=== PATIENT | male | born 1955 | race Caucasian/White ===

== ENCOUNTER → 2018-02-03 09:30 | Day surgery (SDC) | payer OTHER, SELFPAY ==
[2018-01-26 14:57] LABS: Hematocrit 37.4 % (40-54); Hemoglobin 12.2 g/dl (13.0-16.5); Mean Corp Hgb Conc 32.6 g/gl (32-36); Mean Corpuscular Volume 95.2 fL (80-94); Mean Platelet Vol. 10.6 fl (6.2-12.0); Platelet Count 234 K/mm3 (150-450); RBC Distribution Width CV 13.2 % (11.6-14.6); RBC Distribution Width SD 44.5 fl (35.1-43.9); Red Blood Count 3.93 M/mm3 (4.6-6.2); White Blood Count 7.6 K/mm3 (4.4-11.0)
[2018-01-26 14:58] LABS: Scan Indicated on CBC? Y/N NO
[2018-01-26 15:26] LABS: Anion Gap 10 (5-15); BUN 51 mg/dL (7-18); BUN/Creat Ratio 15.7 RATIO (10-20); Calcium,Total 8.7 mg/dL (8.5-10.1); Chloride 113 mmol/L (98-107); Creatinine, Serum 3.24 mg/dL (0.70-1.30); EST Glomerular Filtration Rate 21 mL/min (>60); Est Glom Filt Rate - Afr Amer 25 mL/min (>60); Glucose 88 mg/dL (74-106); Potassium 4.9 mmol/L (3.5-5.1); Sodium Level 143 mmol/L (136-145)
--- NOTE | 2018-02-03 12:04 | OP.PCM_ITS ---
Problem List (1) Problem with dialysis access Status: Acute Qualifiers: Encounter type: subsequent encounter Report of Operation Date of Procedure: 02/03/18 Pre-Operative Diagnosis: Failure to mature left forearm radiocephalic her to Post-Operative Diagnosis: Proximal venous fistula stenosis ?2 Surgery/Procedure Performed:: Carbon dioxide left upper extremity fistulogram with 6 x 80 mm ever cross angioplasty Description of Surgical Findings:: Timeout and informed consent was obtained. 62-year-old gent was taken to the specialist previous lab placed upon the table. 50 mcg of fentanyl 1 mg Versed is intravenous sedation. The left upper extremity was sterilely draped. Ultrasound was used to identify the cephalic vein in the proximal forearm close to the antecubital space. Guidance micropuncture needle was inserted retrograde with flow. Micropuncture wire was inserted. A 6 Canadian short sheath dilator was inserted. Using a 4 Canadian glide cath a 035 angled Glidewire was placed into the radial artery proximally anastomosis. I then advanced the glide cath. Using carbon dioxide 15 cc a fistulogram was obtained this demonstrated clinically significant stenosis within 2 cm of the anastomosis and then a secondary area approximately 6-8 cm from the anastomosis. A 6 x 80 mm ever cross balloon was placed so was just to be within the arterial anastomotic area and balloon angioplasty was performed up to 8 cecilia of pressure. The balloon was repositioned several times and eventually was taken up to 14 cecilia of pressure. In the more proximal forearm I also did some balloon maturation angioplasty there as well. Finally at the completion of several insufflations replaced the glide cath I did used 2 cc only of contrast to obtain the final fistulogram now demonstrating dramatic improvement. I finished off the upper arm fistulogram with carbon dioxide. Sheath was removed U suture of 4-0 nylon was placed blood loss was minimal there are no apparent complications he was taken back to his room in satisfactory condition. Impression left forearm radiocephalic arteriovenous fistula with 2 areas of venous stenosis successfully treated with balloon angioplasty. There is good forearm upper arm and central venous outflow of cephalic and basilic veins. Derrek Posadas M.D., F.A.C.S. Type of Anesthesia:: IV Sedation
== END ==
LOC: CLSP 03-07 12:01
PROVIDERS: Family Provider Preventive Medicine Occupational Medicine; PCP Preventive Medicine Occupational Medicine; Visit Provider Surgery
DX: T82.898D Other specified complication of vascular prosthetic devices, implants and grafts, subsequent encounter (principal); I87.1 Compression of vein; N25.81 Secondary hyperparathyroidism of renal origin; I12.0 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 kidney disease or end stage renal disease; E11.22 Type 2 diabetes mellitus with diabetic chronic kidney disease; N18.5 Chronic kidney disease, stage 5; Z87.891 Personal history of nicotine dependence; K21.9 Gastro-esophageal reflux disease without esophagitis; Z85.89 Personal history of malignant neoplasm of other organs and systems
CPT/HCPCS: 36415; 36902; 76937; 80048; 85027; 99152; 99153; Q9967; C1725; C1769

== ENCOUNTER 2019-02-04 12:34 | Outpatient (RCR) | payer OTHER, SELFPAY ==
[2019-02-04 14:16] LABS: Absolute Lymphocyte Count 1.06 X10^3/ul (0.83-4.51); Absolute Neutrophil Count 4.7 X10^3/uL (2.0-7.7); Basophil# 0.04 X10^3/uL; Basophil% 0.6 % (0-1); Eosinophil# 0.13 X10^3/uL; Hematocrit 38.4 % (40-54); Hemoglobin 12.5 g/dl (13.0-16.5); Lymphocyte # 1.06 X10^3/ul (4.0); Lymphocyte % 16.6 % (19-41); Mean Corp Hgb Conc 32.6 g/gl (32-36); Mean Corpuscular Hgb 30.9 pg (27.0-32.0); Mean Corpuscular Volume 94.8 fL (80-94); Mean Platelet Vol. 10.5 fl (6.2-12.0); Monocyte# 0.43 X10^3/uL; Monocyte% 6.7 % (0-10); Neutrophil # 4.71 X10^3/uL (2.7-7.7); Neutrophil % 73.9 % (47-70); Platelet Count 261 K/mm3 (150-450); RBC Distribution Width CV 13.2 % (11.6-14.6); RBC Distribution Width SD 45.8 fl (35.1-43.9); Red Blood Count 4.05 M/mm3 (4.6-6.2); White Blood Count 6.4 K/mm3 (4.4-11.0)
[2019-02-04 14:17] LABS: POSITIVE COUNT NO; POSITIVE DIFFERENTIAL NO; POSITIVE MORPHOLOGY NO
[2019-02-04 14:31] LABS: Hemoglobin A1c 5.5 % (4.2-6.3); Vitamin B12 845 pg/mL (211-911); Vitamin D,25 Hydroxy 26.3 ng/mL (29.95-100.01)
[2019-02-04 14:32] LABS: PTHIN 234.8 pg/mL (18.4-80.1)
[2019-02-04 14:41] LABS: AST(SGOT) 23 U/L (15-37); Alanine Aminotransfer ALT/SGPT 34 U/L (16-61); Alkaline Phosphatase 85 U/L (45-117); Anion Gap 7 (5-15); BUN 43 mg/dL (7-18); BUN/Creat Ratio 14.3 RATIO (10-20); Calcium,Total 8.7 mg/dL (8.5-10.1); Chloride 115 mmol/L (98-107); Creatinine, Serum 3.01 mg/dL (0.70-1.30); EST Glomerular Filtration Rate 22 mL/min (>60); Est Glom Filt Rate - Afr Amer 27 mL/min (>60); Globulin 4.1 g/dL (2.2-4.2); Glucose 74 mg/dL (74-106); PSA,Total - Annual Screen 1.65 ng/mL (0.00-4.00); Potassium 4.3 mmol/L (3.5-5.1); Protein, Total 8.1 g/dL (6.4-8.2); Sodium Level 142 mmol/L (136-145); Thyroid Stim Hormone (TSH) 0.41 uIU/mL (0.358-3.74)
[2019-02-04 15:29] LABS: Microalbumin:Creatinine Ratio 618.3 mg/g CRE (<30 mg/g CRE)
== END 2019-02-15 16:00 | disposition home or self-care (01) ==
LOC: MTLAB 12:34
PROVIDERS: Family Provider Family Medicine; PCP Family Medicine
DX: E55.9 Vitamin D deficiency, unspecified (principal); E78.1 Pure hyperglyceridemia; I12.9 Hypertensive chronic kidney disease with stage 1 through stage 4 chronic kidney disease, or unspecified chronic kidney disease; N18.4 Chronic kidney disease, stage 4 (severe); Z12.5 Encounter for screening for malignant neoplasm of prostate; G62.9 Polyneuropathy, unspecified; E11.9 Type 2 diabetes mellitus without complications
CPT/HCPCS: 80053; 82043; 82306; 82570; 82607; 83036; 83970; 84153; 84443; 85025; G0103

== ENCOUNTER → 2019-03-04 11:17 | Outpatient (CLI) | payer OTHER, SELFPAY | PROVIDERS: Family Provider Family Medicine; PCP Family Medicine | DX: Z01.818 Encounter for other preprocedural examination (principal) | CPT/HCPCS: 36415 ==

== ENCOUNTER → 2019-03-07 09:16 | Outpatient (CLI) | payer OTHER, SELFPAY ==
[2019-03-07 11:08] LABS: Cholesterol 151 mg/dL (200); Ferritin 74 ng/mL (26-388); High Density Lipoprotein 33 mg/dL; Iron 91 ug/dL (65-175); Iron Binding Capacity,Total 337 ug/dL (250-450); Triglycerides 162 mg/dL; Very Low Density Lipoprotein 32 mg/dL (5-40)
== END ==
LOC: MFPLAB 09:16
PROVIDERS: Family Provider Family Medicine; PCP Family Medicine; Visit Provider Family Medicine
DX: E78.1 Pure hyperglyceridemia (principal); D64.9 Anemia, unspecified
CPT/HCPCS: 36415; 80061; 82728; 82746; 83540; 83550

== ENCOUNTER → 2019-04-22 13:11 | Outpatient (CLI) | payer OTHER, SELFPAY | PROVIDERS: Family Provider Family Medicine; PCP Family Medicine | DX: Z76.82 Awaiting organ transplant status (principal) | CPT/HCPCS: 36415 ==

== ENCOUNTER → 2019-05-23 09:08 | Outpatient (CLI) | payer OTHER, SELFPAY ==
[2019-05-23 10:31] LABS: Hemoglobin 11.9 g/dL (13.0-16.5); Mean Corp Hgb Conc 31.3 g/dL (32-36); Mean Corpuscular Hgb 30.1 pg (27.0-32.0); Mean Corpuscular Volume 96.2 fL (80-94); Mean Platelet Vol. 10.9 fl (6.2-12.0); Platelet Count 205 K/mm3 (150-450); RBC Distribution Width CV 13.6 % (11.6-14.6); RBC Distribution Width SD 47.8 fl (35.1-43.9); Red Blood Count 3.95 M/mm3 (4.6-6.2); White Blood Count 7.6 K/mm3 (4.4-11.0)
[2019-05-23 11:08] LABS: PTHIN 164.8 pg/mL (18.4-80.1)
[2019-05-23 11:16] LABS: Albumin, Serum 3.9 g/dL (3.2-5.0); BUN 59 mg/dL (7-18); BUN/Creat Ratio 16.7 RATIO (10-20); Calcium,Total 9.1 mg/dL (8.5-10.1); Chloride 113 mmol/L (98-107); Creatinine, Serum 3.54 mg/dL (0.70-1.30); EST Glomerular Filtration Rate 19 mL/min (>60); Est Glom Filt Rate - Afr Amer 23 mL/min (>60); Glucose 146 mg/dL (74-106); Phosphorus 2.9 mg/dL (2.5-4.9); Potassium 4.6 mmol/L (3.5-5.1); Sodium Level 142 mmol/L (136-145)
== END ==
LOC: MFPLAB 09:08
PROVIDERS: Family Provider Family Medicine; PCP Family Medicine; Visit Provider Internal Medicine Nephrology
DX: N18.5 Chronic kidney disease, stage 5 (principal); N25.81 Secondary hyperparathyroidism of renal origin; D63.8 Anemia in other chronic diseases classified elsewhere
CPT/HCPCS: 36415; 80069; 83970; 85027

== ENCOUNTER → 2019-06-09 10:38 | Outpatient (CLI) | payer OTHER, SELFPAY ==
[2019-06-09 12:43] LABS: Cholesterol 92 mg/dL (200); High Density Lipoprotein 33 mg/dL; Triglycerides 111 mg/dL; Very Low Density Lipoprotein 22 mg/dL (5-40)
[2019-06-09 12:46] LABS: Hemoglobin A1c 5.8 % (4.2-6.3)
[2019-06-09 12:53] LABS: Vitamin D,25 Hydroxy 26.1 ng/mL (29.95-100.01)
== END ==
PROVIDERS: Family Provider Family Medicine; PCP Family Medicine; Referring Provider Family Medicine; Visit Provider Family Medicine
DX: E55.9 Vitamin D deficiency, unspecified (principal); E78.1 Pure hyperglyceridemia; E11.9 Type 2 diabetes mellitus without complications
CPT/HCPCS: 36415; 80061; 82306; 83036

== ENCOUNTER → 2019-07-06 13:49 | Outpatient (CLI) | payer OTHER, SELFPAY | PROVIDERS: Family Provider Family Medicine; PCP Family Medicine; Referring Provider Family Medicine | DX: Z52.9 Donor of unspecified organ or tissue (principal) | CPT/HCPCS: 36415 ==

== ENCOUNTER → 2019-08-08 11:43 | Outpatient (CLI) | payer OTHER, SELFPAY | PROVIDERS: Family Provider Family Medicine; PCP Family Medicine; Referring Provider Family Medicine | DX: Z52.9 Donor of unspecified organ or tissue (principal) | CPT/HCPCS: 36415 ==

== ENCOUNTER → 2019-08-22 12:14 | Outpatient (CLI) | payer OTHER, SELFPAY ==
[2019-08-22 14:11] LABS: Hematocrit 36.5 % (40-54); Hemoglobin 11.2 g/dL (13.0-16.5); Mean Corp Hgb Conc 30.7 g/dL (32-36); Mean Corpuscular Hgb 30.4 pg (27.0-32.0); Mean Corpuscular Volume 98.9 fL (80-94); Mean Platelet Vol. 10.6 fl (6.2-12.0); Platelet Count 197 K/mm3 (150-450); RBC Distribution Width CV 13.1 % (11.6-14.6); RBC Distribution Width SD 46.5 fl (35.1-43.9); Red Blood Count 3.69 M/mm3 (4.6-6.2); White Blood Count 6.4 K/mm3 (4.4-11.0)
[2019-08-22 14:38] LABS: Albumin, Serum 3.4 g/dL (3.2-5.0); BUN 40 mg/dL (7-18); Calcium,Total 8.3 mg/dL (8.5-10.1); Chloride 111 mmol/L (98-107); Creatinine, Serum 2.86 mg/dL (0.70-1.30); EST Glomerular Filtration Rate 24 mL/min (>60); Est Glom Filt Rate - Afr Amer 29 mL/min (>60); Glucose 120 mg/dL (74-106); Phosphorus 3.3 mg/dL (2.5-4.9); Potassium 5.1 mmol/L (3.5-5.1); Sodium Level 140 mmol/L (136-145)
== END ==
LOC: LAB.FUTURE 12:14
PROVIDERS: Family Provider Family Medicine; PCP Family Medicine; Visit Provider Internal Medicine Nephrology
DX: E78.1 Pure hyperglyceridemia (principal); E55.9 Vitamin D deficiency, unspecified; I10 Essential (primary) hypertension; G62.9 Polyneuropathy, unspecified; E11.9 Type 2 diabetes mellitus without complications
CPT/HCPCS: 36415; 80069; 83970; 85027

== ENCOUNTER → 2019-09-09 10:55 | Outpatient (CLI) | payer OTHER, SELFPAY ==
[2019-09-09 12:29] LABS: Cholesterol 129 mg/dL (200); High Density Lipoprotein 28 mg/dL; Triglycerides 128 mg/dL; Very Low Density Lipoprotein 26 mg/dL (5-40)
[2019-09-09 12:31] LABS: Hemoglobin A1c 5.5 % (4.2-6.3)
== END ==
PROVIDERS: Family Provider Family Medicine; PCP Family Medicine; Referring Provider Family Medicine; Visit Provider Family Medicine
DX: E55.9 Vitamin D deficiency, unspecified (principal); E11.9 Type 2 diabetes mellitus without complications; E78.1 Pure hyperglyceridemia
CPT/HCPCS: 36415; 80061; 82306; 83036

== ENCOUNTER → 2019-10-06 09:44 | Outpatient (CLI) | payer OTHER, SELFPAY | PROVIDERS: Family Provider Family Medicine; PCP Family Medicine; Referring Provider Family Medicine | DX: Z76.82 Awaiting organ transplant status (principal) | CPT/HCPCS: 36415 ==

== ENCOUNTER → 2019-11-01 14:38 | Outpatient (CLI) | payer OTHER, SELFPAY ==
[2019-11-01 18:06] LABS: Hematocrit 31.9 % (40-54); Mean Corp Hgb Conc 31.3 g/dL (32-36); Mean Corpuscular Hgb 30.2 pg (27.0-32.0); Mean Corpuscular Volume 96.4 fL (80-94); Mean Platelet Vol. 10.4 fl (6.2-12.0); Platelet Count 234 K/mm3 (150-450); RBC Distribution Width CV 13.2 % (11.6-14.6); RBC Distribution Width SD 47.2 fl (35.1-43.9); Red Blood Count 3.31 M/mm3 (4.6-6.2); White Blood Count 8.2 K/mm3 (4.4-11.0)
[2019-11-01 18:31] LABS: Albumin, Serum 3.2 g/dL (3.2-5.0); BUN 69 mg/dL (7-18); BUN/Creat Ratio 12.9 RATIO (10-20); Calcium,Total 8.3 mg/dL (8.5-10.1); Chloride 115 mmol/L (98-107); Creatinine, Serum 5.33 mg/dL (0.70-1.30); EST Glomerular Filtration Rate 12 mL/min (>60); Est Glom Filt Rate - Afr Amer 14 mL/min (>60); Glucose 111 mg/dL (74-106); Phosphorus 5.2 mg/dL (2.5-4.9); Sodium Level 138 mmol/L (136-145)
[2019-11-01 19:02] LABS: 24 Hour Urine Protein 1077.3 mg/24HR (<150 MG/24HR); 24HR. UA Prot. Total Volume 1900 mL; Creat.Clear Total Volume 1900 mL; Creatinine Clearance 17 ml/min (100-200); Creatinine Serum Creat 5.3 mg/dL (0.8-1.3); Creatinine Urine 67.4 mg/dL (NO RANGE EST.); EST Glomerular Filtration Rate 12 mL/min (>60); Est Glom Filt Rate - Afr Amer 14 mL/min (>60); Urine Protein (24 Hour) 56.7 mg/dL (<11.9)
== END ==
LOC: MFPLAB 14:39
PROVIDERS: Family Provider Family Medicine; PCP Family Medicine; Referring Provider Family Medicine; Visit Provider Internal Medicine Nephrology
DX: N18.5 Chronic kidney disease, stage 5 (principal); D63.8 Anemia in other chronic diseases classified elsewhere; N25.81 Secondary hyperparathyroidism of renal origin
CPT/HCPCS: 36415; 80069; 81050; 82575; 83970; 84156; 85027

== ENCOUNTER → 2019-11-07 14:17 | Outpatient (CLI) | payer OTHER, SELFPAY | PROVIDERS: PCP Family Medicine | DX: Z76.82 Awaiting organ transplant status (principal) | CPT/HCPCS: 36415 ==

== ENCOUNTER → 2019-11-08 10:08 | Outpatient (CLI) | payer OTHER, SELFPAY ==
[2019-11-08 12:57] LABS: Albumin, Serum 3.7 g/dL (3.2-5.0); BUN 87 mg/dL (7-18); BUN/Creat Ratio 15.4 RATIO (10-20); Calcium,Total 8.4 mg/dL (8.5-10.1); Chloride 113 mmol/L (98-107); Creatinine, Serum 5.65 mg/dL (0.70-1.30); EST Glomerular Filtration Rate 11 mL/min (>60); Est Glom Filt Rate - Afr Amer 13 mL/min (>60); Glucose 97 mg/dL (74-106); Phosphorus 6.4 mg/dL (2.5-4.9); Potassium 5.6 mmol/L (3.5-5.1); Sodium Level 138 mmol/L (136-145)
== END ==
PROVIDERS: PCP Family Medicine; Visit Provider Internal Medicine Nephrology
DX: N18.5 Chronic kidney disease, stage 5 (principal)
CPT/HCPCS: 36415; 80069

== ENCOUNTER → 2019-11-10 13:18 | Outpatient (CLI) | payer OTHER, SELFPAY ==
[2019-11-11 08:51] LABS: Hepatitis B Surface Antigen Non-Reactive (Nonreactive)
== END ==
PROVIDERS: PCP Family Medicine; Referring Provider Internal Medicine Nephrology; Visit Provider Internal Medicine Nephrology
DX: N18.6 End stage renal disease (principal)
CPT/HCPCS: 36415; 87340

== ENCOUNTER → 2019-11-26 10:44 | Outpatient (CLI) | payer OTHER, SELFPAY | PROVIDERS: PCP Family Medicine; Referring Provider Internal Medicine Nephrology; Visit Provider Internal Medicine Nephrology | DX: N18.6 End stage renal disease (principal) | CPT/HCPCS: 36415; 82374 ==

== ENCOUNTER → 2020-01-18 08:12 | Outpatient (CLI) | payer OTHER, SELFPAY ==
[2020-01-18 10:25] LABS: ALB/GLOB Ratio 0.7 RATIO (0.9-2.4); AST(SGOT) 27 U/L (15-37); Alanine Aminotransfer ALT/SGPT 49 U/L (16-61); Albumin, Serum 3.6 g/dL (3.2-5.0); Alkaline Phosphatase 112 U/L (45-117); Anion Gap 9 (5-15); BUN 41 mg/dL (7-18); BUN/Creat Ratio 6.9 RATIO (10-20); Calcium,Total 8.9 mg/dL (8.5-10.1); Chloride 92 mmol/L (98-107); Cholesterol 166 mg/dL (200); Creatinine, Serum 5.97 mg/dL (0.70-1.30); EST Glomerular Filtration Rate 10 mL/min (>60); Est Glom Filt Rate - Afr Amer 12 mL/min (>60); Glucose 104 mg/dL (74-106); High Density Lipoprotein 42 mg/dL; Potassium 4.3 mmol/L (3.5-5.1); Protein, Total 8.6 g/dL (6.4-8.2); Sodium Level 135 mmol/L (136-145); Triglycerides 123 mg/dL; Very Low Density Lipoprotein 25 mg/dL (5-40); Vitamin D,25 Hydroxy 42.9 ng/mL
[2020-01-18 11:40] LABS: Hemoglobin A1c 5.2 % (4.2-6.3)
== END ==
PROVIDERS: PCP Family Medicine; Referring Provider Family Medicine; Visit Provider Family Medicine
DX: E55.9 Vitamin D deficiency, unspecified (principal); E11.9 Type 2 diabetes mellitus without complications
CPT/HCPCS: 36415; 80053; 80061; 82306; 83036

== ENCOUNTER → 2020-06-27 11:39 | Outpatient (CLI) | payer MEDICARE, OTHER, SELFPAY ==
[2020-06-27 05:46] VITALS: BMI 31.3
[2020-06-27 15:40] LABS: Cholesterol 170 mg/dL (200); High Density Lipoprotein 38 mg/dL; Triglycerides 192 mg/dL; Very Low Density Lipoprotein 38 mg/dL (5-40)
[2020-06-27 15:44] LABS: Hemoglobin A1c 5.5 % (3.8-5.6)
== END ==
PROVIDERS: PCP Family Medicine; Referring Provider Family Medicine; Visit Provider Family Medicine
DX: E78.1 Pure hyperglyceridemia (principal); E11.9 Type 2 diabetes mellitus without complications
CPT/HCPCS: 36415; 80061; 83036

== ENCOUNTER → 2020-10-26 11:18 | Outpatient (CLI) | payer MEDICARE, OTHER, SELFPAY ==
[2020-10-17 13:35] VITALS: BMI 31.0
[2020-10-26 15:45] LABS: Absolute Lymphocyte Count 0.88 X10^3/uL (0.83-4.51); Absolute Neutrophil Count 4.5 X10^3/uL (2.0-7.7); Basophil# 0.04 X10^3/uL; Basophil% 0.6 % (0-1); Eosinophil# 0.28 X10^3/uL; Eosinophils% 4.5 % (0-5); Hematocrit 34.7 % (40-54); Lymphocyte # 0.88 X10^3/ul (4.0); Lymphocyte % 14.1 % (19-41); Mean Corp Hgb Conc 31.7 g/dL (32-36); Mean Corpuscular Hgb 31.8 pg (27.0-32.0); Mean Corpuscular Volume 100.3 fL (80-94); Mean Platelet Vol. 10.3 fl (6.2-12.0); Monocyte# 0.51 X10^3/uL; Monocyte% 8.2 % (0-10); NRBC Flagged by Analyzer 0 % (0-5); Platelet Count 201 K/mm3 (150-450); RBC Distribution Width CV 13.8 % (11.6-14.6); RBC Distribution Width SD 50.3 fl (35.1-43.9); Red Blood Count 3.46 M/mm3 (4.6-6.2); White Blood Count 6.3 K/mm3 (4.4-11.0)
[2020-10-26 15:46] LABS: Hemoglobin A1c 5.6 % (3.8-5.6)
[2020-10-26 15:47] LABS: Vitamin D,25 Hydroxy 46.6 ng/mL
[2020-10-26 15:59] LABS: ALB/GLOB Ratio 0.9 RATIO (0.9-2.4); AST(SGOT) 24 U/L (15-37); Alanine Aminotransfer ALT/SGPT 56 U/L (16-61); Albumin, Serum 3.6 g/dL (3.2-5.0); Alkaline Phosphatase 112 U/L (45-117); Anion Gap 6 (5-15); BUN 34 mg/dL (7-18); BUN/Creat Ratio 6.2 RATIO (10-20); Calcium,Total 8.6 mg/dL (8.5-10.1); Chloride 102 mmol/L (98-107); Cholesterol 150 mg/dL (200); Creatinine, Serum 5.49 mg/dL (0.70-1.30); EST Glomerular Filtration Rate 11 mL/min (>60); Est Glom Filt Rate - Afr Amer 14 mL/min (>60); Globulin 4.2 g/dL (2.2-4.2); Glucose 80 mg/dL (74-106); High Density Lipoprotein 49 mg/dL; Potassium 4.7 mmol/L (3.5-5.1); Protein, Total 7.8 g/dL (6.4-8.2); Sodium Level 137 mmol/L (136-145); Triglycerides 87 mg/dL; Very Low Density Lipoprotein 17 mg/dL (5-40)
[2020-10-27 12:36] LABS: PTHIN 450.5 pg/mL (18.4-80.1)
== END ==
PROVIDERS: PCP Family Medicine; Visit Provider Family Medicine
DX: E55.9 Vitamin D deficiency, unspecified (principal); E11.9 Type 2 diabetes mellitus without complications; N25.81 Secondary hyperparathyroidism of renal origin; N18.6 End stage renal disease
CPT/HCPCS: 36415; 80053; 80061; 82306; 83036; 83970; 85025

== ENCOUNTER 2020-12-17 15:36 | Outpatient (RCR) | payer MEDICARE, OTHER, SELFPAY ==
[2020-10-17 13:35] VITALS: BMI 31.0
== END 2020-12-17 23:59 ==
LOC: IMMUN 15:36
PROVIDERS: PCP Family Medicine; Referring Provider Family Medicine; Visit Provider Family Medicine
DX: Z23 Encounter for immunization (principal)
CPT/HCPCS: 0011A; 0012A

== ENCOUNTER → 2021-02-13 11:11 | Outpatient (CLI) | payer MEDICARE, OTHER, SELFPAY ==
[2020-10-17 13:35] VITALS: BMI 31.0
[2021-02-13 12:08] LABS: Absolute Lymphocyte Count 0.65 X10^3/uL (0.83-4.51); Absolute Neutrophil Count 4.1 X10^3/uL (2.0-7.7); Basophil# 0.04 X10^3/uL; Basophil% 0.8 % (0-1); Eosinophil# 0.12 X10^3/uL; Eosinophils% 2.3 % (0-5); Hematocrit 34.9 % (40-54); Hemoglobin 11.2 g/dL (13.0-16.5); Lymphocyte # 0.65 X10^3/ul (0.83-4.51); Lymphocyte % 12.2 % (19-41); Mean Corp Hgb Conc 32.1 g/dL (32-36); Mean Corpuscular Hgb 32.8 pg (27.0-32.0); Mean Corpuscular Volume 102.3 fL (80-94); Mean Platelet Vol. 10.3 fl (6.2-12.0); Monocyte# 0.41 X10^3/uL; Monocyte% 7.7 % (0-10); NRBC Flagged by Analyzer 0 % (0-5); Neutrophil # 4.09 X10^3/uL (2.7-7.7); Neutrophil % 76.6 % (47-70); Platelet Count 193 K/mm3 (150-450); RBC Distribution Width CV 13.6 % (11.6-14.6); RBC Distribution Width SD 51.4 fl (35.1-43.9); Red Blood Count 3.41 M/mm3 (4.6-6.2); White Blood Count 5.3 K/mm3 (4.4-11.0)
[2021-02-13 12:50] LABS: Vitamin D,25 Hydroxy 53.4 ng/mL
[2021-02-13 12:57] LABS: ALB/GLOB Ratio 0.8 RATIO (0.9-2.4); AST(SGOT) 29 U/L (15-37); Alanine Aminotransfer ALT/SGPT 52 U/L (16-61); Albumin, Serum 3.6 g/dL (3.2-5.0); Alkaline Phosphatase 92 U/L (45-117); Anion Gap 9 (5-15); BUN 42 mg/dL (7-18); BUN/Creat Ratio 6.6 RATIO (10-20); Chloride 97 mmol/L (98-107); Cholesterol 155 mg/dL (200); Creatinine, Serum 6.33 mg/dL (0.70-1.30); EST Glomerular Filtration Rate 10 mL/min (>60); Est Glom Filt Rate - Afr Amer 11 mL/min (>60); Globulin 4.3 g/dL (2.2-4.2); Glucose 137 mg/dL (74-106); High Density Lipoprotein 43 mg/dL; Potassium 4.1 mmol/L (3.5-5.1); Protein, Total 7.9 g/dL (6.4-8.2); Sodium Level 137 mmol/L (136-145); Thyroid Stim Hormone (TSH) 1.49 uIU/mL (0.358-3.74); Triglycerides 156 mg/dL; Very Low Density Lipoprotein 31 mg/dL (5-40)
== END ==
PROVIDERS: PCP Family Medicine; Referring Provider Family Medicine; Visit Provider Family Medicine
DX: E55.9 Vitamin D deficiency, unspecified (principal); E11.9 Type 2 diabetes mellitus without complications
CPT/HCPCS: 36415; 80053; 80061; 82306; 83036; 84443; 85025

== ENCOUNTER → 2021-05-09 16:10 | Outpatient (CLI) | payer MEDICARE, OTHER, SELFPAY ==
[2021-04-17 12:54] VITALS: BMI 31.3
[2021-05-09 18:06] LABS: PSA,Total - Annual Screen 2.46 ng/mL (0.00-4.00)
== END ==
PROVIDERS: PCP Family Medicine; Referring Provider Family Medicine; Visit Provider Urology
DX: R35.1 Nocturia (principal)
CPT/HCPCS: 36415; 84153; G0103

== ENCOUNTER → 2022-02-21 | Outpatient (CLI) | payer MEDICARE, OTHER, SELFPAY ==
[2022-02-21 14:54] LABS: Absolute Lymphocyte Count 0.55 X10^3/uL (0.83-4.51); Absolute Neutrophil Count 3.6 X10^3/uL (2.0-7.7); Basophil# 0.03 X10^3/uL; Basophil% 0.6 % (0-1); Eosinophil# 0.17 X10^3/uL; Eosinophils% 3.4 % (0-5); Hematocrit 30.3 % (40-54); Hemoglobin 10.2 g/dL (13.0-16.5); Lymphocyte # 0.55 X10^3/ul (0.83-4.51); Lymphocyte % 10.9 % (19-41); Mean Corp Hgb Conc 33.7 g/dL (32-36); Mean Platelet Vol. 9.8 fl (6.2-12.0); Monocyte# 0.64 X10^3/uL; Monocyte% 12.7 % (0-10); NRBC Flagged by Analyzer 0 % (0-5); Neutrophil # 3.61 X10^3/uL (2.7-7.7); Neutrophil % 71.8 % (47-70); POSITIVE DIFFERENTIAL YES; Platelet Count 208 K/mm3 (150-450); RBC Distribution Width CV 13.6 % (11.6-14.6); RBC Distribution Width SD 50.3 fl (35.1-43.9)
[2022-02-21 15:01] LABS: Differential Indicated SCAN CRITERIA MET
[2022-02-21 15:36] LABS: ALB/GLOB Ratio 0.8 RATIO (0.9-2.4); AST(SGOT) 32 U/L (15-37); Alanine Aminotransfer ALT/SGPT 60 U/L (16-61); Albumin, Serum 3.4 g/dL (3.2-5.0); Alkaline Phosphatase 55 U/L (45-117); Anion Gap 10 (5-15); BUN 65 mg/dL (7-18); Calcium,Total 8.8 mg/dL (8.5-10.1); Chloride 100 mmol/L (98-107); Cholesterol 147 mg/dL (200); Creatinine, Serum 7.24 mg/dL (0.70-1.30); EST Glomerular Filtration Rate 8 mL/min (>60); Est Glom Filt Rate - Afr Amer 10 mL/min (>60); Globulin 4.5 g/dL (2.2-4.2); Glucose 91 mg/dL (74-106); High Density Lipoprotein 41 mg/dL; Platelet Estimate ADEQUATE (ADEQ); Potassium 4.5 mmol/L (3.5-5.1); Protein, Total 7.9 g/dL (6.4-8.2); Sodium Level 139 mmol/L (136-145); Thyroid Stim Hormone (TSH) 1.13 uIU/mL (0.358-3.74); Triglycerides 164 mg/dL; Very Low Density Lipoprotein 33 mg/dL (5-40)
[2022-02-21 15:37] LABS: Red Cell Morphology NORM C+C NORMAL (NORM C&C)
[2022-02-24 07:52] LABS: PTHIN 168.4 pg/mL (18.4-80.1)
[2022-02-25 15:34] LABS: Vitamin D 1,25-Dihydroxy 24.7 pg/mL (19.9-79.3)
== END | disposition home or self-care (01) ==
LOC: MFPLAB 13:52
PROVIDERS: PCP Family Medicine; Referring Provider Family Medicine; Visit Provider Family Medicine
DX: N18.6 End stage renal disease (principal); N25.81 Secondary hyperparathyroidism of renal origin; E55.9 Vitamin D deficiency, unspecified; I10 Essential (primary) hypertension
CPT/HCPCS: 36415; 80053; 80061; 82306; 82652; 83970; 84443; 85025

== ENCOUNTER → 2022-02-28 | Outpatient (CLI) | payer MEDICARE, OTHER, SELFPAY ==
--- NOTE | 2022-02-28 13:57 | CT_ITS ---
STUDY: CT Chest W/O Contrast Injection 02/28/2022 5:13 PM REASON FOR EXAM: Male, 66 years old. PULM NODULE Individualized dose optimization techniques were used for this CT. TECHNIQUE: Transaxial imaging was performed withoutIV contrast material. COMPARISON: None. FINDINGS: There are degenerative changes of the shoulders. There is no pneumothorax. There is no demonstrated pleural abnormality. Series 4 image 35. 6 mm nodule in the right upper lobe. There are calcifications of the coronary arteries. Normal mediastinum. Normal hilar regions. Normal pulmonary arteries. There is atherosclerotic calcification of the aortic arch with tortuosity and elongation of the aortic arch and descending thoracic aorta. There are multi-level degenerative changes of the thoracic spine. There is a partially visualized calcification of the superior right kidney. CT/Chest without Contrast IMPRESSION: Solitary right upper lobe pulmonary nodule. ACR Lung CT Screening Reporting T Data System (Lung-RADS) score: 3 - Probably Benign. Recommend low-dose CT (LDCT) in 6 months. There is a partially visualized calcification of the superior right kidney. Electronically Signed: Howard Martin MD at 17:22 EDT Reading Location ID and State: [facility] / [place] , Service support ,
== END | disposition home or self-care (01) ==
LOC: CT 13:48
PROVIDERS: PCP Family Medicine; Visit Provider Family Medicine
DX: R91.1 Solitary pulmonary nodule (principal)
CPT/HCPCS: 71250

== ENCOUNTER → 2022-07-09 | Outpatient (CLI) | payer MEDICARE, OTHER, SELFPAY ==
--- NOTE | 2022-07-09 | ASPOS_PTH ---
PATIENT: JERILYN KERR LOC: [facility] U#:[id number] AGE/SX: 66/M ROOM: RE07/09/[address]: Dr. Oscar Chappell MD : 1955 BED: DIS: 07/09/2022 SPEC #: [id number] RECD: 07/09/22 10:00 STATUS: MALU HUFFMAN #: [id number] VINCENZO: 07/09/22 00:[address]: Oscar Chappell DEPT: CYTOLOGY RECD BY: Ricky Wilson ENTERED: 07/09/22 11:17 SP TYPE: ASP HERE OTHR DR: Dr. Ventura Nick MD Tissues: Neck, NOS Procedures: Surgery Specimen Level IV Cytology Other Fine Needle Asp on Site HEADER OPERATION: Fine needle aspiration, right neck mass PRE-OP DIAGNOSIS: Right neck mass TISSUE SUBMITTED: Right neck mass DIAGNOSIS CYTOLOGY Right neck mass, fine needle aspiration (smears and cell block): Negative for malignant cells. See comment. SJ:swathi 07/10/2022 COMMENT The specimen is evaluated at the time of FNA by Dr. Paula. Immediate Evaluation = Negative for malignant cells. The smears entirely consists of skeletal muscle tissue. Cell block is acellular. Correlation with clinical findings and appropriate follow up are necessary. This case has been reviewed in consultation with Dr. Paula who concurs with the above diagnosis. CYTOLOGY STUDY Slides are reviewed. CYTOLOGY GROSS Received is 0.2 ml of clear material labeled with the patient's name, and designated right neck mass. Two imprints are made from the submitted fluid and the rest is added to CytoLyt for cell block preparation. Submitted for cytology study. / AM:swathi 07/09/2022 TC: 5 CPT: 24292, 38073, 00269, 63687
== END | disposition home or self-care (01) ==
LOC: LAB 09:13
PROVIDERS: PCP Family Medicine; Visit Provider Otolaryngology Otolaryngology/Facial Plastic Surgery
DX: R22.0 Localized swelling, mass and lump, head (principal)
CPT/HCPCS: 10021; 88161; 88305

== ENCOUNTER 2022-08-19 06:15 | Emergency (ER) | payer MEDICARE, OTHER, SELFPAY ==
[2022-08-19 06:15] VITALS: BP 132/58; PULSE 80; RESP 16; TEMP 35.7; O2SAT 97
[2022-08-19 06:16] VITALS: BP 132/58; PULSE 80; RESP 16; TEMP 35.7; O2SAT 97; BMI 29.7
--- NOTE | 2022-08-19 06:32 | CT_ITS ---
EXAM: CT abdomen and pelvis without contrast HISTORY: flank pain TECHNIQUE: No intravenous contrast. A radiation dose optimization technique was used for this scan. COMPARISON: None. LIMITATIONS: None. LOWER CHEST: Normal. LIVER: Calcified granuloma. GALLBLADDER: Normal. BILE DUCTS: Normal. PANCREAS: Several punctate calcifications. No pseudocyst. SPLEEN: Normal. ADRENAL GLANDS: Normal. KIDNEYS/URETERS/BLADDER: Multiple large renal stones in the kidneys bilaterally, nearly staghorn in the right kidney. Larger stones measure 2.8 x 1.4 cm. The stones are predominantly within the calyces although stones in the renal pelves are present bilaterally. No hydronephrosis. A 3 mm stone is in the mid left ureter. No hydroureter proximal to the ureteral stone. The distal ureters are obscured by streak artifact from the bilateral hip prostheses. AORTA: Normal caliber. BOWEL/MESENTERY: Diverticula are without evidence of diverticulitis. No small bowel obstruction. APPENDIX: Normal. PERITONEUM: Normal. REPRODUCTIVE ORGANS: The prostate gland is likely mildly enlarged, but is obscured by streak artifact. BONES/SOFT TISSUES: Bilateral hip prostheses. Postsurgical changes in the lumbosacral spine. OTHER: None. CONCLUSION: Multiple large nonobstructing renal stones bilaterally. A 3 mm stone is in the mid left ureter. No hydronephrosis and no hydroureter bilaterally. Electronically Signed: Joaquin Mckeon MD at 7:39 EDT , CT/Abdomen/Pelvis without Cont IMPRESSION: undefined
--- NOTE | 2022-08-19 06:33 | EDS_ITS ---
HPI History of Present Illness Chief Complaint: Flank Pain Informant: patient Narrative Narrative: 67-year-old male on dialysis with a history of kidney stones presenting to the emergency room with left flank pain. Symptoms have been present intermittently for the past couple days. He thought he was passing a stone as he still makes some urine but it keeps returning. He denies any fever or bowel changes. He notes that he receives dialysis on Thursday. Pain is sharp and stabbing. It is not worse with movement but it is worse with touch. [facility] Medical History Benign prostatic hyperplasia Carpal tunnel syndrome of left wrist Chronic kidney disease Chronic renal failure, stage 4 (severe) Diabetic neuropathy GERD (gastroesophageal reflux disease) History of alcoholism history of calcus of kidney Hyperparathyroidism due to renal insufficiency Hypertensive disorder Insomnia Malignant tumor of parotid gland Presence of surgically created arteriovenous shunt for hemodialysis Problem with dialysis access Type 2 diabetes mellitus Home Medications lansoprazole 30 mg capsule,delayed release (Prevacid) 30 mg PO QDAY PRN Indigestion 10/09/17 [History Last Taken 11/05/17 07:00] losartan 25 mg tablet 25 mg PO DAILY 10/29/17 [History Last Taken Unknown] calcitriol 0.25 mcg capsule 0.75 mcg PO .LAKESHIA MATHEW,SAT 10/17/20 [History Last Taken Unknown] cholecalciferol (vitamin D3) 25 mcg (1,000 unit) capsule 25 mcg PO DAILY 10/17/20 [History Last Taken Unknown] cinacalcet 30 mg tablet (Sensipar) 30 mg PO .LAKESHIA LEBLANC,SAT 10/17/20 [History Last Taken Unknown] gabapentin 800 mg tablet 800 mg PO DAILY 10/17/20 [History Last Taken Unknown] calcium acetate 667 mg tablet 667 mg PO TID 04/17/21 [History Last Taken Unknown] vitamin B complex-vitamin C-folic acid 0.8 mg tablet (Nephro-Kojo) 1 tab PO DAILY 04/17/21 [History Last Taken Unknown] vitamin B complex-vitamin C-folic acid 0.8 mg tablet (Nephro-Kojo) 0.8 tab PO DAILY 08/19/22 [History Last Taken Unknown] Allergy/AdvReac Type Severity Reaction Status Date / Time bee venom protein (honey bee) Allergy Severe anaphlaxis Verified 04/17/21 12:52 liraglutide [From Victoza] AdvReac unknown Verified 04/17/21 12:52 Family History Father Arthritis Brother Arthritis Surgical History history fistulogram History of bilateral hip replacements History of parotidectomy History of spinal fusion Surgically constructed arteriovenous fistula Social History Smoking Status: Former smoker alcohol intake: former substance use type: does not use ROS ROS ED Constitutional Constitutional ED: Denies chills, fever(s) or weight loss Eyes Eyes: Denies change in vision or diplopia ENT ENT ED: Denies ear pain, rhinorrhea or sore throat Cardiovascular Cardiovascular: Denies chest pain, orthopnea, palpitations or racing heartbeat Respiratory/Chest Respiratory/Chest: Denies cough, dyspnea or orthopnea Gastrointestinal Gastrointestinal: Reports abdominal pain; Denies diarrhea, nausea or vomiting Genitourinary Genitourinary ED: Denies dysuria, hematuria or urinary frequency Musculoskeletal Musculoskeletal: Denies arthralgias or myalgias Integumentary Denies abscess or rash Neurologic Neurologic: Denies headache(s) or weakness Psychiatric Psychiatric: Denies anxiety, depression, suicidal ideation or suicidal thoughts Endocrine Endocrinology: Denies polydipsia, polyphagia or polyuria Allergic/Immunologic Allergic/Immunologic ED: Denies mouth swelling, tongue swelling or urticaria EXAM Physical Exam Const Vital Signs: 08/19/22 06:16 08/19/22 06:15 Temperature 96.3 F L 96.3 F L Temperature Source Temporal Temporal Pulse Rate 80 80 Respiratory Rate 16 16 Blood Pressure 132/58 H 132/58 H Blood Pressure Mean 82 82 Pulse Ox 97 97 Oxygen Delivery Method Room Air Room Air Positive well nourished and well developed General Appearance ED: well developed HEENT Reports normocephalic, head/scalp atraumatic and moist mucous membranes Eyes PERRL and EOMs intact bilaterally Neck no lymphadenopathy, supple and no JVD Resp normal respiratory effort and clear to auscultation bilaterally Cardio regular rate, regular rhythm and no murmurs GI non-distended; Negative for hepatosplenomegaly Palpation: soft and tender LUQ Back/Spine normal ROM General Back: CVA tenderness left Extremity normal to inspection General Extremety ED: Negative for edema General Extremity: Negative for edema Neuro oriented x3 and CN's II-XII intact bilaterally Sensorium / Orientation: alert Motor Exam: strength 5/5 throughout Psych mental status grossly normal Mood & Affect: Negative for depressed or tearful Skin no rashes or lesions noted and no wounds MDM MDM MDM Narrative Medical decision making narrative: Is 6. Creatinine 7.74 and is due for dialysis today his lipase is 1159 which is interesting but I cannot explain why that would be elevated at this time. He does not have epigastric pain he is not vomiting. His CT of his abdomen pelvis demonstrates a 3 mm mid ureteral stone on the left which is most likely the cause of his pain. Also noted some staghorn calculi. He sees urology with system. Patient received morphine which helped his pain. I Jeanine write him for some Percocet have him follow-up with his urologist soon as possible as far as the urine specimen he makes very little urine per day. He does not believe he can give us a specimen today Lab Data Attestation: I reviewed the patient's lab results. Labs: Laboratory Results - last 24 hr 08/19/22 08/19/22 06:50 06:50 WBC 6.0 RBC 3.31 L Hgb 11.5 L Hct 33.6 L MCV 101.5 H MCH 34.7 H MCHC 34.2 RDW Std Deviation 50.3 H RDW Coeff of Deshaun 13.3 Plt Count 203 MPV 9.5 Immature Gran % (Auto) 0.300 Neut % (Auto) 78.8 H Lymph % (Auto) 9.0 L [place] % (Auto) 8.9 Eos % (Auto) 2.2 Baso % (Auto) 0.8 Absolute Neuts (auto) 4.7 Absolute Lymphs (auto) 0.54 L Nucleated RBC % 0 Anisocytosis 1+ Sodium 137 Potassium 4.4 Chloride 101 Carbon Dioxide 28.0 Anion Gap 8 BUN 50 H Creatinine 7.74 H* Estim Creat Clear Calc 9.56 Est GFR (MDRD) Af Amer 9 L Est GFR (MDRD) Non-Af 8 L BUN/Creatinine Ratio 6.5 L Glucose 182 H Calcium 9.4 Total Bilirubin 0.40 AST 22 ALT 41 Alkaline Phosphatase 71 Total Protein 7.6 Albumin 3.4 Globulin 4.2 Albumin/Globulin Ratio 0.8 L Lipase 1159 H Radiography Diagnostic Testing: Clinical Impression(s) from Imaging Studies Abdomen/Pelvis CT 08/19/22 06:32 IMPRESSION: undefined Discharge Plan Triage Chief Complaint: Flank Pain ED Provider: Cyril Farley Dx/Rx/DC Orders Clinical Impression: Chronic renal failure, stage 4 (severe), Type 2 diabetes mellitus, Abdominal pain, Ureterolithiasis Prescriptions: No Action lansoprazole [Prevacid] 30 mg capsule,delayed release(DR/EC) 30 mg PO QDAY PRN (Reason: Indigestion) calcitriol 0.25 mcg capsule 0.75 mcg PO .LAKESHIA MATHEW,IVELISSE gabapentin 800 mg tablet 800 mg PO DAILY cinacalcet [Sensipar] 30 mg tablet 30 mg PO .LAKESHIA LEBLANC,SAT cholecalciferol (vitamin D3) 25 mcg (1,000 unit) capsule 25 mcg PO DAILY calcium acetate 667 mg tablet 667 mg PO TID Nephro-Kojo 0.8 mg tablet 1 tab PO DAILY losartan 25 MG tablet 25 mg PO DAILY Nephro-Kojo 0.8 mg tablet 0.8 tab PO DAILY Label Comments: TAKE 1 TABLET BY MOUTH EVERY DAY Primary Care Provider: Ventura Nick Referrals: Ventura Nick MD [Primary Care Provider] -
[2022-08-19 06:56] LABS: Absolute Lymphocyte Count 0.54 X10^3/uL (0.83-4.51); Absolute Neutrophil Count 4.7 X10^3/uL (2.0-7.7); Basophil# 0.05 X10^3/uL; Basophil% 0.8 % (0-1); Eosinophil# 0.13 X10^3/uL; Eosinophils% 2.2 % (0-5); Hematocrit 33.6 % (40-54); Hemoglobin 11.5 g/dL (13.0-16.5); Lymphocyte # 0.54 X10^3/ul (0.83-4.51); Mean Corp Hgb Conc 34.2 g/dL (32-36); Mean Corpuscular Hgb 34.7 pg (27.0-32.0); Mean Corpuscular Volume 101.5 fL (80-94); Mean Platelet Vol. 9.5 fl (6.2-12.0); Monocyte# 0.53 X10^3/uL; Monocyte% 8.9 % (0-10); NRBC Flagged by Analyzer 0 % (0-5); Neutrophil # 4.71 X10^3/uL (2.7-7.7); Neutrophil % 78.8 % (47-70); POSITIVE DIFFERENTIAL YES; Platelet Count 203 K/mm3 (150-450); RBC Distribution Width CV 13.3 % (11.6-14.6); RBC Distribution Width SD 50.3 fl (35.1-43.9); Red Blood Count 3.31 M/mm3 (4.6-6.2)
[2022-08-19 06:57] LABS: Differential Indicated SCAN CRITERIA MET
[2022-08-19] MEDS: Ondansetron 4 MG/2 ML Vial IV (07:15)
[2022-08-19 07:16] LABS: ALB/GLOB Ratio 0.8 RATIO (0.9-2.4); AST(SGOT) 22 U/L (15-37); Alanine Aminotransfer ALT/SGPT 41 U/L (16-61); Albumin, Serum 3.4 g/dL (3.2-5.0); Alkaline Phosphatase 71 U/L (45-117); Anion Gap 8 (5-15); BUN 50 mg/dL (7-18); BUN/Creat Ratio 6.5 RATIO (10-20); Calcium,Total 9.4 mg/dL (8.5-10.1); Chloride 101 mmol/L (98-107); Creatinine, Serum 7.74 mg/dL (0.70-1.30); EST Glomerular Filtration Rate 8 mL/min (>60); Est Glom Filt Rate - Afr Amer 9 mL/min (>60); Estimated Creatinine Clearance 9.56 ml/min; Globulin 4.2 g/dL (2.2-4.2); Glucose 182 mg/dL (74-106); Lipase 1159 U/L (73-393); Potassium 4.4 mmol/L (3.5-5.1); Protein, Total 7.6 g/dL (6.4-8.2); Sodium Level 137 mmol/L (136-145)
[2022-08-19] MEDS: Morphine 4 MG/ML Syringe IV ×2 (07:16→07:51)
[2022-08-19 07:20] LABS: Anisocytosis 1+
[2022-08-19 07:54] VITALS: BP 125/70; PULSE 75; RESP 18; O2SAT 98
[2022-08-19 08:14] VITALS: BP 135/78; PULSE 78; RESP 16; O2SAT 97
== END 2022-08-19 08:43 | disposition home or self-care (01) ==
PROVIDERS: Emergency Provider Emergency Medicine; PCP Family Medicine; Visit Provider Emergency Medicine
DX: R10.9 Unspecified abdominal pain (principal); E11.22 Type 2 diabetes mellitus with diabetic chronic kidney disease; E11.40 Type 2 diabetes mellitus with diabetic neuropathy, unspecified; N18.4 Chronic kidney disease, stage 4 (severe); I12.9 Hypertensive chronic kidney disease with stage 1 through stage 4 chronic kidney disease, or unspecified chronic kidney disease; N20.2 Calculus of kidney with calculus of ureter; Z87.891 Personal history of nicotine dependence; Z87.442 Personal history of urinary calculi
CPT/HCPCS: 74176; 80053; 83690; 85025; 99283; A4216; J2405

== ENCOUNTER → 2022-11-19 | Outpatient (CLI) | payer MEDICARE, OTHER, SELFPAY ==
[2022-11-19 14:55] LABS: Absolute Lymphocyte Count 1.27 X10^3/uL (0.83-4.51); Absolute Neutrophil Count 5.8 X10^3/uL (2.0-7.7); Basophil# 0.05 X10^3/uL; Basophil% 0.6 % (0-1); Eosinophil# 0.23 X10^3/uL; Eosinophils% 2.9 % (0-5); Hematocrit 32.3 % (40-54); Hemoglobin 10.6 g/dL (13.0-16.5); Lymphocyte # 1.27 X10^3/ul (0.83-4.51); Lymphocyte % 16.1 % (19-41); Mean Corp Hgb Conc 32.8 g/dL (32-36); Mean Corpuscular Hgb 32.5 pg (27.0-32.0); Mean Corpuscular Volume 99.1 fL (80-94); Mean Platelet Vol. 10.7 fl (6.2-12.0); Monocyte# 0.54 X10^3/uL; Monocyte% 6.8 % (0-10); NRBC Flagged by Analyzer 0 % (0-5); Neutrophil # 5.77 X10^3/uL (2.7-7.7); Platelet Count 222 K/mm3 (150-450); RBC Distribution Width CV 13.1 % (11.6-14.6); RBC Distribution Width SD 47.7 fl (35.1-43.9); Red Blood Count 3.26 M/mm3 (4.6-6.2); White Blood Count 7.9 K/mm3 (4.4-11.0)
[2022-11-19 15:40] LABS: Vitamin D,25 Hydroxy 46.6 ng/mL
[2022-11-19 15:52] LABS: PTHIN 558.1 pg/mL (18.4-80.1)
[2022-11-19 15:57] LABS: ALB/GLOB Ratio 0.8 RATIO (0.9-2.4); AST(SGOT) 35 U/L (15-37); Alanine Aminotransfer ALT/SGPT 42 U/L (16-61); Albumin, Serum 3.3 g/dL (3.2-5.0); Alkaline Phosphatase 79 U/L (45-117); Anion Gap 16 (5-15); BUN 92 mg/dL (7-18); BUN/Creat Ratio 8.6 RATIO (10-20); Calcium,Total 8.4 mg/dL (8.5-10.1); Chloride 99 mmol/L (98-107); EST Glomerular Filtration Rate 5 mL/min (>60); Est Glom Filt Rate - Afr Amer 6 mL/min (>60); Globulin 3.9 g/dL (2.2-4.2); Glucose 82 mg/dL (74-106); Protein, Total 7.2 g/dL (6.4-8.2); Sodium Level 138 mmol/L (136-145)
== END | disposition home or self-care (01) ==
LOC: MFPLAB 13:57
PROVIDERS: PCP Family Medicine; Referring Provider Family Medicine; Visit Provider Family Medicine
DX: N18.6 End stage renal disease (principal); N25.81 Secondary hyperparathyroidism of renal origin; E55.9 Vitamin D deficiency, unspecified
CPT/HCPCS: 36415; 80053; 82306; 83970; 85025

== ENCOUNTER → 2023-01-20 | Outpatient (CLI) | payer MEDICARE, OTHER, SELFPAY ==
--- NOTE | 2023-01-20 16:52 | RAD_ITS ---
STUDY: X-RAY - SACRUM/COCCYX REASON FOR EXAM: Male, 67 years old. Fall. Tailbone pain. TECHNIQUE: 3 view(s) of the sacrum and coccyx were obtained. COMPARISON: None. FINDINGS: Osteopenia. Posterior fusion from L4 to S2 with moderate to marked lumbosacral spondylosis. 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 Bilateral total hip arthroplasties. Normal visualized sacrum and coccyx. . Vascular calcification. RAD/Sacrum-Coccyx min 2 Views IMPRESSION: Osteopenia with postsurgical changes. No acute finding. Electronically Signed: Italo Yeh, at 10:49 EDT ,
--- NOTE | 2023-01-20 16:52 | RAD_ITS ---
STUDY: X-RAY - LUMBAR SPINE REASON FOR EXAM: Male, 67 years old. Fall. Pain. TECHNIQUE: 3 view(s) of the lumbar spine were obtained. COMPARISON: None FINDINGS: Osteopenia. Normal lumbar lordosis. Mild dextroscoliosis. 17 mm of anterolisthesis of L5 on S1. Diffuse lower thoracic and lumbosacral facet sclerosis. Posterior fusion from L4 to S2. Diffuse intervertebral disc space narrowing with osteophytes most marked in the lower thoracic region and L1-2, L2-3, L3-4 and L5-S1. Right total hip arthroplasty. Vascular calcifications. Calcifications projected over the right upper quadrant which may be in bowel. Gallstones cannot be excluded. RAD/Lumbar Spine 2 or 3 Views IMPRESSION: Osteopenia with dextroscoliosis and lower thoracic and lumbosacral spondylosis as described. Possible gallstones. No acute finding. Electronically Signed: Italo Yeh, at 10:48 EDT ,
== END | disposition home or self-care (01) ==
LOC: MTRAD 16:50
PROVIDERS: PCP Family Medicine; Referring Provider Family Medicine; Visit Provider Family Medicine
DX: M53.3 Sacrococcygeal disorders, not elsewhere classified (principal); W19.XXXA Unspecified fall, initial encounter
CPT/HCPCS: 72100; 72220

== ENCOUNTER → 2023-02-19 | Outpatient (CLI) | payer MEDICARE, OTHER, SELFPAY ==
--- NOTE | 2023-02-19 16:12 | RAD_ITS ---
INDICATION: Testicular pain, history of kidney stones EXAMINATION/TECHNIQUE: X-RAY - XR Abdomen 1 View COMPARISON: CT abdomen and pelvis 08/19/2022 FINDINGS: BOWEL GAS PATTERN: Non-obstructive. Significant colonic fecal retention. FREE AIR: Not assessed on a single supine view. ORGANOMEGALY: Not seen. CALCIFICATIONS: Known renal calcifications not well seen due to extensive overlying bowel gas and fecal material. Possible right-sided nephrolithiasis. LOWER CHEST: No acute pathology. BONES AND SOFT TISSUES: No acute pathology. Lumbar fusion hardware and bilateral hip prostheses. RAD/Abdomen Single View IMPRESSION: Probable right-sided nephrolithiasis. Left-sided known calculi not identifiable on present study due to overlying bowel gas. Electronically Signed: Noel Figueroa MD at 23:10 EDT ,
== END | disposition home or self-care (01) ==
PROVIDERS: PCP Family Medicine; Referring Provider Urology; Visit Provider Urology
DX: R35.1 Nocturia (principal); N20.0 Calculus of kidney; N50.811 Right testicular pain; N50.812 Left testicular pain; Z12.5 Encounter for screening for malignant neoplasm of prostate
CPT/HCPCS: 36415; 74018; 84153; G0103

== ENCOUNTER → 2023-06-17 | Outpatient (CLI) | payer MEDICARE, OTHER, SELFPAY ==
--- NOTE | 2023-06-17 14:31 | RAD_ITS ---
INDICATION: PAIN EXAMINATION/TECHNIQUE: X-RAY - XR Hips Bilateral with Pelvis when performed; 2 Views COMPARISON: None. FINDINGS: PELVIC BONES: Bilateral hip prosthesis in place. Status post posterior fusion throughout the distal lumbar spine and lumbosacral junction. Degenerative disease of bilateral SI joints. Otherwise no fracture, destructive or sclerotic lesions. Note that overlapping bowel shadows may however obscure fine detail. No widening of the pubic symphysis. HIPS: The articular structures are unremarkable. No displaced fracture seen in this frontal view. SOFT TISSUES: No soft tissue swelling or gas. RAD/HIP, UNI W/ Pelvis 2-3 Views IMPRESSION: Postoperative changes as described with no acute fracture or subluxation. Electronically Signed: Talya Frey MD at 17:01 EDT ,
[2023-06-17 17:46] LABS: Absolute Lymphocyte Count 0.81 X10^3/uL (0.83-4.51); Absolute Neutrophil Count 4.4 X10^3/uL (2.0-7.7); Basophil# 0.03 X10^3/uL; Basophil% 0.5 % (0-1); Eosinophil# 0.19 X10^3/uL; Eosinophils% 3.1 % (0-5); Hematocrit 34.4 % (40-54); Lymphocyte # 0.81 X10^3/ul (0.83-4.51); Lymphocyte % 13.4 % (19-41); Mean Corpuscular Hgb 32.1 pg (27.0-32.0); Mean Corpuscular Volume 100.3 fL (80-94); Mean Platelet Vol. 9.8 fl (6.2-12.0); Monocyte# 0.57 X10^3/uL; Monocyte% 9.4 % (0-10); NRBC Flagged by Analyzer 0 % (0-5); Neutrophil % 72.8 % (47-70); Platelet Count 248 K/mm3 (150-450); RBC Distribution Width CV 13.1 % (11.6-14.6); RBC Distribution Width SD 48.1 fl (35.1-43.9); Red Blood Count 3.43 M/mm3 (4.6-6.2); White Blood Count 6.1 K/mm3 (4.4-11.0)
[2023-06-17 18:08] LABS: Vitamin D,25 Hydroxy 56.1 ng/mL
[2023-06-17 18:37] LABS: ALB/GLOB Ratio 0.8 RATIO (0.9-2.4); AST(SGOT) 27 U/L (15-37); Alanine Aminotransfer ALT/SGPT 47 U/L (16-61); Albumin, Serum 3.4 g/dL (3.2-5.0); Alkaline Phosphatase 123 U/L (45-117); Anion Gap 9 (5-15); BUN 56 mg/dL (7-18); BUN/Creat Ratio 8.4 RATIO (10-20); Calcium,Total 8.4 mg/dL (8.5-10.1); Chloride 96 mmol/L (98-107); Cholesterol 145 mg/dL (200); Creatinine, Serum 6.63 mg/dL (0.70-1.30); EST Glomerular Filtration Rate 9 mL/min (>60); Est Glom Filt Rate - Afr Amer 11 mL/min (>60); Globulin 4.5 g/dL (2.2-4.2); Glucose 91 mg/dL (74-106); High Density Lipoprotein 43 mg/dL; Potassium 4.9 mmol/L (3.5-5.1); Protein, Total 7.9 g/dL (6.4-8.2); Sodium Level 134 mmol/L (136-145); Triglycerides 125 mg/dL; Very Low Density Lipoprotein 25 mg/dL (5-40)
== END | disposition home or self-care (01) ==
PROVIDERS: PCP Family Medicine; Referring Provider Family Medicine; Visit Provider Family Medicine
DX: M25.559 Pain in unspecified hip (principal); N18.6 End stage renal disease; F41.9 Anxiety disorder, unspecified; E55.9 Vitamin D deficiency, unspecified
CPT/HCPCS: 36415; 73502; 80053; 80061; 82306; 84443; 85025

== ENCOUNTER → 2023-07-13 | Outpatient (CLI) | payer MEDICARE, OTHER, SELFPAY ==
[2023-07-13 16:57] LABS: Amphetamine Urine VISTA NEGATIVE (<1000 ng/mL); Barbiturate Urine VISTA NEGATIVE (< 200 ng/mL); Benzodiazepine Urine VISTA NEGATIVE (< 200 ng/mL); Cocaine Urine VISTA NEGATIVE (< 300 ng/mL); Ecstacy Urine VISTA NEGATIVE (< 500 ng/mL); Methadone Urine VISTA NEGATIVE (< 300 ng/mL); PCP Urine VISTA NEGATIVE (< 25 ng/mL); THC Urine VISTA NEGATIVE (< 50 ng/mL); Vista UDS pH Range 7
== END | disposition home or self-care (01) ==
LOC: LAB 15:24
PROVIDERS: PCP Family Medicine; Referring Provider Anesthesiology Pain Medicine; Visit Provider Anesthesiology Pain Medicine
DX: F11.20 Opioid dependence, uncomplicated (principal)
CPT/HCPCS: 80307

== ENCOUNTER → 2023-08-10 | Outpatient (CLI) | payer MEDICARE, OTHER, SELFPAY ==
[2023-08-10 17:20] LABS: Amphetamine Urine VISTA NEGATIVE (<1000 ng/mL); Barbiturate Urine VISTA NEGATIVE (< 200 ng/mL); Benzodiazepine Urine VISTA NEGATIVE (< 200 ng/mL); Cocaine Urine VISTA NEGATIVE (< 300 ng/mL); Ecstacy Urine VISTA NEGATIVE (< 500 ng/mL); Methadone Urine VISTA NEGATIVE (< 300 ng/mL); PCP Urine VISTA NEGATIVE (< 25 ng/mL); THC Urine VISTA NEGATIVE (< 50 ng/mL); Vista UDS pH Range 6
== END | disposition home or self-care (01) ==
LOC: LAB 15:56
PROVIDERS: PCP Family Medicine; Referring Provider Anesthesiology Pain Medicine; Visit Provider Anesthesiology Pain Medicine
DX: F11.20 Opioid dependence, uncomplicated (principal)
CPT/HCPCS: 80307

== ENCOUNTER → 2023-11-06 | Outpatient (CLI) | payer MEDICARE, OTHER, SELFPAY ==
--- OUTSIDE RECORDS SUMMARY | 2023-11-06 16:30 | XMS RPT_ITS | CCD ---
Author Name Unknown Address [id number] [place] [address] Organization [facility] Care Team Providers Care Civil Engineering Professional Name Role Phone VERONIQUE RIOS Unavailable Unavailable SHEELA DAVEY Unavailable Unavailable VERONIQUE RIOS Unavailable Unavailable SHEELA DAVEY Unavailable Unavailable VERONIQUE RIOS Unavailable Unavailable SHEELA DAVEY Unavailable Unavailable VERONIQUE RIOS Unavailable Unavailable SHEELA DAVEY Unavailable Unavailable VERONIQUE RIOS Unavailable Unavailable SHEELA DAVEY Unavailable Unavailable ANITHA CLAROS Unavailable Unavailable ANITHA CLAROS Unavailable Unavailable SHEELA DAVEY Unavailable Unavailable Sheela Davey Unavailable Sheela Davey Primary Care Provider [phone] VERONIQUE RIOS I Attending Unavailable OMKAR HARRIS Attending Unavailable VERONIQUE RIOS I Attending Unavailable VERONIQUE RIOS I Attending Unavailable Anitha Johnson Unavailable Unavailable Unavailable Anitha Johnson MD Primary Care Provider Ortiz II, Dr. Anitha Chiang Attending Zara Ortiz II, Dr. Anitha Chiang Referring Zara Johnson, Dr. Anitha Myers Primary Care Zara Ortiz II, Dr. Anitha Chiang Admitting Anitha Morris MD Primary Care Provider Anitha Johnson MD Primary Care Provider CHRISTA PALMA Referring Unavailable ANITHA JOHNSON Primary Care UnavailANITHA [place] Primary [facility] UnavailJUAQUIN Chen Attending Unavailable ANITHA JOHNSON Primary Care UnavailSHA Anaya Attending Unavailable ANITHA JOHNSON Primary Care Unavailabl e SCHINNER, ANITHA BLUE EYE Primary Care Unavailabl e SCHINNER, ANITHA Primary Care Unavailable BETO SINGER Attending Unavailable TRITSA BOTELLO Referring Unavailable SCHINVALENCIA, ANITHA Primary Care Unavailable KENDLETON, Yosef COSTELLO Referring Unavailable BRITTA, Yosef COSTELLO Attending Unavailable ANITHA JOHNSON Primary Care Unavailable KENDLETON, Yosef COSTELLO Referring Unavailable SCHINNER, ANITHA Primary Care Unavailable BRITTA, Yosef COSTELLO Referring Unavailable SCHINNER, ANITHA Primary Care Unavailable KENDLETON, Yosef COSTELLO Referring Unavailable SCHINNER, ANITHA Primary Care Unavailable BRITTA, Yosef COSTELLO Referring Unavailable BRITTA, Yosef COSTELLO Referring Unavailable SCHINNER, ANITHA Primary Care Unavailable BRITTA, Yosef COSTELLO Referring Unavailable SCHINNER, ANITHA Primary Care Unavailable KENDLETON, Yosef COSTELLO Referring Unavailable SCHINVALENCIA, ANITHA Primary Care Unavailable KENDLETON, Yosef COSTELLO Attending Unavailable BRITTA, Yosef COSTELLO Referring Unavailable SCHINNER, ANITHA Primary Care Unavailable KENDLETON, Yosef COSTELLO Attending Unavailable SCHWEST, ANITHA Primary Care Unavailable KENDLETON, Yosef COSTELLO Attending Unavailable ANITHA JOHNSON Primary Care Unavailable KENDLETON, Yosef COSTELLO Referring Unavailable SCHINVALENCIA, ANITHA Primary Care Unavailable KENDLETON, Yosef COSTELLO Referring Unavailable KENDLETON, Yosef COSTELLO Attending Unavailable ELIZABETH, ANITHA Primary Care Unavailable TRISTA BOTELLO Attending Unavailable TRISTA BOTELLO Referring Unavailable ANITHA JOHNSON Primary Care Unavailable TRISTA BOTELLO Attending Unavailable TRISTA BOTELLO Referring Unavailable CHRISTA PALMA Referring Unavailable ANITHA JOHNSON Primary Care Unavailabl e ORTIZ, ANITHA Attending Unavailable ORTIZANITHA Referring Unavailable Elizabeth, Dr. Anitha Myers Primary Care Zara ORTIZ, ANITHA Attending Unavailable ANITHA ORTIZ Referring Unavailable Dr. Anitha Johnson Primary Care Zara ORTIZ, ANITHA Attending Unavailable ANITHA ORTIZ Referring Unavailable Elizabeth, Dr. Anitha Myers Primary Care KITTY Martinez Attending Unavailable Elizabeth, Dr. Anitha Myers Primary Care Zara ORTIZ, ANITHA Attending Unavailable ANITHA ORTIZ Referring Unavailable Elizabeth, Dr. Anitha Myers Primary Care UnaANITHA Dc Attending Unavailable ANITHA ORTIZ Referring Unavailable Dr. Anitha Johnson Primary Care Zara morales Allergies Allergy Classification Reported Allergen(s) Allergy Type Date of Onset Reaction(s) Facility liraglutide (4 sources) liraglutide; Translations: [Victoza SOPN] Drug Allergy [facility] Work Phone: (1 source) bee venom; Translations: [bee venom (honey bee)] Propensity to adverse reactions (disorder) [facility] (1 source) liraglutide Drug Allergy [facility] (13 sources) bee venom Propensity to adverse reactions to drug 8 Shortness of Breath, Swelling, Anaphylaxis, Unknown [facility] Work Phone: (10 sources) cucumber allergenic extract Drug Allergy 8 [facility] Work Phone: (20 sources) liraglutide; Translations: [LIRAGLUTIDE] Drug Allergy 8 Hypoglycemia, Unknown, Other, Swelling [facility] Work Phone: (14 sources) liraglutide; Translations: [Victoza SOPN] Drug Allergy [facility] Work Phone: (14 sources) liraglutide; Translations: [Victoza SOLN] Drug Allergy [facility] Work Phone: (3 sources) Omega extract Drug Allergy 8 [facility] (3 sources) Honey bee venom Propensity to adverse reactions to drug 8 Shortness of Breath, Swelling [facility] (3 sources) Omega extract Drug Allergy 8 Unknown [facility] Work Phone: Medications Current Medications Medication Drug Class(es) Dates Sig (Normalized) Sig (Original) acetaminophen 325 mg / HYDROcodone bitartrate 5 mg oral tablet (8 sources) Opioid Agonist Start: 08-10-2023 take 1 tablet by mouth twice daily HYDROcodone-aceta minophen (Ledbetter) 5-325 mg tablet Take 1 tablet by mouth 2 times a day. 0 08/10/2023 Active Completed/Discontinued Medications Medication Drug Class(es) Dates Sig (Normalized) Sig (Original) busPIRone hydrochloride 5 mg oral tablet (4 sources) Start: 12-17-2022 End: 11-03-2023 take 0.5 tablet by mouth twice daily busPIRone (Buspar) 5 mg tablet Take 0.5 tablets (2.5 mg) by mouth 2 times a day. 0 12/17/2022 11/03/2023 Discontinued (Med List Cleanup) calcium acetate 667 mg oral capsule (20 sources) Start: 09-07-2023 End: 11-04-2023 take 4 capsules by mouth three times daily at mealtime calcium acetate (Phoslo) 667 mg capsule TAKE 4 CAPSULES BY MOUTH THREE TIMES DAILY WITH MEALS 0 09/07/2023 11/04/2023 Discontinued (Med List Cleanup) Problems Active Problems Problem Classification Problem Date Documented Date Episodic/Chronic Alcohol-related disorders (3 sources) H/O: alcoholism; Translations: [Alcohol dependence, in remission] Onset: 4 11-03-2023 Chronic Calculus of urinary tract (20 sources) Kidney stone; Translations: [Calculus of kidney] Onset: 0 08-27-2023 Episodic Cancer of head and neck (3 sources) Malignant tumor of parotid gland; 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] Onset: 6 11-03-2023 Chronic Cancer; other and unspecified primary (20 sources) H/O: malignant neoplasm; Translations: [Personal history of unspecified malignant neoplasm] Onset: 3 03-19-2023 Episodic Cancer; other and unspecified primary (1 source) Personal history of malignant neoplasm of other organs and systems; Translations: [Personal history of malignant neoplasm of organs and systems] Onset: 3 Episodic Chronic kidney disease (20 sources) Chronic kidney disease, stage 5; Translations: [Kidney transplant status] Onset: 8 08-27-2018 Chronic Chronic kidney disease (2 sources) Chronic kidney disease Onset: 8 Coagulation and hemorrhagic disorders (3 sources) Blood coagulation disorder; Translations: [Coagulation defect, unspecified] Onset: 0 11-03-2023 Chronic Complication of device; implant or graft (3 sources) Disorder of cardiovascular prostheses and implants; Translations: [Other specified complication of vascular prosthetic devices, implants and grafts, initial encounter] Onset: 4 11-03-2023 Chronic Coronary atherosclerosis and other heart disease (4 sources) Calcification of coronary artery; Translations: [Atherosclerotic heart disease of mi'kmaq coronary artery without angina pectoris] Onset: 4 11-04-2023 Chronic Diabetes mellitus with complications (12 sources) Type 2 diabetes mellitus with diabetic chronic kidney disease; Translations: [Type 2 diabetes mellitus] Onset: 0 05-13-2023 Chronic Diabetes mellitus without complication (1 source) Type 2 diabetes mellitus without complications; Translations: [TYPE 2 DM WITHOUT COMPLICATIONS] Onset: 8 Chronic Diverticulosis and diverticulitis (4 sources) Diverticulosis of large intestine without perforation or abscess without bleeding; Translations: [Diverticulosis of large intestine] Onset: 8 11-03-2023 Chronic Esophageal disorders (6 sources) Gastro-esophageal reflux disease without esophagitis; Translations: [Gastroesophageal reflux disease without esophagitis] Onset: 8 03-19-2023 Chronic Essential hypertension (4 sources) Essential (primary) hypertension; Translations: [Hypertensive disorder] Onset: 8 11-03-2023 Chronic Hepatitis (16 sources) Chronic hepatitis C; Translations: [Chronic viral hepatitis C] Onset: 8 08-27-2018 Chronic Hyperplasia of prostate (6 sources) Benign prostatic hyperplasia without lower urinary tract symptoms; Translations: [Benign prostatic hypertrophy with outflow obstruction] Onset: 0 03-19-2023 Chronic Hypertension with complications and secondary hypertension (2 sources) 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 kidney disease or end stage renal disease; Translations: [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 kidney disease or end stage renal disease] Onset: 3 Chronic Nutritional deficiencies (3 sources) Vitamin D deficiency; Translations: [Vitamin D deficiency, unspecified] Onset: 0 11-03-2023 Chronic Osteoarthritis (6 sources) Unspecified osteoarthritis, unspecified site; Translations: [Osteoarthritis] Onset: 8 03-19-2023 Chronic Other acquired deformities (1 source) Scoliosis, unspecified; Translations: [Scoliosis, unspecified] Onset: 3 Chronic Other acquired deformities (4 sources) Scoliosis deformity of spine; Translations: [Scoliosis, unspecified] Onset: 3 03-19-2023 Chronic Other and unspecified benign neoplasm (1 source) Benign neoplasm of sigmoid colon; Translations: [BENIGN NEOPLASM OF SIGMOID COLON] Onset: 8 Episodic Other and unspecified benign neoplasm (1 source) Polyp of colon; Translations: [POLYP OF COLON] Onset: 8 Episodic Other and unspecified benign neoplasm (8 sources) Neuroma; Translations: [Other benign neoplasm of connective and other soft tissue of head, face, and neck] Episodic Other connective tissue disease (1 source) Presence of unspecified artificial hip joint; Translations: [Presence of unspecified artificial hip joint] Onset: 3 Chronic Other connective tissue disease (1 source) Hip joint prosthesis present; Translations: [Presence of unspecified artificial hip joint] 03-19-2023 Chronic Other connective tissue disease (2 sources) Arthrodesis status; Translations: [ARTHRODESIS STATUS] Onset: 8 Episodic Other connective tissue disease (16 sources) H/O: arthritis; Translations: [Personal history of arthritis] Episodic Other connective tissue disease (1 source) H/O: arthrodesis; Translations: [Arthrodesis status] 03-19-2023 Episodic Other connective tissue disease (3 sources) History of spinal fusion; Translations: [Arthrodesis status] Onset: 4 11-03-2023 Episodic Other diseases of kidney and ureters (3 sources) Hyperparathyroidism due to renal insufficiency; Translations: [Secondary hyperparathyroidism of renal origin] Onset: 4 11-03-2023 Chronic Other endocrine disorders (1 source) Hyperparathyroidism, unspecified; Translations: [HYPERPARATHYROIDISM UNSPECIFIED] Onset: 8 Chronic Other endocrine disorders (19 sources) Hyperparathyroidism; Translations: [Hyperparathyroidism, unspecified] Onset: 8 08-27-2018 Chronic Other endocrine disorders (3 sources) Hypoglycemia; Translations: [Hypoglycemia, unspecified] Onset: 0 11-03-2023 Chronic Other infections; including parasitic (1 source) Personal history of other infectious and parasitic diseases; Translations: [Personal history of other infectious and parasitic diseases] Onset: 3 Episodic Other lower respiratory disease (3 sources) Dyspnea; Translations: [Shortness of breath] Onset: 3 11-03-2023 Episodic Other male genital disorders (2 sources) Hydrocele, unspecified; Translations: [Hydrocele, unspecified] Onset: 3 Episodic Other nervous system disorders (3 sources) Carpal tunnel syndrome; Translations: [Carpal tunnel syndrome, unspecified upper limb] Onset: 4 11-03-2023 Chronic Other nutritional; endocrine; and metabolic disorders (7 sources) Obese class I; Translations: [Obesity, unspecified] Onset: 2 07-11-2022 Chronic Other nutritional; endocrine; and metabolic disorders (3 sources) Hypercalcemia; Translations: [Hypercalcemia] Onset: 2 11-03-2023 Chronic Other nutritional; endocrine; and metabolic disorders (19 sources) H/O: diabetes mellitus; Translations: [Personal history of other endocrine, metabolic, and immunity disorders] Onset: 4 11-03-2023 Episodic Peripheral and visceral atherosclerosis (7 sources) Peripheral vascular disease; Translations: [Peripheral vascular disease, unspecified] Onset: 4 10-23-2023 Chronic Residual codes; unclassified (1 source) Patient awaiting renal transplant; Translations: [Pre-transplant evaluation for kidney transplant] Chronic Residual codes; unclassified (1 source) On waiting list for organ transplant; Translations: [Awaiting organ transplant status] Chronic Residual codes; unclassified (5 sources) Awaiting organ transplant status; Translations: [Other specified conditions influencing health status] Onset: 3 05-13-2023 Chronic Residual codes; unclassified (3 sources) Surgically constructed arteriovenous fistula; Translations: [Other specified postprocedural states] Onset: 4 11-03-2023 Episodic Screening and history of mental health and substance abuse codes (2 sources) Personal history of nicotine dependence; Translations: [Personal history of tobacco use] Onset: 3 03-19-2023 Episodic Substance-related disorders (6 sources) Other psychoactive substance dependence, in remission; Translations: [Unspecified drug dependence, in remission] Onset: 11-03-2023 Chronic Past or Other Problems Problem Classification Problem Date Documented Date Episodic/Chronic Abdominal pain (9 sources) Disorder of male genital organ; Translations: [Unspecified disorder of male genital organs] Onset: 03-10-2023 Resolved: 06-10-2023 03-19-2023 Episodic Allergic reactions (7 sources) Allergy status to other drugs, medicaments and biological substances status; Translations: [Anaphylaxis] Onset: 08-09-2018 11-03-2023 Episodic Cancer; other and unspecified primary (3 sources) History of malignant neoplasm of endocrine gland; Translations: [Personal history of malignant neoplasm of other endocrine glands] Onset: 10-22-2022 11-03-2023 Episodic Deficiency and other anemia (3 sources) Iron deficiency anemia; Translations: [Iron deficiency anemia, unspecified] Onset: 12-01-2019 11-03-2023 Episodic Fluid and electrolyte disorders (3 sources) Hyperkalemia; Translations: [Hyperkalemia] Onset: 02-05-2021 11-03-2023 Episodic Genitourinary symptoms and ill-defined conditions (20 sources) Nocturia; Translations: [Nocturia] Onset: 02-07-2020 Resolved: 11-03-2023 08-27-2023 Episodic Headache; including migraine (3 sources) Headache; Translations: [Headache, unspecified] Onset: 11-22-2019 11-03-2023 Episodic Hepatitis (3 sources) Viral hepatitis C; Translations: [Unspecified viral hepatitis C without hepatic coma] Onset: 11-03-2022 11-03-2023 Episodic Inflammatory conditions of male genital organs (5 sources) Epididymitis; Translations: [Epididymitis] Onset: 03-10-2023 03-19-2023 Episodic Mood disorders (5 sources) Mood disorders Onset: 08-31-2023 08-31-2023 Nausea and vomiting (3 sources) Nausea and vomiting; Translations: [Nausea with vomiting, unspecified] Onset: 01-16-2023 11-03-2023 Episodic Other and unspecified benign neoplasm (7 sources) Neuroma of face; Translations: [Benign neoplasm of peripheral nerves and autonomic nervous system of face, head, and neck] Onset: 08-27-2023 Resolved: 11-03-2023 08-27-2023 Episodic Other and unspecified benign neoplasm (3 sources) Polyp of colon; Translations: [Polyp of colon] Onset: 08-09-2018 11-03-2023 Episodic Other and unspecified benign neoplasm (3 sources) Benign tumor of head and neck; Translations: [Benign neoplasm of peripheral nerves and autonomic nervous system of face, head, and neck] Onset: 11-03-2022 11-03-2023 Episodic Other and unspecified benign neoplasm (3 sources) Benign neoplasm of sigmoid colon; Translations: [Benign neoplasm of sigmoid colon] Onset: 08-09-2018 11-03-2023 Episodic Other circulatory disease (3 sources) Low blood pressure; Translations: [Other hypotension] Onset: 11-22-2019 11-03-2023 Episodic Other infections; including parasitic (4 sources) H/O: infectious disease; Translations: [Personal history of other infectious and parasitic diseases] Onset: 03-10-2023 03-19-2023 Episodic Other injuries and conditions due to external causes (1 source) Other injury of unspecified body region, initial encounter; Translations: [Other injury of unspecified body region, initial encounter] Onset: 11-17-2022 Episodic Other male genital disorders (2 sources) Persistent testicular pain; Translations: [Unspecified disorder of male genital organs] Resolved: 06-10-2023 Episodic Residual codes; unclassified (3 sources) History of repair of hip joint; Translations: [Other specified postprocedural states] Onset: 10-22-2022 11-03-2023 Episodic Residual codes; unclassified (3 sources) Insomnia; Translations: [Insomnia, unspecified] Onset: 11-14-2019 11-03-2023 Episodic Residual codes; unclassified (3 sources) Pain; Translations: [Pain, unspecified] Onset: 11-22-2019 11-03-2023 Episodic Spondylosis; intervertebral disc disorders; other back problems (3 sources) Disorder of vertebral column; Translations: [Sacrococcygeal disorders, not elsewhere classified] Onset: 01-29-2023 11-03-2023 Episodic Unclassified (2 sources) Patient encounter status Results Test Name Value Interpretation Reference Range Facil ity Vital Signs Date Time Vital Sign Value Performing Clinician Facility 11-04-2023 10:57-0500 Body height 170.2 cm Tree Schaeffer MD Work Phone: [facility] 11-04-2023 10:57-0500 Body mass index (BMI) [Ratio] 30.7 kg/m2 Tree Schaeffer MD Work Phone: [facility] 11-04-2023 10:57-0500 Body weight 88.91 kg Tree Schaeffer MD Work Phone: [facility] 11-04-2023 10:57-0500 Diastolic blood pressure 54 mm[Hg] Tree Schaeffer MD Work Phone: [facility] 11-04-2023 10:57-0500 Heart rate 91 /min Tree Schaeffer MD Work Phone: [facility] 11-04-2023 10:57-0500 SaO2% (BldA) [Mass fraction] 95 % Tree Schaeffer MD Work Phone: [facility] 11-04-2023 10:57-0500 Systolic blood pressure 83 mm[Hg] Tree Schaeffer MD Work Phone: [facility] 08-28-2023 12:47-0500 Body height 170.8 cm Sha Day MD Work Phone: [facility] 08-28-2023 12:47-0500 Body mass index (BMI) [Ratio] 30.82 kg/m2 Sha Day MD Work Phone: [facility] 08-28-2023 12:47-0500 Body temperature 97.5 [degF] Sha Day MD Work Phone: [facility] 08-28-2023 12:47-0500 Body weight 89.9 kg Sha Day MD Work Phone: [facility] 08-28-2023 12:47-0500 Diastolic blood pressure 57 mm[Hg] Sha Day MD Work Phone: [facility] 08-28-2023 12:47-0500 Heart rate 75 /min Sha Day MD Work Phone: [facility] 08-28-2023 12:47-0500 SaO2% (BldA) [Mass fraction] 97 % Sha Day MD Work Phone: [facility] 08-28-2023 12:47-0500 Systolic blood pressure 94 mm[Hg] Sha Day MD Work Phone: [facility] 06-10-2023 13:57-0400 Body height 170.18 cm Anitha Mejialettyvalencia Work Phone: [facility]en[facility] Work Phone: 06-10-2023 13:57-0400 Body mass index (BMI) [Ratio] 30.23 kg/m2 Anitha Mejiawest Work Phone: PQ-Pqpfwun-Sfixcwv Work Phone: 06-10-2023 13:57-0400 Body surface area Derived from formula 1.99 m2 Anitha Mejiawest Work Phone: AN-Zsmjhdp-Virbwqu Work Phone: 06-10-2023 13:57-0400 Body weight 87.54 kg Anitha Mejiawest Work Phone: WU-Fypdwqa-Ttggbbu Work Phone: 06-10-2023 13:57-0400 Respiratory rate 16 /min Anitha Mejiawest Work Phone: NG-Ajijjjn-Naelzxd Work Phone: 05-27-2023 10:58-0400 Body mass index (BMI) [Ratio] 29.35 kg/m2 Beto MCDONALD Work Phone: [facility] 05-27-2023 10:58-0400 Body temperature 97.7 [degF] Beto Singer APRN-BRUSH MAKER Work Phone: [facility] 05-27-2023 10:58-0400 Body weight 87.54 kg Betoyoan Singer ISO COORDINATOR-BRUSH MAKER Work Phone: [facility] 05-27-2023 10:58-0400 Diastolic blood pressure 70 mm[Hg] Betoyoan Singer ISO COORDINATOR-BRUSH MAKER Work Phone: [facility] 05-27-2023 10:58-0400 Heart rate 71 /min Betoyoan Singer ISO COORDINATOR-BRUSH MAKER Work Phone: [facility] 05-27-2023 10:58-0400 Systolic blood pressure 120 mm[Hg] Betoyoan Singer ISO COORDINATOR-BRUSH MAKER Work Phone: [facility] 05-13-2023 12:46-0400 Body height 172.7 cm Trista Botello ISO COORDINATOR-BRUSH MAKER Work Phone: [facility] 05-13-2023 12:46-0400 Body mass index (BMI) [Ratio] 32.99 kg/m2 Trista Botello ISO COORDINATOR-BRUSH MAKER Work Phone: [facility] 05-13-2023 12:46-0400 Body weight 98.43 kg rTista Botello ISO COORDINATOR-BRUSH MAKER Work Phone: [facility] 05-13-2023 12:46-0400 Diastolic blood pressure 70 mm[Hg] Tristasa Botello ISO COORDINATOR-BRUSH MAKER Work Phone: [facility] 05-13-2023 12:46-0400 Heart rate 62 /min Trista Botello ISO COORDINATOR-BRUSH MAKER Work Phone: [facility] 05-13-2023 12:46-0400 Systolic blood pressure 118 mm[Hg] Tristasa Botello ISO COORDINATOR-BRUSH MAKER Work Phone: [facility] 02-18-2023 14:48-0400 Body mass index (BMI) [Ratio] 30.11 kg/m2 Anitha Johnson Work Phone: BS[facility]Wzkjihs-Pbuakvc Work Phone: 02-18-2023 14:48-0400 Body surface area Derived from formula 1.99 m2 Anitha Johnson Work Phone: UJ-Zyqrbcd-Ixtatql Work Phone: 02-18-2023 14:48-0400 Body weight 87.2 kg Anitha Johnson Work Phone: RH-Rpgpddx-Acbefiq Work Phone: 02-18-2023 14:48-0400 Diastolic blood pressure 61 mm[Hg] Anitha Johnson Work Phone: CV-Wfovvlb-Famzpov Work Phone: 02-18-2023 14:48-0400 Heart rate 76 /min Anitha Johnson Work Phone: WO-Ruaidle-Psbtzgf Work Phone: 02-18-2023 14:48-0400 Systolic blood pressure 97 mm[Hg] Anitha Johnson Work Phone: SY-Kcxctxw-Dcistug Work Phone: 11-03-2022 07:18-0500 Body temperature 37.0 {degrees_C} Anitha Mejialettyvalencia Work Phone: ZM-Itorvwdcizllhq-I eiana Work Phone: Encounters Encounter Date Encounter Type Care Provider Facility Start: 11-04-2023 End: 11-04-2023 Office outpatient new 45 minutes Tree Schaeffer MD Work Phone: [facility] Story Procedures Date Procedure Procedure Detail Performing Clinician Start: 11-04-2023 Non-invas physiologic std extremity art 2 level Christa Dorado MD Work Phone: Start: 11-03-2023 H/O: surgery History of surgical procedure Tree Schaeffer MD Work Phone: Start: 10-23-2023 VASC US ANKLE BRACHIAL INDEX (KRIS) WITHOUT EXERCISE CHRISTA DORADO Start: 09-18-2023 CT CHEST ABDOMEN PELVIS WO CONTRAST CHRISTA COLE DORADO Start: 08-28-2023 ABORH ANITHA JOHNSON Start: 08-28-2023 AMYLASE ANITHA JOHNSON Start: 08-28-2023 C-PEPTIDE ANITHA JOHNSON Start: 08-28-2023 CBC panel - Blood by Automated count ANITHA JOHNSON Start: 08-28-2023 Creatinine [Mass/volume] in Serum or Plasma ANITHA JOHNSON Start: 08-28-2023 CYTOMEGALOVIRUS IGG ANITHA JOHNSON Start: 08-28-2023 DRUG PROFILE 9, BLOOD W/ REFLEX TO CONFIRMATION ANITHA JOHNSON Start: 08-28-2023 CONCHIS-CAO VIRUS ANTIBODY PANEL ANITHA JOHNSON Start: 08-28-2023 Hemoglobin A1c/Hemoglobin.total in Blood ANITHA JOHNSON Start: 08-28-2023 Hepatic function 2000 panel - Serum or Plasma ANITHA JOHNSON Start: 08-28-2023 HEPATITIS B CORE ANTIBODY, TOTAL ANITHA JOHNSON Start: 08-28-2023 HEPATITIS B SURFACE ANTIBODY ANITHA RODRIGUEZ Start: 08-28-2023 HEPATITIS B SURFACE ANTIGEN ANITHA Davis Start: 08-28-2023 HEPATITIS C ANTIBODY ANITHA JOHNSON Start: 08-28-2023 HEPATITIS C RNA, QUANTITATIVE, PCR ANITHA JOHNSON Start: 08-28-2023 HIV 1/2 ANTIGEN/ANTIBODY SCREEN WIH REFLEX TO CONFIRMATION ANITHA JOHNSON Start: 08-28-2023 HLA NEW KIDNEY,K/P EVALUATION PANEL ANITHA JOHNSON Start: 08-28-2023 MISCELLANEOUS LAB TEST ANITHA JOHNSON Start: 08-28-2023 NICOTINE AND METABOLITES,S ANITHA JOHNSON Start: 08-28-2023 Phosphate [Mass/volume] in Serum or Plasma ANITHA JOHNSON Start: 08-28-2023 PROTIME-INR ANITHA JOHNSON Start: 08-28-2023 PSA, TOTAL AND FREE ANITHA JOHNSON Start: 08-28-2023 SYPHILIS SCREENING WITH REFLEX ANITHA JOHNSON Start: 08-28-2023 T-SPOT TB ANITHA JOHNSON Start: 08-28-2023 Urea nitrogen [Mass/volume] in Serum or Plasma ANITHA JOHNSON Start: 08-28-2023 VARICELLA ZOSTER PCR QUANTITATIVE PLASMA ANITHA JOHNSON Start: 05-13-2023 Myocardial spect multiple studies Trista Botello [employer] Work Phone: Start: 05-13-2023 Echo tthrc r-t 2d w/wom-mode compl spec&colr d Tristasa Warren Boetllo [employer] Work Phone: Start: 03-10-2023 SURGICAL PATHOLOGY RESULTS Anitha Griffith Diana Munoz Work Phone: Start: 09-07-2018 End: 09-07-2018 Radionuclide imaging of perfusion of myocardium under stress and reinjection using Thallium 201 Yosef Magdaleno Work Phone: Start: 09-07-2018 End: 09-07-2018 Transthoracic echocardiography Yosef Magdaleno Work Phone: Parotidectomy Anitha davis Work Phone: Prosthetic arthropla sty of the hip Anitha Johnson Work Phone: Spinal arthrodesis Anitha sun Work Phone: Total replacement of hip Abraham yoan Johnson Work Phone: Plan of Treatment Date Care Activity Detail Author Start: 03-20-2027 Evaluation and management of inpatient 03/20/2027 6:00 AM EDT [place] [id number] [address] Department [place] [address] [facility] Work Phone: Start: 11-28-2023 Hemoglobin A1c measurement Diabetes: Hemoglobin A1C [facility] Start: 11-04-2023 End: 11-04-2024 Basic metabolic 2000 panel - Serum or Plasma Basic Metabolic Panel Lab Routine Encounter for pre-transplant evaluation for kidney transplant Coronary artery calcification of mi'kmaq artery Expected: 11/04/2023 (Approximate), Expires: 11/04/2024 [facility] Work Phone: Immunizations Immunization Date Immunization Notes Care Provider Fa cility 09-03-2023 Hepatitis B vaccine (recombinant), CpG adjuvanted Tree Schaeffer MD Work Phone: [facility] Work Phone: 07-28-2023 Seasonal, quadrivale nt, recombinant, injectable influenza vaccine, preservative free Tree Schaeffer MD Work Phone: [facility] Work Phone: 07-27-2023 Pfizer COVID-19 vacc ine, Fall 2022, 12 years and older, (30mcg/0.3mL) Sah Day MD Work Phone: [facility] Work Phone: 07-26-2022 influenza virus vacc ine, unspecified formulation Trista Botello [employer] CO[employer] Work Phone: [facility] 02-19-2022 Pfizer Geiger Cap SARS-CoV-2 Sha Day MD Work Phone: [facility] Work Phone: 07-16-2021 influenza virus vacc ine, unspecified formulation Trista Botello [employer] CO[employer] Work Phone: [facility] 06-19-2021 pneumococcal polysaccharide vaccine, 23 valent Sha Day MD Work Phone: [facility] Work Phone: 01-14-2021 COVID-19 vaccine, mR CHANDLER, [place], 100 mcg/0.5 mL Trista Botello [employer] COORD[employer]ATOR[employer] Work Phone: [facility] 12-17-2020 COVID-19 vaccine, Clinton Keller, 100 mcg/0.5 mL Trista Botello [employer] CO[employer]ER Work Phone: [facility] 05-31-2020 hepatitis B vaccine, adult dosage Tree Schaeffer MD Work Phone: [facility] Work Phone: 03-01-2020 pneumococcal polysaccharide vaccine, 23 valent Tree Schaeffer MD Work Phone: [facility] Work Phone: 01-31-2020 hepatitis B vaccine, adult dosage Tree Schaeffer MD Work Phone: [facility] Work Phone: 12-29-2019 pneumococcal conjuga te vaccine, 13 valent Tree Schaeffer MD Work Phone: [facility] Work Phone: 12-27-2019 hepatitis B vaccine, adult dosage Tree Schaeffer MD Work Phone: [facility] Work Phone: 12-01-2019 hepatitis B vaccine, adult dosage Tree Schaeffer MD Work Phone: [facility] Work Phone: 10-09-2009 novel influenza-H1N1 -09, preservative-free, injectable Sha Day MD Work Phone: [facility] Work Phone: Payers Date Payer Category Payer Unknown 2020 Unknown [id number] 2020 Medicare [id number] 2020 Medicare [id number] 2018 Unknown xxxxxxxxxxx [id number] 1959 Unknown [id number] 1955 Unknown [id number] 2.16.84 0.1.405393.3.579.2.598 1955 Unknown [id number] 2.16.8 40.1.818153.3.579.2.1069 1955 Unknown [id number] 2.16.84 0.1.040365.3.579.2.1242 1955 Unknown [id number] 2.16.8 40.1.945504.3.579.2.1245 1955 Unknown [id number] 2.16.8 40.1.757700.3.579.2.1245 1955 Unknown [id number] 2.16.8 40.1.852858.3.579.2.1245 1955 Unknown [id number] 2.16.8 40.1.906058.3.579.2.1245 1955 Unknown [id number] 2.16.8 40.1.156166.3.579.2.1245 1955 Unknown [id number] 2.16.8 40.1.595417.3.579.2.1245 1955 Unknown [id number] 2.16. 840.1.815867.3.579.2.594 1955 Unknown [id number] 2.16. 840.1.530041.3.579.2.594 1955 Unknown [id number] 2.16. 840.1.778526.3.579.2.594 1955 Unknown [id number] 2.16. 840.1.132866.3.579.2.594 1955 Unknown [id number] 2.16. 840.1.218284.3.579.2.594 1955 Unknown [id number] 2.16. 840.1.499371.3.579.2.594 1955 Unknown [id number] 2.16. 840.1.706845.3.579.2.594 1955 Unknown [id number] 2.16. 840.1.458354.3.579.2.594 1955 Unknown [id number] 2.16. 840.1.582010.3.579.2.594 1955 Unknown [id number] 2.16. 840.1.985606.3.579.2.594 1955 Unknown [id number] 2.16. 840.1.362043.3.579.2.594 1955 Unknown [id number] 2.16. 840.1.628830.3.579.2.594 1955 Unknown [id number] 2.16. 840.1.355968.3.579.2.594 1955 Unknown [id number] 2.16. 840.1.212072.3.579.2.594 1955 Unknown [id number] 2.16. 840.1.682936.3.579.2.594 1955 Unknown [id number] 2.16.84 0.1.391299.3.579.2.1243 1955 Unknown [id number] 2.16. 840.1.909402.3.579.2.356 1955 Unknown [id number] 2.16. 840.1.692136.3.579.2.356 1955 Unknown [id number] 2.16. 840.1.828785.3.579.2.356 1955 Unknown [id number] 2.16. 840.1.803120.3.579.2.356 1955 Unknown [id number] 2.16. 840.1.964790.3.579.2.356 1955 Unknown [id number] 2.16. 840.1.618670.3.579.2.356 Unknown [id number] 2.16.8 40.1.794648.3.579.2.283 Unknown [id number] 2.16.8 40.1.992016.3.579.2.283 Unknown [id number] 2.16.8 40.1.771613.3.579.2.283 Unknown [id number] 2.16.8 40.1.068825.3.579.2.283 Social History Date Type Detail Facility Start: 08-26-2018 End: 09-04-2018 Tobacco smoking status NYIS Former smoker [facility] End: 10-19-2013 History of tobacco use Current smoker [facility] Work Phone: End: 10-19-2013 History of tobacco use Cigarette Smoker [facility] Work Phone: Start: 09-04-2018 End: 08-31-2023 Cigarettes smoked current (pack per day) - Reported [facility] Start: 1955 Sex Assigned At Not on file O [facility] Work Phone: Start: 08-26-2018 End: 11-04-2023 Tobacco use and exposure Smokeless tobacco non-user [facility] Start: 09-21-2020 End: 05-13-2023 Alcohol intake Current non-drinker of alcohol (finding) [facility] Start: 05-13-2023 End: 08-31-2023 Tobacco use panel [facility] Start: 04-23-2018 Gender identity Identifies as male gender (finding) [facility] Tobacco smoking stat us [facility] Tobacco smoking consumption unknown [facility] Work Phone: Start: 08-18-2023 End: 11-04-2023 Exposure to SARS-CoV-2 (event) Not sure [facility] Start: 11-04-2023 Tobacco smoking stat us [facility] Never smoked tobacco [facility] Work Phone: Clinical Notes 11-18-2012 to 11-04-2023 Tree Schaeffer MD - 11/04/2023 11:00 AM ESTPatient Kar Day MD - 08/28/2023 1:30 PM Jomar Singer APRN-ELYSSA - 05/27/2023 11:00 AM LAURA Castillo - 05/27/2023 11:00 AM EDT Note Date & Type Note Facility 11-04-2023 History of Present illness Narrative Location of visit: [facility] Type of Visit: New Chief Complaint: Patient was referred to Cardiology by Dr. Cole Dorado for pretransplant evaluation. History Of Present Illness: Jerilyn Harris is a 68 y.o. male, with history significant for ESRD on HD, mild anemia, T2DM with normal HbA1c, HCV+, coronary and aorta atherosclerosis, RUL nodule, prior smoker, who visits Cardiology today as a new patient for pretransplant evaluation. ESRD: HD x3, still makes urine. No lipid panel on file. Patient denies chest pain, dyspnea on exertion, shortness of breath, orthopnea, PND, nocturia, edema, palpitations, syncope, or claudication. He reports some dizziness and lightheadedness the first day after dialysis. He recently had a chest CT on 09/18/2023 which showed severe coronary calcifications. Today's ECG shows sinus rhythm at 85 bpm, normal AV conduction, RBBB, and normal ventricular repolarization. Past Medical History: He has a past medical history of ESRD on HD, T2DM with normal HbA1c, HCV+, coronary and aorta atherosclerosis. Past Surgical History: Right hydrocele, bilateral hip replacement, left shoulder Social History: He reports that he has never smoked. He has never used smokeless tobacco. No history on file for alcohol use and drug use. Family History: No family history on file. Allergies: Bee venom protein (honey bee), Liraglutide, and Omega Outpatient Medications: Current Outpatient Medications Medication Instructions calcitriol (Rocaltrol) 0.5 mcg capsule oral calcium acetate (Phoslo) 667 mg tablet 4 tablets, oral, 3 times daily with meals cinacalcet (SENSIPAR) 30 mg, oral, 3 times weekly gabapentin (NEURONTIN) 800 mg, oral, Nightly HYDROcodone-acetaminophen (Ledbetter) 5-325 mg tablet 1 tablet, oral, 2 times daily ibuprofen 400 mg, oral, Every morning, 1 tabs once at night as needed lansoprazole (Prevacid) [address] capsule oral methoxy peg-epoetin beta (MIRCERA INJ) 75 mcg, Every 28 days Nephro-Kojo 0.8 mg tablet 1 tablet, oral, Daily Purelax 17 g, oral, Daily sodium polystyrene (SPS, with sorbitol,) 15 gram/60 mL suspension (Prior Auth#:[id number]) Oral for 1 Last Recorded Vitals: Vitals: 11/04/23 1057 BP: 83/54 BP Location: Right arm Patient Position: Sitting BP Cuff Size: Adult Pulse: 91 SpO2: 95% Weight: 88.9 kg (196 lb) Height: 1.702 m (5' 7 ) Physical Exam: 11/04/2023 10:57 AM 08/28/2023 12:47 PM 06/10/2023 1:57 PM 03/30/2023 10:57 AM 02/18/2023 2:48 PM 11/03/2022 7:00 AM Vitals Systolic 83 94 114 97 121 Diastolic 54 57 77 61 66 Heart Rate 91 75 74 76 85 Temp 36.4 C (97.5 F) 36 C (96.8 F) Resp 16 16 Height (in) 1.702 m (5' 7 ) 1.708 m (5' 7.24 ) 1.702 m (5' 7 ) Weight (lb) 196 198.2 193 192 192.25 BMI 30.7 kg/m2 30.82 kg/m2 30.23 kg/m2 37.4 kg/m2 37.45 kg/m2 BSA (m2) 2.05 m2 2.07 m2 2.03 m2 1.92 m2 1.92 m2 Visit Report Report Report Wt Readings from Last 5 Encounters: 11/04/23 88.9 kg (196 lb) 08/28/23 89.9 kg (198 lb 3.2 oz) 06/10/23 87.5 kg (193 lb) 03/30/23 87.1 kg (192 lb) 02/18/23 87.2 kg (192 lb 4 oz) General: Sitting up comfortably in chair; in no apparent distress. HEENT: Normocephalic; atraumatic. Well hydrated. Eyes: Anicteric sclera. Extraocular movement intact. Neck: Supple; no thyromegaly; normal jugular venous pressure, no bruits. Respiratory: Bilateral air entry equal. No wheezing. Cardiovascular: Normal S1, S2; no murmurs auscultated. Abdomen: Nondistended; nontender. (+) bowel sounds. Extremities: No peripheral edema present. Pulses 2+ diffusely. Left upper extremity fistula. Neurological: Oriented to time, place, and person; nonfocal. Psychiatric: Normal affect. Last Labs Reviewed: CBC - Recent Labs 08/28/23 1110 10/22/22 1333 WBC 7.3 7.3 HGB 11.5* 12.6* HCT 35.9* 37.8* PLT 248 236 MCV 104* 98 CMP - Recent Labs 08/28/23 1110 10/22/22 1333 NA -- 140 K -- 4.2 CL -- 96* CO2 -- 30 ANIONGAP -- 18 BUN 35* 38* CREATININE 6.79* 5.11* EGFR 8* -- Recent Labs 08/28/23 1110 ALBUMIN 4.2 ALKPHOS 74 ALT 40 AST 31 BILITOT 0.5 LIPID PANEL - No results. COAGULATION PANEL - Recent Labs 08/28/23 1110 INR 1.0 HEME/ENDO - Recent Labs 08/28/23 1110 HGBA1C 5.0 CARDIOVASCULAR No results Last Cardiology/Imaging Tests Personally Reviewed (if images available) and Interpreted: ECG: No results found. Echocardiogram: Echocardiogram 05/13/2023 OSH Narrative Left ventricle is normal in size and has preserved systolic function, EF 62%. Diastolic function is normal. Concentric remodeling. Right ventricle is normal in size and has preserved systolic function. Estimated RVSP 22 mmHg assuming RAP of 3 mmHg. No hemodynamically significant valvular disease. No pericardial effusion is present. Compared to prior study dated 12/25/2021, there is no significant change. Left Ventricle Chamber size is normal. Increased wall thickness. Concentric remodeling is present. Normal global systolic function. Regional wall motion is normal. The ejection fraction is 62%. Ejection fraction is normal. Diastolic function is normal. Right Ventricle Chamber size is normal. Systolic function is normal. Right ventricular S' is 10.30 cm/s. Left Atrium Chamber size is normal. Right Atrium Chamber size is mildly enlarged. IVC/SVC The inferior vena cava is normal in size. The inferior vena cava structure has a diameter <21 mm and decreases >50% during inspiration. Mitral Valve Normal appearing leaflets. Leaflet mobility is normal. No regurgitation. No valve stenosis. Tricuspid Valve Normal leaflets. Leaflet mobility is normal. Trace regurgitation. No stenosis. No echo/Doppler evidence for pulmonary hypertension. Estimated right ventricular systolic pressure is 22 mmHg. Aortic Valve Trileaflet valve. Leaflet mobility is normal. No regurgitation. No stenosis. Pulmonic Valve Normal structure. No regurgitation. No stenosis. Pericardium An echo density consistent with a fat pad is present. No pericardial effusion. Septum The atrial septum is normal. Pulmonary Artery Pulmonary artery not well visualized. Aorta No dilation to extent seen. SOV: 3.50 cm. STJ: 3.20 cm. Ascendin.70 cm. Study Details A complete echocardiography study was performed. Overall study quality was fair. Study limitations include technically difficult study. Imaging system used: [employer]. Indications Indications for study: hypertension and other - Pre-kidney transplant, listed. Wall Scoring Score Index: 1.00 The left ventricular wall motion is normal. No results found for this or any previous visit from the past 1095 days. Cath: No results found Stress Test: NM cardiac stress rest (myocardial perfusion MIBI) 05/13/2023 OSH Narrative Overall study is negative for infarction and ischemia. Myocardial Perfusion Imaging Stress myocardial perfusion scan within normal limits. No evidence of ischemia. No evidence of prior infarction. Normal LV systolic function, EF 63%. Normal TID 1.03. EKG Interpretation: Pharm Stress Test Exercised achieved with a seated - pharm protocol. Resting EKG shows NSR with PACs. With stress patient develops no chest pain or diagnostic EKG changes. Blood pressure response is appropriate. No sustained arrhythmias. Study Details Pharmacological nuclear stress test performed using 1-day rest/stress protocol. Regadenoson infusion given over 15 seconds. Resting Single-Photon Emission Computed Tomography (SPECT) three axis myocardial perfusion images of the heart were acquired with an acquisition time of 13:24 EDT. Post-stress Single-Photon Emission Computed Tomography (SPECT) three axis myocardial perfusion images of the heart were acquired with an acquisition time of 15:26 EDT. Gated SPECT images obtained. Frame rate: 16 frames/sec. Stress prone images were obtained. Imaging system used: 4DM. Stress Findings A pharmacological stress test was performed using regadenoson without low-level exercise. The patient reported no symptoms prior to the stress test. Symptoms during stress were SOB and lightheadedness. The patient reached the end of the protocol. ECG Baseline ECG is normal with normal sinus rhythm. QRS duration is normal (80-100ms). Stress ECG is unchanged from baseline. There was no ST segment deviation noted during stress. Arrhythmias during stress: rare premature atrial contractions.Stress QRS duration is normal (80-100ms). Recovery ECG returned to baseline. There were no arrhythmias during recovery. Recovery QRS duration is normal (80-100ms). Negative pharm stress test. Nuclear Study Quality Overall image quality is good. Subdiaphragmatic activity artifact was visualized. Nuclear Prior Study There is a prior study available for comparison that was performed on 09/21/2020. Isotope Admin The isotope used for nuclear imaging was technetium sestamibi.No radiopharmaceutical dose was extravasated. Nuclear Stress Gating Stress perfusion cavity size was 72 mL. Resting perfusion cavity size was 70 mL. The stress/rest perfusion ratio is 1.03. Ejection fraction is 63.00 %. End diastolic index is 63.00 mL/m2. End systolic index is 23.00 mL/m2. The lung to heart ratio is 0.24 (frame 20). Perfusion Scoring Stress Summed Score: 0 Percent Normal: 0.00% The left ventricular perfusion is normal. Perfusion Scoring Resting Summed Score: 0 Percent Normal: 0.00% The left ventricular perfusion is normal. Perfusion Scoring Prone Summed Score: 0 Percent Normal: 0.00% The left ventricular perfusion is normal. No results found for this or any previous visit from the past [address]/MRI: No results found. Other CT: CT CHEST ABDOMEN PELVIS WO CONTRAST; 09/18/2023 1. Right upper lobe nodule measuring up to 8 mm in average diameter, slightly increased in size when compared to prior examinations dating back to 09/18/2021. A slow growing neoplasm is suspected. Correlation with PET-CT versus tissue sampling can be considered. 2. Severe coronary artery calcifications. Study is not optimized for evaluation of coronary arteries. 3. No suspicious intrathoracic lymphadenopathy identified. 4. Atrophic kidneys with associated prominent staghorn calculi. No hydroureteronephrosis identified. 5. Moderate to severe atherosclerotic calcifications predominantly involving the infrarenal abdominal aorta and its branches. No evidence of aneurysm. CV RISK FACTORS: # Hypertension: Last BP: 83/54. # Hyperlipidemia: Last Tchol No results found for requested labs within last 365 days. / LDL No results found for requested labs within last 365 days. / HDL No results found for requested labs within last 365 days. / TRIG No results found for requested labs within last 365 days. (No results in last year.). # Type II Diabetes Mellitus: Last A1c 5.0 (08/28/2023: 11:10 AM). # Obesity: Last BMI: 30.69. # CKD: Last BUN/Cr (GFR): 35/6.79 (8), 08/28/2023: 11:10 AM. ASCV RISK: The ASCVD Risk score (Connor DK, et al., 2019) failed to calculate for the following reasons: The valid systolic blood pressure range is 90 to 200 mmHg Cannot find a previous HDL lab Cannot find a previous total cholesterol lab Assessment/Plan 68 y.o. male, with history significant for ESRD on HD, mild anemia, T2DM with normal HbA1c, HCV+, coronary and aorta atherosclerosis, RUL nodule, prior smoker, who visits Cardiology today as a new patient for pretransplant evaluation. He is asymptomatic from the cardiovascular standpoint but has severe coronary calcifications in his last chest CT. Also, there is no lipid panel on file and he is not on statin treatment. Recommendations: - Pretransplant CV assessment: diagnostic coronary angiogram - Severe coronary calcifications: lipid panel to define statin dose - Patient will contact us once the results are available to give my impressions - I spent 45 minutes with this case between pre-charting, [id number] personal interaction with patient, and documenting my assessment Tree Schaeffer MD documented in this encounter [facility] Work Phone: 11-04-2023 Instructions Tree Schaeffer MD - 11/04/2023 11:00 AM EST Dear Jerilyn Freed Steven, It was a pleasure meeting you today at the Cardiology office. As we dicussed, your clinical condition is coronary artery calcifications. I recommended a left heart catheterization with Dr. Hoffman. Also, I we need a lipid panel to know what is your bad cholesterol (LDL) to see what type of medication you need. I will contact you once your results are available to see if additional treatment is needed. Sincerely, Tree Schaeffer MD documented in this encounter [facility] Work Phone: 08-28-2023 History of Present illness Narrative Subjective Jerilyn Harris is a 68 y.o. male who presents for kidney transplant evaluation visit. He had a history of DM but current A1C normal. He is listed at [facility] since 2019 and is here to pursue multi-center listing. Recently, he received a phone call for organ offer, unfortunately, it happened just after he had hydrocele surgery so he did not end up getting transplanted. He has a history of HCV and opted to not pursue treatment until after kidney transplant so that he can receive a HCV+kidney. He has previously seen a hepatologiest at [facility] and underwent liver biopsy, reportedly to be without fibrosis. He denies any liver related issues. He denies CP, SOB, denies VA, CVA in the past PSHx: right hydrocele, bilateral hip replacement, left shoulder Review of Systems Constitutional: Negative for chills and fever. HENT: Negative. Negative for congestion. Eyes: Negative. Respiratory: Negative for cough and shortness of breath. Cardiovascular: Negative for chest pain. Gastrointestinal: Negative for abdominal distention, abdominal pain, constipation and diarrhea. Endocrine: Negative for cold intolerance and heat intolerance. Genitourinary: Negative for dysuria, frequency, hematuria and urgency. Musculoskeletal: Negative for arthralgias. Skin: Negative for color change. Allergic/Immunologic: Negative for environmental allergies. Neurological: Negative for dizziness, weakness and light-headedness. Hematological: Negative for adenopathy. Psychiatric/Behavioral: Negative for agitation, confusion and hallucinations. Objective Physical Exam Constitutional: Appearance: Normal appearance. HENT: Head: Normocephalic and atraumatic. Nose: Nose normal. Eyes: Pupils: Pupils are equal, round, and reactive to light. Cardiovascular: Rate and Rhythm: Normal rate. Comments: Good femoral pulses bilateral Pulmonary: Effort: Pulmonary effort is normal. No respiratory distress. Abdominal: General: There is no distension. Palpations: Abdomen is soft. There is no mass. Tenderness: There is no right CVA tenderness or left CVA tenderness. Hernia: No hernia is present. Musculoskeletal: General: No swelling. Normal range of motion. Cervical back: Normal range of motion. Skin: General: Skin is warm and dry. Neurological: General: No focal deficit present. Mental Status: He is alert and oriented to person, place, and time. Psychiatric: Mood and Affect: Mood normal. Behavior: Behavior normal. Lab Review Blood Type: No results found for: [facility] Lab Results Component Value Date CREATININE 5.11 (H) 10/22/2022 K 4.2 10/22/2022 GLUCOSE 92 10/22/2022 HCT 35.9 (L) 08/28/2023 WBC 7.3 08/28/2023 PLT 248 08/28/2023 CALCIUM 9.4 10/22/2022 Lab Results Component Value Date WBC 7.3 08/28/2023 HGB 11.5 (L) 08/28/2023 HCT 35.9 (L) 08/28/2023 MCV 104 (H) 08/28/2023 PLT 248 08/28/2023 Assessment/Plan Diagnoses: No diagnosis found. Jerilyn Harris is a good candidate for kidney transplantation. History of DM, A1C normal now. Kidney stones HCV+ He has had Echo, Stress done at [facility] and we will review the results and discuss at committee. Will also request his CT abdomen and review. He is blood type B with good amount of wait time and accepting all donor options Advantages and disadvantages of transplantation were reviewed. Discussed the operative procedure and potential complications, particularly in regard to the need for re-operation. I addressed issues of post-operative recovery and follow-up. Lastly, I discussed the need for immunosuppressive therapy and the risk associated with this treatment. He appears to have good understanding of his medical condition and the transplant process. documented in this encounter [facility] Work Phone: 05-27-2023 History of Present illness Narrative [facility] Wait list Evaluation Dialysis Center: [facility] Chief Complaint: Scheduled Kidney Transplant wait list evaluation. 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 Since Jerilyn was most recently evaluated in clinic on 06/2022: Epididymectomy surgery [place] kidney biopsy: no List Date: 12/31/18 Inactive Date(s): 03/11-04/01/23 related to epididymectomy Verified he is active in [facility]. Review of Symptoms: History obtained from the patient Energy level 0-10 (last month with 0 no energy and 10 most energy ever had): 5 Psychological ROS:anxiety, depression and difficulty sleeping Ophthalmic ROS: wears glasses Respiratory ROS: normal CPAP/bi-pap: not ordered Cardiovascular ROS: palpitations with activity Vascular access: LUE fisula Gastrointestinal ROS:constipation, occasionally Genito-Urinary ROS: urinates minimal amount but at least daily Musculoskeletal ROS: chronic hips/back pain; does not use controlled substances Neurological ROS:normal Dermatological ROS: intact Social History Living situation: spouse Working for income: Not working due to patient choice - retired Activity/nutrition: normal activities of daily living Primary Support person: spouse Physical Exam Blood pressure 120/70, pulse 71, temperature 97.7 F (36.5 C), temperature source Temporal, weight 87.5 kg (193 lb). Estimated body mass index is 29.35 kg/m as calculated from the following: Height as of 05/13/23: 1.727 m (5' 8 ). Weight as of this encounter: 87.5 kg (193 lb). General: well-appearing Cardio: S1S2 RRR Lungs: Clear to auscultation Skin: intact Liver Frailty Index 3-Component Liver Frailty Index: 3.92 Liver Frailty Score: Prefrail Walks with cane for long distance due to previous bilateral hip replacement Allergies: Allergies Allergen Reactions Bee Venom Shortness of Breath and Swelling Yellow jacket- Victoza [Liraglutide] Hypoglycemia Omega Extract Bloating Medications: Current Outpatient Medications Medication Sig B Kmbuehr-E-Byieo Acid (Nephro-Kojo) 0.8 MG tablet Take 1 tablet by mouth daily. calcitRIOL 0.25 MCG Cap capsule Take 0.5 mcg by mouth three times a week. calcium acetate - Phos Binder 667 MG capsule Take 2,001 mg by mouth With meals. cinacalcet 30 MG tablet Take 30 mg by mouth three times a week. Escitalopram (Lexapro) 10 MG tablet Take 1 tablet by mouth Daily (with dinner). gabapentin 800 MG Tab Take 800 mg by mouth daily. lansoprazole [address] capsule Take 30 mg by mouth as needed. Vitamin D3 1000 units Tab tablet Take 1,000 Units by mouth daily. Laboratory Data B NEGATIVE cPRA (%) Date Value 05/05/2023 0 Health Maintenance: Colonoscopy: 08/03/2018 Jerilyn reports that he quit smoking about 9 years ago. His smoking use included cigarettes. He has a 40.00 pack-year smoking history. He has never used smokeless tobacco. Cardiac Testin05/13/23-Echo Left ventricle is normal in size and has preserved systolic function, EF 62%. Diastolic function is normal. Concentric remodeling. Right ventricle is normal in size and has preserved systolic function. Estimated RVSP 22 mmHg assuming RAP of 3 mmHg. No hemodynamically significant valvular disease. No pericardial effusion is present. Compared to prior study dated 12/25/2021, there is no significant change. 05/13/23-Stress Overall study is negative for infarction and ischemia. Myocardial Perfusion Imaging Stress myocardial perfusion scan within normal limits. No evidence of ischemia. No evidence of prior infarction. Normal LV systolic function, EF 63%. Normal TID 1.03. Active living donors: 0 EPTS score: 93% Maximum KDPI acceptable: 100% Impression and Plan 1. Jerilyn Harris will remain active on the kidney transplant wait list with a qualifying date of 12/31/2018. 2. 09/18/2021 lobulated noncalcified, nonspecific 6 mm RUL nodule No repeat imaging since, should consider repeat imaging per PCP However appears to have been the same size from the various imaging he has had. 3. Bilateral staghorn calculus - Follows with Anitha Ortiz (local urologist) every 6 months. 4. Hepatitis C - genotype 1A 08/[address] Dorado and liver biopsy showed no evidence of advanced scarring of the liver and the pressure measurements showed no evidence of portal hypertension.Consented for hepatitis C donor offers previously 5. 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 6. Diabetes Mellitus type II - Currently diet controlled Comorbid conditions: no known 7. Hyperparathyroidism- PTH 561 pg/mL on 04/28/23. 8. Functional status: Pre-frail - advise to increase physical and cognitive activity 9. Mr. Harris was highly encouraged to find a living donor. Consider a transplant champion. 10. He was educated on high kidney donor profile index donors so if he received a kidney offer with this classification, he could make an informed decision. Consent previously signed. 11. Mr. Harris will be asked to return for a wait list appointment as well as repeat cardiac testing according to protocol. He was also asked to keep the transplant center updated with any change in condition or hospitalizations. Time Spent on Encounter: 30 minutes Beto Singer MS (Link), RN, ISO COORDINATOR-BRUSH MAKER Certified Nurse Practitioner [facility] [address] [place] [address] Transplant Psychosocial Social History: This SW met with patient one on one during clinic visit to complete patient's social history. Pt reports access to support through his and adult step-daughter Alberta. Pt does not live alone. Pt reports that he is retired. Pt denies financial concerns at this time or difficulty affording their medications. Pt reports access to Medicare and a supplement insurance. Pt does not want follow CTC financial counselors. Pt denies current use of alcohol. Pt denies current use of tobacco. Pt denies current use of illicit substances. Pt denies experiencing physical and/or mental abuse and does not want follow up with SW regarding same. Pt confirms feeling safe in their home and all their relationships. Pt reports current mental health symptoms of insomnia and occasional anxiety related to his health concerns. Pt denies current mental health treatment. Pt denies wanting additional follow-up by SW. Per review of pt's previous social histories and/or initial psychosocial evaluation, there does not appear to be a history of psychosocial concerns. Pt appears to be an adequate transplant candidate from a psychosocial standpoint at this time. documented in this encounter [facility] 05-27-2023 Instructions HARRY Perla - 05/27/2023 11:00 AM EDT Living Donor [place] Ask one or two family members or close friends to be your living donor champion. The roles of the champion are to: Find a living donor for you in a timely fashion Take the responsibility of identifying a donor away from the you, allowing you to focus on your health Connect and talk with as many people as possible so that an appropriate match can be found Offer support and inspiration through your difficult journey The champion should be knowledgeable with the kidney transplant process. Please call us with your champion's name and contact information so we can provide the education Benefits to the champion Provides the opportunity to save a life. Gives the opportunity to contribute to the recipient s life -- and the lives of the recipient s loved ones -- in a very meaningful and lifelong way Benefits to you A live donor reduces your wait time from years to a few months. You can receive your transplant while you are still an acceptable candidate. Many people become too ill for transplant while waiting on the list for a donor kidney. Current Status on the Kidney Transplant List active Your Blood Type B NEGATIVE Your To Do List Update our transplant center updated with any illnesses, open wounds or hospitalizations by calling your coordinator at [phone]. Continue your health maintenance while waiting for your transplant. You have the right to opt out of the transplant process at any time. If you would like to discuss alternative treatments or therapies to kidney transplantation, please discuss with your provider. October 2020-September 2021 [facility] 330 People Received Kidney Transplants 76 Living donor [address] [facility] [address] [facility] Requires dialysis in the first week after transplant 28.3% 1.3% Estimated probability of surviving with a functioning graft at 1 year (1) 95.66% 96.922% Estimated probability of surviving with a functioning graft at 3 years (2) 86.98% 90.61% Data from: [place] Scientific Registry of Transplant Recipients http://www.srtr.org (1) Single organ transplants performed between 10/19/2018 and 12/29/2019 (unadjusted for patient and donor characteristics) (2) Single organ transplants performed between 04/18/2016 and 10/18/2018 (unadjusted for patient and donor characteristics) All recipients will be tested for HIV, HBV and HCV after transplant. The types of kidney offer you may receive: Risk criteria for infection In the past month the donor: Had sex with known or suspected infected person with HIV, Hepatitis B or Hepatitis C Is a man who had sex with another man Unknown medical or social history Had sex with a person in exchange for money or drugs Used non medical injection of drugs Has been in lockup, senior living, penitentiary or juvenile correctional facility for > 72 hours Had sex with a person who injected drugs for a non medical reason Had sex with a person who had sex in exchange for money or drugs Child born to a mother with HIV, HBV or HCV infection Child breastfed by a mother with HIV infection Donor is Hepatitis C antibody (+)/FRANKLYN (nucleic acid test) (-) You may receive an offer in which the personnel coordinator asks you if you want to accept a kidney from a donor that is HCV +/FRANKLYN -. This means that either the kidney donor: Had hepatitis C in the past and his/her body cleared the virus (can occur 20-45% of the time) -OR- The test was a false positive. In either case, the absence of detectable HCV RNA (FRANKLYN) essentially confirms the absence of chronic HCV infection. Donor is Hepatitis C antibody (+)/FRANKLYN (nucleic acid test) (+) You may receive an offer in which the personnel coordinator asks you if you want to accept a kidney from a donor that is HCV +/FRANKLYN + . This means that the kidney donor has active circulating hepatitis C and with the acceptance of this organ, you will get hepatitis C. Once it is confirmed, and the genotype is confirmed, we will prescribe an antiviral as defined below. What is Hepatitis C? Hepatitis C is an infection of the liver that results from the Hepatitis C virus (HCV). HCV causes inflammation of the liver. The inflammation progresses slowly over years. The disease usually has mild or no symptoms. How is Hepatitis C Spread? Hepatitis C is usually spread when blood from a person infected with HCV enters the body of someone who is not infected. Today, most people become infected with HCV by sharing needles, syringes, or any other equipment to inject drugs. Treatment Process According to the Center for Disease Control (CDC), over 90% of HCV infected persons can be cured of HCV infection regardless of HCV genotype, with 8-12 weeks of oral therapy.1 Mavyret: has an overall cure rate 98% most common side effects are headache and tiredness.2, 3 If you are not cured with the first 8 week treatment, you will then complete a second round of treatment. Protect Your Family Against Hepatitis C while you are in the Treatment Process Since HCV is not passed casually, HCV transmission between household members is rare. HCV is contagious, but only through scgoe-js-lzssf contact. HCV is not transmitted by hugging, kissing, sneezing, coughing, sharing eating utensils or glasses, or by casual contact. Although the risk of acquiring HCV is low, we do recommend that you do not share razors, toothbrushes, glucose monitors and other tools that may be exposed to blood. Sexual Transmission While rare, sexual transmission of Hepatitis C is possible. It is recommended that you use a latex condom until you have been cleared of the hepatitis C infection. By consenting to receive a HCV positive kidney your wait time may be much shorter. 1 [place] Association for the Study of Liver Diseases (AASLD) and the Infectious Diseases Society of [place] (IDSA). Recommendations for testing, management, and treating hepatitis C. HCV testing and linkage to care. Available at: https://www.hcvguidelines.org 2 Epclusa full prescribing information [id number] revised 08/2019 3 Mavyret full prescribing information 03-C386 revised October 2019 Living donor is expected to function over 12 years High Kidney Donor Profile Index KDPI 0-20% is expected to function, on average, nearly 11 and a half years after transplant KDPI between 21 and 85% and are expected to function for about 9 years (majority of offers) KDPI exceeding 85% are expected to function for more than five and a half years. Actual graft survival for any given patient depends on patient-specific factors such as age, diagnosis, HLA mismatching, compliance with treatment protocols, and other factors. https://optn.transplant.[facility].gov/re sources/guidance/jfpbwx-jyzta-nqiwv wm-pezfn-fizz-jpuwh-pxt-mmolpzhfzc/ #:~:text=Figure%201%20shows%20that% 20a,function%20for%20about%209%20ye ars. Did not receive dialysis before kidney transplant Was on dialysis for 4 years before kidney transplant 5 years after transplant 86% chance patient survival 75% chance patient survival 8 years after transplant 78% chance patient survival 65% chance patient survival documented in this encounter [facility] 05-13-2023 History of Present illness Narrative Caffeine free for 24 hours. status NA status NA Pharmacologic nuclear stress procedure explained to patient. Risk/benefits of the procedure were reviewed and patient verbalized understanding. Medical phys ther offered to patient prior to sensitive procedure and patient declined. Patient was administered a Lexiscan injection during the procedure, per the Physician's order. Patient was instructed prior to the test of the possible side effects of the medication. After the injection was administered, the patient did experience SOB and lightheadedness. In recovery the patient's symptoms subsided and vital signs returned to baseline. Patient tolerated procedure well. Patient was instructed to call 911 if they experience any chest pain, shortness of breath or other anginal equivalent more intense and/or frequent than before today's testing. Patient was ambulatory upon discharge from the clinic. documented in this encounter [facility] 05-13-2023 Hospital Discharge instructions Jose Rojas RN - 05/13/2023 12:00 PM EDT After the completion of your nuclear test at the [facility] [place], you should be aware of the following information: Other than mild fatigue and muscle soreness, there are no residual symptoms or physiological effects associated with this nuclear study. If you should feel different than normal after the test, please contact the physician who scheduled the exam. If you think this is an emergency, either dial 911 or go to the nearest emergency room. Your testing was supervised by Dr. Cedillo today. A qualified and licensed [facility] legal contracts specialist will interpret your study and a final report of the results will be forwarded to your physician within 24 hours. You will get the results of your test directly from the ordering physician or a physician on your care team. The technologist performing your exam will not give you final results. You have been administered a low dose of radioactive material that will be in your system for about three days.? This amount is approximately 5% of the limit that would require modification to your daily activities.? Because of this minimal activity, there are no restrictions with regards to exposure to other individuals, traveling, personal hygiene, or any other routine activity. If you are or , however, there are restrictions.? Please notify the technologist if this is the case. (Reference: [id number], Volume 9, Revision 2, Appendix U). If you have any questions or concerns regarding your exam, please call the [place] office at [phone] Thursday through Thursday, between the hours of 8:00 AM and 5:00 PM. For medical emergencies, please call 911 or go to your nearest emergency room. ? To Whom It May Concern: Our patient, Jerilyn Harris, was seen at [facility] [place] on 05/13/23 for a nuclear test of the heart. During the course of this myocardial perfusion imaging study, our patient received a radioactive isotope, technetium (Tc-99m). Tc-99m emits gamma radiation with an energy of 140 Vilma and has a six hour half life. For this study, our patient received approximately 40 mCi of Tc-99m Cardiolite. The administered radioactivity will be below background levels within three days from the conclusion of the test. In the meantime, our patient may be detected as radioactive due to this study. If you have any further questions please contact our staff @ [phone] Thursday through Thursday, between the hours of 8:00 AM and 5:00 PM. Jennifer Cedillo MD-O [facility] [place] [address] [place] [address] documented in this encounter [facility] 03-10-2023 History of Present illness Narrative Patient is here for 3 month f/u. S/P Right Epididymectomy and right hydrocele repair on 03/10. Most recent PSA was 2.50 on 03/10. Prior PSA was 2.46 on 05/08. Hx of kidney stones, Staghorn stone in B/L kidneys and saw Dr Pierre. . . U/S 12/10 showed multiple bilateral renal stones with no hydro. Most recent CT was 07/[address] Busch every 6 months for the Kidney Stones.. Chronic BPH sx are mild and stable. Denies urgency and frequency. Denies dysuria. Denies hematuria. Nocturia x1. No medication for the prostate.. ED is chronic. No medication for this. Patient has been on HD for 3 years [id number] Work Phone: 03-10-2023 Note PROCEDURE DETAILS Preoperative Diagnosis: Testicular pain, unspecified, N50.819 Right Hydrocele Postoperative Diagnosis: Testicular pain, unspecified, N50.819 Right Hydrocele Surgeon: Anitha Ortiz Resident/Fellow/Other Castings Drafter: None of these were associated with this case Procedure: 1. R EPIDIDYMECTOMY and Right hydrocele repair Anesthesia: No anesthesiologist associated with this case Estimated Blood Loss: 0 Findings: see op note Specimens(s) Collected: yes, Operative Report: Code: [id number] Description: Cristina hydrocele Anesthetic: General. Pre-Op Diagnosis: Right hydrocele. Right Epididycctomy Post-Op Diagnosis: Right hydrocele. Right Epididycctomy Operation: Right hydrocelectomy and epididymectomy Estimated blood loss: Minimal. Complications: None. Indications and consent: The patient has a known hydrocele and now presents for surgical intervention. After the risks, benefits, alternatives and indications of procedure were explained, he consented. DESCRIPTION OF PROCEDURE: The patient was brought to the operating room and placed on the table in supine position. After adequate anesthesia was obtained, the patient was prepped and draped in the standard surgical fashion. An incision was made on the right hemiscrotum. This incision was carried down through the dartos muscular layer. The hydrocele sac was revealed. The hydrocele sac was dissected free of its attachments. The hydrocele sac was then delivered through the incision intact. We then opened the hydrocele sac and evacuated the fluid. The excess hydrocele sac was excised, using electrocautery. We then repaired the hydrocele in the standard bottleneck fashion, using chromic suture. Then spermatocele/epididymis was dissected and excised using electrocautery. The specimen was then passed off and sent to pathology. Care was taken so as not to twist the testicle upon its cord. Electrocautery was used to obtain hemostasis. The testicle was carefully placed back in the scrotum, again taking care so as not to twist it. We then irrigated the wound again. A Last drain was placed. The incision was then closed in three layers. The patient tolerated the procedure well. There were no complications. Attestation: Note Completion: Attending AttestationI performed the procedure without a resident Electronic Signatures: Anitha Ortiz) (Signed 10-Mar-2023 11:46) Authored: Post-Operative Note, Chart Review, Note Completion Last Updated: 10-Mar-2023 11:46 by Anitha Ortiz) [facility] 03-10-2023 Miscellaneous Notes PROCEDURE DETAILS Preoperative Diagnosis: Testicular pain, unspecified, N50.819 Right Hydrocele Postoperative Diagnosis: Testicular pain, unspecified, N50.819 Right Hydrocele Surgeon: Anitha Ortiz Resident/Fellow/Other Castings Drafter: None of these were associated with this case Procedure: 1. R EPIDIDYMECTOMY and Right hydrocele repair Anesthesia: No anesthesiologist associated with this case Estimated Blood Loss: 0 Findings: see op note Specimens(s) Collected: yes, Operative Report: Code: [id number] Description: Diana's hydrocele Anesthetic: General. Pre-Op Diagnosis: Right hydrocele. Right Epididycctomy Post-Op Diagnosis: Right hydrocele. Right Epididycctomy Operation: Right hydrocelectomy and epididymectomy Estimated blood loss: Minimal. Complications: None. Indications and consent: The patient has a known hydrocele and now presents for surgical intervention. After the risks, benefits, alternatives and indications of procedure were explained, he consented. DESCRIPTION OF PROCEDURE: The patient was brought to the operating room and placed on the table in supine position. After adequate anesthesia was obtained, the patient was prepped and draped in the standard surgical fashion. An incision was made on the right hemiscrotum. This incision was carried down through the dartos muscular layer. The hydrocele sac was revealed. The hydrocele sac was dissected free of its attachments. The hydrocele sac was then delivered through the incision intact. We then opened the hydrocele sac and evacuated the fluid. The excess hydrocele sac was excised, using electrocautery. We then repaired the hydrocele in the standard bottleneck fashion, using chromic suture. Then spermatocele/epididymis was dissected and excised using electrocautery. The specimen was then passed off and sent to pathology. Care was taken so as not to twist the testicle upon its cord. Electrocautery was used to obtain hemostasis. The testicle was carefully placed back in the scrotum, again taking care so as not to twist it. We then irrigated the wound again. A [place] drain was placed. The incision was then closed in three layers. The patient tolerated the procedure well. There were no complications. Attestation: Note Completion: Attending Attestation I performed the procedure without a resident Electronic Signatures: Anitha Ortiz) (Signed 10-Mar-2023 11:46) Authored: Post-Operative Note, Chart Review, Note Completion Last Updated: 10-Mar-2023 11:46 by Anitha Ortiz) documented in this encounter [facility] Work Phone: 03-10-2023 Note Formatting of this n ote is different from the original. PROCEDURE DETAILS Preoperative Diagnosis: Testicular pain, unspecified, N50.819 Right Hydrocele Postoperative Diagnosis: Testicular pain, unspecified, N50.819 Right Hydrocele Surgeon: Anitha Ortiz Resident/Fellow/Other Castings Drafter: None of these were associated with this case Procedure: 1. R EPIDIDYMECTOMY and Right hydrocele repair Anesthesia: No anesthesiologist associated with this case Estimated Blood Loss: 0 Findings: see op note Specimens(s) Collected: yes, Operative Report: Code: [id number] Description: Diana's hydrocele Anesthetic: General. Pre-Op Diagnosis: Right hydrocele. Right Epididycctomy Post-Op Diagnosis: Right hydrocele. Right Epididycctomy Operation: Right hydrocelectomy and epididymectomy Estimated blood loss: Minimal. Complications: None. Indications and consent: The patient has a known hydrocele and now presents for surgical intervention. After the risks, benefits, alternatives and indications of procedure were explained, he consented. DESCRIPTION OF PROCEDURE: The patient was brought to the operating room and placed on the table in supine position. After adequate anesthesia was obtained, the patient was prepped and draped in the standard surgical fashion. An incision was made on the right hemiscrotum. This incision was carried down through the dartos muscular layer. The hydrocele sac was revealed. The hydrocele sac was dissected free of its attachments. The hydrocele sac was then delivered through the incision intact. We then opened the hydrocele sac and evacuated the fluid. The excess hydrocele sac was excised, using electrocautery. We then repaired the hydrocele in the standard bottleneck fashion, using chromic suture. Then spermatocele/epididymis was dissected and excised using electrocautery. The specimen was then passed off and sent to pathology. Care was taken so as not to twist the testicle upon its cord. Electrocautery was used to obtain hemostasis. The testicle was carefully placed back in the scrotum, again taking care so as not to twist it. We then irrigated the wound again. A Last drain was placed. The incision was then closed in three layers. The patient tolerated the procedure well. There were no complications. Attestation: Note Completion: Attending Attestation I performed the procedure without a resident Electronic Signatures: Anitha Ortiz) (Signed 10-Mar-2023 11:46) Authored: Post-Operative Note, Chart Review, Note Completion Last Updated: 10-Mar-2023 11:46 by Anitha Ortiz) [facility] Work Phone: 03-10-2023 Note History & Physical R eviewed: I have reviewed the History and Physical dated: 23-Feb-2023 History and Physical reviewed and relevant findings noted. Patient examined to review pertinent physical findings.: No significant changes Home Medications Reviewed: no changes noted Allergies Reviewed: no changes noted ERAS (Enhanced Recovery After Surgery): ERAS Patient: no Consent: COVID-19 Consent: COVID-19 Risk ConsentSurgeon has reviewed manzano risks related to the risk of roxy COVID-19 and if they contract COVID-19 what the risks are. Electronic Signatures: Anitha Ortiz) (Signed 10-Mar-2023 07:56) Authored: History & Physical Reviewed, ERAS, Consent, Note Completion Last Updated: 10-Mar-2023 07:56 by Anitha Ortiz) [facility] 03-10-2023 History and physical note History & Physical Reviewed: I have reviewed the History and Physical dated: 23-Feb-2023 History and Physical reviewed and relevant findings noted. Patient examined to review pertinent physical findings.: No significant changes Home Medications Reviewed: no changes noted Allergies Reviewed: no changes noted ERAS (Enhanced Recovery After Surgery): ERAS Patient: no Consent: COVID-19 Consent: COVID-19 Risk Consent Surgeon has reviewed manzano risks related to the risk of roxy COVID-19 and if they contract COVID-19 what the risks are. Electronic Signatures: Anitha Ortiz) (Signed 10-Mar-2023 07:56) Authored: History & Physical Reviewed, ERAS, Consent, Note Completion Last Updated: 10-Mar-2023 07:56 by Anitha Ortiz) [facility] Work Phone: 03-10-2023 History and physical note History & Physical Reviewed: I have reviewed the History and Physical dated: 23-Feb-2023 History and Physical reviewed and relevant findings noted. Patient examined to review pertinent physical findings.: No significant changes Home Medications Reviewed: no changes noted Allergies Reviewed: no changes noted ERAS (Enhanced Recovery After Surgery): ERAS Patient: no Consent: COVID-19 Consent: COVID-19 Risk Consent Surgeon has reviewed manzano risks related to the risk of roxy COVID-19 and if they contract COVID-19 what the risks are. Electronic Signatures: Anitha Ortiz) (Signed 10-Mar-2023 07:56) Authored: History & Physical Reviewed, ERAS, Consent, Note Completion Last Updated: 10-Mar-2023 07:56 by Anitha Ortiz) documented in this encounter [facility] Work Phone: 02-23-2023 Chief complaint Narrative - Reported An interactive audio and video telecommunication system which permits real time communications between the patient (at the originating site) and provider (at the distant site) was utilized to provide this telehealth service.Verbal consent was requested and obtained from JERILYN HARRIS on this date, 02/23/2023 10:45 AM , for a telehealth visit.1 week w/ KUB AND PSA QY-Mtkmzna-Pbwxrxlt HC 232 DO Work Phone: 12-10-2022 History of Present illness Narrative Patient is here for testicular pain. He states he has been having the pain for years but it has worsened...he states he has been tx in the past for epididymitis.... Hx of kidney stones, Staghorn stone in B/L kidneys and saw Dr Pierre. . . U/S 12/10 showed multiple bilateral renal stones with no hydro. Most recent CT was 07/[address] Busch every 6 months for the Kidney Stones.. Chronic BPH sx are mild and stable. Denies urgency and frequency. Denies dysuria. Denies hematuria. Nocturia x1. No medication for the prostate. Most recent PSA was 2.46 on 05/08. ED is chronic. No medication for this. Patient has been on HD for 3 years CM-Nnxwwgi-Qkflxsx Work Phone: 12-10-2022 History of Present illness Narrative Patient is here for 1 week f/u w/ kub and PSA. Most recent PSA was 2.50 on 03/10. Prior PSA was 2.46 on 05/08. Hx of kidney stones, Staghorn stone in B/L kidneys and saw Dr Pierre. . . U/S 12/10 showed multiple bilateral renal stones with no hydro. Most recent CT was 07/[address] Busch every 6 months for the Kidney Stones.. Chronic BPH sx are mild and stable. Denies urgency and frequency. Denies dysuria. Denies hematuria. Nocturia x1. No medication for the prostate. He is scheduled for Right epididymectomy. . ED is chronic. No medication for this. Patient has been on HD for 3 years AY-Wdiphzk-Pxgdlmem HC 232 DO Work Phone: 07-11-2022 History of Present illness Narrative Images from the original note were not included. [facility] Wait list Evaluation Dialysis Center: [facility] Chief Complaint: Scheduled Kidney Transplant wait list evaluation. History of Present Illness: Jerilyn Harris was initiated on dialysis 11/22/2019 due to Diabetes Mellitus - Type II and is currently on hemodialysis. 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 Anitha Ortiz Biopsy on lump right side of neck questionable neuroma. Has pain there.[facility] [place] kidney biopsy: no 12/31/2018 Listed [facility] Verified he is active in [facility]. 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 Estimated body mass index is 32.13 kg/m as calculated from the following: Height as of this encounter: 1.753 m (5' 9 ). Weight as of this encounter: 98.7 kg (217 lb 9.6 oz). General: well-appearing Cardio: S1S2 RRR Lungs: Clear to auscultation Femoral Pulse:right femoral present Skin: intact Allergies: Allergies Allergen Reactions Bee Venom Shortness of Breath and Swelling Yellow jacket- Victoza [Liraglutide] Hypoglycemia Omega Extract Bloating Medications: Current Outpatient Medications Medication Sig B Itrxpmv-Z-Kunsa Acid (Nephro-Kojo) 0.8 MG tablet Take 1 tablet by mouth daily. calcitRIOL 0.25 MCG Cap capsule Take 0.5 mcg by mouth three times a week. calcium acetate - Phos Binder 667 MG capsule Take 2,001 mg by mouth With meals. cinacalcet 30 MG tablet Take 30 mg by mouth three times a week. gabapentin 800 MG Tab Take 800 mg by mouth daily. iron sucrose (VENOFER) in sodium chloride 0.9%, with overfill IVPB 50 mg by Intravenous route once a week. lansoprazole [address] capsule Take 30 mg by mouth as needed. trazodone 150 MG tablet Take 150 mg by mouth at bedtime. Vitamin D3 1000 units Tab tablet Take 1,000 Units by mouth daily. Laboratory Data B NEGATIVE cPRA (%) Date Value 06/10/2022 0 Screening: Hepatitis B sAB status negative; vaccines received COVID-19 vaccine received two doses and two boosters Colonoscopy: 08/03/2018 Cardiac Testin12/25/2021 Overall: This pharmacologic stress nuclear perfusion scan is NORMAL and negative for ischemia. Nuclear portion of the exam: No definite evidence of ischemia. No definitive evidence of infarction. There is an apparent moderate sized, moderate severity, fixed defect in the apical to mid inferior and septal chacko which resolves with attenuation correction and likely represents diaphragmatic artifact. Normal left ventricular systolic function (LVEF 58%). ECG portion of the exam: Baseline ECG: normal sinus rhythm. He was given 0.4mg regadenason, max HR 75. With Lexiscan, he had no significant ST segment changes. Stress ECG is negative for ischemia at achieved heart rate. CT portion of the scan: CT images were obtained for attenuation correction purposes only. Diagnostic quality of the images is limited. At least mild coronary calcification (CAC) is seen, although the study is not optimized for CAC detection or quantification. 12/25/2021 Left Ventricle: Chamber size is normal. Normal wall thickness. Regional wall motion is normal. Ejection fraction is normal (65 - 70%). Diastolic function is normal. Right Ventricle: Chamber size is normal. Systolic function is normal. No significant valvular abnormality seen No pericardial effusion. Active living donors: 0 EPTS score: 89% Maximum KDPI acceptable: 100% Impression and Plan 1. Jerilyn Harris will remain active on the kidney transplant wait list with a qualifying date of 12/31/2018. 2. He does not need any additional cardiac testing at this time. 3. 02/28/2022 Solitary right upper lobe pulmonary nodule. Recommend low-dose CT in 6 months. 09/18/2021 lobulated noncalcified, nonspecific 6 mm RUL nodule Appears to have been the same size from the various imaging he has had. 4. Bilateral staghorn calculus - Follows with Anitha Ortiz (local urologist) every [address] Lorenz to see if he will need to have them removed prior to kidney transplant. 5. Hepatitis C - genotype 1A, evaluated by Dr. Dorado and liver biopsy showed no evidence of advanced scarring of the liver and the pressure measurements showed no evidence of portal hypertension. He thought he had previously consented for hepatitis C donor offers however I was unable to locate it in his chart. Consent signed today. 6. 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 7. Hyperparathyroidism- PTH 175 pg/mL on 07/01/2022. 8. Mr. Harris was highly encouraged to find a living donor. Consider a transplant champion. 9. He was educated on high kidney donor profile index donors so if he received a kidney offer with this classification, he could make an informed decision. Consent previously signed. 10. Mr. Harris will be asked to return for a wait list appointment as well as repeat cardiac testing according to protocol. He was also asked to keep the transplant center updated with any change in condition or hospitalizations. Time Spent on Encounter: 30 minutes Trista Botello MSN, RN, ISO COORDINATOR-BC, CCTN Certified Nurse Practitioner [facility] [address] [facility] [address] Transplant Psychosocial Social History: This SW met with patient one on one during clinic visit to complete patient's social history. Pt reports access to support through his (who was present for this appointment) and his step-daughter Alberta. Pt does not live alone. Pt reports that he is retired. Pt denies financial concerns at this time. Pt reports access to Medicare and supplement insurance. Pt does not want follow [facility] financial counselors. Pt denies current use of alcohol. Pt denies current use of tobacco. Pt denies current use of illicit substances. Pt denies experiencing physical and/or mental abuse and does not want follow up with SW regarding same. Pt denies current mental health symptoms. Pt denies current mental health treatment. Pt denies wanting additional follow-up by SW. Per review of pt's previous social histories and/or initial psychosocial evaluation, there does not appear to be a history of psychosocial concerns. Pt appears to be an adequate transplant candidate from a psychosocial standpoint at this time. This social services specialist discussed living donation including strategies for finding a living donor at length with patient and spouse answering all questions and resources for same were provided. documented in this encounter [facility] 07-11-2022 Instructions HARRY Lau - 07/11/2022 1:30 PM EDT Living Donor [place] Ask one or two family members or close friends to be your living donor champion. The roles of the champion are to: Find a living donor for you in a timely fashion Take the responsibility of identifying a donor away from the you, allowing you to focus on your health Connect and talk with as many people as possible so that an appropriate match can be found Offer support and inspiration through your difficult journey The champion should be knowledgeable with the kidney transplant process. Please call us with your champion's name and contact information so we can provide the education Benefits to the champion Provides the opportunity to save a life. Gives the opportunity to contribute to the recipient s life -- and the lives of the recipient s loved ones -- in a very meaningful and lifelong way Benefits to you A live donor reduces your wait time from years to a few months. You can receive your transplant while you are still an acceptable candidate. Many people become too ill for transplant while waiting on the list for a donor kidney. Current Status on the Kidney Transplant List active Your Blood Type B NEGATIVE Your Hepatitis B sAB status at the time of your transplant evaluation. negative; vaccines received Your To Do List Update our transplant center updated with any illnesses, open wounds or hospitalizations by calling your coordinator at [phone]. Continue your health maintenance while waiting for your transplant. You have the right to opt out of the transplant process at any time. If you would like to discuss alternative treatments or therapies to kidney transplantation, please discuss with your provider. April 2019- March 2020 [facility] 331 People Received Kidney Transplants 85 Living donor [address] [facility] [address] [facility] Requires dialysis in the first week after transplant 19.1% 2.4% Estimated probability of surviving with a functioning graft at 1 month (1) 99.54% 99.51% Estimated probability of surviving with a functioning graft at 1 year (1) 96.74% 99.02% Estimated probability of surviving with a functioning graft at 3 years (2) 84.93% 93.31% Data from: [place] Scientific Registry of Transplant Recipients http://www.srtr.org (1) Single organ transplants performed between 04/18/2017 and 10/18/2019 (unadjusted for patient and donor characteristics) (2) Single organ transplants performed between 10/19/2014 and 04/17/2017 (unadjusted for patient and donor characteristics) All recipients will be tested for HIV, HBV and HCV after transplant. The types of kidney offer you may receive: Risk criteria for infection In the past month the donor: Had sex with known or suspected infected person with HIV, Hepatitis B or Hepatitis C Is a man who had sex with another man Unknown medical or social history Had sex with a person in exchange for money or drugs Used non medical injection of drugs Has been in lockup, senior living, penitentiary or juvenile correctional facility for > 72 hours Had sex with a person who injected drugs for a non medical reason Had sex with a person who had sex in exchange for money or drugs Child born to a mother with HIV, HBV or HCV infection Child breastfed by a mother with HIV infection Donor is Hepatitis C antibody (+)/FRANKLYN (nucleic acid test) (-) You may receive an offer in which the personnel coordinator asks you if you want to accept a kidney from a donor that is HCV +/FRANKLYN -. This means that either the kidney donor: Had hepatitis C in the past and his/her body cleared the virus (can occur 20-45% of the time) -OR- The test was a false positive. In either case, the absence of detectable HCV RNA (FRANKLYN) essentially confirms the absence of chronic HCV infection. Donor is Hepatitis C antibody (+)/FRANKLYN (nucleic acid test) (+) You may receive an offer in which the personnel coordinator asks you if you want to accept a kidney from a donor that is HCV +/FRANKLYN + . This means that the kidney donor has active circulating hepatitis C and with the acceptance of this organ, you will get hepatitis C. Once it is confirmed, and the genotype is confirmed, we will prescribe an antiviral as defined below. What is Hepatitis C? Hepatitis C is an infection of the liver that results from the Hepatitis C virus (HCV). HCV causes inflammation of the liver. The inflammation progresses slowly over years. The disease usually has mild or no symptoms. How is Hepatitis C Spread? Hepatitis C is usually spread when blood from a person infected with HCV enters the body of someone who is not infected. Today, most people become infected with HCV by sharing needles, syringes, or any other equipment to inject drugs. Treatment Process According to the Center for Disease Control (CDC), over 90% of HCV infected persons can be cured of HCV infection regardless of HCV genotype, with 8-12 weeks of oral therapy.1 Mavyret: has an overall cure rate 98% most common side effects are headache and tiredness.2, 3 If you are not cured with the first 8 week treatment, you will then complete a second round of treatment. Protect Your Family Against Hepatitis C while you are in the Treatment Process Since HCV is not passed casually, HCV transmission between household members is rare. HCV is contagious, but only through tsdzz-uc-yzgbc contact. HCV is not transmitted by hugging, kissing, sneezing, coughing, sharing eating utensils or glasses, or by casual contact. Although the risk of acquiring HCV is low, we do recommend that you do not share razors, toothbrushes, glucose monitors and other tools that may be exposed to blood. Sexual Transmission While rare, sexual transmission of Hepatitis C is possible. It is recommended that you use a latex condom until you have been cleared of the hepatitis C infection. By consenting to receive a HCV positive kidney your wait time may be much shorter. 1 [place] Association for the Study of Liver Diseases (AASLD) and the Infectious Diseases Society of [place] (IDSA). Recommendations for testing, management, and treating hepatitis C. HCV testing and linkage to care. Available at: https://www.hcvguidelines.org 2 Epclusa full prescribing information 119229-NI-211 revised 08/2019 3 Mavyret full prescribing information 03-C386 revised October 2019 Living donor is expected to function over 12 years High Kidney Donor Profile Index KDPI 0-20% is expected to function, on average, nearly 11 and a half years after transplant KDPI between 21 and 85% and are expected to function for about 9 years (majority of offers) KDPI exceeding 85% are expected to function for more than five and a half years. Actual graft survival for any given patient depends on patient-specific factors such as age, diagnosis, HLA mismatching, compliance with treatment protocols, and other factors. https://optn.transplant.hrsa.gov/re sources/guidance/lplqij-nhizo-ynmzi lt-lhumf-ebkg-nxtgw-lcy-ckocnepnik/ #:~:text=Figure%201%20shows%20that% 20a,function%20for%20about%209%20ye ars. Did not receive dialysis before kidney transplant Was on dialysis for 4 years before kidney transplant 5 years after transplant 86% chance patient survival 75% chance patient survival 8 years after transplant 78% chance patient survival 65% chance patient survival documented in this encounter [facility] 07-19-2021 History of Present illness Narrative Patient here for right flank pain..pt is on dialysis for about a yr 1/2 now..Pt states the pain has been going on for about a yr now.. It is intermittent. it is dull and more of an ache. .Hx of kidney stones..Last stone was in July..Pt states he feels like he isn't passing the stones anymore and they are just building up..CT on 08/07 showed multiple LARGE (3cm) renal calculi within the bilateral kidneys measuring up to 3.4x 2.9cm involving the calices as well as the renal pelvic and proximal ureters and there is no hydro..He has seen Dr Busch to discuss simple nephrectomy for this.. No fhx of prostate ca..No recent PSA...LUTs are chronic and mild..Denies frequency and urgency..Denies dysuria..Some hematuria..Nocturia x1..ED is chronic. No medications for this. [facility]Fyfpydl[facility]Xdystrc Work Phone: 07-09-2021 History of Present illness Narrative Patient presents to the office today for a 6 MO Check. .Patient has been on dialysis for about 2 years now..Patient has a Hx of Kidney Stones..Staghorn Stones in B/L kidneys. Patient states he is having Right Flank Pain Intermittently..Most recent CT was 07/09.Patient sees Dr Busch every 6 MO for the Kidney Stones. . No fhx of prostate ca..Most recent PSA was 05/08 and was 2.46...LUTs are chronic and mild..Denies frequency and urgency..Denies dysuria..Some hematuria..Nocturia x1..CYSTO 06/08...ED is chronic. No medications for this. ZJ-Uwxwuna-Voixjqs Work Phone: 07-09-2021 History of Present illness Narrative Patient presents to the office today for a 6 MO Check. .Patient has been on dialysis for about 2 years now..Patient has a Hx of Kidney Stones..Staghorn Stones in B/L kidneys. Patient states he is having Right Flank Pain Intermittently..Most recent CT was 07/09.Patient sees Dr Busch every 6 MO for the Kidney Stones. . No fhx of prostate ca..Most recent PSA was 05/08 and was 2.46...LUTs are chronic and mild..Denies frequency and urgency..Denies dysuria..Some hematuria..Nocturia x1..CYSTO 06/08...ED is chronic. No medications for this. ZO[facility] Work Phone: 11-18-2012 History of Present illness Narrative Mr. 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 The patient tolerated this procedure well and was discharged from the hospital on the day of surgery. He states that he has recovered nearly completely from the surgical procedure although he does have some occasional tenderness at the surgical site. He denies any erythema swelling or other evidence of infection at the surgical site. I informed him that the final pathology was indeed consistent with a traumatic neuroma and there was no neoplasm noted. The patient was relieved and is very pleased with his progress to date. He will return to see me on an as necessary basis. 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 documented in this encounter [facility]* Diagnosis Patient on waiting list for kidney transplant- Primary documented in this encounter [facility]* Diagnosis Pre-transplant evaluation for kidney transplant- Primary documented in this encounter [facility] Work Phone: Evaluation note* Diagnosis Hydrocele, unspecified Epididymitis Unspecified orchitis and epididymitis Type 2 diabetes mellitus with diabetic chronic kidney disease ([facility]/HCC) End stage renal disease ([facility]) End stage renal disease Dependence on renal dialysis ([facility]) Renal dialysis status Benign prostatic hyperplasia without lower urinary tract symptoms Personal history of other infectious and parasitic diseases Gastro-esophageal reflux disease without esophagitis Unspecified osteoarthritis, unspecified site Scoliosis, unspecified Personal history of malignant neoplasm of other organs and systems Presence of unspecified artificial hip joint Arthrodesis status Personal history of nicotine dependence documented in this encounter [facility] Work Phone: Evaluation note* Diagnosis Peripheral vascular disease (CMS/HCC) Unspecified peripheral vascular disease documented in this encounter [facility] Work Phone: Evaluation note* Diagnosis Pre-operative cardiovascular examination- Primary Encounter for pre-transplant evaluation for kidney transplant Coronary artery calcification of mi'kmaq artery documented in this encounter [facility] Work Phone: History of Present illness NarrativePatient here for right flank pain..pt is on dialysis for about a yr 1/2 now..Pt states the pain hasbeen going on for about a yr now.. It is intermittent. it is dull and more of an ache. .Hx of kidney stones..Last stone was in July..Pt states he feels like he isn't passing the stones anymore andthey are just building up..CT on 08/07 showed multiple LARGE (3cm) renal calculi within the bilateral kidneys measuring up to 3.4x 2.9cm involving the calices as well as the renal pelvic and proximalureters and there is no hydro..He has seen Dr Busch to discuss simple nephrectomy for this.. No fhx of prostate ca..No recent PSA...LUTs are chronic and mild..Denies frequency and urgency..Denies dysuria..Some hematuria..Nocturia x1..ED is chronic. No medications for this. [facility] Work Phone: History of Present illness NarrativeMr. 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 This procedure was performed nearly a decade ago and he has remained free of any recurrent disease. Most recently however Mr. Harris noted a mass as well as discomfort overlying his sternocleidomastoid muscle on the right. 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 Mr. Harris requested that this be removed however the grinder set up operator centerless felt he did not have enough experience to perform this procedure. He is here today for consideration of surgical excision of this well documented neuroma.BU-Nqhfejwhdhzetg-Wdggbkb Work Phone: Summary Purpose Family History No Family History Records FoundUnknown Family Member Name Dates Details Family history of lung cance r: Father(V16.1, Z80.1) Status:Active Family history of malignant neoplasm of stomach: Brother(V16.0, Z80.0) Status:Active Family history of cardiac di sorder: Father(V17.49, Z82.49) Status:Active Stroke of unusual etiology: Mother Status:Active Unknown Family Member Name Dates Details Family history of lung cance r: Father(V16.1, Z80.1) Status:Active Family history of malignant neoplasm of stomach: Brother(V16.0, Z80.0) Status:Active Family history of cardiac di sorder: Father(V17.49, Z82.49) Status:Active Stroke of unusual etiology: Mother Status:Active Unknown Family Member Name Dates Details Family history of lung cance r: Father(V16.1, Z80.1) Status:Active Family history of malignant neoplasm of stomach: Brother(V16.0, Z80.0) Status:Active Family history of cardiac di sorder: Father(V17.49, Z82.49) Status:Active Stroke of unusual etiology: Mother Status:Active Unknown Family Member Name Dates Details Stroke of unusual etiology: Mother Status:Active Family history of cardiac di sorder: Father(V17.49, Z82.49) Status:Active Family history of malignant neoplasm of stomach: Brother(V16.0, Z80.0) Status:Active Family history of lung cance r: Father(V16.1, Z80.1) Status:Active Unknown Family Member Name Dates Details Family history of lung cance r: Father(V16.1, Z80.1) Status:Active Family history of malignant neoplasm of stomach: Brother(V16.0, Z80.0) Status:Active Family history of cardiac di sorder: Father(V17.49, Z82.49) Status:Active Stroke of unusual etiology: Mother Status:Active Unknown Family Member Name Dates Details Family history of lung cance r: Father(V16.1, Z80.1) Status:Active Family history of malignant neoplasm of stomach: Brother(V16.0, Z80.0) Status:Active Family history of cardiac di sorder: Father(V17.49, Z82.49) Status:Active Stroke of unusual etiology: Mother Status:Active Unknown Family Member Name Dates Details Family history of lung cance r: Father(V16.1, Z80.1) Status:Active Family history of malignant neoplasm of stomach: Brother(V16.0, Z80.0) Status:Active Family history of cardiac di sorder: Father(V17.49, Z82.49) Status:Active Stroke of unusual etiology: Mother Status:Active Unknown Family Member Name Dates Details Stroke of unusual etiology: Mother Status:Active Family history of cardiac di sorder: Father(V17.49, Z82.49) Status:Active Family history of malignant neoplasm of stomach: Brother(V16.0, Z80.0) Status:Active Family history of lung cance r: Father(V16.1, Z80.1) Status:Active Unknown Family Member Name Dates Details Family history of lung cance r: Father(V16.1, Z80.1) Status:Active Family history of malignant neoplasm of stomach: Brother(V16.0, Z80.0) Status:Active Family history of cardiac di sorder: Father(V17.49, Z82.49) Status:Active Stroke of unusual etiology: Mother Status:Active Unknown Family Member Name Dates Details Family history of lung cance r: Father(V16.1, Z80.1) Status:Active Family history of malignant neoplasm of stomach: Brother(V16.0, Z80.0) Status:Active Family history of cardiac di sorder: Father(V17.49, Z82.49) Status:Active Stroke of unusual etiology: Mother Status:Active Unknown Family Member Name Dates Details Family history of lung cance r: Father(V16.1, Z80.1) Status:Active Family history of malignant neoplasm of stomach: Brother(V16.0, Z80.0) Status:Active Family history of cardiac di sorder: Father(V17.49, Z82.49) Status:Active Stroke of unusual etiology: Mother Status:Active Unknown Family Member Name Dates Details Family history of lung cance r: Father(V16.1, Z80.1) Status:Active Family history of malignant neoplasm of stomach: Brother(V16.0, Z80.0) Status:Active Family history of cardiac di sorder: Father(V17.49, Z82.49) Status:Active Stroke of unusual etiology: Mother Status:Active Unknown Family Member Name Dates Details Family history of lung cance r: Father(V16.1, Z80.1) Status:Active Family history of malignant neoplasm of stomach: Brother(V16.0, Z80.0) Status:Active Family history of cardiac di sorder: Father(V17.49, Z82.49) Status:Active Stroke of unusual etiology: Mother Status:Active Unknown Family Member Name Dates Details Family history of lung cance r: Father(V16.1, Z80.1) Status:Active Family history of malignant neoplasm of stomach: Brother(V16.0, Z80.0) Status:Active Family history of cardiac di sorder: Father(V17.49, Z82.49) Status:Active Stroke of unusual etiology: Mother Status:Active Unknown Family Member Name Dates Details Family history of lung cance r: Father(V16.1, Z80.1) Status:Active Family history of malignant neoplasm of stomach: Brother(V16.0, Z80.0) Status:Active Family history of cardiac di sorder: Father(V17.49, Z82.49) Status:Active Stroke of unusual etiology: Mother Status:Active Unknown Family Member Name Dates Details Family history of lung cance r: Father(V16.1, Z80.1) Status:Active Family history of malignant neoplasm of stomach: Brother(V16.0, Z80.0) Status:Active Family history of cardiac di sorder: Father(V17.49, Z82.49) Status:Active Stroke of unusual etiology: Mother Status:Active Advance Directives No Advanced Directives Records FoundNo Advanced Directives Records FoundNo Advanced Directives Records FoundNo Advanced Directives Records FoundNo Advanced Directives Records FoundNo Advanced Directives Records FoundNo Advanced Directives Records FoundNo Advanced Directives Records FoundNo Advanced Directives Records FoundNo Advanced Directives Records FoundNo Advanced Directives Records Found Discharge Instructions * Patient Instructions - Stephanie Dickens RN - 09/07/2018 8:54 AM EST Post exercise patient instructions: 1) It is normal to feel fatigue the afternoon and evening after an exercise test. 2) You are free to resume normal activities other than exercising today but if fatigued take it easy. If you get a good nights rest most people are be back to their normal the next day. A small percentage of people need an additional day to get back to normal. 3) Resume taking your normal medications. 4) Your test results will be sent to the doctor who ordered the test. Their office will let you know the test results in the manner that they normally contact you. 5) Do not resume exercising until your doctor had discussed the test results with you. After the completion of your nuclear test at the [facility] [place], you should be awareof the following information: ? There are no residual symptoms or physiological effects associated with this nuclear study. If you should feel different than normal after the test, please contact the physician who scheduled the exam. If you think this is an emergency, either dial 911 or go to the nearest emergency room. ? A qualified and licensed [facility] legal [facility] specialist will interpret your study and a final report of the results will be forwarded to your physician within 24 hours. You will get the results of your test directly from the ordering physician or a physician on your care team. The technologist performing your exam will not give you final results. ? You have been administered a small amount of radioactive material that will be in your system forabout three days. This amount is approximately 5% of the limit that would require modification to your daily activities. Because of this minimal activity, there are no restrictions with regards to exposure to other individuals, traveling, personal hygiene, or any other routine activity. If you are or , however, there are restrictions. Please notify the technologist if this is the case. (Reference: [id number], Volume 9, Revision 2, Appendix U). If you have any questions or concerns regarding your exam, please call the [place] office at [phone] Thursday through Thursday, between the hours of 8:00 AM and 4:00 PM. To Whom It May Concern: Our patient, Jerilyn Harris, was seen at The [facility] [place] on 09/07/2018 for a nuclear test of the heart. During the course of this procedure, our patient received a radioactive isotope, technetium (Tc-99m). Tc-99m emits gamma radiation with an energy of 140 Vilma and has a six hour half life. Specifically, our patient received: A stress myocardial perfusion imaging scan (MPI) and received approximately 40 mCi of Tc-99m Cardiolite. The administered radioactivity will be below background levels within three days from the conclusion of the test. In the meantime, our patient may be detected as radioactive due to this study. If you have any further questions please contact our nuclear personnel at [phone], Thursday through Thursday, between the hours of 8:00 AM and 4:00 PM. Thank you, Chente Juarez MD Label Folder and RSO [facility] [address] [place] [address] [place] [address] in this encounter Assessments Diagnosis Pre-transplant evaluation fo r chronic kidney disease Other specified pre-operative examination Diagnosis Pre-transplant evaluation for kidney transplant- Primary History of Present Illness * Stephanie Dickens, ROGELIO - 09/07/2018 9:52 AM EST Definity Risk Screening: Explained Definity use to patient including potential side effects. Emphasis on letting the staff know if feeling different during or after Definity administered. The patient does not have an allergy to Definity or its components. Patient tolerate Definity infusion without incident. in this encounter* Mary Menon RPH - 09/15/2018 8:23 AM EST Formatting of this note may be different from the original. Department of Pharmacy Transplant Note Patient: Jerilyn Harris Pre-Transplant Selection Note Allergies Allergen Reactions Bee Venom Shortness of Breath and Swelling Yellow jacket- Victoza [Liraglutide] Hypoglycemia Omega Extract Bloating Mr. Jerilyn Harris was discussed on 09/15/2018 at the kidney/pancreas transplant selection meeting for listing. I have reviewed his current medications and was present for his presentation/discussion. No pharmacy related issues or contraindications were identified. Current Outpatient Prescriptions Medication Sig calcitRIOL 0.25 MCG Cap capsule Take 0.5 mcg by mouth daily. gabapentin 800 MG Tab Take 800 mg by mouth 2 times daily. gliMEPIride 2 MG Tab Take 2 mg by mouth every evening at 6 PM. 2-4 mg daily lansoprazole (PREVACID) [address] capsule Take 30 mg by mouth as needed. losartan 25 MG Tab tablet Take 25 mg by mouth daily. Vitamin D3 1000 units Tab tablet Take 1,000 Units by mouth daily. Name: Mary Menon [facility] Phone #: [phone] Date/Time: 09/15/2018 8:23 AM in this encounter* Ranjan Willis - 12/31/2018 2:22 PM EDT Verified the presence of listing lab work. Verified 2nd ABO in [facility]. Faxed completed Transplant Visit Activation request form to Registration ([phone]). Added checklist item for waitlist visit for one year from last clinic evaluation appointment. Activation and Path Tory letters created and will bemailed to patient with one month tissue typing supplies and standing HLA order once order is signed, copies sent to dialysis unit/referring physician. Not on Dialysis PRA KIT SENT OUT documented in this encounter Reason for Referral Status Reason Specialty Diagnoses / Procedures Referred By Contact Referred To Contact New Request Diagnoses Pre-transplant evaluation for chronic kidney disease Procedures NUC MYOCARD PERF STRESS MIBI PHARM NUC MYOCARD PERF STRESS MIBI EXERCISE IA CHG MYOCARDIAL SPECT MULTIPLE STUDIES IA CARDIAC STRESS TST,TRACING ONLY IA CHG MYOCARDIAL SPECT MULTIPLE STUDIES CHG MYOCARDIAL SPECT MULTIPLE STUDIES-T IA CARDIAC STRESS TST,INTERP/REPT ONLY IA CV STRS TST XERS&/OR RX CONT ECG W/O I&R Yosef Magdaleno MD [address] [place] [address] Specialty Diagnoses / Procedures Referred By Contac t Referred To Contact Diagnoses Pre-kidney transplant, listed Preprocedural cardiovascular examination 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 Procedures ECHOCARDIOGRAM IA ECHO HEART XTHORACIC,COMPLETE W DOPPLER Trista Botello, ISO COORDINATOR-BRUSH MAKER [address] [place] [address] Referral ID Status Reason Start Date Expiration Date V isits Requested Visits Authorized [id number] New Request 04/01/2023 04/25/2024 1 1 Specialty Diagnoses / Procedures Referred By Contac t Referred To Contact Cardiology Diagnoses Peripheral vascular disease (CMS/HCC) Procedures Vascular US ankle brachial index (KRIS) [place] [id number] Department of Surgery-Transplant [place] [phone] Referral ID Status Reason Start Date Expiration Date Visits Requested Visits Authorized [id number] Authorized Perform Procedure 10/23/2023 10/22/2024 1 1 Specialty Diagnoses / Procedures Referred By Contac t Referred To Contact Diagnoses Pre-operative cardiovascular examination Procedures ECG 12 lead (Clinic Performed) [place] [id number] [place] [phone] Referral ID Status Reason Start Date Expiration Date V isits Requested Visits Authorized [id number] Authorized 11/04/2023 11/03/2024 1 1 Chief Complaint Right flank painHEMATURIARight flank pain6 MO F/U6 MO F/URight neck mass/pain* A telephone visit (audio only) between the patient (at the originating site) and the provider (at the distant site) was utilized to provide this telehealth service. * Post op virtual visit Testicular pain3 month f/u Additional Source Comments (unrecognized sect ion and content) No Status Records FoundNo Status Records FoundNo Status Records FoundNo Status Records FoundNo Status Records FoundNo Status Records FoundNo Status Records FoundNo Status Records FoundNo Status Records FoundNo Status Records FoundNo Status Records Found INFORMATION SOURCE (unrecogn ized section and content) DATE CREATED AUTHOR AUTHOR'S ORGANIZ ATION 09/05/2018 [facility] DATE CREATED AUTHOR AUTHOR'S ORGANIZ ATION 01/03/2019 [facility] DATE CREATED AUTHOR AUTHOR'S ORGANIZ ATION 05/14/2020 [facility] [place] DATE CREATED AUTHOR AUTHOR'S ORGANIZ ATION 03/27/2023 [facility] DATE CREATED AUTHOR AUTHOR'S ORGANIZ ATION 06/12/2023 [facility] DATE CREATED AUTHOR AUTHOR'S ORGANIZ ATION 09/21/2023 [facility] DATE CREATED AUTHOR AUTHOR'S ORGANIZ ATION 10/03/2023 [facility] DATE CREATED AUTHOR AUTHOR'S ORGANIZ ATION 10/18/2023 [facility] DATE CREATED AUTHOR AUTHOR'S ORGANIZ ATION 10/27/2023 [facility] DATE CREATED AUTHOR AUTHOR'S ORGANIZ ATION 11/06/2023 [facility] Reason for Visit (unrecogniz ed section and content) Status Reason Specialty Diagnoses / Procedures Referre d By Contact Referred To Contact Closed Diagnoses Pre-transplant evaluation for chronic kidney disease Procedures ECHOCARDIOGRAM Yosef Magdaleno MD [address] [place] [address] Reason Comments Results Reason Comments Kidney Recipient Evaluation Reason Comments Other [facility] listing Reason Comments Kidney Recipient Referral Reason Comments Waitlist Maintenance Specialty Diagnoses / Procedures Referred By Uli yanez Referred To Contact Certified Nurse Practitioner / Transplant Surgery Procedures PRE WAITLIST PATIENT Self, Self Trista Botello, ISO COORDINATOR-BRUSH MAKER [address] [place] [address] Referral ID Status Reason Start Date Expiration Date V isits Requested Visits Authorized [id number] New Request 07/11/2022 08/05/2023 2 2 Specialty Diagnoses / Procedures Referred By Uli yanez Referred To Contact Diagnoses Pre-kidney transplant, listed Preprocedural cardiovascular examination 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 Procedures ECHOCARDIOGRAM IA ECHO HEART XTHORACIC,COMPLETE W DOPPLER Trista Botello, ISO COORDINATOR-BRUSH MAKER [address] [place] [address] Referral ID Status Reason Start Date Expiration Date V isits Requested Visits Authorized [id number] New Request 04/01/2023 04/25/2024 1 1 Specialty Diagnoses / Procedures Referred By Uli t Referred To Contact Diagnoses Pre-kidney transplant, listed Preprocedural cardiovascular examination 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 Procedures NUC MYOCARD PERF STRESS MIBI PHARM NUC MYOCARD PERF STRESS MIBI EXERCISE IA CHG MYOCARDIAL SPECT MULTIPLE STUDIES IA CARDIAC STRESS TST,TRACING ONLY CHG MYOCARDIAL SPECT MULTIPLE STUDIES-T IA CARDIAC STRESS TST,INTERP/REPT ONLY IA CV STRS TST XERS&/OR RX CONT ECG W/O I&R Trista Botello, ISO COORDINATOR-BRUSH MAKER [address] [address] Referral ID Status Reason Start Date Expiration Date V isits Requested Visits Authorized [id number] New Request 04/01/2023 04/25/2024 1 1 Specialty Diagnoses / Procedures Referred By Contac t Referred To Contact Certified Nurse Practitioner / Transplant Surgery Procedures PRE WAITLIST PATIENT Trista Botello, ISO COORDINATOR-BRUSH MAKER [address] [address] Beto Singer, ISO COORDINATOR-BRUSH MAKER [address] [place] [address] Referral ID Status Reason Start Date Expiration Date V isits Requested Visits Authorized [id number] New Request 05/27/2023 06/20/2024 1 1 Reason Comments Other Right Epididymectomy [id number] Specialty Diagnoses / Procedures Referred By Contac t Referred To Contact Cardiology Diagnoses Peripheral vascular disease (CMS/HCC) Procedures Vascular US ankle brachial index (KRIS) [place] [id number] [facility] Department of Surgery-Transplant [place] [phone] Referral ID Status Reason Start Date Expiration Date Visits Requested Visits Authorized [id number] Authorized Perform Procedure 10/23/2023 10/22/2024 1 1 Specialty Diagnoses / Procedures Referred By Contac t Referred To Contact Diagnoses Pre-operative cardiovascular examination Procedures ECG 12 lead (Clinic Performed) [place] [address] [address] [place] [phone] Referral ID Status Reason Start Date Expiration Date V isits Requested Visits Authorized [id number] Authorized 11/04/2023 11/03/2024 1 1 Care Teams (unrecognized sec tion and content) Civil Engineering Professional Relationship Specialty Start Date End Date Anitha Johnson MD [address] [facility] [address] [place] [address] PCP - General Family Medicine 07/11/22 Civil Engineering Professional Relationship Specialty Start Date End Date Anitha Johnson MD [address] [facility] [address] [place] [address] PCP - General Family Medicine 07/11/22 Civil Engineering Professional Relationship Specialty Start Date End Date Anitha Johnson MD [address] [facility] [address] [place] [address] PCP - General Family Medicine 07/11/22 Civil Engineering Professional Relationship Specialty Start Date End Date Anitha Johnson MD [address] [facility] [place] [address] PCP - General 07/19/20 Civil Engineering Professional Relationship Specialty Start Date End Date Anitha Johnson MD [address] [facility] [place] [address] PCP - General 07/19/20 Civil Engineering Professional Relationship Specialty Start Date End Date Anitha Johnson MD [address] [facility] [place] [address] PCP - General 07/19/20 Civil Engineering Professional Relationship Specialty Start Date End Date Anitha Johnson MD [address] [facility] [place] [address] PCP - General 07/19/20 Civil Engineering Professional Relationship Specialty Start Date End Date Anitha Johnson MD [address] [facility] [place] [address] PCP - General 07/19/20 Civil Engineering Professional Relationship Specialty Start Date End Date Anitha Johnson MD [address] [place] [facility] [address] PCP - General 07/19/20 FOR RECORDS PERTAINING TO PATIENTS WHO ARE OR HAVE BEEN ENROLLED IN A CHEMICAL DEPENDENCY/SUBSTANCEABUSE PROGRAM, SOME INFORMATION MAY BE OMITTED. This clinical summary was aggregated from multiple sources. Caution should be exercised in using it in the provision of clinical care. This summary normalizes information from multiple sources, and as a consequence, information in this document may materially change the coding, format and clinical context of patient data. In addition, data may be omitted in some cases. CLINICAL DECISIONS SHOULD BE BASED ON THE PRIMARY CLINICAL RECORDS. [facility] [employer] provides no warranty or guarantee of the accuracy or completeness of information in this document.
== END | disposition home or self-care (01) ==
LOC: MFPLAB 16:20
PROVIDERS: PCP Family Medicine; Visit Provider Family Medicine
DX: Z00.00 Encounter for general adult medical examination without abnormal findings (principal)

== ENCOUNTER → 2023-11-16 | Outpatient (CLI) | payer MEDICARE, OTHER, SELFPAY ==
--- NOTE | 2023-11-16 11:20 | US_ITS ---
STUDY: SUPERFICIAL ULTRASOUND - PALPABLE LUMP IN THE MEDIAL ASPECT OF THE RIGHT UPPER EXTREMITY ADJACENT TO THE ELBOW JOINT. REASON FOR EXAM: Male, 68 years old. Right arm, medial above elbow for subcutaneous mass TECHNIQUE: A superficial ultrasound was performed with real-time and static buckner-scale imaging. COMPARISON: None. FINDINGS: The palpable lump corresponds to a 1.6 cm x 1.7 cm x 0.6 cm isoechoic nodule suggestive of a lipoma. US/Ext Non Vasc Limited/Soft Tiss IMPRESSION: The palpable lump corresponds to 1.6 cm x 1.7 cm x 0.6 cm well-defined hypoechoic nodule suggestive of a lipoma. Electronically Signed: Wyatt Soriano MD at 14:49 EST ,
--- OUTSIDE RECORDS SUMMARY | 2023-11-16 11:59 | XMS RPT_ITS | CCD ---
Author Name Unknown Address [address] [place] [address] [facility] Care Team Providers Care [place] Machine Operator Name Role Phone VERONIQUE RIOS Unavailable Unavailable SHEELA DAVEY Unavailable Unavailable VERONIQUE RIOS Unavailable Unavailable SHEELA DAVEY Unavailable Unavailable VERONIQUE RIOS Unavailable Unavailable SHEELA DAVEY Unavailable Unavailable MOOKIE RIOSINE Unavailable Unavailable SHEELA DAVEY Unavailable Unavailable VERONIQUE RIOS Unavailable Unavailable SHEELA DAVEY Unavailable Unavailable ANITHA CLAROS S Unavailable Unavailable ANITHA CLAROS S Unavailable Unavailable SHEELA DAVEY Unavailable Unavailable Sheela Davey Unavailable Sheela Davey Primary Care Provider [phone] VERONIQUE RIOS I Attending Unavailable OMKAR HARRIS Attending Unavailable VERONIQUE RIOS I Attending Unavailable VERONIQUE RIOS I Attending Unavailable Anitha Johnson Unavailable Unavailable Unavailable Anitha Johnson MD Primary Care Provider Diana CARRERA, Dr. Anitha Chiang Attending Zara Ortiz II, Dr. Anitha Chiang Referring Dr. Anitha Morris Primary Care Zara Ortiz II, Dr. Anitha Chiang Admitting Anitha Morris MD Primary Care Provider Anitha Johnson MD Primary Care Provider ANITHA JOHNSON Primary Care Unavailable BETO SINGER Attending Unavailable TRISTA BOTELLO Referring Unavailable ANITHA JOHNSON Primary Care Unavailable Yosef CALLEJAS Referring Unavailable Yosef CALLEJAS Attending Unavailable ANITHA JOHNSON Primary Care Unavailable Yosef CALLEJAS Referring Unavailable ANITHA JOHNSON Primary Care Unavailable Yosef CALLEJAS PRAVIN Referring Unavailable SCHINANITHA CHAVARRIA Primary Care Unavailable CLEMONS, Yosef COSTELLO Referring Unavailable SCHINNER, ANITHA Primary Care Unavailable CLEMONS, Yosef COSTELLO Referring Unavailable CLEMONS, Yosef COSTELLO Referring Unavailable SCHINNER, ANITHA Primary Care Unavailable CLEMONS, Yosef COSTELLO Referring Unavailable SCHINNER, ANITHA Primary Care Unavailable CLEMONS, Yosef COSTELLO Referring Unavailable SCHINNER, ANITHA Primary Care Unavailable CLEMONS, Yosef COSTELLO Attending Unavailable CLEMONS, Yosef COSTELLO Referring Unavailable SCHINNER, ANITHA Primary Care Unavailable CLEMONS, Yosef COSTELLO Attending Unavailable SCHINEDON, ANITHA Primary Care Unavailable CLEMONS, Yosef COSTELLO Attending Unavailable [facility] Primary Care Unavailable CLEMONS, Yosef COSTELLO Referring Unavailable SCHINDEON, ANITHA Primary Care Unavailable CLEMONS, Yosef COSTELLO Referring Unavailable CLEMONS, Yosef COSTELLO Attending Unavailable ANITHA JOHNSON Primary Care Unavailable TRISTA BOTELLO Attending Unavailable TRISTA BOTELLO Referring Unavailable ANITHA JOHNSON Primary Care Unavailable TRISTA BOTELLO Attending Unavailable TRISTA BOTELLO Referring Unavailable ANITHA ORTIZ Attending Unavailable ANITHA ORTIZ Referring Unavailable Elizabeth, Dr. Anitha Myers Primary Care Zara ORTIZ, ANITHA Attending Unavailable ANITHA ORTIZ Referring Unavailable Schwest, Dr. Anitha Myers Primary Care ANITHA Gilman Attending Unavailable ANITHA ORTIZ Referring Unavailable Schwest, Dr. Anitha Myers [facility] KITTY Martinez Attending Unavailable Elizabeth, Dr. Anitha Myers Primary Care ANITHA Gilman Attending Unavailable ANITHA ORTIZ Referring Unavailable Schwest, Dr. Anitha Myers Primary Care ANITHA Gilman Attending Unavailable ANITHA ORTIZ Referring Unavailable Elizabeth, Dr. Anitha Cuelloodessa Primary Care CHRISTA Kelly Referring Unavailable ANITHA JOHNSON EDLA WARD Primary Care UnavailCHRISTA Aguirre Referring Unavailable ANITHA JOHNSON MITCHELL Primary Care UnavailROSINA Piper Admitting Unavailable ROSINA HOFFMAN Attending Unavailable ANITHA JOHNSON MITCHELL Primary Care UnavailNIYAH Wilson Attending Unavailable ANITHA JOHNSON MITCHELL Primary Care UnavailNIYAH Wilson Referring Unavailable CHRISTA PALMA Referring Unavailable ELIZABETH [facility] Primary [facility] Unavailabl e ELIZABETH, [facility] Primary [facility] Unavailabl e ELIZABETH, [facility] Primary [facility] Unavailabl e JUAQUIN ADRIAN Attending Unavailable [facility] Primary [facility] Unavailabl e SHA COPELAND Attending Unavailable [facility], [facility] Unavailabl e ELIZABETH, [facility] Primary [facility] Unavailabl e Allergies Allergy Classification Reported Allergen(s) Allergy Type Date of Onset Reaction(s) Facility liraglutide (4 sources) liraglutide; Translations: [Victoza SOPN] Drug Allergy [facility] Work Phone: (1 source) bee venom; Translations: [bee venom (honey bee)] Propensity to adverse reactions (disorder) [facility] Repository (1 source) liraglutide Drug Allergy [facility] Repository (13 sources) bee venom Propensity to adverse reactions to drug 8 Shortness of Breath, Swelling, Anaphylaxis, Unknown [facility] Work Phone: (10 sources) cucumber allergenic extract Drug Allergy 8 [facility] Work Phone: (20 sources) liraglutide; Translations: [LIRAGLUTIDE] Drug Allergy 8 Hypoglycemia, Unknown, Other, Swelling [facility] Work Phone: (14 sources) liraglutide; Translations: [Victoza SOPN] Drug Allergy [facility] Work Phone: (14 sources) liraglutide; Translations: [Victoza SOLN] Drug Allergy [facility] Work Phone: (3 sources) [place] extract Drug Allergy 8 [facility] (3 sources) Honey bee venom Propensity to adverse reactions to drug 8 Shortness of Breath, Swelling [facility] (6 sources) [place] extract; Translations: [CUCUMBER] Drug Allergy 8 Unknown [facility] Work Phone: (3 sources) BEE VENOM PROTEIN (HONEY BEE); Translations: [BEE VENOM PROTEIN (HONEY BEE)] Propensity to adverse reactions to drug (disorder) 8 [facility] 2 Repository Medications Current Medications Medication Drug Class(es) Dates Sig (Normalized) Sig (Original) acetaminophen 325 mg / HYDROcodone bitartrate 5 mg oral tablet (8 sources) Opioid Agonist Start: 08-10-2023 take 1 tablet by mouth twice daily HYDROcodone-aceta minophen ([place]) 5-325 mg tablet Take 1 tablet by [...] Chronic Coronary atherosclerosis and other heart disease (12 sources) Calcification of coronary artery; Translations: [Atherosclerotic heart disease of [place] coronary artery without angina pectoris] Onset: 4 [...] Translations: [Unspecified drug dependence, in remission] Onset: 3 11-03-2023 Chronic Past or Other Problems Problem [...] Facility 11-04-2023 10:57-0500 Body height 170.2 cm Niyah Schaeffer MD Work Phone: [facility] 11-04-2023 10:57-0500 Body mass index (BMI) [Ratio] 30.7 kg/m2 Niyah Schaeffer MD Work Phone: [facility] 11-04-2023 10:57-0500 Body weight 88.91 kg Niyah Schaeffer MD Work Phone: [facility] 11-04-2023 10:57-0500 Diastolic blood pressure 54 mm[Hg] Niyah Schaeffer MD Work Phone: [facility] 11-04-2023 10:57-0500 Heart rate 91 /min Niyah Schaeffer MD Work Phone: [facility] 11-04-2023 10:57-0500 SaO2% (BldA) [Mass fraction] 95 % Niyah Schaeffer MD Work Phone: [facility] 11-04-2023 10:57-0500 Systolic blood pressure 83 mm[Hg] Niyah Schaeffer MD Work Phone: [facility] 08-28-2023 12:47-0500 Body height 170.8 cm Sha Copeland MD Work Phone: [facility] 08-28-2023 12:47-0500 Body mass index (BMI) [Ratio] 30.82 kg/m2 Sha Copeland MD Work Phone: [facility] 08-28-2023 12:47-0500 Body temperature 97.5 [degF] Sha Copeland MD Work Phone: [facility] 08-28-2023 12:47-0500 Body weight 89.9 kg Sha Copeland MD Work Phone: [facility] 08-28-2023 12:47-0500 Diastolic blood pressure 57 mm[Hg] Sha Copeland MD Work Phone: [facility] 08-28-2023 12:47-0500 Heart rate 75 /min Sha Copeland MD Work Phone: [facility] 08-28-2023 12:47-0500 SaO2% (BldA) [Mass fraction] 97 % Sha Copeland MD Work Phone: [facility] 08-28-2023 12:47-0500 Systolic blood pressure 94 mm[Hg] Sha Copeland MD Work Phone: [facility] 06-10-2023 13:57-0400 Body height 170.18 cm Anitha Johnson Work Phone: [facility]Xbfr[facility]Tll[facility]pl Work Phone: 06-10-2023 13:57-0400 Body mass index (BMI) [Ratio] 30.23 kg/m2 Anitha Johnson Work Phone: KM[facility]Wtttsjc[facility]Tjpwst[facility] Work Phone: 06-10-2023 13:57-0400 Body surface area Derived from formula 1.99 m2 Anitha Johnson Work Phone: [facility]Uijnlhx[facility]Oah[facility] Work Phone: 06-10-2023 13:57-0400 Body weight 87.54 kg Anitha Johnson Work Phone: IQ-Govzrai-Lcbqpte Work Phone: 06-10-2023 13:57-0400 Respiratory rate 16 /min Anitha Johnson Work Phone: MS[facility]Ifhaipi[facility]Tilvccn Work Phone: 05-27-2023 10:58-0400 Body mass index (BMI) [Ratio] 29.35 kg/m2 Beto Singer COMMISSARY STEWARD-SCARFING MACHINE OPERATOR Work Phone: [facility] 05-27-2023 10:58-0400 Body temperature 97.7 [degF] Beto Singer COMMISSARY STEWARD-SCARFING MACHINE OPERATOR Work Phone: [facility] 05-27-2023 10:58-0400 Body weight 87.54 kg Beto Singer COMMISSARY STEWARD-SCARFING MACHINE OPERATOR Work Phone: [facility] 05-27-2023 10:58-0400 Diastolic blood pressure 70 mm[Hg] Beto Singer COMMISSARY STEWARD-SCARFING MACHINE OPERATOR Work Phone: [facility] 05-27-2023 10:58-0400 Heart rate 71 /min Beto Singer APRN-SCARFING MACHINE OPERATOR Work Phone: [facility] 05-27-2023 10:58-0400 Systolic blood pressure 120 mm[Hg] Beto Singer COMMISSARY STEWARD-SCARFING MACHINE OPERATOR Work Phone: [facility] 05-13-2023 12:46-0400 Body height 172.7 cm Trista Botello COMMISSARY STEWARD-SCARFING MACHINE OPERATOR Work Phone: [facility] 05-13-2023 12:46-0400 Body mass index (BMI) [Ratio] 32.99 kg/m2 Trista Botello COMMISSARY STEWARD-SCARFING MACHINE OPERATOR Work Phone: [facility] 05-13-2023 12:46-0400 Body weight 98.43 kg Trista Botello COMMISSARY STEWARD-SCARFING MACHINE OPERATOR Work Phone: [facility] 05-13-2023 12:46-0400 Diastolic blood pressure 70 mm[Hg] Trista Botello COMMISSARY STEWARD-SCARFING MACHINE OPERATOR Work Phone: [facility] 05-13-2023 12:46-0400 Heart rate 62 /min Trista Botello COMMISSARY STEWARD-SCARFING MACHINE OPERATOR Work Phone: [facility] 05-13-2023 12:46-0400 Systolic blood pressure 118 mm[Hg] Trista Botello COMMISSARY STEWARD-SCARFING MACHINE OPERATOR Work Phone: [facility] 02-18-2023 14:48-0400 Body mass index (BMI) [Ratio] 30.11 kg/m2 Anitha Johnson Work Phone: [facility]mp[facility] Work Phone: 02-18-2023 14:48-0400 Body surface area Derived from formula 1.99 m2 Anitha Johnson Work Phone: HD-Kcdwbhc-Ztmdcty Work Phone: 02-18-2023 14:48-0400 Body weight 87.2 kg Anitha Johnson Work Phone: NZ-Dpitaen-Zzcxgjq Work Phone: 02-18-2023 14:48-0400 Diastolic blood pressure 61 mm[Hg] Anitha Johnson Work Phone: TQ-Dczkpzy-Gljvzvs Work Phone: 02-18-2023 14:48-0400 Heart rate 76 /min Anitha Johnson Work Phone: CP-Pwqrcwz-Htxafwy Work Phone: 02-18-2023 14:48-0400 Systolic blood pressure 97 mm[Hg] Anitha Johnson Work Phone: BZ-Fleeoqj-Wkwsmoe Work Phone: 11-03-2022 07:18-0500 Body temperature 37.0 {degrees_C} Anitha Johnson Work Phone: RZ-Dzkeoziqnvhcix-R brenna Work Phone: Encounters Encounter Date Encounter Type Care Provider Facility Start: 11-14-2023 ambulatory [facility] Start: 11-14-2023 Encounter for other preprocedural examination [facility] Start: 11-14-2023 Encounter for preprocedural cardiovascular examination [facility] Start: 11-13-2023 ambulatory ANITHA JOHNSON [facility] Start: 11-13-2023 [facility] Start: 11-12-2023 Encounter for other preprocedural [facility] Start: 11-12-2023 Encounter for preprocedural cardiovascular examination [facility] Start: 11-04-2023 End: 11-05-2023 ambulatory CHRISTA DORADO [facility] Start: 11-04-2023 End: 11-05-2023 ambulatory NIYAH SCHAEFFER [facility] Start: 11-04-2023 End: 11-05-2023 Encounter for preprocedural cardiovascular examination NIYAH SCHAEFFER [facility] Start: 11-04-2023 End: 11-04-2023 Office outpatient new 45 minutes Niyah Schaeffer MD Work Phone: [facility] Procedures Date Procedure Procedure Detail Performing Clinician Start: 11-13-2023 Basic metabolic 2000 panel - Serum or Plasma NIYAH SCHAEFFER Start: 11-13-2023 CBC panel - Blood by Automated count NIYAH SCHAEFFER Start: 11-13-2023 Lipid panel NIYAH SCHAEFFER Start: 11-13-2023 PROTIME-INR NIYAH SCHAEFFER Start: 11-12-2023 CARDIAC CATHETERIZATION - CORONARY CHRISTA DORADO Start: 11-04-2023 VASC US ANKLE BRACHIAL INDEX (KRIS) WITHOUT EXERCISE CHRISTA DORADO Start: 11-04-2023 CASE REQUEST OFFICE CORRESPONDENT NIYAH SCHAEFFER Start: 11-04-2023 ECG 12-LEAD NIYAH SCHAEFFER Start: 11-04-2023 Non-invas physiologic std extremity art 2 level Christa Dorado MD Work Phone: Start: 11-03-2023 H/O: surgery History of surgical procedure Niyah Schaeffer MD Work Phone: Start: 09-18-2023 CT CHEST ABDOMEN PELVIS WO CONTRAST CHRISTA DORADO Start: 08-28-2023 ABORH NIYAH SCHAEFFER Start: 08-28-2023 AMYLASE NIYAH SCHAEFFER Start: 08-28-2023 C-PEPTIDE NIYAH SCHAEFFER Start: 08-28-2023 CBC panel - Blood by Automated count NIYAH SCHAEFFER Start: 08-28-2023 Creatinine [Mass/volume] in Serum or Plasma NIYAH SCHAEFFER Start: 08-28-2023 CYTOMEGALOVIRUS IGG NIYAH SCHAEFFER Start: 08-28-2023 DRUG PROFILE 9, BLOOD W/ REFLEX TO CONFIRMATION NIYAH SCHAEFFER Start: 08-28-2023 CONCHIS-CAO VIRUS ANTIBODY PANEL NIYAH SCHAEFFER Start: 08-28-2023 Hemoglobin A1c/Hemoglobin.total in Blood NIYAH SCHAEFFER Start: 08-28-2023 Hepatic function 2000 panel - Serum or Plasma NIYAH SCHAEFFER Start: 08-28-2023 HEPATITIS B CORE ANTIBODY, TOTAL NIYAH SCHAEFFER Start: 08-28-2023 HEPATITIS B SURFACE ANTIBODY NIYAH DIAZ Start: 08-28-2023 HEPATITIS B SURFACE ANTIGEN NIYAH RAMÍREZ Start: 08-28-2023 HEPATITIS C ANTIBODY NIYAH SCHAEFFER Start: 08-28-2023 HEPATITIS C RNA, QUANTITATIVE, PCR NIYAH SCHAEFFER Start: 08-28-2023 HIV 1/2 ANTIGEN/ANTIBODY SCREEN WIH REFLEX TO CONFIRMATION NIYAH SCHAEFFER Start: 08-28-2023 HLA NEW KIDNEY,K/P EVALUATION PANEL NIYAH SCHAEFFER Start: 08-28-2023 MISCELLANEOUS LAB TEST NIYAH SCHAEFFER Start: 08-28-2023 NICOTINE AND METABOLITES,S NIYAH GALEANO ER Start: 08-28-2023 Phosphate [Mass/volume] in Serum or Plasma NIYAH SCHAEFFER Start: 08-28-2023 PROTIME-INR NIYAH SCHAEFFER Start: 08-28-2023 PSA, TOTAL AND FREE NIYAH SCHAEFFER Start: 08-28-2023 SYPHILIS SCREENING WITH REFLEX NIYAH SCHAEFFER Start: 08-28-2023 T-SPOT TB NIYAH SCHAEFFER Start: 08-28-2023 Urea nitrogen [Mass/volume] in Serum or Plasma NIYAH SCHAEFFER Start: 08-28-2023 VARICELLA ZOSTER PCR QUANTITATIVE PLASMA NIYAH SCHAEFFER Start: 05-13-2023 Myocardial spect multiple studies Trista Botello COMMISSARY STEWARD-SCARFING MACHINE OPERATOR Work Phone: Start: 05-13-2023 Echo tthrc r-t 2d w/wom-mode compl spec&colr d Trista Botello COMMISSARY STEWARD-SCARFING MACHINE OPERATOR Work Phone: Start: 03-10-2023 SURGICAL PATHOLOGY RESULTS Anitha Griffith Ortiz M Tammy Work Phone: Start: 09-07-2018 End: 09-07-2018 Radionuclide imaging of perfusion of myocardium under stress and reinjection using Thallium 201 Yosef Callejas Work Phone: Start: 09-07-2018 End: 09-07-2018 Transthoracic echocardiography Yosef Callejas Work Phone: Parotidectomy Anitha sandhu Work Phone: Prosthetic arthropla sty of the hip Anitha Johnson Work Phone: Spinal arthrodesis Anitha sun Work Phone: Total replacement of hip Abraham yoan Johnson Work Phone: Plan of Treatment Date Care Activity Detail Author Start: 03-20-2027 Evaluation and management of inpatient 03/20/2027 6:00 AM EDT [place] [id number] [address] Department of Surgery-Transplant [place] [id number] [facility] Work Phone: Start: 11-28-2023 Hemoglobin A1c measurement Diabetes: Hemoglobin A1C [facility] Start: 11-04-2023 End: 11-04-2024 Basic metabolic 2000 panel - Serum or Plasma Basic Metabolic Panel Lab Routine Encounter for pre-transplant evaluation for kidney transplant Coronary artery calcification of [place] artery Expected: 11/04/2023 (Approximate), Expires: 11/04/2024 [facility] Work Phone: Immunizations Immunization Date Immunization Notes Care Provider Fa cility 09-03-2023 Hepatitis B vaccine (recombinant), CpG adjuvanted Niyah Schaeffer MD Work Phone: [facility] Work Phone: 07-28-2023 Seasonal, quadrivale nt, recombinant, injectable influenza vaccine, preservative free Niyah Schaeffer MD Work Phone: [facility] Work Phone: 07-27-2023 Pfizer COVID-19 vacc ine, Fall 2022, 12 years and older, (30mcg/0.3mL) Sha Copeland MD Work Phone: [facility] Work Phone: 07-26-2022 influenza virus vacc ine, unspecified formulation Trista Botello COMMISSARY STEWARD-SCARFING MACHINE OPERATOR Work Phone: [facility] 02-19-2022 Pfizer Geiger Cap SARS-CoV-2 Sha Copeland MD Work Phone: [facility] Work Phone: 07-16-2021 influenza virus vacc ine, unspecified formulation Trista Botello COMMISSARY STEWARD-SCARFING MACHINE OPERATOR Work Phone: [facility] 06-19-2021 pneumococcal polysaccharide vaccine, 23 valent Sha Copeland MD Work Phone: [facility] Work Phone: 01-14-2021 COVID-19 vaccine, Clinton Keller, 100 mcg/0.5 mL Trista Botello COMMISSARY STEWARD-SCARFING MACHINE OPERATOR Work Phone: [facility] 12-17-2020 COVID-19 vaccine, Clinton Keller, 100 mcg/0.5 mL Trista Botello COMMISSARY STEWARD-SCARFING MACHINE OPERATOR Work Phone: [facility] 05-31-2020 hepatitis B vaccine, adult dosage Niyah Schaeffer MD Work Phone: [facility] Work Phone: 03-01-2020 pneumococcal polysaccharide vaccine, 23 valent Niyah Schaeffer MD Work Phone: [facility] Work Phone: 01-31-2020 hepatitis B vaccine, adult dosage Niyah Schaeffer MD Work Phone: [facility] Work Phone: 12-29-2019 pneumococcal conjuga te vaccine, 13 valent Niyah Schaeffer MD Work Phone: [facility] Work Phone: 12-27-2019 hepatitis B vaccine, adult dosage Niyah Schaeffer MD Work Phone: [facility] Work Phone: 12-01-2019 hepatitis B vaccine, adult dosage Niyah Schaeffer MD Work Phone: [facility] Work Phone: 10-09-2009 novel influenza-H1N1 -09, preservative-free, injectable Sha Copeland MD Work Phone: [facility] Work Phone: Payers Date Payer Category Payer Unknown 2020 Unknown [id number] 2020 Medicare [id number] 2020 Medicare [id number] 2018 Unknown xxxxxxxxxxx [id number] 1959 Unknown [id number] 1955 Unknown [id number] 2.16.84 0.1.326017.3.579.2.598 1955 Unknown [id number] 2.16.8 40.1.216388.3.579.2.1069 1955 Unknown [id number] 2.16. 840.1.919562.3.579.2.594 1955 Unknown [id number] 2.16. 840.1.879352.3.579.2.594 1955 Unknown [id number] 2.16. 840.1.430852.3.579.2.594 1955 Unknown [id number] 2.16. 840.1.389444.3.579.2.594 1955 Unknown [id number] 2.16. 840.1.022037.3.579.2.594 1955 Unknown [id number] 2.16. 840.1.814215.3.579.2.594 1955 Unknown [id number] 2.16. 840.1.435802.3.579.2.594 1955 Unknown [id number] 2.16. 840.1.198097.3.579.2.594 1955 Unknown [id number] 2.16. 840.1.002309.3.579.2.594 1955 Unknown [id number] 2.16. 840.1.385899.3.579.2.594 1955 Unknown [id number] 2.16. 840.1.007454.3.579.2.594 1955 Unknown [id number] 2.16. 840.1.433023.3.579.2.594 1955 Unknown [id number] 2.16. 840.1.374910.3.579.2.594 1955 Unknown [id number] 2.16. 840.1.394308.3.579.2.594 1955 Unknown [id number] 2.16. 840.1.885093.3.579.2.594 1955 Unknown [id number] 2.16. 840.1.303699.3.579.2.356 1955 Unknown [id number] 2.16. 840.1.238334.3.579.2.356 1955 Unknown [id number] 2.16. 840.1.848834.3.579.2.356 1955 Unknown [id number] 2.16. 840.1.536353.3.579.2.356 1955 Unknown [id number] 2.16. 840.1.359768.3.579.2.356 1955 Unknown [id number] 2.16. 840.1.497971.3.579.2.356 1955 Unknown [id number] 2.16.84 0.1.689334.3.579.2.124 1955 Unknown [id number] 2.16.8 40.1.779740.3.579.2.1241 1955 Unknown [id number] 2.16.84 0.1.978094.3.579.2.1241 1955 Unknown [id number] 2.16.8 40.1.202211.3.579.2.1244 1955 Unknown [id number] 2.16.8 40.1.270674.3.579.2.1244 1955 Unknown [id number] 2.16.8 40.1.693099.3.579.2.1244 1955 Unknown [id number] 2.16.8 40.1.728543.3.579.2.5 1955 Unknown [id number] 2.16.8 40.1.459676.3.579.2.1244 1955 Unknown [id number] 2.16.8 40.1.702457.3.579.2.1244 1955 Unknown [id number] 2.16.8 40.1.215103.3.579.2.1244 1955 Unknown [id number] 2.16.8 40.1.000262.3.579.2.1244 1955 Unknown [id number] 2.16.8 40.1.572167.3.579.2.124 Unknown [id number] 2.16.8 40.1.778084.3.579.2.283 Unknown [id number] 2.16.8 40.1.009738.3.579.2.283 Unknown [id number] 2.16.8 40.1.909655.3.579.2.283 Unknown [id number] 2.16.8 40.1.283701.3.579.2.283 Social History Date Type Detail Facility Start: 08-26-2018 End: 09-04-2018 Tobacco smoking status NHIS Former smoker [facility] End: 10-19-2013 History of tobacco use Current smoker [facility] Work Phone: End: 10-19-2013 History of tobacco use Cigarette Smoker [facility] Work Phone: Start: 09-04-2018 End: 08-31-2023 Cigarettes smoked current (pack per day) - Reported [facility] Start: 1955 Sex Assigned At Not on file [facility] Work Phone: Start: 08-26-2018 End: 11-04-2023 Tobacco use and exposure Smokeless tobacco non-user [facility] Start: 09-21-2020 End: 05-13-2023 Alcohol intake Current non-drinker of alcohol (finding) [facility] Start: 05-13-2023 End: 08-31-2023 Tobacco use panel [facility] Start: 04-23-2018 Gender identity Identifies as male gender (finding) [facility] Tobacco smoking stat us NHIS Tobacco smoking consumption unknown [facility] Work Phone: Start: 08-18-2023 End: 11-04-2023 Exposure to SARS-CoV-2 (event) Not sure [facility] Start: 11-04-2023 Tobacco smoking stat us NHIS Never smoked tobacco [facility] Work Phone: Clinical Notes 11-18-2012 to 11-04-2023 Niyah Schaeffer MD - 11/04/2023 11:00 AM ESTPatient Kar Copeland MD - 08/28/2023 1:30 PM Jomar Singer APRN-ELYSSA - 05/27/2023 11:00 AM LAURA Castillo - 05/27/2023 11:00 AM EDT Note Date & Type Note Facility 11-04-2023 History of Present illness Narrative Location of visit: [facility] Type of Visit: New Chief Complaint: [...] Bee venom protein (honey bee), Liraglutide, and [place] Outpatient Medications: Current Outpatient Medications Medication Instructions calcitriol (Rocaltrol) 0.5 mcg capsule oral calcium acetate (Phoslo) 667 mg tablet 4 tablets, oral, 3 times daily with meals cinacalcet (SENSIPAR) 30 mg, oral, 3 times weekly gabapentin (NEURONTIN) 800 mg, oral, Nightly HYDROcodone-acetaminophen ([place]) 5-325 mg tablet 1 tablet, oral, 2 times daily ibuprofen 400 mg, oral, Every morning, 1 tabs once at night as needed lansoprazole (Prevacid) [address] capsule oral methoxy peg-epoetin beta (MIRCERA INJ) 75 mcg, Every 28 days Nephro-Kojo 0.8 mg tablet 1 tablet, oral, Daily Purelax 17 g, oral, Daily sodium polystyrene (SPS, with sorbitol,) 15 gram/60 mL suspension (Prior Auth#:[id number]) Oral for 1 Last Recorded Vitals: Vitals: [...] include technically difficult study. Imaging system used: [employer]. Indications Indications for study: hypertension and other - Pre-kidney transplant, listed. Wall Scoring Score Index: 1.00 The left ventricular wall motion is normal. No results found for this or any previous visit from the past 1095 days. Cath: No results found Stress Test: AR cardiac stress rest (myocardial perfusion MIBI) 05/13/2023 [...] ASCV RISK: The ASCVD Risk score (Connor PLEITEZ, et al., 2019) failed to calculate for [...] 45 minutes with this case between pre-charting, mcno-bh-dixs personal interaction with patient, and documenting my assessment Niyah Schaeffer MD documented in this encounter [facility] Work Phone: 11-04-2023 Instructions Niyah Schaeffer MD - 11/04/2023 11:00 AM EST Dear Jerilyn Harris, It was a pleasure meeting you today [...] see if additional treatment is needed. Sincerely, Niyah Schaeffre MD documented in this encounter [facility] Work Phone: 08-28-2023 History of Present [...] related issues. He denies CP, SOB, denies LA, CVA in the past PSHx: right hydrocele, [...] Review Blood Type: No results found for: ABORH Lab Results Component Value Date CREATININE 5.11 [...] the transplant process. documented in this encounter [facility] Work Phone: 05-27-2023 History of Present illness Narrative Comprehensive Transplant Center Wait list Evaluation Dialysis Center: [facility] Chief Complaint: Scheduled Kidney Transplant wait list evaluation. 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 Since Jerilyn was most recently evaluated in clinic on 06/2022: Epididymectomy surgery [facility] kidney biopsy: no List Date: 12/31/18 Inactive Date(s): 03/11-04/01/23 related to epididymectomy Verified he is active in [facility]. Review of Symptoms: History obtained from the [...] and Swelling Yellow jacket- Victoza [Liraglutide] Hypoglycemia [place] Extract Bloating Medications: Current Outpatient Medications Medication Sig B Axkubnu-W-Asrka Acid (Nephro-Kojo) 0.8 MG tablet Take 1 [...] 30 minutes Beto Singer MS (Link), RN, PRETTY-ELYSSA Certified Nurse Practitioner Comprehensive Transplant [facility] [address] [facility] [address] Transplant Psychosocial Social History: This SW met [...] at this time. documented in this encounter [facility] 05-27-2023 Instructions HARRY Perla - 05/27/2023 11:00 AM EDT Living Donor [place] Ask one or two family members or [...] or hospitalizations by calling your coordinator at [phone]. Continue your health maintenance while waiting for your transplant. You have the right to opt out of the transplant process at any time. If you would like to discuss alternative treatments or therapies to kidney transplantation, please discuss with your provider. October 2020-September 2021 [facility] 330 People Received Kidney Transplants 76 Living donor 254 donor donor [facility] Living donor [facility] Requires dialysis in the first week [...] injection of drugs Has been in lockup, nursing home, group home or juvenile correctional facility for > 72 [...] may receive an offer in which the plan coordinator asks you if you want to [...] may receive an offer in which the plan coordinator asks you if you want to [...] rare. HCV is contagious, but only through fcvbe-jq-gfunk contact. HCV is not transmitted by hugging, [...] wait time may be much shorter. 1 [place] Association for the Study of Liver Diseases (AASLD) and the Infectious Diseases Society of [place] (IDSA). Recommendations for testing, management, and treating hepatitis C. HCV testing and linkage to care. Available at: https://www.hcvguidelines.org 2 Epclusa full prescribing information [id number] revised 08/2019 3 Mavyret full prescribing information [...] with treatment protocols, and other factors. https://optn.transplant.hrsa.gov/re sources/guidance/kbugtm-wrqep-qtpiw gy-ijbpc-dout-xqgzo-oih-zrzjiwuusk/ #:~:text=Figure%201%20shows%20that% 20a,function%20for%20about%209%20ye ars. Did not receive dialysis before kidney transplant Was on dialysis for 4 years before kidney transplant 5 years after transplant 86% chance patient survival 75% chance patient survival 8 years after transplant 78% chance patient survival 65% chance patient survival documented in this encounter [facility] 05-13-2023 History of Present illness Narrative Caffeine free for 24 hours. status NA status NA Pharmacologic nuclear stress procedure explained to patient. Risk/benefits of the procedure were reviewed and patient verbalized understanding. Medical erp business analyst offered to patient prior to sensitive procedure [...] from the clinic. documented in this encounter [facility] 05-13-2023 Hospital Discharge instructions Jose Rojas RN - 05/13/2023 12:00 PM EDT After the completion of your nuclear test at the [facility] [place], you should be aware of the following [...] Dr. Cedillo today. A qualified and licensed [facility] pneumatic tool repairer will interpret your study and a final [...] technologist if this is the case. (Reference: [id number], Volume 9, Revision 2, Appendix U). If you have any questions or concerns regarding your exam, please call the [place] office at [phone] Thursday through Thursday, between the hours of 8:00 AM and 5:00 PM. For medical emergencies, please call 911 or go to your nearest emergency room. ? To Whom It May Concern: Our patient, Jerilyn Harris, was seen at The [facility] [place] on 05/13/23 for a nuclear test of [...] further questions please contact our staff @ [phone] Thursday through Thursday, between the hours of 8:00 AM and 5:00 PM. Jennifer Cedillo MD-O [facility] [place] [address] [place] [address] documented in this encounter [facility] 03-10-2023 History of Present illness Narrative Patient [...] has been on HD for 3 years [facility] Work Phone: 03-10-2023 Note PROCEDURE DETAILS Preoperative Diagnosis: Testicular pain, unspecified, N50.819 Right Hydrocele Postoperative Diagnosis: Testicular pain, unspecified, N50.819 Right Hydrocele Surgeon: Anitha Ortiz Resident/Fellow/Other Internet Sales Manager: None of these were associated with this case Procedure: 1. R EPIDIDYMECTOMY and Right hydrocele repair Anesthesia: No anesthesiologist associated with this case Estimated Blood Loss: 0 Findings: see op note Specimens(s) Collected: yes, Operative Report: Code: [id number] Description: Cristina hydrocele Anesthetic: General. Pre-Op Diagnosis: [...] Last Updated: 10-Mar-2023 11:46 by Anitha Ortiz) [facility] 03-10-2023 Miscellaneous Notes PROCEDURE DETAILS Preoperative Diagnosis: Testicular pain, unspecified, N50.819 Right Hydrocele Postoperative Diagnosis: Testicular pain, unspecified, N50.819 Right Hydrocele Surgeon: Anitha Ortiz Resident/Fellow/Other Internet Sales Manager: None of these were associated with this [...] We then irrigated the wound again. A [place] drain was placed. The incision was then closed in three layers. The patient tolerated the procedure well. There were no complications. Attestation: Note Completion: Attending Attestation I performed the procedure without a resident Electronic Signatures: Anitha Ortiz) (Signed 10-Mar-2023 11:46) Authored: Post-Operative Note, Chart Review, Note Completion Last Updated: 10-Mar-2023 11:46 by Anitha Ortiz) documented in this encounter [facility] Work Phone: 03-10-2023 Note Formatting of this n ote is different from the original. PROCEDURE DETAILS Preoperative Diagnosis: Testicular pain, unspecified, N50.819 Right Hydrocele Postoperative Diagnosis: Testicular pain, unspecified, N50.819 Right Hydrocele Surgeon: Anitha Ortiz Resident/Fellow/Other Internet Sales Manager: None of these were associated with this [...] We then irrigated the wound again. A [place] drain was placed. The incision was then closed in three layers. The patient tolerated the procedure well. There were no complications. Attestation: Note Completion: Attending Attestation I performed the procedure without a resident Electronic Signatures: Anitha Ortiz) (Signed 10-Mar-2023 11:46) Authored: Post-Operative Note, Chart Review, Note Completion Last Updated: 10-Mar-2023 11:46 by Anitha Ortiz) [facility] Work Phone: 03-10-2023 Note History & Physical [...] Last Updated: 10-Mar-2023 07:56 by Anitha Ortiz) [facility] 03-10-2023 History and physical note History & [...] Last Updated: 10-Mar-2023 07:56 by Anitha Ortiz) [facility] Work Phone: 03-10-2023 History and physical [...] by Anitha Ortiz) documented in this encounter [facility] Work Phone: 02-23-2023 Chief complaint Narrative [...] telehealth visit.1 week w/ KUB AND PSA [facility] 232 DO Work Phone: 12-10-2022 History of [...] has been on HD for 3 years [facility] Work Phone: 12-10-2022 History of Present illness [...] has been on HD for 3 years [facility] 232 DO Work Phone: 07-11-2022 History of Present illness Narrative Images from the original note were not included. Comprehensive Transplant Center Wait list Evaluation Dialysis Center: [facility] Chief Complaint: Scheduled Kidney Transplant wait list evaluation. History of Present Illness: Jerilyn Harris was initiated on dialysis 11/22/2019 due to Diabetes Mellitus - Type II and is currently on hemodialysis. 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 Anitha Ortiz Biopsy on lump right side of neck questionable neuroma. Has pain there.[facility] [facility] kidney biopsy: no 12/31/2018 [facility] Verified [...] and Swelling Yellow jacket- Victoza [Liraglutide] Hypoglycemia [place] Extract Bloating Medications: Current Outpatient Medications Medication Sig B Rhmamlm-M-Ueewn Acid (Nephro-Kojo) 0.8 MG tablet Take 1 [...] C - genotype 1A, evaluated by Dr. Hanje and liver biopsy showed no evidence of [...] Encounter: 30 minutes Trista Botello MSN, RN, COMMISSARY STEWARD-BC, CCTN Certified Nurse Practitioner [facility] [address] [facility] [address] Transplant Psychosocial Social History: This SW met [...] psychosocial standpoint at this time. This social media marketing specialist discussed living donation including strategies for finding a living donor at length with patient and spouse answering all questions and resources for same were provided. documented in this encounter [facility] 07-11-2022 Instructions Trista Botello APRN-SCARFING MACHINE OPERATOR - 07/11/2022 1:30 PM EDT Living Donor [place] Ask one or two family members or [...] or hospitalizations by calling your coordinator at [phone]. Continue your health maintenance while waiting for your transplant. You have the right to opt out of the transplant process at any time. If you would like to discuss alternative treatments or therapies to kidney transplantation, please discuss with your provider. April 2019- March 2020 [facility] 331 People Received Kidney Transplants 85 Living donor 246 donor donor [facility] Living donor [facility] Requires dialysis in the first week [...] injection of drugs Has been in lockup, nursing home, group home or juvenile correctional facility for > 72 [...] may receive an offer in which the plan coordinator asks you if you want to [...] may receive an offer in which the plan coordinator asks you if you want to [...] rare. HCV is contagious, but only through jtomw-xk-jzreg contact. HCV is not transmitted by hugging, [...] wait time may be much shorter. 1 [place] Association for the Study of Liver Diseases (AASLD) and the Infectious Diseases Society of [place] (IDSA). Recommendations for testing, management, and treating hepatitis C. HCV testing and linkage to care. Available at: https://www.hcvguidelines.org 2 Epclusa full prescribing information [id number] revised 08/2019 3 Mavyret full prescribing information [...] with treatment protocols, and other factors. https://optn.transplant.hrsa.gov/re sources/guidance/rzmrrl-acmrd-pnpev jx-xsbcc-zfoj-vsjzw-hmx-szankjgbfp/ #:~:text=Figure%201%20shows%20that% 20a,function%20for%20about%209%20ye ars. Did not receive dialysis before kidney transplant Was on dialysis for 4 years before kidney transplant 5 years after transplant 86% chance patient survival 75% chance patient survival 8 years after transplant 78% chance patient survival 65% chance patient survival documented in this encounter [facility] 07-19-2021 History of Present illness Narrative Patient [...] x1..ED is chronic. No medications for this. [facility] Work Phone: 07-09-2021 History of Present illness [...] 06/08...ED is chronic. No medications for this. HY-Bvmlchj-Pwhngwm Work Phone: 07-09-2021 History of Present illness [...] 06/08...ED is chronic. No medications for this. AA[facility] Work Phone: 11-18-2012 History of Present illness [...] see me on an as necessary basis. 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) End stage renal disease ([facility]) End stage renal disease Dependence on renal dialysis ([facility]) Renal dialysis status Benign prostatic hyperplasia without lower urinary tract symptoms Personal history of other infectious and parasitic diseases Gastro-esophageal reflux disease without esophagitis Unspecified osteoarthritis, unspecified site Scoliosis, unspecified Personal history of malignant neoplasm of other organs and systems Presence of unspecified artificial hip joint Arthrodesis status Personal history of nicotine dependence documented in this encounter [facility] Work Phone: Evaluation note* Diagnosis Peripheral vascular disease ([facility]) Unspecified peripheral vascular disease documented in this encounter [facility] Work Phone: Evaluation note* Diagnosis Pre-operative cardiovascular examination- Primary Encounter for pre-transplant evaluation for kidney transplant 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 No medications for this. EI-Yzsbuui-Xviajlc Work Phone: History of Present illness NarrativeMr. [...] the right. 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 Mr. Harris requested that this be removed however the emt/paramedic felt he did not have enough experience to perform this procedure. He is here today for consideration of surgical excision of this well documented neuroma.AC-Tcizqmnvnjrspg-Iylrcdg Work Phone: Summary Purpose Family History No [...] completion of your nuclear test at the [facility], you should be awareof the following information: ? There are no residual symptoms or physiological effects associated with this nuclear study. If you should feel different than normal after the test, please contact the physician who scheduled the exam. If you think this is an emergency, either dial 911 or go to the nearest emergency room. ? A qualified and licensed [facility] pneumatic tool repairer will interpret your study and a final [...] technologist if this is the case. (Reference: [id number], Volume 9, Revision 2, Appendix U). If you have any questions or concerns regarding your exam, please call the [place] office at [phone] Thursday through Thursday, between the hours of 8:00 AM and 4:00 PM. To Whom It May Concern: Our patient, Jerilyn Harris, was seen at The [facility] [place] [facility] [place] on 09/07/2018 for a nuclear test of [...] questions please contact our nuclear personnel at [phone], Thursday through Thursday, between the hours of 8:00 AM and 4:00 PM. Thank you, Chente Juarez MD Manager Custom and RSO [facility] [place] [facility] [address] [place] [place] [address] [place] [address] in this encounter Assessments Diagnosis Pre-transplant evaluation [...] without incident. in this encounter* Mary Menon RP - 09/15/2018 8:23 AM EST Formatting of this note may be different from the original. Department of Pharmacy Transplant Note Patient: Jerilyn Harris Pre-Transplant Selection Note Allergies Allergen Reactions Bee Venom Shortness of Breath and Swelling Yellow jacket- Victoza [Liraglutide] Hypoglycemia [place] Extract Bloating Mr. Jerilyn Harris was discussed [...] Units by mouth daily. Name: Mary Menon [facility] Phone #: [phone] Date/Time: 09/15/2018 8:23 AM in this encounter* Ranjan Willis - 12/31/2018 2:22 PM EDT Verified the presence of listing lab work. Verified 2nd ABO in [facility]. Faxed completed Transplant Visit Activation request form to Registration ([phone]). 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 Procedures ECHOCARDIOGRAM NE ECHO HEART XTHORACIC,COMPLETE W DOPPLER Trista Botello, COMMISSARY STEWARD-SCARFING MACHINE OPERATOR [address] [place] [address] Referral ID Status Reason Start Date Expiration Date V isits Requested Visits Authorized [id number] New Request 04/01/2023 04/25/2024 1 1 Specialty Diagnoses / Procedures Referred By Contac t Referred To Contact Cardiology Diagnoses Peripheral vascular disease (CMS/HCC) Procedures Vascular US ankle brachial index (KRIS) [place] [address] [facility] Department [place] [address] Referral ID Status Reason Start Date Expiration Date Visits Requested Visits Authorized [id number] Authorized Perform Procedure 10/23/2023 10/22/2024 1 1 Specialty Diagnoses / Procedures Referred By Contac t Referred To Contact Diagnoses Pre-operative cardiovascular examination Procedures ECG 12 lead (Clinic Performed) [place] [address] [place] [address] Referral ID Status Reason Start Date Expiration Date V isits Requested Visits Authorized [id number] Authorized 11/04/2023 11/03/2024 1 1 Chief Complaint [...] DATE CREATED AUTHOR AUTHOR'S ORGANIZ ATION 09/05/2018 [facility] DATE CREATED AUTHOR AUTHOR'S ORGANIZ ATION 01/03/2019 [facility] DATE CREATED AUTHOR AUTHOR'S ORGANIZ ATION 05/14/2020 [facility] randy Diaz DATE CREATED AUTHOR AUTHOR'S ORGANIZ ATION 03/27/2023 [facility] DATE CREATED AUTHOR AUTHOR'S ORGANIZ ATION 06/12/2023 [facility] DATE CREATED AUTHOR AUTHOR'S ORGANIZ ATION 10/18/2023 [facility] DATE CREATED AUTHOR AUTHOR'S ORGANIZ ATION 11/06/2023 [facility] DATE CREATED AUTHOR AUTHOR'S ORGANIZ ATION 11/15/2023 [facility] DATE CREATED AUTHOR AUTHOR'S ORGANIZ ATION 11/15/2023 [facility] DATE CREATED AUTHOR AUTHOR'S ORGANIZ ATION 11/15/2023 [facility] Reason for Visit (unrecogniz ed section and content) Status Reason Specialty Diagnoses / Procedures Referre d By Contact Referred To Contact Closed Diagnoses Pre-transplant evaluation for chronic kidney disease Procedures ECHOCARDIOGRAM Yosef Callejas MD [address] [place] [address] Reason Comments Results Reason Comments Kidney Recipient Evaluation Reason Comments Other [facility] listing Reason Comments Kidney Recipient Referral Reason Comments Waitlist Maintenance Specialty Diagnoses / Procedures Referred By Uli yanez Referred To Contact Certified Nurse Practitioner / Transplant Surgery Procedures PRE WAITLIST PATIENT Self, Self Trista Botello, COMMISSARY STEWARD-ELYSSA [address] [place] [address] Referral ID Status Reason Start Date Expiration Date V isits Requested Visits Authorized [id number] New Request 07/11/2022 08/05/2023 2 2 Specialty Diagnoses / Procedures Referred By Uli yanez Referred To Contact Diagnoses Pre-kidney transplant, listed Preprocedural cardiovascular examination 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 Procedures ECHOCARDIOGRAM NE ECHO HEART XTHORACIC,COMPLETE W DOPPLER Trista Botello, COMMISSARY STEWARD-SCARFING MACHINE OPERATOR [address] [place] [address] Referral ID Status Reason Start Date Expiration Date V isits Requested Visits Authorized [id number] New Request 04/01/2023 04/25/2024 1 1 Specialty Diagnoses / Procedures Referred By Uli yanez Referred To Contact Diagnoses Pre-kidney transplant, listed Preprocedural cardiovascular examination 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 Procedures NUC MYOCARD PERF STRESS MIBI PHARM NUC MYOCARD PERF STRESS MIBI EXERCISE NE CHG MYOCARDIAL SPECT MULTIPLE STUDIES NE CARDIAC STRESS TST,TRACING ONLY CHG MYOCARDIAL SPECT MULTIPLE STUDIES-T NE CARDIAC STRESS TST,INTERP/REPT ONLY NE CV STRS TST XERS&/OR RX CONT ECG W/O I&R Trista Botello, COMMISSARY STEWARD-SCARFING MACHINE OPERATOR [address] [address] Referral ID Status Reason Start Date Expiration Date V isits Requested Visits Authorized [id number] New Request 04/01/2023 04/25/2024 1 1 Specialty Diagnoses / Procedures Referred By Uli yanez Referred To Contact Certified Nurse Practitioner / Transplant Surgery Procedures PRE WAITLIST PATIENT Trista Botello, COMMISSARY STEWARD-SCARFING MACHINE OPERATOR [address] [place] [phone] Beto Singer, COMMISSARY STEWARD-SCARFING MACHINE OPERATOR [address] [place] [address] Referral ID Status Reason Start Date Expiration Date V isits Requested Visits Authorized [id number] New Request 05/27/2023 06/20/2024 1 1 Reason Comments Other Right Epididymectomy [id number] Specialty Diagnoses / Procedures Referred By Uli yanez Referred To Contact Cardiology Diagnoses Peripheral vascular disease (CMS/HCC) Procedures Vascular US ankle brachial index (KRIS) [place] [id number] [address] [facility] Department [place] [address] Referral ID Status Reason Start Date Expiration Date Visits Requested Visits Authorized [id number] Authorized Perform Procedure 10/23/2023 10/22/2024 1 1 Specialty Diagnoses / Procedures Referred By Contac t Referred To Contact Diagnoses Pre-operative cardiovascular examination Procedures ECG 12 lead (Clinic Performed) [place] [address] [place] [address] Referral ID Status Reason Start Date Expiration Date V isits Requested Visits Authorized [id number] Authorized 11/04/2023 11/03/2024 1 1 Care Teams (unrecognized sec tion and content) [employer] Machine Operator Relationship Specialty Start Date End Date Anitha Johnson MD [address] [place] [address] PCP - General Family Medicine 07/11/22 Ludlow Machine Operator Relationship Specialty Start Date End Date Anitha Johnson MD [address] [place] [address] PCP - General Family Medicine 07/11/22 [employer]low Machine Operator Relationship Specialty Start Date End Date Anitha Johnson MD [address] [place] [address] PCP - General Family Medicine 07/11/22 Ludlow Machine Operator Relationship Specialty Start Date End Date Anitha Johnson MD [address] [facility] [place] [address] PCP - General 07/19/20 [employer] Machine Operator Relationship Specialty Start Date End Date Anitha Johnson MD [address] [facility] [address] PCP - General 07/19/20 [employer] Machine Operator Relationship Specialty Start Date End Date Anitha Johnson MD [address] [facility] [address] PCP - General 07/19/20 Ludlow Machine Operator Relationship Specialty Start Date End Date Anitha Johnson MD [address] [facility] [address] PCP - General 07/19/20 Ludlow Machine Operator Relationship Specialty Start Date End Date Anitha Johnson MD [address] [place] [address] PCP - General 07/19/20 Ludlow Machine Operator Relationship Specialty Start Date End Date Anitha Johnson MD [address] [facility] [address] PCP - General 07/19/20 FOR RECORDS PERTAINING [...] BE BASED ON THE PRIMARY CLINICAL RECORDS. [facility] [employer] [facility]. provides no warranty or guarantee of the accuracy or completeness of information in this document.
== END | disposition home or self-care (01) ==
LOC: US 11:18
PROVIDERS: PCP Family Medicine; Referring Provider Family Medicine; Visit Provider Family Medicine
DX: R22.31 Localized swelling, mass and lump, right upper limb (principal)
CPT/HCPCS: 76882

== ENCOUNTER 2023-12-17 07:02 | Outpatient (RCR) | payer MEDICARE, OTHER, SELFPAY ==
[2023-12-07 07:24] LABS: Hematocrit 29.6 % (40-54); Hemoglobin 9.4 g/dL (13.0-16.5); Mean Corp Hgb Conc 31.8 g/dL (32-36); Mean Corpuscular Volume 100.7 fL (80-94); Mean Platelet Vol. 8.8 fl (6.2-12.0); POSITIVE COUNT YES; POSITIVE DIFFERENTIAL YES; POSITIVE MORPHOLOGY YES; Platelet Count 277 K/mm3 (150-450); RBC Distribution Width CV 16.9 % (11.6-14.6); RBC Distribution Width SD 60.4 fl (35.1-43.9); Red Blood Count 2.94 M/mm3 (4.6-6.2); White Blood Count 6.3 K/mm3 (4.4-11.0)
[2023-12-07 07:40] LABS: Protein:Creat Ratio 352 mg/g CRE (0-200)
[2023-12-07 07:51] LABS: Bite Cell RARE
[2023-12-07 07:52] LABS: Hypochromasia 1+; Polychromasia 2+
[2023-12-07 07:53] LABS: Hemoglobin A1c 5.8 % (3.8-5.6)
[2023-12-07 07:58] LABS: Eosinophil 6 % (0-5); Metamyelocyte 1 % (0-1); Monocyte 3 % (0-10); Myelocyte 4 % (0-0); Neutrophil-Segmented 83 % (47-70); Other WBC Type 3 %
[2023-12-07 08:01] LABS: Neutrophil-Band 0 % (0-5)
[2023-12-07 08:03] LABS: ALB/GLOB Ratio 0.9 RATIO (0.9-2.4); AST(SGOT) 47 U/L (15-37); Alanine Aminotransfer ALT/SGPT 68 U/L (16-61); Albumin, Serum 3.1 g/dL (3.2-5.0); Alkaline Phosphatase 69 U/L (45-117); Anion Gap 4 (5-15); BUN 21 mg/dL (7-18); BUN/Creat Ratio 15.3 RATIO (10-20); Calcium,Total 9.8 mg/dL (8.5-10.1); Chloride 111 mmol/L (98-107); Cholesterol 130 mg/dL (200); Creatinine, Serum 1.37 mg/dL (0.70-1.30); EST Glomerular Filtration Rate 55 mL/min (>60); Est Glom Filt Rate - Afr Amer 66 mL/min (>60); Ferritin 1273 ng/mL (26-388); Globulin 3.3 g/dL (2.2-4.2); Glucose 154 mg/dL (74-106); High Density Lipoprotein 37 mg/dL; Iron 94 ug/dL (65-175); Iron Binding Capacity,Total 301 ug/dL (250-450); PERCENT IRON SATURATION 31.2 % (15.0-55.0); Potassium 5.5 mmol/L (3.5-5.1); Protein, Total 6.4 g/dL (6.4-8.2); Sodium Level 138 mmol/L (136-145); Triglycerides 139 mg/dL; Uric Acid 6.2 mg/dL (3.5-7.2); Very Low Density Lipoprotein 28 mg/dL (5-40)
[2023-12-07 08:22] LABS: Differential Indicated MANUAL DIFF
[2023-12-07 08:23] LABS: Absolute Lymphocyte Count 0.06 X10^3/uL (0.83-4.51); Absolute Neutrophil Count 0.9 X10^3/uL (2.0-7.7)
[2023-12-09 12:10] LABS: Pathologist Review Reviewed
[2023-12-10 07:24] LABS: Absolute Lymphocyte Count 0.21 X10^3/uL (0.83-4.51); Basophil# 0.03 X10^3/uL; Basophil% 0.4 % (0-1); Eosinophil# 0.11 X10^3/uL; Eosinophils% 1.4 % (0-5); Hematocrit 30.9 % (40-54); Hemoglobin 9.9 g/dL (13.0-16.5); Lymphocyte # 0.21 X10^3/ul (0.83-4.51); Lymphocyte % 2.6 % (19-41); Mean Corpuscular Hgb 32.2 pg (27.0-32.0); Mean Corpuscular Volume 100.7 fL (80-94); Mean Platelet Vol. 8.8 fl (6.2-12.0); Monocyte# 0.51 X10^3/uL; Monocyte% 6.4 % (0-10); NRBC Flagged by Analyzer 0 % (0-5); Neutrophil # 6.98 X10^3/uL (2.7-7.7); Neutrophil % 87.1 % (47-70); POSITIVE DIFFERENTIAL YES; Platelet Count 326 K/mm3 (150-450); RBC Distribution Width CV 17.2 % (11.6-14.6); RBC Distribution Width SD 62.7 fl (35.1-43.9); Red Blood Count 3.07 M/mm3 (4.6-6.2)
[2023-12-10 07:55] LABS: Anion Gap 3 (5-15); BUN 24 mg/dL (7-18); BUN/Creat Ratio 16.8 RATIO (10-20); Calcium,Total 9.7 mg/dL (8.5-10.1); Chloride 111 mmol/L (98-107); Creatinine, Serum 1.43 mg/dL (0.70-1.30); EST Glomerular Filtration Rate 52 mL/min (>60); Est Glom Filt Rate - Afr Amer 63 mL/min (>60); Glucose 146 mg/dL (74-106); Potassium 5.6 mmol/L (3.5-5.1); Sodium Level 136 mmol/L (136-145)
[2023-12-10 11:09] LABS: BK Virus Quant, PCR Negative (Negative); Tacrolimus (FK506) 8.5 ng/mL (2.0-20.0); Transferrin 259 mg/dL (177-329)
[2023-12-14 07:14] LABS: Absolute Lymphocyte Count 0.24 X10^3/uL (0.83-4.51); Absolute Neutrophil Count 5.4 X10^3/uL (2.0-7.7); Basophil# 0.05 X10^3/uL; Basophil% 0.8 % (0-1); Eosinophil# 0.07 X10^3/uL; Eosinophils% 1.1 % (0-5); Hematocrit 33.5 % (40-54); Hemoglobin 10.8 g/dL (13.0-16.5); Lymphocyte # 0.24 X10^3/ul (0.83-4.51); Lymphocyte % 3.9 % (19-41); Mean Corp Hgb Conc 32.2 g/dL (32-36); Mean Corpuscular Hgb 32.4 pg (27.0-32.0); Mean Corpuscular Volume 100.6 fL (80-94); Mean Platelet Vol. 8.8 fl (6.2-12.0); Monocyte# 0.29 X10^3/uL; Monocyte% 4.7 % (0-10); NRBC Flagged by Analyzer 0 % (0-5); Neutrophil # 5.41 X10^3/uL (2.7-7.7); Neutrophil % 88.5 % (47-70); POSITIVE DIFFERENTIAL YES; Platelet Count 351 K/mm3 (150-450); RBC Distribution Width CV 16.7 % (11.6-14.6); RBC Distribution Width SD 61.5 fl (35.1-43.9); Red Blood Count 3.33 M/mm3 (4.6-6.2); White Blood Count 6.1 K/mm3 (4.4-11.0)
[2023-12-14 08:02] LABS: Anion Gap 4 (5-15); BUN 34 mg/dL (7-18); BUN/Creat Ratio 21.9 RATIO (10-20); Calcium,Total 10.7 mg/dL (8.5-10.1); Chloride 111 mmol/L (98-107); Creatinine, Serum 1.55 mg/dL (0.70-1.30); EST Glomerular Filtration Rate 48 mL/min (>60); Est Glom Filt Rate - Afr Amer 58 mL/min (>60); Glucose 160 mg/dL (74-106); Magnesium 1.9 mg/dL (1.6-2.6); Phosphorus 2.6 mg/dL (2.5-4.9); Sodium Level 134 mmol/L (136-145)
[2023-12-15 20:08] LABS: Tacrolimus (FK506) 8.5 ng/mL (2.0-20.0)
[2023-12-17 05:52] LABS: Tacrolimus (FK506) 13.5 ng/mL (2.0-20.0)
[2023-12-17 07:26] LABS: Absolute Neutrophil Count 4.1 X10^3/uL (2.0-7.7); Basophil# 0.07 X10^3/uL; Basophil% 1.4 % (0-1); Eosinophil# 0.12 X10^3/uL; Eosinophils% 2.5 % (0-5); Hemoglobin 11.2 g/dL (13.0-16.5); Lymphocyte % 6.2 % (19-41); Mean Corpuscular Hgb 32.3 pg (27.0-32.0); Mean Corpuscular Volume 100.9 fL (80-94); Mean Platelet Vol. 8.9 fl (6.2-12.0); Monocyte# 0.24 X10^3/uL; NRBC Flagged by Analyzer 0 % (0-5); Neutrophil # 4.05 X10^3/uL (2.7-7.7); Neutrophil % 83.7 % (47-70); POSITIVE DIFFERENTIAL YES; Platelet Count 345 K/mm3 (150-450); RBC Distribution Width CV 16.5 % (11.6-14.6); RBC Distribution Width SD 61.1 fl (35.1-43.9); Red Blood Count 3.47 M/mm3 (4.6-6.2); White Blood Count 4.8 K/mm3 (4.4-11.0)
[2023-12-17 08:02] LABS: Anion Gap 4 (5-15); BUN 41 mg/dL (7-18); BUN/Creat Ratio 19.2 RATIO (10-20); Chloride 110 mmol/L (98-107); Creatinine, Serum 2.13 mg/dL (0.70-1.30); EST Glomerular Filtration Rate 33 mL/min (>60); Est Glom Filt Rate - Afr Amer 40 mL/min (>60); Glucose 159 mg/dL (74-106); Potassium 5.5 mmol/L (3.5-5.1); Sodium Level 133 mmol/L (136-145)
[2023-12-21 15:08] LABS: Tacrolimus (FK506) 13.1 ng/mL (2.0-20.0)
== END 2023-12-17 18:00 | disposition home or self-care (01) ==
LOC: LAB 07:02
PROVIDERS: PCP Family Medicine
DX: Z94.0 Kidney transplant status (principal); R79.9 Abnormal finding of blood chemistry, unspecified; D84.9 Immunodeficiency, unspecified; Z48.298 Encounter for aftercare following other organ transplant; Z79.899 Other long term (current) drug therapy; Z11.59 Encounter for screening for other viral diseases
CPT/HCPCS: 36415; 80048; 80053; 80061; 80197; 82570; 82728; 83036; 83540; 83550; 83735; 84100; 84156; 84466; 84550; 85025; 87799

== ENCOUNTER 2023-12-18 15:50 | Emergency (ER) | payer MEDICARE, OTHER, SELFPAY ==
[2023-12-18 15:52] VITALS: BP 144/70; PULSE 91; RESP 18; TEMP 36.2; O2SAT 98; BMI 28.3
[2023-12-18 16:11] LABS: Absolute Lymphocyte Count 0.21 X10^3/uL (0.83-4.51); Absolute Neutrophil Count 3.2 X10^3/uL (2.0-7.7); Basophil# 0.06 X10^3/uL; Basophil% 1.6 % (0-1); Eosinophil# 0.05 X10^3/uL; Eosinophils% 1.3 % (0-5); Hematocrit 34.6 % (40-54); Hemoglobin 11.1 g/dL (13.0-16.5); Lymphocyte # 0.21 X10^3/ul (0.83-4.51); Lymphocyte % 5.5 % (19-41); Mean Corp Hgb Conc 32.1 g/dL (32-36); Mean Corpuscular Hgb 32.3 pg (27.0-32.0); Mean Corpuscular Volume 100.6 fL (80-94); Mean Platelet Vol. 8.9 fl (6.2-12.0); Monocyte# 0.24 X10^3/uL; Monocyte% 6.3 % (0-10); NRBC Flagged by Analyzer 0 % (0-5); Neutrophil # 3.21 X10^3/uL (2.7-7.7); Neutrophil % 84.3 % (47-70); POSITIVE DIFFERENTIAL YES; Platelet Count 306 K/mm3 (150-450); RBC Distribution Width CV 16.4 % (11.6-14.6); RBC Distribution Width SD 61.1 fl (35.1-43.9); Red Blood Count 3.44 M/mm3 (4.6-6.2); White Blood Count 3.8 K/mm3 (4.4-11.0)
[2023-12-18 16:17] LABS: Differential Indicated SCAN CRITERIA MET
--- NOTE | 2023-12-18 16:33 | EX.ED.DYSGE1 ---
HPI History of Present Illness Chief Complaint: Abn Labs Narrative Narrative: 68-year-old male with history of chronic kidney disease presenting with apparently elevated potassium. 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 Patient states has been doing well. He is eating and drinking normally. Making normal urine and stool. He is not having fevers. He does complain of a little bit of back pain from driving to [place] today but he states that something chronic and not new. Patient states that when he arrived back home he received a phone call saying his potassium was high and to go to the emergency room. [facility] Medical History Benign prostatic hyperplasia Carpal tunnel syndrome of left wrist Chronic kidney disease Chronic renal failure, stage 4 (severe) Diabetic neuropathy GERD (gastroesophageal reflux disease) History of alcoholism history of calcus of kidney Hyperparathyroidism due to renal insufficiency Hypertensive disorder Insomnia Malignant tumor of parotid gland Presence of surgically created arteriovenous shunt for hemodialysis Problem with dialysis access Type 2 diabetes mellitus Home Medications lansoprazole 30 mg capsule,delayed release (Prevacid) 30 mg PO QDAY PRN Indigestion 10/09/17 [History Last Taken 11/05/17 07:00] losartan 25 mg tablet 25 mg PO DAILY 10/29/17 [History Last Taken Unknown] calcitriol 0.25 mcg capsule 0.75 mcg PO .THULAKESHIA,SAT 10/17/20 [History Last Taken Unknown] cholecalciferol (vitamin D3) 25 mcg (1,000 unit) capsule 25 mcg PO DAILY 10/17/20 [History Last Taken Unknown] cinacalcet 30 mg tablet (Sensipar) 30 mg PO .LAKESHIA,SAT 10/17/20 [History Last Taken Unknown] gabapentin 800 mg tablet 800 mg PO DAILY 10/17/20 [History Last Taken Unknown] calcium acetate 667 mg tablet 667 mg PO TID 04/17/21 [History Last Taken Unknown] vitamin B complex-vitamin C-folic acid 0.8 mg tablet (Nephro-Kojo) 1 tab PO DAILY 04/17/21 [History Last Taken Unknown] oxycodone-acetaminophen 5 mg-325 mg tablet 1 tab PO Q6H PRN PRN pain 5 days #20 TABLETS 08/19/22 [Rx Last Taken Unknown] vitamin B complex-vitamin C-folic acid 0.8 mg tablet (Nephro-Kojo) 0.8 tab PO DAILY 08/19/22 [History Last Taken Unknown] Allergy/AdvReac Type Severity Reaction Status Date / Time bee venom protein (honey bee) Allergy Severe anaphlaxis Verified 12/18/23 15:52 liraglutide [From Victoza] AdvReac unknown Verified 12/18/23 15:52 Family History Father Arthritis Brother Arthritis Surgical History history fistulogram History of bilateral hip replacements History of parotidectomy History of spinal fusion Surgically constructed arteriovenous fistula Social History Smoking Status: Former smoker alcohol intake: former substance use type: does not use ROS ROS ED Constitutional Constitutional ED: Denies chills, fever(s) or sweats Eyes Eyes: Denies blurry vision or change in vision ENT ENT ED: Denies ear pain or sore throat Cardiovascular Cardiovascular: Denies chest pain, palpitations or racing heartbeat Respiratory/Chest Respiratory/Chest: Denies cough, dyspnea or sputum Gastrointestinal Gastrointestinal: Denies abdominal pain, constipation, diarrhea, nausea or vomiting Genitourinary Genitourinary ED: Denies dysuria, hematuria or urinary frequency Musculoskeletal Musculoskeletal: Denies arthralgias, myalgias or neck pain Integumentary Denies abscess, Abrasions or rash Neurologic Neurologic: Denies headache(s), paresthesias or weakness Psychiatric Psychiatric: Denies anxiety, depression, suicidal ideation or suicidal thoughts Endocrine Endocrinology: Denies polydipsia or polyuria EXAM Physical Exam Const Vital Signs: 12/18/23 15:52 12/18/23 16:46 12/18/23 16:48 Temperature 97.2 F L Temperature Source Temporal Pulse Rate 91 88 Respiratory Rate 18 22 H Respiratory Effort Normal Non-Labored Respiratory Pattern Normal Blood Pressure 144/70 H 143/70 H Blood Pressure Mean 94 94 Pulse Ox 98 100 Oxygen Delivery Method Room Air Room Air 12/18/23 18:50 12/18/23 20:26 12/18/23 22:00 Temperature Temperature Source Pulse Rate 77 77 84 Respiratory Rate 18 16 16 Respiratory Effort Respiratory Pattern Blood Pressure 124/65 H 137/76 H 136/72 H Blood Pressure Mean 84 96 93 Pulse Ox 98 98 98 Oxygen Delivery Method Room Air Room Air Room Air Positive well nourished General Appearance ED: NAD HEENT Reports moist mucous membranes Eyes PERRL and EOMs intact bilaterally Chest Wall inspection of chest normal Resp normal respiratory effort Cardio regular rate and regular rhythm GI normal to inspection, nondistended, normoactive bowel sounds GI Narrative: Surgical sites clean, dry, intact. Davis in place. Neuro oriented x3 and CN's II-XII intact bilaterally Sensorium / Orientation: alert Motor Exam: strength 5/5 throughout Psych mental status grossly normal Skin Skin Narrative: As described above MDM MDM MDM Narrative Medical decision making narrative: 68-year-old male presenting with potassium which is elevated as an outpatient. Looks like his potassium has been high since August 2023. I was able to find this on I was able to log into [employer], and I was able to find pertinent medical records available for review to compare to the patient's current lab/imaging/workup.Apparently he had a potassium that was elevated at about 6.4. I cannot see if there is any hemolysis. Sodium 133, chloride 105, glucose 172. Anion gap normal at 15. Creatinine 1.78 today's lab work shows a white blood cell count 3.8, hemoglobin 1.1, platelets 306 creatinine is up to 2.03. He was given a liter normal saline. Potassium repeated and is 6.0. Again he has been in the 5.5-6 range since August. I discussed the case with the transfer line as I did not speak to any physicians at [facility] and they had an accepting physician () from [facility]. They stated there will be a long delay. They requested that I give Lokelma however I counseled the transfer line and I do not have this. I called back to tell the again after speaking to pharmacy that we do not have this and they stated that they spoke with nephrology and they did not want anything given. Patient was given his nighttime doses of gabapentin, mycophenolate Moffetil, tacrolimus. Patient states that he wanted to go home because it was or what the plan was. I made another call out to [facility] because they thought he would be here till least tomorrow morning the patient does not want to stay. At this point [facility] had an accepting bed and the patient will be transferred. They did request an EKG which on my interpretation showed a sinus rhythm with a ventricular rate of 79 bpm with right bundle branch block. No evidence of ischemia or dysrhythmia. Impression: 1. Hyperkalemia 2. Acute on chronic kidney disease Lab Data Attestation: I reviewed the patient's lab results. Labs: Laboratory Results - last 24 hr 12/18/23 12/18/23 16:05 16:40 WBC 3.8 L RBC 3.44 L Hgb 11.1 L Hct 34.6 L MCV 100.6 H MCH 32.3 H MCHC 32.1 RDW Std Deviation 61.1 H RDW Coeff of Deshaun 16.4 H Plt Count 306 MPV 8.9 Immature Gran % (Auto) 1.000 H Neut % (Auto) 84.3 H Lymph % (Auto) 5.5 L [place] % (Auto) 6.3 Eos % (Auto) 1.3 Baso % (Auto) 1.6 H Absolute Neuts (auto) 3.2 Absolute Lymphs (auto) 0.21 L Nucleated RBC % 0 Differential Comment SCANNED Sodium 134 L Potassium 6.0 H* Chloride 109 H Carbon Dioxide 20.0 L Anion Gap 5 BUN 41 H Creatinine 2.03 H Estim Creat Clear Calc 35.71 Est GFR (MDRD) Af Amer 42 L Est GFR (MDRD) Non-Af 35 L BUN/Creatinine Ratio 20.2 H Glucose 156 H Calcium 11.3 H Total Bilirubin 0.50 AST 27 ALT 42 Alkaline Phosphatase 105 Total Protein 7.5 Albumin 3.8 Globulin 3.7 Albumin/Globulin Ratio 1.0 Urine Color Yellow Urine Clarity Sl. Cloudy Urine pH 5.0 Ur Specific Carmen 1.020 Urine Protein 30 H Urine Glucose (UA) Normal Urine Ketones Negative Urine Occult Blood 250 H Urine Nitrite Negative Urine Bilirubin Negative Urine Urobilinogen Normal Ur Leukocyte Esterase 500 H Urine RBC 10-25 SEEN Urine WBC 10-25 SEEN Ur Squamous Epith Cells 0 SEEN Ur Transition Epith Cell 0-5 SEEN Urine Bacteria 2+ Urine Mucus 0 SEEN Discharge Plan Triage Chief Complaint: Abn Labs ED Provider: Kiet Villareal Dx/Rx/DC Orders Prescriptions: No Action lansoprazole [Prevacid] 30 mg capsule,delayed release(DR/EC) 30 mg PO QDAY PRN (Reason: Indigestion) calcitriol 0.25 mcg capsule 0.75 mcg PO .THU,,SAT gabapentin 800 mg tablet 800 mg PO DAILY cinacalcet [Sensipar] 30 mg tablet 30 mg PO .,,SAT cholecalciferol (vitamin D3) 25 mcg (1,000 unit) capsule 25 mcg PO DAILY calcium acetate 667 mg tablet 667 mg PO TID Nephro-Kojo 0.8 mg tablet 1 tab PO DAILY losartan 25 MG tablet 25 mg PO DAILY Nephro-Kojo 0.8 mg tablet 0.8 tab PO DAILY Patient Comments: TAKE 1 TABLET BY MOUTH EVERY DAY oxycodone-acetaminophen [oxycodone-acetaminophen] 5-325 mg tablet 1 tab PO Q6H PRN PRN (Reason: pain) 5 Days Qty: 20 0RF Primary Care Provider: Ventura Nick Referrals: Ventura Nick MD [Primary Care Provider] -
[2023-12-18 16:43] LABS: Differential Comment SCANNED
[2023-12-18 16:46] VITALS: BP 143/70; PULSE 88; RESP 22; O2SAT 100
[2023-12-18] MEDS: 0.9% Normal Saline (1000mL) 1,000 ML 999 ML IV (16:50)
[2023-12-18 16:52] LABS: AST(SGOT) 27 U/L (15-37); Alanine Aminotransfer ALT/SGPT 42 U/L (16-61); Albumin, Serum 3.8 g/dL (3.2-5.0); Alkaline Phosphatase 105 U/L (45-117); Anion Gap 5 (5-15); BUN 41 mg/dL (7-18); BUN/Creat Ratio 20.2 RATIO (10-20); Calcium,Total 11.3 mg/dL (8.5-10.1); Chloride 109 mmol/L (98-107); Creatinine, Serum 2.03 mg/dL (0.70-1.30); EST Glomerular Filtration Rate 35 mL/min (>60); Est Glom Filt Rate - Afr Amer 42 mL/min (>60); Estimated Creatinine Clearance 35.71 ml/min; Globulin 3.7 g/dL (2.2-4.2); Glucose 156 mg/dL (74-106); Protein, Total 7.5 g/dL (6.4-8.2); Sodium Level 134 mmol/L (136-145)
--- NOTE | 2023-12-18 17:53 | EKG12_ITS ---
Test Reason : TRANSFER Blood Pressure : / mmHG Vent. Rate : 079 BPM Atrial Rate : 079 BPM P-R Int : 158 ms QRS Dur : 130 ms QT Int : 360 ms P-R-T Axes : 027 046 026 degrees QTc Int : 412 ms Normal sinus rhythm Right bundle branch block Abnormal ECG Confirmed by CESAR OLMEDO, NELLA ([id number]), primer expeditor and drier PEDRITO STOKES ([id number]) on 12/21/2023 9:37:19 AM Referred By: Confirmed By:MAMTA GUERRERO MD
[2023-12-18 18:50] VITALS: BP 124/65; PULSE 77; RESP 18; O2SAT 98
[2023-12-18 19:02] LABS: Mucous, Urine 0 SEEN /hpf (<or=2+); Squamous Epithelial Cells - UA 0 SEEN /hpf (0-5)
[2023-12-18 19:13] LABS: Color, Urine Yellow (Yellow); Glucose, Dipstick Normal (Normal); Ketone-Dipstick Negative (Negative); Leukocyte Esterase-Dipstick 500 /ul (Negative); Nitrite-Dipstick Negative (Negative); Occult Blood-Urine 250 /ul (Negative); Protein-Dipstick 30 mg/dl (Negative); Urine Bilirubin Dipstick Negative (Negative); Urine Clarity Sl. Cloudy (Clear); Urine Urobilinogen Normal (Normal)
[2023-12-18 19:19] LABS: Red Blood Cells-Urine 10-25 SEEN /hpf (0-5); White Blood Cells 10-25 SEEN /hpf (0-5)
[2023-12-18 19:20] LABS: Bacteria 2+ /hpf (None Seen); Transitional Epithelial - Ur 0-5 SEEN /hpf (0-5)
[2023-12-18 20:26] VITALS: BP 137/76; PULSE 77; RESP 16; O2SAT 98
[2023-12-18] MEDS: Tacrolimus Anhydrous 1 MG Capsule 6 MG PO (21:20)
[2023-12-18] MEDS: Mycophenolate Mofetil 250 MG Capsule 1000 MG PO (21:20)
[2023-12-18] MEDS: Gabapentin 800 MG Tablet PO (21:24)
[2023-12-18 22:00] VITALS: BP 136/72; PULSE 84; RESP 16; O2SAT 98
--- NOTE | 2023-12-18 23:16 | ED.RN ---
Multiple EMS services called by this nurse to try to outsource, unable to find transport.
[2023-12-19 01:37] VITALS: BP 134/79; PULSE 79; RESP 16; O2SAT 96
[2023-12-19 03:53] VITALS: BP 134/87; PULSE 81; RESP 16; O2SAT 96
[2023-12-19 06:28] VITALS: BP 134/77; PULSE 81; RESP 16; O2SAT 97
[2023-12-19 07:56] VITALS: BP 132/78; PULSE 64; RESP 16; TEMP 36.4; O2SAT 99
== END 2023-12-19 07:57 | disposition short-term general hospital (02) ==
LOC: ED 16:35
PROVIDERS: Emergency Provider Student in an Organized Health Care Education/Training Program; PCP Family Medicine; Visit Provider Student in an Organized Health Care Education/Training Program
DX: E87.5 Hyperkalemia (principal); N17.9 Acute kidney failure, unspecified; Z99.2 Dependence on renal dialysis; E11.22 Type 2 diabetes mellitus with diabetic chronic kidney disease; Z87.891 Personal history of nicotine dependence; I12.9 Hypertensive chronic kidney disease with stage 1 through stage 4 chronic kidney disease, or unspecified chronic kidney disease; I45.10 Unspecified right bundle-branch block; Z87.442 Personal history of urinary calculi; Z94.0 Kidney transplant status
CPT/HCPCS: 80053; 81001; 85025; 93005; 96360; 99284; J7030

== ENCOUNTER 2024-01-14 06:58 | Outpatient (RCR) | payer MEDICARE, OTHER, SELFPAY ==
[2023-12-21 08:12] LABS: Absolute Lymphocyte Count 0.21 X10^3/uL (0.83-4.51); Absolute Neutrophil Count 2.8 X10^3/uL (2.0-7.7); Basophil# 0.04 X10^3/uL; Basophil% 1.2 % (0-1); Eosinophil# 0.07 X10^3/uL; Eosinophils% 2.1 % (0-5); Hematocrit 32.8 % (40-54); Hemoglobin 10.6 g/dL (13.0-16.5); Lymphocyte # 0.21 X10^3/ul (0.83-4.51); Lymphocyte % 6.4 % (19-41); Mean Corp Hgb Conc 32.3 g/dL (32-36); Mean Corpuscular Hgb 32.6 pg (27.0-32.0); Mean Corpuscular Volume 100.9 fL (80-94); Mean Platelet Vol. 9.2 fl (6.2-12.0); Monocyte# 0.19 X10^3/uL; Monocyte% 5.8 % (0-10); NRBC Flagged by Analyzer 0 % (0-5); Neutrophil # 2.76 X10^3/uL (2.7-7.7); Neutrophil % 83.9 % (47-70); POSITIVE DIFFERENTIAL YES; Platelet Count 259 K/mm3 (150-450); RBC Distribution Width CV 16.2 % (11.6-14.6); RBC Distribution Width SD 60.8 fl (35.1-43.9); Red Blood Count 3.25 M/mm3 (4.6-6.2); White Blood Count 3.3 K/mm3 (4.4-11.0)
[2023-12-21 08:40] LABS: AST(SGOT) 31 U/L (15-37); Alanine Aminotransfer ALT/SGPT 42 U/L (16-61); Albumin, Serum 3.5 g/dL (3.2-5.0); Anion Gap 4 (5-15); BUN 19 mg/dL (7-18); Calcium,Total 10.6 mg/dL (8.5-10.1); Chloride 110 mmol/L (98-107); Creatinine, Serum 1.36 mg/dL (0.70-1.30); EST Glomerular Filtration Rate 55 mL/min (>60); Est Glom Filt Rate - Afr Amer 67 mL/min (>60); Glucose 150 mg/dL (74-106); Magnesium 1.7 mg/dL (1.6-2.6); Phosphorus 1.7 mg/dL (2.5-4.9); Potassium 4.5 mmol/L (3.5-5.1); Sodium Level 135 mmol/L (136-145)
[2023-12-23 18:07] LABS: Tacrolimus (FK506) 6.9 ng/mL (2.0-20.0)
[2023-12-24 07:29] LABS: Absolute Lymphocyte Count 0.25 X10^3/uL (0.83-4.51); Absolute Neutrophil Count 3.3 X10^3/uL (2.0-7.7); Basophil# 0.05 X10^3/uL; Basophil% 1.3 % (0-1); Eosinophil# 0.14 X10^3/uL; Eosinophils% 3.5 % (0-5); Hematocrit 34.5 % (40-54); Hemoglobin 11.5 g/dL (13.0-16.5); Lymphocyte # 0.25 X10^3/ul (0.83-4.51); Lymphocyte % 6.3 % (19-41); Mean Corp Hgb Conc 33.3 g/dL (32-36); Mean Corpuscular Hgb 33.8 pg (27.0-32.0); Mean Corpuscular Volume 101.5 fL (80-94); Mean Platelet Vol. 9.1 fl (6.2-12.0); Monocyte# 0.15 X10^3/uL; Monocyte% 3.8 % (0-10); NRBC Flagged by Analyzer 0 % (0-5); Neutrophil # 3.34 X10^3/uL (2.7-7.7); Neutrophil % 83.6 % (47-70); POSITIVE DIFFERENTIAL YES; Platelet Count 241 K/mm3 (150-450); RBC Distribution Width CV 16.2 % (11.6-14.6); RBC Distribution Width SD 61.1 fl (35.1-43.9)
[2023-12-24 08:05] LABS: Anion Gap 12 (5-15); BUN 27 mg/dL (7-18); BUN/Creat Ratio 19.6 RATIO (10-20); Calcium,Total 10.2 mg/dL (8.5-10.1); Chloride 111 mmol/L (98-107); Creatinine, Serum 1.38 mg/dL (0.70-1.30); EST Glomerular Filtration Rate 54 mL/min (>60); Est Glom Filt Rate - Afr Amer 66 mL/min (>60); Glucose 138 mg/dL (74-106); Sodium Level 141 mmol/L (136-145)
[2023-12-27 20:07] LABS: Tacrolimus (FK506) 7.6 ng/mL (2.0-20.0)
[2023-12-28 07:04] LABS: Absolute Lymphocyte Count 0.29 X10^3/uL (0.83-4.51); Absolute Neutrophil Count 3.2 X10^3/uL (2.0-7.7); Basophil# 0.05 X10^3/uL; Basophil% 1.3 % (0-1); Eosinophil# 0.07 X10^3/uL; Eosinophils% 1.8 % (0-5); Hematocrit 36.6 % (40-54); Hemoglobin 11.8 g/dL (13.0-16.5); Lymphocyte # 0.29 X10^3/ul (0.83-4.51); Lymphocyte % 7.5 % (19-41); Mean Corp Hgb Conc 32.2 g/dL (32-36); Mean Corpuscular Hgb 32.6 pg (27.0-32.0); Mean Corpuscular Volume 101.1 fL (80-94); Mean Platelet Vol. 8.9 fl (6.2-12.0); Monocyte# 0.21 X10^3/uL; Monocyte% 5.4 % (0-10); NRBC Flagged by Analyzer 0 % (0-5); Neutrophil # 3.21 X10^3/uL (2.7-7.7); Neutrophil % 82.5 % (47-70); POSITIVE DIFFERENTIAL YES; Platelet Count 235 K/mm3 (150-450); RBC Distribution Width SD 60.4 fl (35.1-43.9); Red Blood Count 3.62 M/mm3 (4.6-6.2); White Blood Count 3.9 K/mm3 (4.4-11.0)
[2023-12-28 07:32] LABS: Anion Gap 10 (5-15); BUN 31 mg/dL (7-18); BUN/Creat Ratio 21.1 RATIO (10-20); Calcium,Total 10.9 mg/dL (8.5-10.1); Chloride 112 mmol/L (98-107); Creatinine, Serum 1.47 mg/dL (0.70-1.30); EST Glomerular Filtration Rate 51 mL/min (>60); Est Glom Filt Rate - Afr Amer 61 mL/min (>60); Glucose 152 mg/dL (74-106); Magnesium 1.7 mg/dL (1.6-2.6); Phosphorus 2.1 mg/dL (2.5-4.9); Potassium 4.8 mmol/L (3.5-5.1); Sodium Level 139 mmol/L (136-145)
[2023-12-30 19:08] LABS: Tacrolimus (FK506) 12.1 ng/mL (2.0-20.0)
[2023-12-31 07:26] LABS: Absolute Lymphocyte Count 0.19 X10^3/uL (0.83-4.51); Absolute Neutrophil Count 3.1 X10^3/uL (2.0-7.7); Basophil# 0.07 X10^3/uL; Basophil% 1.8 % (0-1); Eosinophil# 0.08 X10^3/uL; Eosinophils% 2.1 % (0-5); Hemoglobin 11.5 g/dL (13.0-16.5); Lymphocyte # 0.19 X10^3/ul (0.83-4.51); Mean Corp Hgb Conc 31.9 g/dL (32-36); Mean Corpuscular Hgb 32.1 pg (27.0-32.0); Mean Corpuscular Volume 100.6 fL (80-94); Mean Platelet Vol. 9.3 fl (6.2-12.0); Monocyte# 0.32 X10^3/uL; Monocyte% 8.4 % (0-10); NRBC Flagged by Analyzer 0 % (0-5); Neutrophil # 3.09 X10^3/uL (2.7-7.7); Neutrophil % 81.4 % (47-70); POSITIVE DIFFERENTIAL YES; Platelet Count 215 K/mm3 (150-450); RBC Distribution Width CV 15.9 % (11.6-14.6); RBC Distribution Width SD 59.7 fl (35.1-43.9); Red Blood Count 3.58 M/mm3 (4.6-6.2); White Blood Count 3.8 K/mm3 (4.4-11.0)
[2023-12-31 07:55] LABS: AST(SGOT) 43 U/L (15-37); Alanine Aminotransfer ALT/SGPT 53 U/L (16-61); Albumin, Serum 3.6 g/dL (3.2-5.0); Alkaline Phosphatase 108 U/L (45-117); Anion Gap 8 (5-15); BUN 29 mg/dL (7-18); BUN/Creat Ratio 17.7 RATIO (10-20); Calcium,Total 10.5 mg/dL (8.5-10.1); Chloride 109 mmol/L (98-107); Cholesterol 123 mg/dL (200); Creatinine, Serum 1.64 mg/dL (0.70-1.30); EST Glomerular Filtration Rate 45 mL/min (>60); Est Glom Filt Rate - Afr Amer 54 mL/min (>60); Glucose 130 mg/dL (74-106); High Density Lipoprotein 54 mg/dL; Sodium Level 136 mmol/L (136-145); Triglycerides 102 mg/dL; Uric Acid 9.1 mg/dL (3.5-7.2); Very Low Density Lipoprotein 20 mg/dL (5-40)
[2023-12-31 11:03] LABS: Protein, Urine (Random) 48.6 mg/dL (<11.9); Protein:Creat Ratio 304 mg/g CRE (0-200)
[2024-01-03 09:07] LABS: BK Virus Quant, PCR Negative (Negative); Tacrolimus (FK506) 11.8 ng/mL (2.0-20.0)
[2024-01-04 07:03] LABS: Absolute Lymphocyte Count 0.27 X10^3/uL (0.83-4.51); Absolute Neutrophil Count 3.5 X10^3/uL (2.0-7.7); Basophil# 0.07 X10^3/uL; Basophil% 1.7 % (0-1); Eosinophil# 0.08 X10^3/uL; Eosinophils% 1.9 % (0-5); Hematocrit 36.3 % (40-54); Hemoglobin 11.7 g/dL (13.0-16.5); Lymphocyte # 0.27 X10^3/ul (0.83-4.51); Lymphocyte % 6.4 % (19-41); Mean Corp Hgb Conc 32.2 g/dL (32-36); Mean Corpuscular Hgb 32.3 pg (27.0-32.0); Mean Corpuscular Volume 100.3 fL (80-94); Mean Platelet Vol. 9.2 fl (6.2-12.0); Monocyte# 0.24 X10^3/uL; Monocyte% 5.7 % (0-10); NRBC Flagged by Analyzer 0 % (0-5); Neutrophil # 3.54 X10^3/uL (2.7-7.7); Neutrophil % 83.4 % (47-70); POSITIVE DIFFERENTIAL YES; Platelet Count 227 K/mm3 (150-450); RBC Distribution Width CV 15.6 % (11.6-14.6); RBC Distribution Width SD 57.9 fl (35.1-43.9); Red Blood Count 3.62 M/mm3 (4.6-6.2); White Blood Count 4.2 K/mm3 (4.4-11.0)
[2024-01-04 08:01] LABS: Anion Gap 7 (5-15); BUN 19 mg/dL (7-18); BUN/Creat Ratio 15.3 RATIO (10-20); Calcium,Total 10.5 mg/dL (8.5-10.1); Chloride 110 mmol/L (98-107); Creatinine, Serum 1.24 mg/dL (0.70-1.30); EST Glomerular Filtration Rate 62 mL/min (>60); Est Glom Filt Rate - Afr Amer 75 mL/min (>60); Glucose 136 mg/dL (74-106); Magnesium 1.5 mg/dL (1.6-2.6); Phosphorus 1.6 mg/dL (2.5-4.9); Potassium 4.4 mmol/L (3.5-5.1); Sodium Level 138 mmol/L (136-145)
[2024-01-06 12:09] LABS: Tacrolimus (FK506) 10.9 ng/mL (2.0-20.0)
[2024-01-07 07:43] LABS: Absolute Lymphocyte Count 0.21 X10^3/uL (0.83-4.51); Absolute Neutrophil Count 3.3 X10^3/uL (2.0-7.7); Basophil# 0.04 X10^3/uL; Eosinophil# 0.05 X10^3/uL; Eosinophils% 1.3 % (0-5); Hematocrit 35.5 % (40-54); Hemoglobin 11.7 g/dL (13.0-16.5); Lymphocyte # 0.21 X10^3/ul (0.83-4.51); Lymphocyte % 5.4 % (19-41); Mean Corpuscular Hgb 32.7 pg (27.0-32.0); Mean Corpuscular Volume 99.2 fL (80-94); Mean Platelet Vol. 9.4 fl (6.2-12.0); Monocyte# 0.23 X10^3/uL; Monocyte% 5.9 % (0-10); NRBC Flagged by Analyzer 0 % (0-5); Neutrophil # 3.33 X10^3/uL (2.7-7.7); Neutrophil % 85.6 % (47-70); POSITIVE DIFFERENTIAL YES; Platelet Count 250 K/mm3 (150-450); RBC Distribution Width CV 15.7 % (11.6-14.6); RBC Distribution Width SD 58.4 fl (35.1-43.9); Red Blood Count 3.58 M/mm3 (4.6-6.2); White Blood Count 3.9 K/mm3 (4.4-11.0)
[2024-01-07 08:36] LABS: Anion Gap 7 (5-15); BUN 21 mg/dL (7-18); BUN/Creat Ratio 12.3 RATIO (10-20); Calcium,Total 10.1 mg/dL (8.5-10.1); Chloride 109 mmol/L (98-107); Creatinine, Serum 1.71 mg/dL (0.70-1.30); EST Glomerular Filtration Rate 43 mL/min (>60); Est Glom Filt Rate - Afr Amer 51 mL/min (>60); Glucose 145 mg/dL (74-106); Potassium 4.3 mmol/L (3.5-5.1); Sodium Level 138 mmol/L (136-145)
[2024-01-10 08:08] LABS: Tacrolimus (FK506) 13.1 ng/mL (2.0-20.0)
[2024-01-11 07:02] LABS: Absolute Lymphocyte Count 0.23 X10^3/uL (0.83-4.51); Absolute Neutrophil Count 3.3 X10^3/uL (2.0-7.7); Basophil# 0.06 X10^3/uL; Basophil% 1.5 % (0-1); Eosinophil# 0.09 X10^3/uL; Eosinophils% 2.3 % (0-5); Hematocrit 36.6 % (40-54); Lymphocyte # 0.23 X10^3/ul (0.83-4.51); Lymphocyte % 5.8 % (19-41); Mean Corp Hgb Conc 32.8 g/dL (32-36); Mean Corpuscular Hgb 32.8 pg (27.0-32.0); Mean Platelet Vol. 8.9 fl (6.2-12.0); Monocyte# 0.29 X10^3/uL; Monocyte% 7.3 % (0-10); NRBC Flagged by Analyzer 0 % (0-5); Neutrophil # 3.26 X10^3/uL (2.7-7.7); Neutrophil % 81.8 % (47-70); POSITIVE DIFFERENTIAL YES; Platelet Count 228 K/mm3 (150-450); RBC Distribution Width CV 15.1 % (11.6-14.6); RBC Distribution Width SD 56.6 fl (35.1-43.9); Red Blood Count 3.66 M/mm3 (4.6-6.2)
[2024-01-11 07:51] LABS: Anion Gap 5 (5-15); BUN 15 mg/dL (7-18); BUN/Creat Ratio 10.9 RATIO (10-20); Calcium,Total 9.9 mg/dL (8.5-10.1); Chloride 109 mmol/L (98-107); Creatinine, Serum 1.37 mg/dL (0.70-1.30); EST Glomerular Filtration Rate 55 mL/min (>60); Est Glom Filt Rate - Afr Amer 66 mL/min (>60); Glucose 164 mg/dL (74-106); Magnesium 1.5 mg/dL (1.6-2.6); Phosphorus 1.4 mg/dL (2.5-4.9); Potassium 4.6 mmol/L (3.5-5.1); Sodium Level 139 mmol/L (136-145)
[2024-01-13 18:08] LABS: Tacrolimus (FK506) 11.2 ng/mL (2.0-20.0)
[2024-01-14 07:33] LABS: Absolute Lymphocyte Count 0.21 X10^3/uL (0.83-4.51); Absolute Neutrophil Count 3.5 X10^3/uL (2.0-7.7); Basophil# 0.07 X10^3/uL; Basophil% 1.7 % (0-1); Eosinophils% 2.5 % (0-5); Hematocrit 39.3 % (40-54); Hemoglobin 12.5 g/dL (13.0-16.5); Lymphocyte # 0.21 X10^3/ul (0.83-4.51); Lymphocyte % 5.2 % (19-41); Mean Corp Hgb Conc 31.8 g/dL (32-36); Mean Corpuscular Hgb 31.5 pg (27.0-32.0); Mean Platelet Vol. 9.1 fl (6.2-12.0); Monocyte# 0.15 X10^3/uL; Monocyte% 3.7 % (0-10); NRBC Flagged by Analyzer 0 % (0-5); Neutrophil # 3.49 X10^3/uL (2.7-7.7); Neutrophil % 86.2 % (47-70); POSITIVE DIFFERENTIAL YES; Platelet Count 223 K/mm3 (150-450); RBC Distribution Width CV 14.8 % (11.6-14.6); RBC Distribution Width SD 53.9 fl (35.1-43.9); Red Blood Count 3.97 M/mm3 (4.6-6.2); White Blood Count 4.1 K/mm3 (4.4-11.0)
[2024-01-14 07:58] LABS: Anion Gap 6 (5-15); BUN 13 mg/dL (7-18); BUN/Creat Ratio 9.8 RATIO (10-20); Calcium,Total 10.3 mg/dL (8.5-10.1); Chloride 108 mmol/L (98-107); Creatinine, Serum 1.33 mg/dL (0.70-1.30); EST Glomerular Filtration Rate 57 mL/min (>60); Est Glom Filt Rate - Afr Amer 69 mL/min (>60); Glucose 174 mg/dL (74-106); Potassium 5.1 mmol/L (3.5-5.1); Sodium Level 136 mmol/L (136-145)
[2024-01-16 20:08] LABS: Tacrolimus (FK506) 13.1 ng/mL (2.0-20.0)
== END 2024-01-16 18:00 | disposition home or self-care (01) ==
LOC: LAB 06:58
PROVIDERS: PCP Family Medicine
DX: Z94.0 Kidney transplant status (principal); R79.9 Abnormal finding of blood chemistry, unspecified; D84.9 Immunodeficiency, unspecified; Z48.298 Encounter for aftercare following other organ transplant; Z79.899 Other long term (current) drug therapy; Z11.59 Encounter for screening for other viral diseases
CPT/HCPCS: 36415; 80048; 80061; 80197; 82040; 82247; 82570; 83735; 84075; 84100; 84156; 84450; 84460; 84550; 85025; 87799

== ENCOUNTER → 2024-02-09 | Outpatient (CLI) | payer MEDICARE, OTHER, SELFPAY ==
[2024-02-09 17:31] LABS: Amphetamine Urine VISTA NEGATIVE (<1000 ng/mL); Barbiturate Urine VISTA NEGATIVE (< 200 ng/mL); Benzodiazepine Urine VISTA NEGATIVE (< 200 ng/mL); Cocaine Urine VISTA NEGATIVE (< 300 ng/mL); Ecstacy Urine VISTA NEGATIVE (< 500 ng/mL); Methadone Urine VISTA NEGATIVE (< 300 ng/mL); PCP Urine VISTA NEGATIVE (< 25 ng/mL); THC Urine VISTA NEGATIVE (< 50 ng/mL); Vista UDS pH Range 5
== END | disposition home or self-care (01) ==
LOC: LAB 16:41
PROVIDERS: PCP Family Medicine; Referring Provider Anesthesiology Pain Medicine; Visit Provider Anesthesiology Pain Medicine
DX: F11.20 Opioid dependence, uncomplicated (principal)
CPT/HCPCS: 80307

== ENCOUNTER → 2024-02-11 | Outpatient (CLI) | payer MEDICARE, OTHER, SELFPAY ==
--- NOTE | 2024-02-11 11:46 | NM_ITS ---
CLINICAL: 68-year-old male with history of early satiety. SEMI-SOLID PHASE 99m Tc SULFUR COLLOID GASTRIC EMPTYING STUDY COMPARISON: None available FINDINGS: The patient was administered 1.1 mCi of 99m Tc sulfur colloid mixed with oatmeal and consumed per os. Image acquisitions in the anterior-posterior projections were obtained for 60 minutes. There is prompt visualization of the stomach. There is no gastroesophageal reflux identified. There is minimal emptying of the semisolid meal during 60 minute acquisition diaphragm. The T ? linear fit was not calculated, secondary to no definitive emptying, (Normal: 12-56 minutes). NM/Gastric Emptying Study IMPRESSION: 1. ABNORMAL 99m Tc sulfur colloid semi-solid phase (oatmeal) gastric emptying imaging examination. A. There is severe delayed semi-solid phase gastric emptying compared to normal controls. (Thomas et al, J Nucl Med Tech 38: 186, 2010). Electronically Signed: Rick Snow DO at 9:57 EDT ,
== END | disposition home or self-care (01) ==
LOC: NM 11:45
PROVIDERS: PCP Family Medicine; Referring Provider Family Medicine; Visit Provider Family Medicine
DX: R68.81 Early satiety (principal); E11.8 Type 2 diabetes mellitus with unspecified complications
CPT/HCPCS: 78264; A9541

== ENCOUNTER 2024-02-15 06:52 | Outpatient (RCR) | payer MEDICARE, OTHER, SELFPAY ==
[2024-01-18 07:31] LABS: Absolute Lymphocyte Count 0.33 X10^3/uL (0.83-4.51); Absolute Neutrophil Count 4.3 X10^3/uL (2.0-7.7); Basophil# 0.08 X10^3/uL; Basophil% 1.5 % (0-1); Eosinophil# 0.16 X10^3/uL; Eosinophils% 3.1 % (0-5); Hematocrit 37.5 % (40-54); Lymphocyte # 0.33 X10^3/ul (0.83-4.51); Lymphocyte % 6.3 % (19-41); Mean Corpuscular Hgb 31.5 pg (27.0-32.0); Mean Corpuscular Volume 98.4 fL (80-94); Mean Platelet Vol. 9.6 fl (6.2-12.0); Monocyte# 0.36 X10^3/uL; Monocyte% 6.9 % (0-10); NRBC Flagged by Analyzer 0 % (0-5); Neutrophil # 4.25 X10^3/uL (2.7-7.7); Neutrophil % 81.2 % (47-70); POSITIVE DIFFERENTIAL YES; Platelet Count 234 K/mm3 (150-450); RBC Distribution Width CV 14.5 % (11.6-14.6); RBC Distribution Width SD 52.9 fl (35.1-43.9); Red Blood Count 3.81 M/mm3 (4.6-6.2); White Blood Count 5.2 K/mm3 (4.4-11.0)
[2024-01-18 08:31] LABS: AST(SGOT) 29 U/L (15-37); Alanine Aminotransfer ALT/SGPT 37 U/L (16-61); Albumin, Serum 3.6 g/dL (3.2-5.0); Alkaline Phosphatase 104 U/L (45-117); Anion Gap 6 (5-15); BUN 22 mg/dL (7-18); BUN/Creat Ratio 12.5 RATIO (10-20); Calcium,Total 9.8 mg/dL (8.5-10.1); Chloride 108 mmol/L (98-107); Creatinine, Serum 1.76 mg/dL (0.70-1.30); EST Glomerular Filtration Rate 41 mL/min (>60); Est Glom Filt Rate - Afr Amer 50 mL/min (>60); Globulin 3.5 g/dL (2.2-4.2); Glucose 172 mg/dL (74-106); Magnesium 1.5 mg/dL (1.6-2.6); Phosphorus 1.9 mg/dL (2.5-4.9); Potassium 4.6 mmol/L (3.5-5.1); Protein, Total 7.1 g/dL (6.4-8.2); Sodium Level 137 mmol/L (136-145)
[2024-01-21 07:17] LABS: Absolute Lymphocyte Count 0.18 X10^3/uL (0.83-4.51); Absolute Neutrophil Count 3.5 X10^3/uL (2.0-7.7); Basophil# 0.07 X10^3/uL; Basophil% 1.7 % (0-1); Eosinophil# 0.13 X10^3/uL; Eosinophils% 3.1 % (0-5); Hematocrit 36.3 % (40-54); Hemoglobin 11.7 g/dL (13.0-16.5); Lymphocyte # 0.18 X10^3/ul (0.83-4.51); Lymphocyte % 4.3 % (19-41); Mean Corp Hgb Conc 32.2 g/dL (32-36); Mean Corpuscular Hgb 31.5 pg (27.0-32.0); Mean Corpuscular Volume 97.8 fL (80-94); Mean Platelet Vol. 9.1 fl (6.2-12.0); Monocyte# 0.28 X10^3/uL; Monocyte% 6.7 % (0-10); NRBC Flagged by Analyzer 0 % (0-5); Neutrophil # 3.46 X10^3/uL (2.7-7.7); POSITIVE DIFFERENTIAL YES; Platelet Count 208 K/mm3 (150-450); RBC Distribution Width CV 14.3 % (11.6-14.6); RBC Distribution Width SD 51.3 fl (35.1-43.9); Red Blood Count 3.71 M/mm3 (4.6-6.2); White Blood Count 4.2 K/mm3 (4.4-11.0)
[2024-01-21 08:12] LABS: Anion Gap 5 (5-15); BUN 23 mg/dL (7-18); BUN/Creat Ratio 17.8 RATIO (10-20); Calcium,Total 10.1 mg/dL (8.5-10.1); Chloride 108 mmol/L (98-107); Creatinine, Serum 1.29 mg/dL (0.70-1.30); EST Glomerular Filtration Rate 59 mL/min (>60); Est Glom Filt Rate - Afr Amer 71 mL/min (>60); Glucose 156 mg/dL (74-106); Potassium 4.8 mmol/L (3.5-5.1); Sodium Level 136 mmol/L (136-145)
[2024-01-25 07:09] LABS: Absolute Lymphocyte Count 0.25 X10^3/uL (0.83-4.51); Absolute Neutrophil Count 4.8 X10^3/uL (2.0-7.7); Basophil# 0.09 X10^3/uL; Basophil% 1.6 % (0-1); Eosinophil# 0.09 X10^3/uL; Eosinophils% 1.6 % (0-5); Hematocrit 38.5 % (40-54); Hemoglobin 12.4 g/dL (13.0-16.5); Lymphocyte # 0.25 X10^3/ul (0.83-4.51); Lymphocyte % 4.4 % (19-41); Mean Corp Hgb Conc 32.2 g/dL (32-36); Mean Corpuscular Hgb 31.7 pg (27.0-32.0); Mean Corpuscular Volume 98.5 fL (80-94); Mean Platelet Vol. 8.9 fl (6.2-12.0); Monocyte# 0.36 X10^3/uL; Monocyte% 6.4 % (0-10); NRBC Flagged by Analyzer 0 % (0-5); Neutrophil # 4.78 X10^3/uL (2.7-7.7); Neutrophil % 84.6 % (47-70); POSITIVE DIFFERENTIAL YES; Platelet Count 239 K/mm3 (150-450); RBC Distribution Width CV 14.1 % (11.6-14.6); RBC Distribution Width SD 51.1 fl (35.1-43.9); Red Blood Count 3.91 M/mm3 (4.6-6.2); White Blood Count 5.7 K/mm3 (4.4-11.0)
[2024-01-25 07:33] LABS: Anion Gap 9 (5-15); BUN 23 mg/dL (7-18); BUN/Creat Ratio 17.2 RATIO (10-20); Calcium,Total 10.1 mg/dL (8.5-10.1); Chloride 106 mmol/L (98-107); Creatinine, Serum 1.34 mg/dL (0.70-1.30); EST Glomerular Filtration Rate 56 mL/min (>60); Est Glom Filt Rate - Afr Amer 68 mL/min (>60); Glucose 177 mg/dL (74-106); Magnesium 1.5 mg/dL (1.6-2.6); Phosphorus 1.8 mg/dL (2.5-4.9); Potassium 4.8 mmol/L (3.5-5.1); Sodium Level 136 mmol/L (136-145)
[2024-01-25 07:34] LABS: Hemoglobin A1c 5.3 % (3.8-5.6)
[2024-01-26 13:08] LABS: Tacrolimus (FK506) 9.1 ng/mL (2.0-20.0)
[2024-01-27 13:08] LABS: Tacrolimus (FK506) 20.4 ng/mL (2.0-20.0)
[2024-01-28 08:12] LABS: Absolute Lymphocyte Count 0.29 X10^3/uL (0.83-4.51); Absolute Neutrophil Count 4.6 X10^3/uL (2.0-7.7); Basophil# 0.11 X10^3/uL; Eosinophils% 1.8 % (0-5); Hematocrit 38.6 % (40-54); Hemoglobin 12.4 g/dL (13.0-16.5); Lymphocyte # 0.29 X10^3/ul (0.83-4.51); Lymphocyte % 5.2 % (19-41); Mean Corp Hgb Conc 32.1 g/dL (32-36); Mean Corpuscular Hgb 31.1 pg (27.0-32.0); Mean Corpuscular Volume 96.7 fL (80-94); Mean Platelet Vol. 9.4 fl (6.2-12.0); Monocyte# 0.35 X10^3/uL; Monocyte% 6.3 % (0-10); NRBC Flagged by Analyzer 0 % (0-5); Neutrophil # 4.61 X10^3/uL (2.7-7.7); Neutrophil % 83.3 % (47-70); POSITIVE DIFFERENTIAL YES; Platelet Count 300 K/mm3 (150-450); RBC Distribution Width CV 13.7 % (11.6-14.6); RBC Distribution Width SD 48.6 fl (35.1-43.9); Red Blood Count 3.99 M/mm3 (4.6-6.2); White Blood Count 5.5 K/mm3 (4.4-11.0)
[2024-01-28 08:45] LABS: Anion Gap 6 (5-15); BUN 21 mg/dL (7-18); BUN/Creat Ratio 16.5 RATIO (10-20); Calcium,Total 10.5 mg/dL (8.5-10.1); Chloride 109 mmol/L (98-107); Creatinine, Serum 1.27 mg/dL (0.70-1.30); EST Glomerular Filtration Rate 60 mL/min (>60); Est Glom Filt Rate - Afr Amer 72 mL/min (>60); Glucose 173 mg/dL (74-106); Potassium 4.1 mmol/L (3.5-5.1); Sodium Level 136 mmol/L (136-145)
[2024-02-01 07:30] LABS: Absolute Lymphocyte Count 0.32 X10^3/uL (0.83-4.51); Absolute Neutrophil Count 5.4 X10^3/uL (2.0-7.7); Basophil# 0.09 X10^3/uL; Basophil% 1.4 % (0-1); Eosinophil# 0.07 X10^3/uL; Eosinophils% 1.1 % (0-5); Hematocrit 40.2 % (40-54); Hemoglobin 12.7 g/dL (13.0-16.5); Lymphocyte # 0.32 X10^3/ul (0.83-4.51); Lymphocyte % 4.9 % (19-41); Mean Corp Hgb Conc 31.6 g/dL (32-36); Mean Corpuscular Hgb 31.2 pg (27.0-32.0); Mean Corpuscular Volume 98.8 fL (80-94); Mean Platelet Vol. 9.7 fl (6.2-12.0); Monocyte# 0.43 X10^3/uL; Monocyte% 6.6 % (0-10); NRBC Flagged by Analyzer 0 % (0-5); Neutrophil # 5.42 X10^3/uL (2.7-7.7); Neutrophil % 83.8 % (47-70); POSITIVE DIFFERENTIAL YES; Platelet Count 293 K/mm3 (150-450); RBC Distribution Width CV 13.7 % (11.6-14.6); RBC Distribution Width SD 50.3 fl (35.1-43.9); Red Blood Count 4.07 M/mm3 (4.6-6.2); White Blood Count 6.5 K/mm3 (4.4-11.0)
[2024-02-01 07:40] LABS: Protein, Urine (Random) 25.9 mg/dL (<11.9); Protein:Creat Ratio 238 mg/g CRE (0-200)
[2024-02-01 08:09] LABS: AST(SGOT) 19 U/L (15-37); Alanine Aminotransfer ALT/SGPT 25 U/L (16-61); Albumin, Serum 3.7 g/dL (3.2-5.0); Alkaline Phosphatase 101 U/L (45-117); Anion Gap 6 (5-15); BUN 25 mg/dL (7-18); BUN/Creat Ratio 23.8 RATIO (10-20); Calcium,Total 10.7 mg/dL (8.5-10.1); Chloride 107 mmol/L (98-107); Cholesterol 120 mg/dL (200); Creatinine, Serum 1.05 mg/dL (0.70-1.30); EST Glomerular Filtration Rate 75 mL/min (>60); Est Glom Filt Rate - Afr Amer 90 mL/min (>60); Ferritin 951 ng/mL (26-388); Globulin 3.6 g/dL (2.2-4.2); Glucose 171 mg/dL (74-106); High Density Lipoprotein 51 mg/dL; Iron 82 ug/dL (65-175); Iron Binding Capacity,Total 314 ug/dL (250-450); Magnesium 1.6 mg/dL (1.6-2.6); PERCENT IRON SATURATION 26.1 % (15.0-55.0); Potassium 4.6 mmol/L (3.5-5.1); Protein, Total 7.3 g/dL (6.4-8.2); Sodium Level 135 mmol/L (136-145); Triglycerides 106 mg/dL; Very Low Density Lipoprotein 21 mg/dL (5-40)
[2024-02-03 14:09] LABS: BK Virus Quant, PCR Negative (Negative); Tacrolimus (FK506) 4.6 ng/mL (2.0-20.0)
[2024-02-04 07:07] LABS: Absolute Neutrophil Count 4.9 X10^3/uL (2.0-7.7); Basophil# 0.11 X10^3/uL; Basophil% 1.8 % (0-1); Eosinophil# 0.08 X10^3/uL; Eosinophils% 1.3 % (0-5); Hematocrit 39.5 % (40-54); Hemoglobin 12.7 g/dL (13.0-16.5); Mean Corp Hgb Conc 32.2 g/dL (32-36); Mean Corpuscular Hgb 31.7 pg (27.0-32.0); Mean Corpuscular Volume 98.5 fL (80-94); Mean Platelet Vol. 9.5 fl (6.2-12.0); Monocyte# 0.43 X10^3/uL; Monocyte% 7.1 % (0-10); NRBC Flagged by Analyzer 0 % (0-5); Neutrophil # 4.86 X10^3/uL (2.7-7.7); Neutrophil % 80.2 % (47-70); POSITIVE DIFFERENTIAL YES; Platelet Count 272 K/mm3 (150-450); RBC Distribution Width CV 13.7 % (11.6-14.6); RBC Distribution Width SD 50.1 fl (35.1-43.9); Red Blood Count 4.01 M/mm3 (4.6-6.2); White Blood Count 6.1 K/mm3 (4.4-11.0)
[2024-02-04 07:46] LABS: Anion Gap 5 (5-15); BUN 19 mg/dL (7-18); BUN/Creat Ratio 18.1 RATIO (10-20); Calcium,Total 9.8 mg/dL (8.5-10.1); Chloride 110 mmol/L (98-107); Creatinine, Serum 1.05 mg/dL (0.70-1.30); EST Glomerular Filtration Rate 75 mL/min (>60); Est Glom Filt Rate - Afr Amer 90 mL/min (>60); Glucose 148 mg/dL (74-106); Potassium 4.4 mmol/L (3.5-5.1); Sodium Level 135 mmol/L (136-145)
[2024-02-07 16:07] LABS: Tacrolimus (FK506) 4.4 ng/mL (2.0-20.0)
[2024-02-08 07:16] LABS: Hematocrit 41.2 % (40-54); Hemoglobin 13.4 g/dL (13.0-16.5); Mean Corp Hgb Conc 32.5 g/dL (32-36); Mean Corpuscular Volume 98.3 fL (80-94); Mean Platelet Vol. 9.7 fl (6.2-12.0); POSITIVE COUNT YES; POSITIVE DIFFERENTIAL YES; POSITIVE MORPHOLOGY YES; Platelet Count 277 K/mm3 (150-450); RBC Distribution Width CV 13.6 % (11.6-14.6); RBC Distribution Width SD 49.6 fl (35.1-43.9); Red Blood Count 4.19 M/mm3 (4.6-6.2); White Blood Count 5.2 K/mm3 (4.4-11.0)
[2024-02-08 07:20] LABS: Differential Indicated MANUAL DIFF
[2024-02-08 07:46] LABS: Anion Gap 8 (5-15); BUN 15 mg/dL (7-18); BUN/Creat Ratio 13.3 RATIO (10-20); Calcium,Total 10.3 mg/dL (8.5-10.1); Chloride 109 mmol/L (98-107); Creatinine, Serum 1.13 mg/dL (0.70-1.30); EST Glomerular Filtration Rate 69 mL/min (>60); Est Glom Filt Rate - Afr Amer 83 mL/min (>60); Glucose 173 mg/dL (74-106); Magnesium 1.7 mg/dL (1.6-2.6); Phosphorus 2.3 mg/dL (2.5-4.9); Sodium Level 137 mmol/L (136-145)
[2024-02-08 07:58] LABS: Lymphocyte 11 % (19-41); Metamyelocyte 3 % (0-1); Monocyte 2 % (0-10); Neutrophil-Segmented 84 % (47-70); Total Cells Counted 100 (MANUAL DIFF)
[2024-02-08 07:59] LABS: Platelet Estimate ADEQUATE (ADEQ); Red Cell Morphology NORM C+C NORMAL (NORM C&C)
[2024-02-08 08:00] LABS: Absolute Lymphocyte Count 0.56 X10^3/uL (0.83-4.51); Absolute Neutrophil Count 4.3 X10^3/uL (2.0-7.7)
[2024-02-08 16:16] LABS: Pathologist Review Reviewed
[2024-02-10 13:07] LABS: Tacrolimus (FK506) 3.2 ng/mL (2.0-20.0)
[2024-02-11 07:27] LABS: Hematocrit 42.3 % (40-54); Hemoglobin 13.3 g/dL (13.0-16.5); Mean Corp Hgb Conc 31.4 g/dL (32-36); Mean Corpuscular Volume 98.6 fL (80-94); Mean Platelet Vol. 9.6 fl (6.2-12.0); POSITIVE COUNT YES; POSITIVE DIFFERENTIAL YES; POSITIVE MORPHOLOGY YES; Platelet Count 247 K/mm3 (150-450); RBC Distribution Width CV 13.8 % (11.6-14.6); RBC Distribution Width SD 49.9 fl (35.1-43.9); Red Blood Count 4.29 M/mm3 (4.6-6.2)
[2024-02-11 07:38] LABS: Differential Indicated MANUAL DIFF
[2024-02-11 07:47] LABS: Anion Gap 6 (5-15); BUN 17 mg/dL (7-18); BUN/Creat Ratio 15.2 RATIO (10-20); Calcium,Total 10.3 mg/dL (8.5-10.1); Chloride 108 mmol/L (98-107); Creatinine, Serum 1.12 mg/dL (0.70-1.30); EST Glomerular Filtration Rate 69 mL/min (>60); Est Glom Filt Rate - Afr Amer 84 mL/min (>60); Glucose 156 mg/dL (74-106); Potassium 4.6 mmol/L (3.5-5.1); Sodium Level 137 mmol/L (136-145)
[2024-02-11 10:45] LABS: Absolute Neutrophil Count 3.7 X10^3/uL (2.0-7.7); Eosinophil 3 % (0-5); Lymphocyte 5 % (19-41); Monocyte 3 % (0-10); Neutrophil-Band 4 % (0-5); Neutrophil-Segmented 85 % (47-70); Platelet Estimate ADEQUATE (ADEQ); Red Cell Morphology NORM C+C NORMAL (NORM C&C); Total Cells Counted 100 (MANUAL DIFF)
[2024-02-11 10:46] LABS: Absolute Lymphocyte Count 0.21 X10^3/uL (0.83-4.51)
[2024-02-12 13:40] LABS: Pathologist Review Reviewed
[2024-02-12 15:53] LABS: White Blood Count 4.2 K/mm3 (4.4-11.0)
[2024-02-13 20:08] LABS: Tacrolimus (FK506) 5.9 ng/mL (2.0-20.0)
[2024-02-15 07:38] LABS: Hematocrit 37.9 % (40-54); Hemoglobin 11.9 g/dL (13.0-16.5); Mean Corp Hgb Conc 31.4 g/dL (32-36); Mean Corpuscular Hgb 31.1 pg (27.0-32.0); Mean Platelet Vol. 9.9 fl (6.2-12.0); POSITIVE COUNT YES; POSITIVE DIFFERENTIAL YES; POSITIVE MORPHOLOGY YES; Platelet Count 211 K/mm3 (150-450); RBC Distribution Width CV 13.6 % (11.6-14.6); RBC Distribution Width SD 49.4 fl (35.1-43.9); Red Blood Count 3.83 M/mm3 (4.6-6.2); White Blood Count 4.2 K/mm3 (4.4-11.0)
[2024-02-15 07:40] LABS: Differential Indicated MANUAL DIFF
[2024-02-15 08:09] LABS: Lymphocyte 14 % (19-41); Metamyelocyte 2 % (0-1); Monocyte 2 % (0-10); Myelocyte 1 % (0-0); Neutrophil-Band 2 % (0-5); Neutrophil-Segmented 79 % (47-70); Platelet Estimate ADEQUATE (ADEQ); Total Cells Counted 100 (MANUAL DIFF)
[2024-02-15 08:10] LABS: Absolute Lymphocyte Count 0.58 X10^3/uL (0.83-4.51); Absolute Neutrophil Count 3.4 X10^3/uL (2.0-7.7); Red Cell Morphology NORM C+C NORMAL (NORM C&C)
[2024-02-15 08:18] LABS: AST(SGOT) 26 U/L (15-37); Alanine Aminotransfer ALT/SGPT 34 U/L (16-61); Albumin, Serum 3.4 g/dL (3.2-5.0); Alkaline Phosphatase 102 U/L (45-117); Anion Gap 4 (5-15); BUN 32 mg/dL (7-18); BUN/Creat Ratio 24.1 RATIO (10-20); Calcium,Total 9.5 mg/dL (8.5-10.1); Chloride 112 mmol/L (98-107); Creatinine, Serum 1.33 mg/dL (0.70-1.30); EST Glomerular Filtration Rate 57 mL/min (>60); Est Glom Filt Rate - Afr Amer 69 mL/min (>60); Globulin 3.4 g/dL (2.2-4.2); Glucose 151 mg/dL (74-106); Magnesium 1.6 mg/dL (1.6-2.6); Potassium 4.9 mmol/L (3.5-5.1); Protein, Total 6.8 g/dL (6.4-8.2); Sodium Level 137 mmol/L (136-145)
[2024-02-16 15:19] LABS: Pathologist Review Reviewed
[2024-02-17 13:08] LABS: Tacrolimus (FK506) 4.7 ng/mL (2.0-20.0)
== END 2024-02-16 22:31 | disposition home or self-care (01) ==
LOC: LAB 06:52
PROVIDERS: PCP Family Medicine
DX: Z94.0 Kidney transplant status (principal); R79.9 Abnormal finding of blood chemistry, unspecified; D84.9 Immunodeficiency, unspecified; Z48.298 Encounter for aftercare following other organ transplant; Z79.899 Other long term (current) drug therapy; Z11.59 Encounter for screening for other viral diseases; Z79.60 Long term (current) use of unspecified immunomodulators and immunosuppressants; B34.9 Viral infection, unspecified
CPT/HCPCS: 36415; 80048; 80053; 80061; 80197; 82570; 82728; 83036; 83540; 83550; 83735; 84100; 84156; 84550; 85025; 87799

== ENCOUNTER 2024-03-15 06:11 | Outpatient (RCR) | payer MEDICARE, OTHER, SELFPAY ==
[2024-02-18 07:26] LABS: Hematocrit 40.9 % (40-54); Hemoglobin 12.9 g/dL (13.0-16.5); Mean Corp Hgb Conc 31.5 g/dL (32-36); Mean Corpuscular Hgb 31.3 pg (27.0-32.0); Mean Corpuscular Volume 99.3 fL (80-94); Mean Platelet Vol. 9.6 fl (6.2-12.0); POSITIVE COUNT YES; POSITIVE DIFFERENTIAL YES; POSITIVE MORPHOLOGY YES; Platelet Count 222 K/mm3 (150-450); RBC Distribution Width CV 13.5 % (11.6-14.6); RBC Distribution Width SD 49.3 fl (35.1-43.9); Red Blood Count 4.12 M/mm3 (4.6-6.2)
[2024-02-18 07:33] LABS: Differential Indicated MANUAL DIFF
[2024-02-18 07:48] LABS: Anion Gap 9 (5-15); BUN 18 mg/dL (7-18); BUN/Creat Ratio 15.1 RATIO (10-20); Calcium,Total 9.8 mg/dL (8.5-10.1); Chloride 110 mmol/L (98-107); Creatinine, Serum 1.19 mg/dL (0.70-1.30); EST Glomerular Filtration Rate 65 mL/min (>60); Est Glom Filt Rate - Afr Amer 78 mL/min (>60); Glucose 151 mg/dL (74-106); Potassium 4.3 mmol/L (3.5-5.1); Sodium Level 139 mmol/L (136-145)
[2024-02-18 08:23] LABS: Eosinophil 3 % (0-5); Lymphocyte 10 % (19-41); Monocyte 4 % (0-10); Neutrophil-Band 1 % (0-5); Neutrophil-Segmented 82 % (47-70); Total Cells Counted 100 (MANUAL DIFF)
[2024-02-18 08:24] LABS: Platelet Estimate ADEQUATE (ADEQ); Red Cell Morphology NORM C+C NORMAL (NORM C&C)
[2024-02-18 08:25] LABS: Absolute Neutrophil Count 3.3 X10^3/uL (2.0-7.7)
[2024-02-21 12:07] LABS: Tacrolimus (FK506) 10.6 ng/mL (2.0-20.0)
[2024-02-22 08:20] LABS: Hematocrit 43.7 % (40-54); Hemoglobin 13.9 g/dL (13.0-16.5); Mean Corp Hgb Conc 31.8 g/dL (32-36); Mean Corpuscular Hgb 31.1 pg (27.0-32.0); Mean Corpuscular Volume 97.8 fL (80-94); Mean Platelet Vol. 9.9 fl (6.2-12.0); POSITIVE COUNT YES; POSITIVE DIFFERENTIAL YES; POSITIVE MORPHOLOGY YES; Platelet Count 209 K/mm3 (150-450); RBC Distribution Width CV 13.4 % (11.6-14.6); RBC Distribution Width SD 48.7 fl (35.1-43.9); Red Blood Count 4.47 M/mm3 (4.6-6.2); White Blood Count 2.9 K/mm3 (4.4-11.0)
[2024-02-22 08:25] LABS: Differential Indicated MANUAL DIFF
[2024-02-22 08:35] LABS: Anion Gap 4 (5-15); BUN 22 mg/dL (7-18); BUN/Creat Ratio 18.2 RATIO (10-20); Calcium,Total 10.1 mg/dL (8.5-10.1); Chloride 110 mmol/L (98-107); Creatinine, Serum 1.21 mg/dL (0.70-1.30); EST Glomerular Filtration Rate 63 mL/min (>60); Est Glom Filt Rate - Afr Amer 77 mL/min (>60); Glucose 143 mg/dL (74-106); Magnesium 1.7 mg/dL (1.6-2.6); Phosphorus 1.7 mg/dL (2.5-4.9); Potassium 4.1 mmol/L (3.5-5.1); Sodium Level 136 mmol/L (136-145)
[2024-02-22 11:14] LABS: Basophil 1 % (0-1); Eosinophil 1 % (0-5); Lymphocyte 9 % (19-41); Metamyelocyte 2 % (0-1); Monocyte 6 % (0-10); Myelocyte 3 % (0-0); Neutrophil-Band 8 % (0-5); Neutrophil-Segmented 70 % (47-70); Total Cells Counted 100 (MANUAL DIFF)
[2024-02-22 11:16] LABS: Platelet Estimate ADEQUATE (ADEQ); Red Cell Morphology NORM C+C NORMAL (NORM C&C)
[2024-02-22 11:18] LABS: Absolute Neutrophil Count 2.3 X10^3/uL (2.0-7.7); Neutrophil # 2.27 X10^3/uL (2.7-7.7)
[2024-02-22 11:19] LABS: Absolute Lymphocyte Count 0.26 X10^3/uL (0.83-4.51); Lymphocyte # 0.26 X10^3/ul (0.83-4.51)
[2024-02-23 08:36] LABS: Pathologist Review Reviewed
[2024-02-24 20:08] LABS: Tacrolimus (FK506) 8.3 ng/mL (2.0-20.0)
[2024-02-29 07:56] LABS: Hematocrit 41.8 % (40-54); Hemoglobin 13.4 g/dL (13.0-16.5); Mean Corp Hgb Conc 32.1 g/dL (32-36); Mean Corpuscular Hgb 31.7 pg (27.0-32.0); Mean Corpuscular Volume 98.8 fL (80-94); Mean Platelet Vol. 9.9 fl (6.2-12.0); POSITIVE COUNT YES; POSITIVE DIFFERENTIAL YES; POSITIVE MORPHOLOGY YES; Platelet Count 193 K/mm3 (150-450); RBC Distribution Width CV 13.6 % (11.6-14.6); RBC Distribution Width SD 49.1 fl (35.1-43.9); Red Blood Count 4.23 M/mm3 (4.6-6.2); White Blood Count 3.1 K/mm3 (4.4-11.0)
[2024-02-29 08:00] LABS: Differential Indicated MANUAL DIFF
[2024-02-29 08:35] LABS: Protein, Urine (Random) 53.8 mg/dL (<11.9); Protein:Creat Ratio 460 mg/g CRE (0-200)
[2024-02-29 08:43] LABS: AST(SGOT) 34 U/L (15-37); Alanine Aminotransfer ALT/SGPT 42 U/L (16-61); Albumin, Serum 3.5 g/dL (3.2-5.0); Alkaline Phosphatase 124 U/L (45-117); Anion Gap 5 (5-15); BUN 30 mg/dL (7-18); BUN/Creat Ratio 23.1 RATIO (10-20); Calcium,Total 9.9 mg/dL (8.5-10.1); Chloride 112 mmol/L (98-107); Cholesterol 125 mg/dL (200); EST Glomerular Filtration Rate 58 mL/min (>60); Est Glom Filt Rate - Afr Amer 71 mL/min (>60); Glucose 142 mg/dL (74-106); High Density Lipoprotein 49 mg/dL; Magnesium 1.6 mg/dL (1.6-2.6); Phosphorus 2.1 mg/dL (2.5-4.9); Potassium 4.9 mmol/L (3.5-5.1); Sodium Level 137 mmol/L (136-145); Triglycerides 127 mg/dL; Uric Acid 6.6 mg/dL (3.5-7.2); Very Low Density Lipoprotein 25 mg/dL (5-40)
[2024-02-29 11:52] LABS: Eosinophil 1 % (0-5); Lymphocyte 3 % (19-41); Monocyte 7 % (0-10); Myelocyte 1 % (0-0); Neutrophil-Band 2 % (0-5); Neutrophil-Segmented 86 % (47-70); Total Cells Counted 100 (MANUAL DIFF)
[2024-02-29 12:02] LABS: Anisocytosis 1+; Platelet Estimate ADEQUATE (ADEQ); Red Cell Morphology N CHROM NORMAL (NORM C&C)
[2024-02-29 12:04] LABS: Absolute Neutrophil Count 2.7 X10^3/uL (2.0-7.7); Neutrophil # 2.73 X10^3/uL (2.7-7.7)
[2024-02-29 12:05] LABS: Absolute Lymphocyte Count 0.09 X10^3/uL (0.83-4.51); Lymphocyte # 0.09 X10^3/ul (0.83-4.51)
[2024-02-29 14:56] LABS: Hemoglobin A1c 5.9 % (3.8-5.6)
[2024-03-01 13:12] LABS: Pathologist Review Reviewed
[2024-03-02 18:08] LABS: BK Virus Quant, PCR Negative (Negative); Tacrolimus (FK506) 7.8 ng/mL (2.0-20.0)
[2024-03-07 07:47] LABS: Hematocrit 41.3 % (40-54); Hemoglobin 13.6 g/dL (13.0-16.5); Mean Corp Hgb Conc 32.9 g/dL (32-36); Mean Corpuscular Hgb 31.9 pg (27.0-32.0); Mean Corpuscular Volume 96.9 fL (80-94); Mean Platelet Vol. 9.9 fl (6.2-12.0); Platelet Count 214 K/mm3 (150-450); RBC Distribution Width CV 13.2 % (11.6-14.6); RBC Distribution Width SD 47.1 fl (35.1-43.9); Red Blood Count 4.26 M/mm3 (4.6-6.2); White Blood Count 2.4 K/mm3 (4.4-11.0)
[2024-03-07 08:20] LABS: Anion Gap 5 (5-15); BUN 24 mg/dL (7-18); Calcium,Total 10.2 mg/dL (8.5-10.1); Chloride 112 mmol/L (98-107); Creatinine, Serum 1.09 mg/dL (0.70-1.30); EST Glomerular Filtration Rate 71 mL/min (>60); Est Glom Filt Rate - Afr Amer 86 mL/min (>60); Glucose 177 mg/dL (74-106); Potassium 4.4 mmol/L (3.5-5.1); Sodium Level 138 mmol/L (136-145)
[2024-03-11 14:09] LABS: Tacrolimus (FK506) 9.2 ng/mL (2.0-20.0)
[2024-03-15 08:30] LABS: Hematocrit 41.2 % (40-54); Hemoglobin 13.3 g/dL (13.0-16.5); Mean Corp Hgb Conc 32.3 g/dL (32-36); Mean Corpuscular Hgb 31.4 pg (27.0-32.0); Mean Corpuscular Volume 97.2 fL (80-94); Mean Platelet Vol. 9.8 fl (6.2-12.0); Platelet Count 209 K/mm3 (150-450); RBC Distribution Width CV 12.9 % (11.6-14.6); RBC Distribution Width SD 45.7 fl (35.1-43.9); Red Blood Count 4.24 M/mm3 (4.6-6.2); White Blood Count 2.3 K/mm3 (4.4-11.0)
[2024-03-15 08:42] LABS: Anion Gap 10 (5-15); BUN 20 mg/dL (7-18); BUN/Creat Ratio 15.6 RATIO (10-20); Calcium,Total 10.4 mg/dL (8.5-10.1); Chloride 110 mmol/L (98-107); Creatinine, Serum 1.28 mg/dL (0.70-1.30); EST Glomerular Filtration Rate 59 mL/min (>60); Est Glom Filt Rate - Afr Amer 72 mL/min (>60); Glucose 148 mg/dL (74-106); Potassium 4.3 mmol/L (3.5-5.1); Sodium Level 136 mmol/L (136-145)
== END 2024-03-15 18:00 | disposition home or self-care (01) ==
LOC: LAB 06:11
PROVIDERS: PCP Family Medicine
DX: Z94.0 Kidney transplant status (principal); R79.9 Abnormal finding of blood chemistry, unspecified; Z79.899 Other long term (current) drug therapy; Z11.59 Encounter for screening for other viral diseases; D64.9 Anemia, unspecified; I12.0 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 kidney disease or end stage renal disease; N18.5 Chronic kidney disease, stage 5
CPT/HCPCS: 36415; 80048; 80061; 80197; 82040; 82247; 82570; 83036; 83735; 83970; 84075; 84100; 84156; 84450; 84460; 84550; 85025; 85027; 87799

== ENCOUNTER 2024-04-11 06:55 | Outpatient (RCR) | payer MEDICARE, OTHER, SELFPAY ==
[2024-03-21 08:49] LABS: Hematocrit 42.2 % (40-54); Hemoglobin 13.2 g/dL (13.0-16.5); Mean Corp Hgb Conc 31.3 g/dL (32-36); Mean Corpuscular Hgb 30.4 pg (27.0-32.0); Mean Corpuscular Volume 97.2 fL (80-94); Mean Platelet Vol. 10.1 fl (6.2-12.0); POSITIVE COUNT YES; POSITIVE DIFFERENTIAL YES; POSITIVE MORPHOLOGY YES; Platelet Count 250 K/mm3 (150-450); RBC Distribution Width SD 46.5 fl (35.1-43.9); Red Blood Count 4.34 M/mm3 (4.6-6.2); White Blood Count 2.3 K/mm3 (4.4-11.0)
[2024-03-21 08:50] LABS: Differential Indicated MANUAL DIFF
[2024-03-21 09:19] LABS: Eosinophil 1 % (0-5); Lymphocyte 10 % (19-41); Metamyelocyte 1 % (0-1); Monocyte 6 % (0-10); Myelocyte 1 % (0-0); Neutrophil-Band 3 % (0-5); Neutrophil-Segmented 78 % (47-70); Total Cells Counted 100 (MANUAL DIFF)
[2024-03-21 09:20] LABS: Absolute Neutrophil Count 1.9 X10^3/uL (2.0-7.7); Platelet Estimate ADEQUATE (ADEQ); Red Cell Morphology NORM C+C NORMAL (NORM C&C)
[2024-03-21 09:25] LABS: Anion Gap 6 (5-15); BUN 25 mg/dL (7-18); BUN/Creat Ratio 21.6 RATIO (10-20); Calcium,Total 10.2 mg/dL (8.5-10.1); Chloride 111 mmol/L (98-107); Creatinine, Serum 1.16 mg/dL (0.70-1.30); EST Glomerular Filtration Rate 66 mL/min (>60); Est Glom Filt Rate - Afr Amer 80 mL/min (>60); Glucose 147 mg/dL (74-106); Potassium 4.8 mmol/L (3.5-5.1); Sodium Level 135 mmol/L (136-145)
[2024-03-22 13:23] LABS: Pathologist Review Reviewed
[2024-03-23 20:12] LABS: Tacrolimus (FK506) 6.7 ng/mL (2.0-20.0)
[2024-03-28 07:52] LABS: Hematocrit 41.2 % (40-54); Hemoglobin 12.9 g/dL (13.0-16.5); Mean Corp Hgb Conc 31.3 g/dL (32-36); Mean Corpuscular Hgb 30.4 pg (27.0-32.0); Mean Corpuscular Volume 96.9 fL (80-94); Mean Platelet Vol. 9.5 fl (6.2-12.0); POSITIVE COUNT YES; POSITIVE DIFFERENTIAL YES; POSITIVE MORPHOLOGY YES; Platelet Count 223 K/mm3 (150-450); RBC Distribution Width CV 12.9 % (11.6-14.6); RBC Distribution Width SD 45.6 fl (35.1-43.9); Red Blood Count 4.25 M/mm3 (4.6-6.2); White Blood Count 1.9 K/mm3 (4.4-11.0)
[2024-03-28 07:55] LABS: Differential Indicated MANUAL DIFF
[2024-03-28 08:15] LABS: Protein, Urine (Random) 38.8 mg/dL (<11.9); Protein:Creat Ratio 370 mg/g CRE (0-200)
[2024-03-28 08:30] LABS: Basophil 2 % (0-1); Lymphocyte 12 % (19-41); Metamyelocyte 2 % (0-1); Monocyte 10 % (0-10); Neutrophil-Segmented 74 % (47-70); Platelet Estimate ADEQUATE (ADEQ); Red Cell Morphology NORM C+C NORMAL (NORM C&C); Total Cells Counted 100 (MANUAL DIFF)
[2024-03-28 08:31] LABS: Absolute Lymphocyte Count 0.23 X10^3/uL (0.83-4.51); Absolute Neutrophil Count 1.4 X10^3/uL (2.0-7.7); Lymphocyte # 0.23 X10^3/ul (0.83-4.51)
[2024-03-28 09:06] LABS: AST(SGOT) 18 U/L (15-37); Alanine Aminotransfer ALT/SGPT 15 U/L (16-61); Albumin, Serum 3.6 g/dL (3.2-5.0); Alkaline Phosphatase 128 U/L (45-117); Anion Gap 3 (5-15); BUN 31 mg/dL (7-18); BUN/Creat Ratio 26.5 RATIO (10-20); Chloride 110 mmol/L (98-107); Creatinine, Serum 1.17 mg/dL (0.70-1.30); EST Glomerular Filtration Rate 66 mL/min (>60); Est Glom Filt Rate - Afr Amer 80 mL/min (>60); Glucose 128 mg/dL (74-106); Magnesium 1.7 mg/dL (1.6-2.6); Phosphorus 2.9 mg/dL (2.5-4.9); Potassium 5.1 mmol/L (3.5-5.1); Sodium Level 134 mmol/L (136-145)
[2024-03-29 12:03] LABS: Pathologist Review Reviewed
[2024-03-30 17:07] LABS: BK Virus Quant, PCR Negative (Negative); Tacrolimus (FK506) 5.5 ng/mL (2.0-20.0)
[2024-04-04 08:26] LABS: Hemoglobin 12.4 g/dL (13.0-16.5); Mean Corp Hgb Conc 31.8 g/dL (32-36); Mean Corpuscular Hgb 30.8 pg (27.0-32.0); Mean Platelet Vol. 10.4 fl (6.2-12.0); POSITIVE COUNT YES; POSITIVE DIFFERENTIAL YES; POSITIVE MORPHOLOGY YES; Platelet Count 210 K/mm3 (150-450); RBC Distribution Width CV 12.8 % (11.6-14.6); RBC Distribution Width SD 45.4 fl (35.1-43.9); Red Blood Count 4.02 M/mm3 (4.6-6.2); White Blood Count 1.8 K/mm3 (4.4-11.0)
[2024-04-04 08:34] LABS: Protein, Urine (Random) 27.2 mg/dL (<11.9); Protein:Creat Ratio 372 mg/g CRE (0-200)
[2024-04-04 08:52] LABS: Differential Indicated MANUAL DIFF
[2024-04-04 09:34] LABS: AST(SGOT) 22 U/L (15-37); Alanine Aminotransfer ALT/SGPT 16 U/L (16-61); Albumin, Serum 3.6 g/dL (3.2-5.0); Anion Gap 7 (5-15); BUN 28 mg/dL (7-18); BUN/Creat Ratio 27.2 RATIO (10-20); Chloride 110 mmol/L (98-107); Cholesterol 116 mg/dL (200); Creatinine, Serum 1.03 mg/dL (0.70-1.30); EST Glomerular Filtration Rate 76 mL/min (>60); Est Glom Filt Rate - Afr Amer 92 mL/min (>60); Glucose 136 mg/dL (74-106); High Density Lipoprotein 46 mg/dL; Iron 130 ug/dL (65-175); Iron Binding Capacity,Total 296 ug/dL (250-450); Magnesium 1.9 mg/dL (1.6-2.6); PERCENT IRON SATURATION 43.9 % (15.0-55.0); Phosphorus 2.4 mg/dL (2.5-4.9); Potassium 4.6 mmol/L (3.5-5.1); Sodium Level 136 mmol/L (136-145); Triglycerides 62 mg/dL; Uric Acid 6.1 mg/dL (3.5-7.2); Very Low Density Lipoprotein 12 mg/dL (5-40)
[2024-04-04 11:36] LABS: Basophil 4 % (0-1); Eosinophil 4 % (0-5); Lymphocyte 12 % (19-41); Monocyte 4 % (0-10); Neutrophil-Band 12 % (0-5); Neutrophil-Segmented 64 % (47-70); Total Cells Counted 25 (MANUAL DIFF)
[2024-04-04 11:41] LABS: Platelet Estimate ADEQUATE (ADEQ); Red Cell Morphology NORM C+C NORMAL (NORM C&C)
[2024-04-04 11:44] LABS: Absolute Neutrophil Count 1.4 X10^3/uL (2.0-7.7)
[2024-04-05 14:49] LABS: Pathologist Review Reviewed
[2024-04-06 07:06] LABS: Alkaline Phosphatase 108 U/L (45-117); Ferritin 575 ng/mL (26-388)
[2024-04-06 12:10] LABS: BK Virus Quant, PCR Negative (Negative); Tacrolimus (FK506) 5.2 ng/mL (2.0-20.0); Transferrin 251 mg/dL (177-329)
[2024-04-11 08:39] LABS: Hematocrit 35.9 % (40-54); Hemoglobin 11.2 g/dL (13.0-16.5); Mean Corp Hgb Conc 31.2 g/dL (32-36); Mean Corpuscular Hgb 30.6 pg (27.0-32.0); Mean Corpuscular Volume 98.1 fL (80-94); POSITIVE COUNT YES; POSITIVE DIFFERENTIAL YES; POSITIVE MORPHOLOGY YES; Platelet Count 199 K/mm3 (150-450); RBC Distribution Width CV 12.9 % (11.6-14.6); RBC Distribution Width SD 46.1 fl (35.1-43.9); Red Blood Count 3.66 M/mm3 (4.6-6.2); White Blood Count 2.4 K/mm3 (4.4-11.0)
[2024-04-11 08:54] LABS: Differential Indicated MANUAL DIFF
[2024-04-11 09:28] LABS: Anion Gap 5 (5-15); BUN 33 mg/dL (7-18); BUN/Creat Ratio 28.4 RATIO (10-20); Chloride 110 mmol/L (98-107); Creatinine, Serum 1.16 mg/dL (0.70-1.30); EST Glomerular Filtration Rate 66 mL/min (>60); Est Glom Filt Rate - Afr Amer 80 mL/min (>60); Glucose 156 mg/dL (74-106); Potassium 5.2 mmol/L (3.5-5.1); Sodium Level 136 mmol/L (136-145)
[2024-04-11 09:34] LABS: Neutrophil-Band 1 % (0-5)
[2024-04-11 09:35] LABS: Basophil 4 % (0-1); Eosinophil 2 % (0-5); Lymphocyte 6 % (19-41); Metamyelocyte 2 % (0-1); Monocyte 3 % (0-10); Myelocyte 1 % (0-0); Neutrophil-Segmented 81 % (47-70); Total Cells Counted 100 (MANUAL DIFF)
[2024-04-11 09:37] LABS: Anisocytosis 1+; Hypersegmented Neutrophils 2+; Red Cell Morphology NORM C+C NORMAL (NORM C&C)
[2024-04-11 09:38] LABS: Platelet Estimate ADEQUATE (ADEQ); Platelet Morphology LARGE
[2024-04-11 09:40] LABS: Absolute Lymphocyte Count 0.14 X10^3/uL (0.83-4.51); Absolute Neutrophil Count 1.9 X10^3/uL (2.0-7.7); Lymphocyte # 0.14 X10^3/ul (0.83-4.51); Neutrophil # 1.93 X10^3/uL (2.7-7.7)
[2024-04-12 13:36] LABS: Pathologist Review Reviewed
== END 2024-04-11 18:00 | disposition home or self-care (01) ==
LOC: LAB 06:55
PROVIDERS: PCP Family Medicine
DX: Z94.0 Kidney transplant status (principal); R79.9 Abnormal finding of blood chemistry, unspecified; Z79.899 Other long term (current) drug therapy; D64.9 Anemia, unspecified; E11.22 Type 2 diabetes mellitus with diabetic chronic kidney disease; I12.0 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 kidney disease or end stage renal disease
CPT/HCPCS: 36415; 80048; 80061; 80197; 82040; 82247; 82570; 82728; 83540; 83550; 83735; 84075; 84100; 84156; 84450; 84460; 84466; 84550; 85025; 87799

== ENCOUNTER 2024-05-16 07:02 | Outpatient (RCR) | payer MEDICARE, OTHER, SELFPAY ==
[2024-04-18 07:39] LABS: Differential Indicated MANUAL DIFF; Hematocrit 38.6 % (40-54); Hemoglobin 12.2 g/dL (13.0-16.5); Mean Corp Hgb Conc 31.6 g/dL (32-36); Mean Corpuscular Hgb 30.5 pg (27.0-32.0); Mean Corpuscular Volume 96.5 fL (80-94); Mean Platelet Vol. 9.9 fl (6.2-12.0); POSITIVE COUNT YES; POSITIVE DIFFERENTIAL YES; POSITIVE MORPHOLOGY YES; Platelet Count 216 K/mm3 (150-450); RBC Distribution Width CV 13.2 % (11.6-14.6); White Blood Count 2.4 K/mm3 (4.4-11.0)
[2024-04-18 07:58] LABS: Anion Gap 6 (5-15); BUN 25 mg/dL (7-18); BUN/Creat Ratio 21.4 RATIO (10-20); Calcium,Total 10.1 mg/dL (8.5-10.1); Chloride 107 mmol/L (98-107); Creatinine, Serum 1.17 mg/dL (0.70-1.30); EST Glomerular Filtration Rate 66 mL/min (>60); Est Glom Filt Rate - Afr Amer 80 mL/min (>60); Glucose 158 mg/dL (74-106); Magnesium 1.8 mg/dL (1.6-2.6); Phosphorus 2.7 mg/dL (2.5-4.9); Potassium 4.3 mmol/L (3.5-5.1); Sodium Level 135 mmol/L (136-145)
[2024-04-18 08:05] LABS: Basophil 1 % (0-1); Eosinophil 2 % (0-5); Lymphocyte 12 % (19-41); Metamyelocyte 1 % (0-1); Monocyte 10 % (0-10); Neutrophil-Band 1 % (0-5); Neutrophil-Segmented 73 % (47-70); Red Cell Morphology NORM C+C NORMAL (NORM C&C); Total Cells Counted 100 (MANUAL DIFF)
[2024-04-18 08:06] LABS: Absolute Neutrophil Count 1.8 X10^3/uL (2.0-7.7); Platelet Estimate ADEQUATE (ADEQ)
[2024-04-18 15:29] LABS: Pathologist Review Reviewed
[2024-04-20 07:08] LABS: Tacrolimus (FK506) 4.8 ng/mL (2.0-20.0)
[2024-04-25 07:47] LABS: Hematocrit 38.8 % (40-54); Hemoglobin 12.1 g/dL (13.0-16.5); Mean Corp Hgb Conc 31.2 g/dL (32-36); Mean Corpuscular Hgb 30.6 pg (27.0-32.0); Mean Platelet Vol. 9.7 fl (6.2-12.0); POSITIVE COUNT YES; POSITIVE DIFFERENTIAL YES; POSITIVE MORPHOLOGY YES; Platelet Count 214 K/mm3 (150-450); RBC Distribution Width CV 13.2 % (11.6-14.6); RBC Distribution Width SD 48.3 fl (35.1-43.9); Red Blood Count 3.96 M/mm3 (4.6-6.2); White Blood Count 2.3 K/mm3 (4.4-11.0)
[2024-04-25 07:50] LABS: Differential Indicated MANUAL DIFF
[2024-04-25 08:01] LABS: Anion Gap 7 (5-15); BUN 35 mg/dL (7-18); BUN/Creat Ratio 30.7 RATIO (10-20); Calcium,Total 10.1 mg/dL (8.5-10.1); Chloride 111 mmol/L (98-107); Creatinine, Serum 1.14 mg/dL (0.70-1.30); EST Glomerular Filtration Rate 68 mL/min (>60); Est Glom Filt Rate - Afr Amer 82 mL/min (>60); Glucose 169 mg/dL (74-106); Magnesium 1.7 mg/dL (1.6-2.6); Phosphorus 2.1 mg/dL (2.5-4.9); Sodium Level 138 mmol/L (136-145)
[2024-04-25 09:47] LABS: Basophil 1 % (0-1); Eosinophil 7 % (0-5); Lymphocyte 7 % (19-41); Monocyte 7 % (0-10); Neutrophil-Segmented 78 % (47-70); Total Cells Counted 100 (MANUAL DIFF)
[2024-04-25 09:48] LABS: Absolute Neutrophil Count 1.8 X10^3/uL (2.0-7.7); Platelet Estimate ADEQUATE (ADEQ); Red Cell Morphology NORM C+C NORMAL (NORM C&C)
[2024-04-25 14:27] LABS: Pathologist Review Reviewed
[2024-04-27 02:07] LABS: Tacrolimus (FK506) 3.9 ng/mL (2.0-20.0)
[2024-05-02 07:23] LABS: Absolute Neutrophil Count 1.3 X10^3/uL (2.0-7.7); Basophil# 0.04 X10^3/uL; Basophil% 2.1 % (0-1); Eosinophil# 0.06 X10^3/uL; Eosinophils% 3.1 % (0-5); Hematocrit 36.4 % (40-54); Hemoglobin 11.4 g/dL (13.0-16.5); Lymphocyte % 10.4 % (19-41); Mean Corp Hgb Conc 31.3 g/dL (32-36); Mean Corpuscular Hgb 30.6 pg (27.0-32.0); Mean Corpuscular Volume 97.6 fL (80-94); Mean Platelet Vol. 9.2 fl (6.2-12.0); Monocyte# 0.19 X10^3/uL; Monocyte% 9.9 % (0-10); NRBC Flagged by Analyzer 0 % (0-5); Neutrophil % 67.7 % (47-70); POSITIVE COUNT YES; POSITIVE DIFFERENTIAL YES; POSITIVE MORPHOLOGY YES; Platelet Count 194 K/mm3 (150-450); RBC Distribution Width CV 13.6 % (11.6-14.6); RBC Distribution Width SD 49.1 fl (35.1-43.9); Red Blood Count 3.73 M/mm3 (4.6-6.2); White Blood Count 1.9 K/mm3 (4.4-11.0)
[2024-05-02 07:38] LABS: Differential Indicated SCAN CRITERIA MET
[2024-05-02 07:51] LABS: Anion Gap 4 (5-15); BUN 34 mg/dL (7-18); BUN/Creat Ratio 28.8 RATIO (10-20); Calcium,Total 10.1 mg/dL (8.5-10.1); Chloride 112 mmol/L (98-107); Creatinine, Serum 1.18 mg/dL (0.70-1.30); EST Glomerular Filtration Rate 65 mL/min (>60); Est Glom Filt Rate - Afr Amer 79 mL/min (>60); Glucose 144 mg/dL (74-106); Magnesium 1.7 mg/dL (1.6-2.6); Phosphorus 2.3 mg/dL (2.5-4.9); Sodium Level 136 mmol/L (136-145)
[2024-05-02 15:19] LABS: Pathologist Review Reviewed
[2024-05-04 07:08] LABS: Tacrolimus (FK506) 4.8 ng/mL (2.0-20.0)
[2024-05-09 07:13] LABS: Hematocrit 37.5 % (40-54); Mean Corpuscular Hgb 30.6 pg (27.0-32.0); Mean Corpuscular Volume 95.7 fL (80-94); Mean Platelet Vol. 9.3 fl (6.2-12.0); POSITIVE COUNT YES; POSITIVE DIFFERENTIAL YES; POSITIVE MORPHOLOGY YES; Platelet Count 207 K/mm3 (150-450); RBC Distribution Width CV 13.7 % (11.6-14.6); RBC Distribution Width SD 48.6 fl (35.1-43.9); Red Blood Count 3.92 M/mm3 (4.6-6.2); White Blood Count 2.2 K/mm3 (4.4-11.0)
[2024-05-09 07:30] LABS: Differential Indicated MANUAL DIFF
[2024-05-09 07:37] LABS: Anion Gap 6 (5-15); BUN 37 mg/dL (7-18); BUN/Creat Ratio 30.6 RATIO (10-20); Chloride 107 mmol/L (98-107); Creatinine, Serum 1.21 mg/dL (0.70-1.30); EST Glomerular Filtration Rate 63 mL/min (>60); Est Glom Filt Rate - Afr Amer 77 mL/min (>60); Glucose 158 mg/dL (74-106); Phosphorus 2.3 mg/dL (2.5-4.9); Potassium 5.3 mmol/L (3.5-5.1); Sodium Level 138 mmol/L (136-145)
[2024-05-09 07:43] LABS: Basophil 1 % (0-1); Lymphocyte 10 % (19-41); Metamyelocyte 1 % (0-1); Monocyte 5 % (0-10); Myelocyte 2 % (0-0); Neutrophil-Band 5 % (0-5); Neutrophil-Segmented 76 % (47-70); Total Cells Counted 100 (MANUAL DIFF)
[2024-05-09 07:44] LABS: Anisocytosis 1+; Hypochromasia 1+; Platelet Estimate ADEQUATE (ADEQ)
[2024-05-09 07:45] LABS: Absolute Lymphocyte Count 0.22 X10^3/uL (0.83-4.51); Absolute Neutrophil Count 1.8 X10^3/uL (2.0-7.7); Lymphocyte # 0.22 X10^3/ul (0.83-4.51); Neutrophil # 1.78 X10^3/uL (2.7-7.7)
[2024-05-10 11:49] LABS: Pathologist Review Reviewed
[2024-05-16 08:16] LABS: Hemoglobin 11.5 g/dL (13.0-16.5); Mean Corp Hgb Conc 31.9 g/dL (32-36); Mean Corpuscular Hgb 30.9 pg (27.0-32.0); Mean Corpuscular Volume 96.8 fL (80-94); Mean Platelet Vol. 9.6 fl (6.2-12.0); POSITIVE COUNT YES; POSITIVE DIFFERENTIAL YES; POSITIVE MORPHOLOGY YES; Platelet Count 206 K/mm3 (150-450); RBC Distribution Width CV 13.4 % (11.6-14.6); RBC Distribution Width SD 47.8 fl (35.1-43.9); Red Blood Count 3.72 M/mm3 (4.6-6.2); White Blood Count 2.4 K/mm3 (4.4-11.0)
[2024-05-16 08:19] LABS: Differential Indicated MANUAL DIFF
[2024-05-16 08:46] LABS: AST(SGOT) 14 U/L (15-37); Alanine Aminotransfer ALT/SGPT 14 U/L (16-61); Albumin, Serum 3.4 g/dL (3.2-5.0); Alkaline Phosphatase 105 U/L (45-117); Anion Gap 4 (5-15); BUN 29 mg/dL (7-18); BUN/Creat Ratio 28.2 RATIO (10-20); Calcium,Total 9.8 mg/dL (8.5-10.1); Chloride 110 mmol/L (98-107); Cholesterol 118 mg/dL (200); Creatinine, Serum 1.03 mg/dL (0.70-1.30); EST Glomerular Filtration Rate 76 mL/min (>60); Est Glom Filt Rate - Afr Amer 92 mL/min (>60); Glucose 145 mg/dL (74-106); High Density Lipoprotein 54 mg/dL; Phosphorus 2.1 mg/dL (2.5-4.9); Potassium 4.8 mmol/L (3.5-5.1); Sodium Level 136 mmol/L (136-145); Triglycerides 140 mg/dL; Uric Acid 5.7 mg/dL (3.5-7.2); Very Low Density Lipoprotein 28 mg/dL (5-40)
[2024-05-16 08:53] LABS: Lymphocyte 24 % (19-41); Metamyelocyte 24 % (0-1); Monocyte 4 % (0-10); Neutrophil-Band 20 % (0-5); Neutrophil-Segmented 28 % (47-70); Platelet Estimate ADEQUATE (ADEQ); Red Cell Morphology NORM C+C NORMAL (NORM C&C); Total Cells Counted 25 (MANUAL DIFF)
[2024-05-16 08:54] LABS: Absolute Lymphocyte Count 0.58 X10^3/uL (0.83-4.51); Absolute Neutrophil Count 1.2 X10^3/uL (2.0-7.7)
[2024-05-16 08:55] LABS: Hypochromasia May foll
[2024-05-16 08:57] LABS: Protein, Urine (Random) 23.1 mg/dL (<11.9); Protein:Creat Ratio 327 mg/g CRE (0-200)
[2024-05-16 08:58] LABS: Hypersegmented Neutrophils RARE
[2024-05-17 11:16] LABS: Pathologist Review Reviewed
[2024-05-18 20:07] LABS: BK Virus Quant, PCR Negative (Negative); Tacrolimus (FK506) 6.4 ng/mL (2.0-20.0)
== END 2024-05-18 18:00 | disposition home or self-care (01) ==
LOC: LAB 07:02
PROVIDERS: PCP Family Medicine
DX: Z94.0 Kidney transplant status (principal); R79.9 Abnormal finding of blood chemistry, unspecified; D84.9 Immunodeficiency, unspecified; Z48.298 Encounter for aftercare following other organ transplant; Z79.899 Other long term (current) drug therapy; Z79.60 Long term (current) use of unspecified immunomodulators and immunosuppressants; R68.89 Other general symptoms and signs
CPT/HCPCS: 36415; 80048; 80061; 80197; 82040; 82247; 82570; 83735; 84075; 84100; 84156; 84450; 84460; 84550; 85025; 87799

== ENCOUNTER → 2024-06-06 | Outpatient (CLI) | payer MEDICARE, OTHER, SELFPAY ==
[2024-06-06 14:38] LABS: Amphetamine Urine VISTA NEGATIVE (<1000 ng/mL); Barbiturate Urine VISTA NEGATIVE (< 200 ng/mL); Benzodiazepine Urine VISTA NEGATIVE (< 200 ng/mL); Cocaine Urine VISTA NEGATIVE (< 300 ng/mL); Ecstacy Urine VISTA NEGATIVE (< 500 ng/mL); Methadone Urine VISTA NEGATIVE (< 300 ng/mL); PCP Urine VISTA NEGATIVE (< 25 ng/mL); THC Urine VISTA NEGATIVE (< 50 ng/mL); Vista UDS pH Range 5
== END | disposition home or self-care (01) ==
PROVIDERS: Referring Provider Anesthesiology Pain Medicine; Visit Provider Anesthesiology Pain Medicine
DX: F11.20 Opioid dependence, uncomplicated (principal)
CPT/HCPCS: 80307

== ENCOUNTER 2024-06-13 06:57 | Outpatient (RCR) | payer MEDICARE, OTHER, SELFPAY ==
[2024-05-23 07:35] LABS: Hematocrit 37.2 % (40-54); Hemoglobin 11.8 g/dL (13.0-16.5); Mean Corp Hgb Conc 31.7 g/dL (32-36); Mean Corpuscular Hgb 31.1 pg (27.0-32.0); Mean Corpuscular Volume 97.9 fL (80-94); Mean Platelet Vol. 9.4 fl (6.2-12.0); POSITIVE COUNT YES; POSITIVE DIFFERENTIAL YES; POSITIVE MORPHOLOGY YES; Platelet Count 205 K/mm3 (150-450); RBC Distribution Width CV 13.4 % (11.6-14.6); RBC Distribution Width SD 47.9 fl (35.1-43.9); White Blood Count 3.4 K/mm3 (4.4-11.0)
[2024-05-23 07:44] LABS: Differential Indicated MANUAL DIFF
[2024-05-23 07:54] LABS: Anion Gap 7 (5-15); BUN 25 mg/dL (7-18); BUN/Creat Ratio 22.9 RATIO (10-20); Calcium,Total 9.8 mg/dL (8.5-10.1); Chloride 109 mmol/L (98-107); Creatinine, Serum 1.09 mg/dL (0.70-1.30); EST Glomerular Filtration Rate 71 mL/min (>60); Est Glom Filt Rate - Afr Amer 86 mL/min (>60); Glucose 156 mg/dL (74-106); Magnesium 1.9 mg/dL (1.6-2.6); Potassium 4.5 mmol/L (3.5-5.1); Sodium Level 140 mmol/L (136-145)
[2024-05-23 08:14] LABS: Basophil 2 % (0-1); Eosinophil 2 % (0-5); Lymphocyte 4 % (19-41); Metamyelocyte 2 % (0-1); Monocyte 2 % (0-10); Myelocyte 1 % (0-0); Neutrophil-Band 5 % (0-5); Neutrophil-Segmented 82 % (47-70); Total Cells Counted 100 (MANUAL DIFF)
[2024-05-23 08:15] LABS: Absolute Lymphocyte Count 0.14 X10^3/uL (0.83-4.51); Hypersegmented Neutrophils 2+
[2024-05-23 08:16] LABS: Platelet Estimate ADEQUATE (ADEQ); Red Cell Morphology NORM C+C NORMAL (NORM C&C)
[2024-05-24 14:54] LABS: Pathologist Review Reviewed
[2024-05-25 13:19] LABS: Phosphorus 2.5 mg/dL (2.5-4.9)
[2024-05-25 17:07] LABS: Tacrolimus (FK506) 4.6 ng/mL (2.0-20.0)
[2024-05-30 07:32] LABS: Hematocrit 40.6 % (40-54); Hemoglobin 12.7 g/dL (13.0-16.5); Mean Corp Hgb Conc 31.3 g/dL (32-36); Mean Corpuscular Hgb 30.7 pg (27.0-32.0); Mean Corpuscular Volume 98.1 fL (80-94); Mean Platelet Vol. 9.7 fl (6.2-12.0); POSITIVE COUNT YES; POSITIVE DIFFERENTIAL YES; POSITIVE MORPHOLOGY YES; Platelet Count 214 K/mm3 (150-450); RBC Distribution Width CV 13.3 % (11.6-14.6); RBC Distribution Width SD 47.4 fl (35.1-43.9); Red Blood Count 4.14 M/mm3 (4.6-6.2); White Blood Count 2.4 K/mm3 (4.4-11.0)
[2024-05-30 07:35] LABS: Differential Indicated MANUAL DIFF
[2024-05-30 09:08] LABS: Hemoglobin A1c 6.1 % (3.8-5.6)
[2024-05-30 09:11] LABS: Protein, Urine (Random) 30.3 mg/dL (<11.9); Protein:Creat Ratio 210 mg/g CRE (0-200)
[2024-05-30 09:33] LABS: PTHIN 276.1 pg/mL (18.4-80.1)
[2024-05-30 10:43] LABS: Basophil 4 % (0-1); Eosinophil 3 % (0-5); Lymphocyte 8 % (19-41); Monocyte 9 % (0-10); Neutrophil-Segmented 76 % (47-70); Platelet Estimate ADEQUATE (ADEQ); Red Cell Morphology NORM C+C NORMAL (NORM C&C); Total Cells Counted 100 (MANUAL DIFF)
[2024-05-30 10:44] LABS: Absolute Neutrophil Count 1.8 X10^3/uL (2.0-7.7)
[2024-05-30 10:45] LABS: AST(SGOT) 22 U/L (15-37); Alanine Aminotransfer ALT/SGPT 18 U/L (16-61); Albumin, Serum 3.8 g/dL (3.2-5.0); Alkaline Phosphatase 99 U/L (45-117); Anion Gap 7 (5-15); BUN 29 mg/dL (7-18); BUN/Creat Ratio 20.9 RATIO (10-20); Calcium,Total 10.7 mg/dL (8.5-10.1); Chloride 108 mmol/L (98-107); Cholesterol 158 mg/dL (200); Creatinine, Serum 1.39 mg/dL (0.70-1.30); EST Glomerular Filtration Rate 54 mL/min (>60); Est Glom Filt Rate - Afr Amer 65 mL/min (>60); Ferritin 537 ng/mL (26-388); Globulin 3.9 g/dL (2.2-4.2); Glucose 147 mg/dL (74-106); Iron 64 ug/dL (65-175); Iron Binding Capacity,Total 320 ug/dL (250-450); Phosphorus 2.4 mg/dL (2.5-4.9); Potassium 4.6 mmol/L (3.5-5.1); Protein, Total 7.7 g/dL (6.4-8.2); Sodium Level 135 mmol/L (136-145); Uric Acid 6.5 mg/dL (3.5-7.2)
[2024-05-31 15:28] LABS: Pathologist Review Reviewed
[2024-06-01 20:08] LABS: BK Virus Quant, PCR Negative (Negative); Tacrolimus (FK506) 7.3 ng/mL (2.0-20.0); Transferrin 280 mg/dL (177-329)
[2024-06-13 07:39] LABS: Hematocrit 39.8 % (40-54); Hemoglobin 12.7 g/dL (13.0-16.5); Mean Corp Hgb Conc 31.9 g/dL (32-36); Mean Corpuscular Hgb 31.4 pg (27.0-32.0); Mean Corpuscular Volume 98.3 fL (80-94); POSITIVE COUNT YES; POSITIVE DIFFERENTIAL YES; POSITIVE MORPHOLOGY YES; Platelet Count 209 K/mm3 (150-450); RBC Distribution Width CV 13.1 % (11.6-14.6); RBC Distribution Width SD 46.6 fl (35.1-43.9); Red Blood Count 4.05 M/mm3 (4.6-6.2); White Blood Count 3.4 K/mm3 (4.4-11.0)
[2024-06-13 07:49] LABS: Differential Indicated MANUAL DIFF
[2024-06-13 08:30] LABS: Anion Gap 6 (5-15); BUN 28 mg/dL (7-18); BUN/Creat Ratio 23.5 RATIO (10-20); Calcium,Total 10.4 mg/dL (8.5-10.1); Chloride 111 mmol/L (98-107); Creatinine, Serum 1.19 mg/dL (0.70-1.30); EST Glomerular Filtration Rate 64 mL/min (>60); Est Glom Filt Rate - Afr Amer 78 mL/min (>60); Glucose 158 mg/dL (74-106); Potassium 4.9 mmol/L (3.5-5.1); Sodium Level 138 mmol/L (136-145)
[2024-06-13 10:12] LABS: Blast 1 % (0-0); Lymphocyte 9 % (19-41); Metamyelocyte 1 % (0-1); Monocyte 9 % (0-10); Neutrophil-Band 5 % (0-5); Neutrophil-Segmented 75 % (47-70); Total Cells Counted 100 (MANUAL DIFF)
[2024-06-13 10:16] LABS: Platelet Estimate ADEQUATE (ADEQ)
[2024-06-13 10:17] LABS: Anisocytosis 1+
[2024-06-13 10:18] LABS: Absolute Neutrophil Count 2.6 X10^3/uL (2.0-7.7)
[2024-06-13 10:19] LABS: Absolute Lymphocyte Count 0.31 X10^3/uL (0.83-4.51)
[2024-06-14 13:48] LABS: Pathologist Review Reviewed
[2024-06-15 07:09] LABS: Tacrolimus (FK506) 4.9 ng/mL (2.0-20.0)
== END 2024-06-13 18:00 | disposition home or self-care (01) ==
LOC: LAB 06:57
PROVIDERS: PCP Family Medicine
DX: Z94.0 Kidney transplant status (principal); R79.9 Abnormal finding of blood chemistry, unspecified; D84.9 Immunodeficiency, unspecified; Z48.298 Encounter for aftercare following other organ transplant; Z79.899 Other long term (current) drug therapy; Z11.59 Encounter for screening for other viral diseases; E78.2 Mixed hyperlipidemia; D64.9 Anemia, unspecified; D72.9 Disorder of white blood cells, unspecified; Z09 Encounter for follow-up examination after completed treatment for conditions other than malignant neoplasm
CPT/HCPCS: 36415; 80048; 80053; 80197; 82465; 82570; 82728; 83036; 83540; 83550; 83735; 83970; 84100; 84156; 84466; 84550; 85025; 87799

== ENCOUNTER 2024-07-11 06:57 | Outpatient (RCR) | payer MEDICARE, OTHER, SELFPAY ==
[2024-06-27 07:28] LABS: Absolute Lymphocyte Count 0.28 X10^3/uL (0.83-4.51); Absolute Neutrophil Count 2.5 X10^3/uL (2.0-7.7); Basophil# 0.03 X10^3/uL; Basophil% 0.8 % (0-1); Eosinophils% 2.8 % (0-5); Hematocrit 38.8 % (40-54); Hemoglobin 12.5 g/dL (13.0-16.5); Lymphocyte # 0.28 X10^3/ul (0.83-4.51); Lymphocyte % 7.9 % (19-41); Mean Corp Hgb Conc 32.2 g/dL (32-36); Mean Corpuscular Hgb 31.2 pg (27.0-32.0); Mean Corpuscular Volume 96.8 fL (80-94); Monocyte# 0.56 X10^3/uL; Monocyte% 15.7 % (0-10); NRBC Flagged by Analyzer 0 % (0-5); Neutrophil # 2.51 X10^3/uL (2.7-7.7); Neutrophil % 70.6 % (47-70); POSITIVE DIFFERENTIAL YES; Platelet Count 197 K/mm3 (150-450); RBC Distribution Width CV 12.7 % (11.6-14.6); RBC Distribution Width SD 45.1 fl (35.1-43.9); Red Blood Count 4.01 M/mm3 (4.6-6.2); White Blood Count 3.6 K/mm3 (4.4-11.0)
[2024-06-27 07:42] LABS: Protein, Urine (Random) 31.8 mg/dL (<11.9); Protein:Creat Ratio 339 mg/g CRE (0-200)
[2024-06-27 07:49] LABS: Anion Gap 9 (5-15); BUN 25 mg/dL (7-18); BUN/Creat Ratio 21.6 RATIO (10-20); Calcium,Total 10.2 mg/dL (8.5-10.1); Chloride 108 mmol/L (98-107); Creatinine, Serum 1.16 mg/dL (0.70-1.30); EST Glomerular Filtration Rate 66 mL/min (>60); Est Glom Filt Rate - Afr Amer 80 mL/min (>60); Glucose 161 mg/dL (74-106); Magnesium 1.8 mg/dL (1.6-2.6); Potassium 4.8 mmol/L (3.5-5.1); Sodium Level 138 mmol/L (136-145)
[2024-06-30 15:08] LABS: BK Virus Quant, PCR Negative (Negative); CMV by PCR Negative (Negative); Tacrolimus (FK506) 6.9 ng/mL (2.0-20.0)
[2024-07-11 07:53] LABS: Hemoglobin 13.3 g/dL (13.0-16.5); Mean Corp Hgb Conc 31.7 g/dL (32-36); Mean Corpuscular Hgb 30.5 pg (27.0-32.0); Mean Corpuscular Volume 96.3 fL (80-94); Mean Platelet Vol. 9.9 fl (6.2-12.0); POSITIVE COUNT YES; POSITIVE DIFFERENTIAL YES; POSITIVE MORPHOLOGY YES; Platelet Count 215 K/mm3 (150-450); RBC Distribution Width CV 12.4 % (11.6-14.6); RBC Distribution Width SD 44.4 fl (35.1-43.9); Red Blood Count 4.36 M/mm3 (4.6-6.2); White Blood Count 3.5 K/mm3 (4.4-11.0)
[2024-07-11 07:54] LABS: Differential Indicated MANUAL DIFF
[2024-07-11 08:28] LABS: Hemoglobin A1c 6.2 % (3.8-5.6)
[2024-07-11 08:29] LABS: Vitamin D,25 Hydroxy 20.2 ng/mL
[2024-07-11 08:57] LABS: ALB/GLOB Ratio 1.1 RATIO (0.9-2.4); AST(SGOT) 27 U/L (15-37); Alanine Aminotransfer ALT/SGPT 26 U/L (16-61); Albumin, Serum 3.8 g/dL (3.2-5.0); Alkaline Phosphatase 120 U/L (45-117); Anion Gap 10 (5-15); BUN 31 mg/dL (7-18); BUN/Creat Ratio 25.8 RATIO (10-20); Calcium,Total 10.2 mg/dL (8.5-10.1); Chloride 109 mmol/L (98-107); Cholesterol 141 mg/dL (200); EST Glomerular Filtration Rate 64 mL/min (>60); Est Glom Filt Rate - Afr Amer 77 mL/min (>60); Globulin 3.6 g/dL (2.2-4.2); Glucose 159 mg/dL (74-106); High Density Lipoprotein 46 mg/dL; Potassium 4.6 mmol/L (3.5-5.1); Protein, Total 7.4 g/dL (6.4-8.2); Sodium Level 137 mmol/L (136-145); Triglycerides 113 mg/dL; Very Low Density Lipoprotein 23 mg/dL (5-40)
[2024-07-11 09:43] LABS: Basophil 1 % (0-1); Eosinophil 3 % (0-5); Lymphocyte 9 % (19-41); Metamyelocyte 1 % (0-1); Monocyte 7 % (0-10); Neutrophil-Band 2 % (0-5); Neutrophil-Segmented 77 % (47-70); Total Cells Counted 100 (MANUAL DIFF)
[2024-07-11 09:44] LABS: Absolute Neutrophil Count 2.8 X10^3/uL (2.0-7.7); Platelet Estimate ADEQUATE (ADEQ); Red Cell Morphology NORM C+C NORMAL (NORM C&C)
[2024-07-12 11:39] LABS: Pathologist Review Reviewed
[2024-07-13 10:09] LABS: Tacrolimus (FK506) 5.5 ng/mL (2.0-20.0)
== END 2024-07-11 18:00 | disposition home or self-care (01) ==
LOC: LAB 06:57
DX: Z94.0 Kidney transplant status (principal); R79.9 Abnormal finding of blood chemistry, unspecified; D84.9 Immunodeficiency, unspecified; Z48.298 Encounter for aftercare following other organ transplant; Z79.899 Other long term (current) drug therapy; E78.2 Mixed hyperlipidemia; D64.9 Anemia, unspecified; D72.9 Disorder of white blood cells, unspecified; Z09 Encounter for follow-up examination after completed treatment for conditions other than malignant neoplasm; Z79.620 Long term (current) use of immunosuppressive biologic; R68.89 Other general symptoms and signs; E11.8 Type 2 diabetes mellitus with unspecified complications; E55.9 Vitamin D deficiency, unspecified
CPT/HCPCS: 36415; 80048; 80053; 80061; 80197; 82306; 82570; 83036; 83735; 84100; 84156; 85025; 87496; 87497; 87799

== ENCOUNTER 2024-08-08 07:08 | Outpatient (RCR) | payer MEDICARE, OTHER, SELFPAY ==
[2024-07-25 07:29] LABS: Hematocrit 40.6 % (40-54); Hemoglobin 12.7 g/dL (13.0-16.5); Mean Corp Hgb Conc 31.3 g/dL (32-36); Mean Corpuscular Hgb 29.9 pg (27.0-32.0); Mean Corpuscular Volume 95.5 fL (80-94); Mean Platelet Vol. 9.7 fl (6.2-12.0); POSITIVE COUNT YES; POSITIVE DIFFERENTIAL YES; POSITIVE MORPHOLOGY YES; Platelet Count 189 K/mm3 (150-450); RBC Distribution Width CV 12.5 % (11.6-14.6); RBC Distribution Width SD 43.9 fl (35.1-43.9); Red Blood Count 4.25 M/mm3 (4.6-6.2); White Blood Count 1.9 K/mm3 (4.4-11.0)
[2024-07-25 07:31] LABS: Differential Indicated MANUAL DIFF
[2024-07-25 08:09] LABS: Eosinophil 2 % (0-5); Lymphocyte 14 % (19-41); Monocyte 3 % (0-10); Neutrophil-Band 2 % (0-5); Neutrophil-Segmented 79 % (47-70); Total Cells Counted 100 (MANUAL DIFF)
[2024-07-25 08:10] LABS: Platelet Estimate ADEQUATE (ADEQ); Red Cell Morphology NORM C+C NORMAL (NORM C&C)
[2024-07-25 08:11] LABS: Absolute Lymphocyte Count 0.26 X10^3/uL (0.83-4.51); Absolute Neutrophil Count 1.5 X10^3/uL (2.0-7.7)
[2024-07-25 10:53] LABS: AST(SGOT) 20 U/L (15-37); Alanine Aminotransfer ALT/SGPT 18 U/L (16-61); Albumin, Serum 3.6 g/dL (3.2-5.0); Anion Gap 4 (5-15); BUN 33 mg/dL (7-18); BUN/Creat Ratio 31.7 RATIO (10-20); Calcium,Total 10.3 mg/dL (8.5-10.1); Chloride 108 mmol/L (98-107); Cholesterol 149 mg/dL (200); Creatinine, Serum 1.04 mg/dL (0.70-1.30); EST Glomerular Filtration Rate 75 mL/min (>60); Est Glom Filt Rate - Afr Amer 91 mL/min (>60); Glucose 183 mg/dL (74-106); Magnesium 1.8 mg/dL (1.6-2.6); Potassium 5.3 mmol/L (3.5-5.1); Sodium Level 136 mmol/L (136-145); Uric Acid 5.1 mg/dL (3.5-7.2)
[2024-07-26 13:46] LABS: Pathologist Review Reviewed
[2024-07-27 12:10] LABS: BK Virus Quant, PCR Negative (Negative); CMV Quant DNA log 2.744 (.); Tacrolimus (FK506) 5.4 ng/mL (2.0-20.0)
[2024-08-08 07:52] LABS: Absolute Lymphocyte Count 0.14 X10^3/uL (0.83-4.51); Absolute Neutrophil Count 0.9 X10^3/uL (2.0-7.7); Basophil# 0.01 X10^3/uL; Basophil% 0.7 % (0-1); Eosinophil# 0.04 X10^3/uL; Eosinophils% 2.9 % (0-5); Hematocrit 40.8 % (40-54); Hemoglobin 12.4 g/dL (13.0-16.5); Lymphocyte # 0.14 X10^3/ul (0.83-4.51); Lymphocyte % 10.1 % (19-41); Mean Corp Hgb Conc 30.4 g/dL (32-36); Mean Corpuscular Hgb 29.6 pg (27.0-32.0); Mean Corpuscular Volume 97.4 fL (80-94); Mean Platelet Vol. 9.5 fl (6.2-12.0); Monocyte# 0.27 X10^3/uL; Monocyte% 19.4 % (0-10); NRBC Flagged by Analyzer 0 % (0-5); Neutrophil # 0.92 X10^3/uL (2.7-7.7); Neutrophil % 66.2 % (47-70); POSITIVE COUNT YES; POSITIVE DIFFERENTIAL YES; Platelet Count 210 K/mm3 (150-450); RBC Distribution Width CV 12.4 % (11.6-14.6); RBC Distribution Width SD 44.6 fl (35.1-43.9); Red Blood Count 4.19 M/mm3 (4.6-6.2)
[2024-08-08 08:12] LABS: Anion Gap 7 (5-15); BUN 23 mg/dL (7-18); BUN/Creat Ratio 20.2 RATIO (10-20); Chloride 109 mmol/L (98-107); Creatinine, Serum 1.14 mg/dL (0.70-1.30); EST Glomerular Filtration Rate 68 mL/min (>60); Est Glom Filt Rate - Afr Amer 82 mL/min (>60); Glucose 189 mg/dL (74-106); Potassium 4.7 mmol/L (3.5-5.1); Sodium Level 140 mmol/L (136-145)
[2024-08-08 08:16] LABS: Differential Indicated SCAN CRITERIA MET; White Blood Count 1.4 K/mm3 (4.4-11.0)
[2024-08-09 13:09] LABS: Pathologist Review Reviewed
[2024-08-10 20:08] LABS: CMV by PCR Positive (Negative); Tacrolimus (FK506) 6.8 ng/mL (2.0-20.0)
== END 2024-08-08 18:00 | disposition home or self-care (01) ==
LOC: LAB 07:08
DX: Z94.0 Kidney transplant status (principal); R79.9 Abnormal finding of blood chemistry, unspecified; E78.2 Mixed hyperlipidemia; D64.9 Anemia, unspecified; D72.9 Disorder of white blood cells, unspecified; Z09 Encounter for follow-up examination after completed treatment for conditions other than malignant neoplasm; Z79.899 Other long term (current) drug therapy; Z48.298 Encounter for aftercare following other organ transplant
CPT/HCPCS: 36415; 80048; 80197; 82040; 82247; 82465; 83735; 84100; 84450; 84460; 84550; 85025; 87496; 87497; 87799

== ENCOUNTER 2024-09-05 06:54 | Outpatient (RCR) | payer MEDICARE, OTHER, SELFPAY ==
[2024-08-22 07:49] LABS: Absolute Lymphocyte Count 0.86 X10^3/uL (0.83-4.51); Absolute Neutrophil Count 1.7 X10^3/uL (2.0-7.7); Basophil# 0.02 X10^3/uL; Basophil% 0.7 % (0-1); Eosinophil# 0.01 X10^3/uL; Eosinophils% 0.3 % (0-5); Hematocrit 40.4 % (40-54); Hemoglobin 12.5 g/dL (13.0-16.5); Lymphocyte # 0.86 X10^3/ul (0.83-4.51); Lymphocyte % 29.2 % (19-41); Mean Corp Hgb Conc 30.9 g/dL (32-36); Mean Corpuscular Hgb 28.5 pg (27.0-32.0); Mean Corpuscular Volume 92.2 fL (80-94); Mean Platelet Vol. 9.3 fl (6.2-12.0); Monocyte# 0.34 X10^3/uL; Monocyte% 11.5 % (0-10); NRBC Flagged by Analyzer 0 % (0-5); Neutrophil # 1.66 X10^3/uL (2.7-7.7); Neutrophil % 56.3 % (47-70); POSITIVE MORPHOLOGY YES; Platelet Count 173 K/mm3 (150-450); RBC Distribution Width CV 12.9 % (11.6-14.6); RBC Distribution Width SD 44.1 fl (35.1-43.9); Red Blood Count 4.38 M/mm3 (4.6-6.2)
[2024-08-22 07:51] LABS: Differential Indicated SCAN CRITERIA MET
[2024-08-22 08:24] LABS: Anion Gap 6 (5-15); Atypical Lymphocyte 1+ %; BUN 21 mg/dL (7-18); BUN/Creat Ratio 16.8 RATIO (10-20); Calcium,Total 9.7 mg/dL (8.5-10.1); Chloride 110 mmol/L (98-107); Creatinine, Serum 1.25 mg/dL (0.70-1.30); EST Glomerular Filtration Rate 61 mL/min (>60); Est Glom Filt Rate - Afr Amer 74 mL/min (>60); Ferritin 1147 ng/mL (26-388); Glucose 150 mg/dL (74-106); Iron 49 ug/dL (65-175); Iron Binding Capacity,Total 276 ug/dL (250-450); Magnesium 1.9 mg/dL (1.6-2.6); PERCENT IRON SATURATION 17.8 % (15.0-55.0); Phosphorus 2.3 mg/dL (2.5-4.9); Potassium 4.8 mmol/L (3.5-5.1); Sodium Level 136 mmol/L (136-145)
[2024-08-22 08:28] LABS: PTHIN 348.8 pg/mL (18.4-80.1)
[2024-08-24 21:07] LABS: Transferrin 238 mg/dL (177-329)
[2024-09-05 07:14] LABS: Absolute Lymphocyte Count 0.75 X10^3/uL (0.83-4.51); Absolute Neutrophil Count 2.9 X10^3/uL (2.0-7.7); Basophil# 0.02 X10^3/uL; Basophil% 0.5 % (0-1); Eosinophil# 0.04 X10^3/uL; Hematocrit 40.4 % (40-54); Hemoglobin 12.8 g/dL (13.0-16.5); Lymphocyte # 0.75 X10^3/ul (0.83-4.51); Lymphocyte % 19.2 % (19-41); Mean Corp Hgb Conc 31.7 g/dL (32-36); Mean Corpuscular Volume 91.4 fL (80-94); Mean Platelet Vol. 9.1 fl (6.2-12.0); Monocyte# 0.15 X10^3/uL; Monocyte% 3.8 % (0-10); NRBC Flagged by Analyzer 0 % (0-5); Neutrophil # 2.87 X10^3/uL (2.7-7.7); Neutrophil % 73.7 % (47-70); Platelet Count 189 K/mm3 (150-450); RBC Distribution Width CV 13.2 % (11.6-14.6); RBC Distribution Width SD 44.7 fl (35.1-43.9); Red Blood Count 4.42 M/mm3 (4.6-6.2); White Blood Count 3.9 K/mm3 (4.4-11.0)
[2024-09-05 07:40] LABS: Anion Gap 7 (5-15); BUN 33 mg/dL (7-18); BUN/Creat Ratio 25.2 RATIO (10-20); Chloride 105 mmol/L (98-107); Creatinine, Serum 1.31 mg/dL (0.70-1.30); EST Glomerular Filtration Rate 58 mL/min (>60); Est Glom Filt Rate - Afr Amer 70 mL/min (>60); Glucose 227 mg/dL (74-106); Potassium 4.9 mmol/L (3.5-5.1); Sodium Level 132 mmol/L (136-145)
[2024-09-07 06:10] LABS: Tacrolimus (FK506) 8.9 ng/mL (2.0-20.0)
== END 2024-09-17 18:00 | disposition home or self-care (01) ==
LOC: LAB 06:54
DX: Z94.0 Kidney transplant status (principal); Z79.60 Long term (current) use of unspecified immunomodulators and immunosuppressants; R79.9 Abnormal finding of blood chemistry, unspecified; Z48.298 Encounter for aftercare following other organ transplant; D84.9 Immunodeficiency, unspecified; Z79.899 Other long term (current) drug therapy; R68.89 Other general symptoms and signs; D64.9 Anemia, unspecified; E78.2 Mixed hyperlipidemia; D72.9 Disorder of white blood cells, unspecified; Z09 Encounter for follow-up examination after completed treatment for conditions other than malignant neoplasm
CPT/HCPCS: 36415; 80048; 80197; 82728; 83540; 83550; 83735; 83970; 84100; 84466; 85025

== ENCOUNTER 2024-10-17 06:56 | Outpatient (RCR) | payer MEDICARE, OTHER, SELFPAY ==
[2024-09-19 07:58] LABS: Absolute Lymphocyte Count 0.75 X10^3/uL (0.83-4.51); Absolute Neutrophil Count 2.7 X10^3/uL (2.0-7.7); Basophil# 0.02 X10^3/uL; Basophil% 0.5 % (0-1); Eosinophil# 0.05 X10^3/uL; Eosinophils% 1.3 % (0-5); Hematocrit 39.1 % (40-54); Hemoglobin 12.3 g/dL (13.0-16.5); Lymphocyte # 0.75 X10^3/ul (0.83-4.51); Lymphocyte % 20.1 % (19-41); Mean Corp Hgb Conc 31.5 g/dL (32-36); Mean Corpuscular Hgb 28.9 pg (27.0-32.0); Mean Corpuscular Volume 91.8 fL (80-94); Mean Platelet Vol. 9.2 fl (6.2-12.0); Monocyte# 0.17 X10^3/uL; Monocyte% 4.5 % (0-10); NRBC Flagged by Analyzer 0 % (0-5); Neutrophil # 2.73 X10^3/uL (2.7-7.7); Neutrophil % 73.1 % (47-70); Platelet Count 234 K/mm3 (150-450); RBC Distribution Width CV 14.6 % (11.6-14.6); RBC Distribution Width SD 48.7 fl (35.1-43.9); Red Blood Count 4.26 M/mm3 (4.6-6.2); White Blood Count 3.7 K/mm3 (4.4-11.0)
[2024-09-19 08:26] LABS: Protein, Urine (Random) 48.2 mg/dL (<11.9); Protein:Creat Ratio 587 mg/g CRE (0-200)
[2024-09-19 08:27] LABS: ALB/GLOB Ratio 0.9 RATIO (0.9-2.4); AST(SGOT) 16 U/L (15-37); Alanine Aminotransfer ALT/SGPT 17 U/L (16-61); Albumin, Serum 3.6 g/dL (3.2-5.0); Alkaline Phosphatase 130 U/L (45-117); Anion Gap 5 (5-15); BUN 33 mg/dL (7-18); BUN/Creat Ratio 28.2 RATIO (10-20); Chloride 112 mmol/L (98-107); Cholesterol 134 mg/dL (200); Creatinine, Serum 1.17 mg/dL (0.70-1.30); EST Glomerular Filtration Rate 66 mL/min (>60); Est Glom Filt Rate - Afr Amer 80 mL/min (>60); Globulin 4.2 g/dL (2.2-4.2); Glucose 181 mg/dL (74-106); Magnesium 1.6 mg/dL (1.6-2.6); Phosphorus 2.4 mg/dL (2.5-4.9); Potassium 4.9 mmol/L (3.5-5.1); Protein, Total 7.8 g/dL (6.4-8.2); Sodium Level 136 mmol/L (136-145); Uric Acid 6.4 mg/dL (3.5-7.2)
[2024-09-21 08:13] LABS: Tacrolimus (FK506) 8.5 ng/mL (2.0-20.0)
[2024-10-03 07:28] LABS: Absolute Lymphocyte Count 0.82 X10^3/uL (0.83-4.51); Absolute Neutrophil Count 3.9 X10^3/uL (2.0-7.7); Basophil# 0.05 X10^3/uL; Eosinophil# 0.04 X10^3/uL; Eosinophils% 0.8 % (0-5); Hemoglobin 12.5 g/dL (13.0-16.5); Lymphocyte # 0.82 X10^3/ul (0.83-4.51); Lymphocyte % 15.8 % (19-41); Mean Corp Hgb Conc 31.3 g/dL (32-36); Mean Corpuscular Hgb 29.1 pg (27.0-32.0); Mean Platelet Vol. 8.8 fl (6.2-12.0); Monocyte# 0.37 X10^3/uL; Monocyte% 7.1 % (0-10); NRBC Flagged by Analyzer 0 % (0-5); Neutrophil # 3.89 X10^3/uL (2.7-7.7); Neutrophil % 74.7 % (47-70); Platelet Count 220 K/mm3 (150-450); RBC Distribution Width CV 15.2 % (11.6-14.6); White Blood Count 5.2 K/mm3 (4.4-11.0)
[2024-10-03 07:55] LABS: Anion Gap 3 (5-15); BUN 34 mg/dL (7-18); BUN/Creat Ratio 29.1 RATIO (10-20); Chloride 110 mmol/L (98-107); Creatinine, Serum 1.17 mg/dL (0.70-1.30); EST Glomerular Filtration Rate 66 mL/min (>60); Est Glom Filt Rate - Afr Amer 79 mL/min (>60); Glucose 192 mg/dL (74-106); Sodium Level 135 mmol/L (136-145)
[2024-10-17 07:45] LABS: Absolute Lymphocyte Count 0.38 X10^3/uL (0.83-4.51); Absolute Neutrophil Count 3.3 X10^3/uL (2.0-7.7); Basophil# 0.01 X10^3/uL; Basophil% 0.3 % (0-1); Eosinophil# 0.01 X10^3/uL; Eosinophils% 0.3 % (0-5); Hematocrit 37.6 % (40-54); Hemoglobin 11.8 g/dL (13.0-16.5); Lymphocyte # 0.38 X10^3/ul (0.83-4.51); Lymphocyte % 9.7 % (19-41); Mean Corp Hgb Conc 31.4 g/dL (32-36); Mean Corpuscular Hgb 28.6 pg (27.0-32.0); Mean Platelet Vol. 8.9 fl (6.2-12.0); Monocyte# 0.16 X10^3/uL; Monocyte% 4.1 % (0-10); NRBC Flagged by Analyzer 0 % (0-5); Neutrophil # 3.34 X10^3/uL (2.7-7.7); Neutrophil % 84.8 % (47-70); POSITIVE DIFFERENTIAL YES; Platelet Count 206 K/mm3 (150-450); RBC Distribution Width SD 50.3 fl (35.1-43.9); Red Blood Count 4.13 M/mm3 (4.6-6.2); White Blood Count 3.9 K/mm3 (4.4-11.0)
[2024-10-17 07:56] LABS: Protein, Urine (Random) 43.4 mg/dL (<11.9); Protein:Creat Ratio 516 mg/g CRE (0-200)
[2024-10-17 08:10] LABS: Anion Gap 4 (5-15); BUN 33 mg/dL (7-18); BUN/Creat Ratio 22.8 RATIO (10-20); Chloride 111 mmol/L (98-107); Creatinine, Serum 1.45 mg/dL (0.70-1.30); EST Glomerular Filtration Rate 51 mL/min (>60); Est Glom Filt Rate - Afr Amer 62 mL/min (>60); Glucose 191 mg/dL (74-106); Magnesium 1.8 mg/dL (1.6-2.6); Phosphorus 2.1 mg/dL (2.5-4.9); Sodium Level 137 mmol/L (136-145)
[2024-10-20 05:06] LABS: Tacrolimus (FK506) 7.2 ng/mL (2.0-20.0)
== END 2024-10-17 18:00 | disposition home or self-care (01) ==
LOC: LAB 06:56
DX: Z94.0 Kidney transplant status (principal); R79.9 Abnormal finding of blood chemistry, unspecified; E78.2 Mixed hyperlipidemia; D64.9 Anemia, unspecified; D72.9 Disorder of white blood cells, unspecified; Z09 Encounter for follow-up examination after completed treatment for conditions other than malignant neoplasm
CPT/HCPCS: 36415; 80048; 80053; 80197; 82465; 82570; 83735; 84100; 84156; 84550; 85025

== ENCOUNTER 2024-11-14 07:09 | Outpatient (RCR) | payer MEDICARE, OTHER, SELFPAY ==
[2024-10-31 07:20] LABS: Absolute Lymphocyte Count 0.72 X10^3/uL (0.83-4.51); Absolute Neutrophil Count 3.6 X10^3/uL (2.0-7.7); Basophil# 0.02 X10^3/uL; Basophil% 0.4 % (0-1); Eosinophil# 0.06 X10^3/uL; Eosinophils% 1.3 % (0-5); Hematocrit 38.6 % (40-54); Hemoglobin 11.8 g/dL (13.0-16.5); Lymphocyte # 0.72 X10^3/ul (0.83-4.51); Lymphocyte % 15.2 % (19-41); Mean Corp Hgb Conc 30.6 g/dL (32-36); Mean Corpuscular Hgb 28.7 pg (27.0-32.0); Mean Corpuscular Volume 93.9 fL (80-94); Mean Platelet Vol. 9.8 fl (6.2-12.0); Monocyte# 0.29 X10^3/uL; Monocyte% 6.1 % (0-10); NRBC Flagged by Analyzer 0 % (0-5); Neutrophil % 75.9 % (47-70); Platelet Count 229 K/mm3 (150-450); RBC Distribution Width CV 15.9 % (11.6-14.6); RBC Distribution Width SD 54.4 fl (35.1-43.9); Red Blood Count 4.11 M/mm3 (4.6-6.2); White Blood Count 4.7 K/mm3 (4.4-11.0)
[2024-10-31 07:39] LABS: Anion Gap 4 (5-15); BUN 30 mg/dL (7-18); BUN/Creat Ratio 23.8 RATIO (10-20); Calcium,Total 9.9 mg/dL (8.5-10.1); Chloride 115 mmol/L (98-107); Creatinine, Serum 1.26 mg/dL (0.70-1.30); EST Glomerular Filtration Rate 60 mL/min (>60); Est Glom Filt Rate - Afr Amer 73 mL/min (>60); Glucose 262 mg/dL (74-106); Potassium 5.1 mmol/L (3.5-5.1); Sodium Level 141 mmol/L (136-145)
[2024-11-02 08:10] LABS: Tacrolimus (FK506) 9.7 ng/mL (2.0-20.0)
[2024-11-14 07:53] LABS: Absolute Lymphocyte Count 0.79 X10^3/uL (0.83-4.51); Basophil# 0.05 X10^3/uL; Basophil% 1.2 % (0-1); Eosinophil# 0.09 X10^3/uL; Eosinophils% 2.2 % (0-5); Hematocrit 40.2 % (40-54); Hemoglobin 12.6 g/dL (13.0-16.5); Lymphocyte # 0.79 X10^3/ul (0.83-4.51); Mean Corp Hgb Conc 31.3 g/dL (32-36); Mean Corpuscular Hgb 29.1 pg (27.0-32.0); Mean Corpuscular Volume 92.8 fL (80-94); Mean Platelet Vol. 9.7 fl (6.2-12.0); Monocyte# 0.24 X10^3/uL; Monocyte% 5.8 % (0-10); NRBC Flagged by Analyzer 0 % (0-5); Neutrophil # 2.97 X10^3/uL (2.7-7.7); Neutrophil % 71.3 % (47-70); Platelet Count 201 K/mm3 (150-450); RBC Distribution Width CV 15.9 % (11.6-14.6); Red Blood Count 4.33 M/mm3 (4.6-6.2); White Blood Count 4.2 K/mm3 (4.4-11.0)
[2024-11-14 08:40] LABS: Protein, Urine (Random) 58.6 mg/dL (<11.9); Protein:Creat Ratio 538 mg/g CRE (0-200)
[2024-11-14 08:40] LABS: Hemoglobin A1c 7.1 % (3.8-5.6)
[2024-11-14 09:15] LABS: ALB/GLOB Ratio 0.9 RATIO (0.9-2.4); AST(SGOT) 20 U/L (15-37); Alanine Aminotransfer ALT/SGPT 18 U/L (16-61); Albumin, Serum 3.8 g/dL (3.2-5.0); Alkaline Phosphatase 117 U/L (45-117); Anion Gap 6 (5-15); BUN 53 mg/dL (7-18); BUN/Creat Ratio 26.9 RATIO (10-20); Calcium,Total 10.2 mg/dL (8.5-10.1); Chloride 113 mmol/L (98-107); Cholesterol 159 mg/dL (200); Creatinine, Serum 1.97 mg/dL (0.70-1.30); EST Glomerular Filtration Rate 36 mL/min (>60); Est Glom Filt Rate - Afr Amer 44 mL/min (>60); Globulin 4.2 g/dL (2.2-4.2); Glucose 155 mg/dL (74-106); High Density Lipoprotein 38 mg/dL; Potassium 5.3 mmol/L (3.5-5.1); Sodium Level 139 mmol/L (136-145); Triglycerides 233 mg/dL; Very Low Density Lipoprotein 47 mg/dL (5-40)
== END 2024-11-14 18:00 | disposition home or self-care (01) ==
LOC: LAB 07:09
PROVIDERS: Family Medicine
DX: Z94.0 Kidney transplant status (principal); R79.9 Abnormal finding of blood chemistry, unspecified; E11.8 Type 2 diabetes mellitus with unspecified complications; E78.2 Mixed hyperlipidemia; D64.9 Anemia, unspecified; D72.9 Disorder of white blood cells, unspecified; Z09 Encounter for follow-up examination after completed treatment for conditions other than malignant neoplasm
CPT/HCPCS: 36415; 80048; 80053; 80061; 80197; 82570; 83036; 83970; 84156; 84550; 85025

== ENCOUNTER 2024-12-12 07:10 | Outpatient (RCR) | payer MEDICARE, OTHER, SELFPAY ==
[2024-12-12 07:38] LABS: Hematocrit 38.1 % (40-54); Hemoglobin 11.7 g/dL (13.0-16.5); Mean Corp Hgb Conc 30.7 g/dL (32-36); Mean Corpuscular Hgb 28.9 pg (27.0-32.0); Mean Corpuscular Volume 94.1 fL (80-94); POSITIVE COUNT YES; POSITIVE MORPHOLOGY YES; Platelet Count 460 K/mm3 (150-450); RBC Distribution Width CV 14.3 % (11.6-14.6); RBC Distribution Width SD 49.9 fl (35.1-43.9); Red Blood Count 4.05 M/mm3 (4.6-6.2); White Blood Count 3.7 K/mm3 (4.4-11.0)
[2024-12-12 07:43] LABS: Differential Indicated MANUAL DIFF
[2024-12-12 07:52] LABS: Protein, Urine (Random) 40.5 mg/dL (<11.9); Protein:Creat Ratio 340 mg/g CRE (0-200)
[2024-12-12 08:12] LABS: Lymphocyte 11 % (19-41); Metamyelocyte 7 % (0-1); Monocyte 8 % (0-10); Neutrophil-Band 7 % (0-5); Neutrophil-Segmented 67 % (47-70); Platelet Estimate ADEQUATE (ADEQ); Red Cell Morphology NORM C+C NORMAL (NORM C&C); Total Cells Counted 100 (MANUAL DIFF)
[2024-12-12 08:13] LABS: Absolute Neutrophil Count 2.7 X10^3/uL (2.0-7.7); PTHIN 188.1 pg/mL (18.4-80.1)
[2024-12-12 08:23] LABS: AST(SGOT) 14 U/L (15-37); Alanine Aminotransfer ALT/SGPT 13 U/L (16-61); Alkaline Phosphatase 389 U/L (45-117); Anion Gap 10 (5-15); BUN 31 mg/dL (7-18); BUN/Creat Ratio 20.5 RATIO (10-20); Calcium 9.9 mg/dL (8.5-10.1); Calcium,Total 9.9 mg/dL (8.5-10.1); Chloride 108 mmol/L (98-107); Cholesterol 114 mg/dL (200); Creatinine, Serum 1.51 mg/dL (0.70-1.30); EST Glomerular Filtration Rate 49 mL/min (>60); Est Glom Filt Rate - Afr Amer 59 mL/min (>60); Ferritin 610 ng/mL (26-388); Globulin 4.6 g/dL (2.2-4.2); Glucose 158 mg/dL (74-106); High Density Lipoprotein 33 mg/dL; Iron 62 ug/dL (65-175); Iron Binding Capacity,Total 217 ug/dL (250-450); Magnesium 1.6 mg/dL (1.6-2.6); PERCENT IRON SATURATION 28.6 % (15.0-55.0); Phosphorus 2.6 mg/dL (2.5-4.9); Potassium 5.5 mmol/L (3.5-5.1); Protein, Total 7.6 g/dL (6.4-8.2); Sodium Level 133 mmol/L (136-145); Triglycerides 154 mg/dL; Uric Acid 7.8 mg/dL (3.5-7.2); Very Low Density Lipoprotein 31 mg/dL (5-40)
[2024-12-12 08:37] LABS: Hemoglobin A1c 7.2 % (3.8-5.6)
[2024-12-12 15:35] LABS: Pathologist Review Reviewed
[2024-12-14 12:08] LABS: BK Virus Quant, PCR Negative (Negative); Tacrolimus (FK506) 6.6 ng/mL (5.0-20.0); Transferrin 187 mg/dL (177-329)
== END 2024-12-16 18:00 | disposition home or self-care (01) ==
LOC: LAB 07:10
DX: Z94.0 Kidney transplant status (principal); R79.9 Abnormal finding of blood chemistry, unspecified; D84.9 Immunodeficiency, unspecified; Z48.298 Encounter for aftercare following other organ transplant; Z79.899 Other long term (current) drug therapy; Z11.59 Encounter for screening for other viral diseases
CPT/HCPCS: 36415; 80048; 80061; 80076; 80197; 82310; 82570; 82728; 83036; 83540; 83550; 83735; 83970; 84100; 84156; 84466; 84550; 85025; 87799

== ENCOUNTER 2025-01-09 07:00 | Outpatient (RCR) | payer MEDICARE, OTHER, SELFPAY ==
[2024-12-26 07:51] LABS: Absolute Neutrophil Count 2.7 X10^3/uL (2.0-7.7); Basophil# 0.03 X10^3/uL; Basophil% 0.6 % (0-1); Eosinophil# 0.05 X10^3/uL; Eosinophils% 1.1 % (0-5); Hematocrit 37.1 % (40-54); Hemoglobin 11.4 g/dL (13.0-16.5); Lymphocyte % 25.6 % (19-41); Mean Corp Hgb Conc 30.7 g/dL (32-36); Mean Corpuscular Hgb 29.1 pg (27.0-32.0); Mean Corpuscular Volume 94.6 fL (80-94); Mean Platelet Vol. 9.5 fl (6.2-12.0); Monocyte# 0.59 X10^3/uL; Monocyte% 12.6 % (0-10); NRBC Flagged by Analyzer 0 % (0-5); Neutrophil # 2.66 X10^3/uL (2.7-7.7); Neutrophil % 56.7 % (47-70); Platelet Count 285 K/mm3 (150-450); RBC Distribution Width CV 14.9 % (11.6-14.6); RBC Distribution Width SD 51.8 fl (35.1-43.9); Red Blood Count 3.92 M/mm3 (4.6-6.2); White Blood Count 4.7 K/mm3 (4.4-11.0)
[2024-12-26 08:50] LABS: Anion Gap 10 (5-15); BUN 32 mg/dL (4-19); BUN/Creat Ratio 24.1 RATIO (10-20); Calcium,Total 10.2 mg/dL (7.6-11.0); Carbon Dioxide 18.4 mmol/L (21.0-32.0); Chloride 109 mmol/L (98-108); Creatinine, Serum 1.32 mg/dL (0.70-1.20); EST Glomerular Filtration Rate 58 (>60); Glucose 142 mg/dL (70-99); Potassium 5.5 mmol/L (3.3-5.1); Sodium Level 138 mmol/L (133-145)
[2024-12-28 14:08] LABS: Tacrolimus (FK506) 7.4 ng/mL (5.0-20.0)
[2025-01-09 07:32] LABS: Absolute Lymphocyte Count 1.54 X10^3/uL (0.83-4.51); Absolute Neutrophil Count 4.8 X10^3/uL (2.0-7.7); Basophil# 0.03 X10^3/uL; Basophil% 0.4 % (0-1); Eosinophil# 0.11 X10^3/uL; Eosinophils% 1.6 % (0-5); Hematocrit 38.8 % (40-54); Hemoglobin 12.1 g/dL (13.0-16.5); Lymphocyte # 1.54 X10^3/ul (0.83-4.51); Lymphocyte % 21.7 % (19-41); Mean Corp Hgb Conc 31.2 g/dL (32-36); Mean Corpuscular Hgb 29.8 pg (27.0-32.0); Mean Corpuscular Volume 95.6 fL (80-94); Mean Platelet Vol. 9.7 fl (6.2-12.0); Monocyte# 0.58 X10^3/uL; Monocyte% 8.2 % (0-10); NRBC Flagged by Analyzer 0 % (0-5); Neutrophil # 4.78 X10^3/uL (2.7-7.7); Neutrophil % 67.4 % (47-70); Platelet Count 154 K/mm3 (150-450); RBC Distribution Width CV 14.6 % (11.6-14.6); RBC Distribution Width SD 51.2 fl (35.1-43.9); Red Blood Count 4.06 M/mm3 (4.6-6.2); White Blood Count 7.1 K/mm3 (4.4-11.0)
[2025-01-09 14:36] LABS: Anion Gap 11 (5-15); BUN 31 mg/dL (4-19); BUN/Creat Ratio 24.9 RATIO (10-20); Calcium 10.4 mg/dL (7.6-11.0); Calcium,Total 10.4 mg/dL (7.6-11.0); Chloride 107 mmol/L (98-108); Creatinine, Serum 1.26 mg/dL (0.70-1.20); EST Glomerular Filtration Rate 62 (>60); Glucose 144 mg/dL (70-99); Magnesium 1.7 mg/dL (1.5-2.2); Potassium 5.3 mmol/L (3.3-5.1); Sodium Level 137 mmol/L (133-145)
[2025-01-09 19:28] LABS: Protein, Urine (Random) 51.2 mg/dL (0.0-12.0); Protein:Creat Ratio 430 mg/g CRE (0-200)
[2025-01-12 07:07] LABS: BK Virus Quant, PCR Negative (Negative)
== END 2025-01-09 18:00 | disposition home or self-care (01) ==
LOC: LAB 07:00
DX: Z94.0 Kidney transplant status (principal); Z48.298 Encounter for aftercare following other organ transplant; D84.9 Immunodeficiency, unspecified; Z79.60 Long term (current) use of unspecified immunomodulators and immunosuppressants; Z79.899 Other long term (current) drug therapy; R68.89 Other general symptoms and signs; R79.9 Abnormal finding of blood chemistry, unspecified; Z11.59 Encounter for screening for other viral diseases; Z91.89 Other specified personal risk factors, not elsewhere classified; Z51.81 Encounter for therapeutic drug level monitoring; E78.2 Mixed hyperlipidemia; D64.9 Anemia, unspecified; D72.9 Disorder of white blood cells, unspecified
CPT/HCPCS: 36415; 80048; 80197; 82310; 82570; 83735; 84100; 84156; 85025; 87799

== ENCOUNTER → 2025-02-01 | Outpatient (CLI) | payer MEDICARE, OTHER, SELFPAY ==
[2025-02-01 18:33] LABS: PSA,Total - Annual Screen 1.35 ng/mL (0.02-4.00)
== END | disposition home or self-care (01) ==
LOC: MFPLAB 14:45
DX: Z12.5 Encounter for screening for malignant neoplasm of prostate (principal)
CPT/HCPCS: 36415; 84153; G0103

== ENCOUNTER 2025-02-06 07:04 | Outpatient (RCR) | payer MEDICARE, OTHER, SELFPAY ==
[2025-01-23 08:44] LABS: Absolute Lymphocyte Count 1.85 X10^3/uL (0.83-4.51); Absolute Neutrophil Count 2.9 X10^3/uL (2.0-7.7); Basophil# 0.03 X10^3/uL; Basophil% 0.6 % (0-1); Eosinophil# 0.15 X10^3/uL; Eosinophils% 2.8 % (0-5); Hematocrit 39.5 % (40-54); Hemoglobin 12.4 g/dL (13.0-16.5); Lymphocyte # 1.85 X10^3/ul (0.83-4.51); Lymphocyte % 34.3 % (19-41); Mean Corp Hgb Conc 31.4 g/dL (32-36); Mean Corpuscular Hgb 29.7 pg (27.0-32.0); Mean Corpuscular Volume 94.7 fL (80-94); Mean Platelet Vol. 9.5 fl (6.2-12.0); Monocyte# 0.43 X10^3/uL; NRBC Flagged by Analyzer 0 % (0-5); Neutrophil # 2.92 X10^3/uL (2.7-7.7); Neutrophil % 54.1 % (47-70); Platelet Count 198 K/mm3 (150-450); RBC Distribution Width CV 14.2 % (11.6-14.6); RBC Distribution Width SD 49.2 fl (35.1-43.9); Red Blood Count 4.17 M/mm3 (4.6-6.2); White Blood Count 5.4 K/mm3 (4.4-11.0)
[2025-01-23 09:11] LABS: Anion Gap 9 (5-15); BUN 37 mg/dL (4-19); BUN/Creat Ratio 28.6 RATIO (10-20); Calcium,Total 10.4 mg/dL (7.6-11.0); Carbon Dioxide 19.2 mmol/L (21.0-32.0); Chloride 109 mmol/L (98-108); EST Glomerular Filtration Rate 59 (>60); Glucose 137 mg/dL (70-99); Potassium 5.9 mmol/L (3.3-5.1); Sodium Level 137 mmol/L (133-145)
[2025-01-25 06:08] LABS: Tacrolimus (FK506) 8.3 ng/mL (5.0-20.0)
[2025-01-31 10:04] LABS: Absolute Lymphocyte Count 1.51 X10^3/uL (0.83-4.51); Absolute Neutrophil Count 2.2 X10^3/uL (2.0-7.7); Basophil# 0.02 X10^3/uL; Basophil% 0.5 % (0-1); Eosinophils% 2.4 % (0-5); Hematocrit 37.3 % (40-54); Hemoglobin 11.6 g/dL (13.0-16.5); Lymphocyte # 1.51 X10^3/ul (0.83-4.51); Lymphocyte % 36.1 % (19-41); Mean Corp Hgb Conc 31.1 g/dL (32-36); Mean Corpuscular Hgb 29.4 pg (27.0-32.0); Mean Corpuscular Volume 94.4 fL (80-94); Mean Platelet Vol. 9.9 fl (6.2-12.0); Monocyte# 0.33 X10^3/uL; Monocyte% 7.9 % (0-10); NRBC Flagged by Analyzer 0 % (0-5); Neutrophil # 2.21 X10^3/uL (2.7-7.7); Neutrophil % 52.9 % (47-70); Platelet Count 184 K/mm3 (150-450); RBC Distribution Width CV 13.7 % (11.6-14.6); RBC Distribution Width SD 47.8 fl (35.1-43.9); Red Blood Count 3.95 M/mm3 (4.6-6.2); White Blood Count 4.2 K/mm3 (4.4-11.0)
[2025-01-31 10:49] LABS: Anion Gap 10 (5-15); BUN 46 mg/dL (4-19); Calcium,Total 10.9 mg/dL (7.6-11.0); Carbon Dioxide 14.5 mmol/L (21.0-32.0); Chloride 111 mmol/L (98-108); Creatinine, Serum 1.47 mg/dL (0.70-1.20); EST Glomerular Filtration Rate 51 (>60); Glucose 159 mg/dL (70-99); Potassium 5.9 mmol/L (3.3-5.1); Sodium Level 136 mmol/L (133-145)
[2025-02-02 17:08] LABS: Tacrolimus (FK506) 4.3 ng/mL (5.0-20.0)
[2025-02-06 07:40] LABS: Absolute Lymphocyte Count 1.71 X10^3/uL (0.83-4.51); Absolute Neutrophil Count 2.1 X10^3/uL (2.0-7.7); Basophil# 0.01 X10^3/uL; Basophil% 0.2 % (0-1); Eosinophils% 2.3 % (0-5); Hematocrit 38.4 % (40-54); Hemoglobin 11.8 g/dL (13.0-16.5); Lymphocyte # 1.71 X10^3/ul (0.83-4.51); Mean Corp Hgb Conc 30.7 g/dL (32-36); Mean Corpuscular Hgb 29.1 pg (27.0-32.0); Mean Corpuscular Volume 94.6 fL (80-94); Mean Platelet Vol. 9.3 fl (6.2-12.0); Monocyte# 0.31 X10^3/uL; Monocyte% 7.3 % (0-10); NRBC Flagged by Analyzer 0 % (0-5); Neutrophil # 2.13 X10^3/uL (2.7-7.7); Platelet Count 176 K/mm3 (150-450); RBC Distribution Width CV 13.5 % (11.6-14.6); RBC Distribution Width SD 46.9 fl (35.1-43.9); Red Blood Count 4.06 M/mm3 (4.6-6.2); White Blood Count 4.3 K/mm3 (4.4-11.0)
[2025-02-06 08:08] LABS: Protein, Urine (Random) 64.8 mg/dL (0.0-12.0); Protein:Creat Ratio 364 mg/g CRE (0-200)
[2025-02-06 08:10] LABS: Magnesium 1.5 mg/dL (1.5-2.2); Phosphorus 3.1 mg/dL (2.7-4.5)
[2025-02-06 08:15] LABS: Anion Gap 11 (5-15); BUN 37 mg/dL (4-19); BUN/Creat Ratio 21.3 RATIO (10-20); Calcium 10.5 mg/dL (7.6-11.0); Calcium,Total 10.5 mg/dL (7.6-11.0); Carbon Dioxide 17.5 mmol/L (21.0-32.0); Chloride 108 mmol/L (98-108); Creatinine, Serum 1.73 mg/dL (0.70-1.20); EST Glomerular Filtration Rate 42 (>60); Glucose 152 mg/dL (70-99); Potassium 4.8 mmol/L (3.3-5.1); Sodium Level 137 mmol/L (133-145)
[2025-02-08 18:08] LABS: BK Virus Quant, PCR 55 IU/mL (Negative); Tacrolimus (FK506) 9.4 ng/mL (5.0-20.0)
== END 2025-02-15 18:00 | disposition home or self-care (01) ==
LOC: LAB 07:04
DX: Z94.0 Kidney transplant status (principal); R79.9 Abnormal finding of blood chemistry, unspecified; D84.9 Immunodeficiency, unspecified; Z48.298 Encounter for aftercare following other organ transplant; Z79.899 Other long term (current) drug therapy; Z11.59 Encounter for screening for other viral diseases; Z79.60 Long term (current) use of unspecified immunomodulators and immunosuppressants; R68.89 Other general symptoms and signs; Z91.89 Other specified personal risk factors, not elsewhere classified; Z51.81 Encounter for therapeutic drug level monitoring
CPT/HCPCS: 36415; 80048; 80197; 82310; 82570; 83735; 84100; 84156; 85025; 87799

== ENCOUNTER 2025-03-06 06:56 | Outpatient (RCR) | payer MEDICARE, OTHER, SELFPAY ==
[2025-02-20 09:04] LABS: Absolute Lymphocyte Count 1.47 X10^3/uL (0.83-4.51); Absolute Neutrophil Count 2.2 X10^3/uL (2.0-7.7); Basophil# 0.03 X10^3/uL; Basophil% 0.7 % (0-1); Eosinophil# 0.07 X10^3/uL; Eosinophils% 1.7 % (0-5); Hematocrit 35.3 % (40-54); Lymphocyte # 1.47 X10^3/ul (0.83-4.51); Lymphocyte % 34.9 % (19-41); Mean Corp Hgb Conc 31.2 g/dL (32-36); Mean Corpuscular Hgb 29.3 pg (27.0-32.0); Mean Corpuscular Volume 93.9 fL (80-94); Mean Platelet Vol. 9.3 fl (6.2-12.0); Monocyte# 0.46 X10^3/uL; Monocyte% 10.9 % (0-10); NRBC Flagged by Analyzer 0 % (0-5); Neutrophil # 2.17 X10^3/uL (2.7-7.7); Neutrophil % 51.6 % (47-70); Platelet Count 223 K/mm3 (150-450); RBC Distribution Width CV 13.3 % (11.6-14.6); RBC Distribution Width SD 45.9 fl (35.1-43.9); Red Blood Count 3.76 M/mm3 (4.6-6.2); White Blood Count 4.2 K/mm3 (4.4-11.0)
[2025-02-20 10:01] LABS: Potassium 4.5 mmol/L (3.3-5.1)
[2025-02-20 10:09] LABS: Protein, Urine (Random) 53.7 mg/dL (0.0-12.0); Protein:Creat Ratio 502 mg/g CRE (0-200)
[2025-02-20 10:10] LABS: Anion Gap 12 (5-15); BUN 31 mg/dL (4-19); BUN/Creat Ratio 25.4 RATIO (10-20); Calcium 9.9 mg/dL (7.6-11.0); Calcium,Total 9.9 mg/dL (7.6-11.0); Carbon Dioxide 20.6 mmol/L (21.0-32.0); Chloride 103 mmol/L (98-108); EST Glomerular Filtration Rate 65 (>60); Glucose 129 mg/dL (70-99); Potassium 4.4 mmol/L (3.3-5.1); Sodium Level 136 mmol/L (133-145)
[2025-02-20 10:15] LABS: Magnesium 1.6 mg/dL (1.5-2.2); Phosphorus 3.2 mg/dL (2.7-4.5)
[2025-02-23 22:06] LABS: BK Virus Quant, PCR 276 IU/mL (Negative); BK Virus log10, DNA 2.441 (.)
[2025-03-06 07:46] LABS: Absolute Lymphocyte Count 1.77 X10^3/uL (0.83-4.51); Absolute Neutrophil Count 2.5 X10^3/uL (2.0-7.7); Basophil# 0.02 X10^3/uL; Basophil% 0.4 % (0-1); Eosinophil# 0.06 X10^3/uL; Eosinophils% 1.3 % (0-5); Hematocrit 35.8 % (40-54); Hemoglobin 11.1 g/dL (13.0-16.5); Lymphocyte # 1.77 X10^3/ul (0.83-4.51); Mean Corpuscular Hgb 29.6 pg (27.0-32.0); Mean Corpuscular Volume 95.5 fL (80-94); Mean Platelet Vol. 9.9 fl (6.2-12.0); Monocyte# 0.46 X10^3/uL; Monocyte% 9.6 % (0-10); NRBC Flagged by Analyzer 0 % (0-5); Neutrophil # 2.45 X10^3/uL (2.7-7.7); Neutrophil % 51.1 % (47-70); Platelet Count 203 K/mm3 (150-450); RBC Distribution Width CV 13.2 % (11.6-14.6); RBC Distribution Width SD 46.7 fl (35.1-43.9); Red Blood Count 3.75 M/mm3 (4.6-6.2); White Blood Count 4.8 K/mm3 (4.4-11.0)
[2025-03-06 08:14] LABS: Protein, Urine (Random) 46.8 mg/dL (0.0-12.0); Protein:Creat Ratio 600 mg/g CRE (0-200)
[2025-03-06 08:16] LABS: Anion Gap 11 (5-15); BUN 32 mg/dL (4-19); BUN/Creat Ratio 29.1 RATIO (10-20); Calcium 9.9 mg/dL (7.6-11.0); Calcium,Total 9.9 mg/dL (7.6-11.0); Carbon Dioxide 20.9 mmol/L (21.0-32.0); Chloride 105 mmol/L (98-108); EST Glomerular Filtration Rate 73 (>60); Glucose 146 mg/dL (70-99); Magnesium 1.7 mg/dL (1.5-2.2); Phosphorus 2.7 mg/dL (2.7-4.5); Potassium 4.7 mmol/L (3.3-5.1); Sodium Level 136 mmol/L (133-145)
[2025-03-08 09:08] LABS: BK Virus Quant, PCR 633 IU/mL (Negative); BK Virus log10, DNA 2.801 (.); Tacrolimus (FK506) 5.1 ng/mL (5.0-20.0)
== END 2025-03-06 18:00 | disposition home or self-care (01) ==
LOC: LAB 06:56
PROVIDERS: Family Medicine
DX: Z94.0 Kidney transplant status (principal); R79.9 Abnormal finding of blood chemistry, unspecified; D84.9 Immunodeficiency, unspecified; Z48.298 Encounter for aftercare following other organ transplant; Z79.899 Other long term (current) drug therapy; Z11.59 Encounter for screening for other viral diseases; Z79.60 Long term (current) use of unspecified immunomodulators and immunosuppressants; R68.89 Other general symptoms and signs; Z91.89 Other specified personal risk factors, not elsewhere classified; Z51.81 Encounter for therapeutic drug level monitoring; B34.9 Viral infection, unspecified; E87.5 Hyperkalemia
CPT/HCPCS: 36415; 80048; 80197; 82310; 82570; 83735; 84100; 84132; 84156; 85025; 87799

== ENCOUNTER → 2025-03-29 | Outpatient (CLI) | payer MEDICARE, OTHER, SELFPAY ==
--- NOTE | 2025-03-29 14:11 | RAD_ITS ---
PROCEDURE: LUMBAR SPINE 2 OR 3 VIEWS 03/29/2025 REASON FOR EXAM: PAIN, SURGERY 12 YRS AGO TECHNIQUE: 2 view(s) of the lumbar spine COMPARISON: None. FINDINGS: Grade 1 anterolisthesis of L4 on L5. Unremarkable lumbar fusion metallic hardware at L4, L5, S1 and S2 levels. Mild levoscoliosis apex at L3. Unremarkable metallic prosthesis of the hips. Calcified atheromatous plaques are noted. Straightening of the lumbar lordosis, probably muscular spasm and pain. There are diffuse spondylotic changes. Findings are demonstrated to by diffuse disc space narrowing, osteophyte formation and degenerative endplate sclerosis. There is diffuse facet joint arthropathy with secondary bilateral neural foramina narrowing. No fracture or dislocation is seen. No aggressive lytic or blastic bony lesion is noted. RAD/Lumbar Spine 2 or 3 Views IMPRESSION: Moderate spondylosis. [facility]
== END | disposition home or self-care (01) ==
LOC: MTRAD 14:10
PROVIDERS: Referring Provider Anesthesiology Pain Medicine; Visit Provider Anesthesiology Pain Medicine
DX: M96.1 Postlaminectomy syndrome, not elsewhere classified (principal)
CPT/HCPCS: 72100

== ENCOUNTER 2025-04-17 07:19 | Outpatient (RCR) | payer MEDICARE, OTHER, SELFPAY ==
[2025-03-20 07:57] LABS: Absolute Lymphocyte Count 1.97 X10^3/uL (0.83-4.51); Absolute Neutrophil Count 2.3 X10^3/uL (2.0-7.7); Basophil# 0.02 X10^3/uL; Basophil% 0.4 % (0-1); Eosinophil# 0.09 X10^3/uL; Eosinophils% 1.9 % (0-5); Hematocrit 36.3 % (40-54); Hemoglobin 11.1 g/dL (13.0-16.5); Lymphocyte # 1.97 X10^3/ul (0.83-4.51); Lymphocyte % 40.6 % (19-41); Mean Corp Hgb Conc 30.6 g/dL (32-36); Mean Corpuscular Hgb 29.4 pg (27.0-32.0); Mean Platelet Vol. 10.2 fl (6.2-12.0); Monocyte# 0.41 X10^3/uL; Monocyte% 8.5 % (0-10); NRBC Flagged by Analyzer 0 % (0-5); Neutrophil # 2.33 X10^3/uL (2.7-7.7); Platelet Count 185 K/mm3 (150-450); RBC Distribution Width CV 13.3 % (11.6-14.6); RBC Distribution Width SD 47.2 fl (35.1-43.9); Red Blood Count 3.78 M/mm3 (4.6-6.2); White Blood Count 4.9 K/mm3 (4.4-11.0)
[2025-03-20 08:50] LABS: Anion Gap 11 (5-15); BUN 31 mg/dL (4-19); BUN/Creat Ratio 26.3 RATIO (10-20); Carbon Dioxide 21.8 mmol/L (21.0-32.0); Chloride 104 mmol/L (98-108); Creatinine, Serum 1.16 mg/dL (0.70-1.20); EST Glomerular Filtration Rate 68 (>60); Glucose 133 mg/dL (70-99); Potassium 4.9 mmol/L (3.3-5.1); Sodium Level 137 mmol/L (133-145)
[2025-03-23 22:07] LABS: Tacrolimus (FK506) 6.1 ng/mL (5.0-20.0)
[2025-04-03 07:56] LABS: Absolute Lymphocyte Count 1.83 X10^3/uL (0.83-4.51); Absolute Neutrophil Count 2.1 X10^3/uL (2.0-7.7); Basophil# 0.03 X10^3/uL; Basophil% 0.7 % (0-1); Eosinophil# 0.09 X10^3/uL; Hemoglobin 11.8 g/dL (13.0-16.5); Lymphocyte # 1.83 X10^3/ul (0.83-4.51); Lymphocyte % 41.6 % (19-41); Mean Corp Hgb Conc 31.1 g/dL (32-36); Mean Corpuscular Hgb 29.3 pg (27.0-32.0); Mean Corpuscular Volume 94.3 fL (80-94); Mean Platelet Vol. 9.4 fl (6.2-12.0); Monocyte# 0.38 X10^3/uL; Monocyte% 8.6 % (0-10); NRBC Flagged by Analyzer 0 % (0-5); Neutrophil # 2.06 X10^3/uL (2.7-7.7); Neutrophil % 46.9 % (47-70); Platelet Count 194 K/mm3 (150-450); RBC Distribution Width CV 13.1 % (11.6-14.6); Red Blood Count 4.03 M/mm3 (4.6-6.2); White Blood Count 4.4 K/mm3 (4.4-11.0)
[2025-04-03 08:11] LABS: Protein, Urine (Random) 54.3 mg/dL (0.0-12.0); Protein:Creat Ratio 899 mg/g CRE (0-200)
[2025-04-03 08:36] LABS: Anion Gap 10 (5-15); BUN 35 mg/dL (4-19); BUN/Creat Ratio 28.6 RATIO (10-20); Calcium 10.2 mg/dL (7.6-11.0); Calcium,Total 10.2 mg/dL (7.6-11.0); Chloride 108 mmol/L (98-108); Creatinine, Serum 1.22 mg/dL (0.70-1.20); EST Glomerular Filtration Rate 64 (>60); Glucose 123 mg/dL (70-99); Magnesium 1.8 mg/dL (1.5-2.2); Phosphorus 3.1 mg/dL (2.7-4.5); Potassium 5.5 mmol/L (3.3-5.1); Sodium Level 138 mmol/L (133-145)
[2025-04-05 13:08] LABS: BK Virus Quant, PCR 466 IU/mL (Negative); BK Virus log10, DNA 2.668 (.)
[2025-04-07 00:07] LABS: Tacrolimus (FK506) 6.6 ng/mL (5.0-20.0)
[2025-04-17 07:49] LABS: Absolute Lymphocyte Count 2.95 X10^3/uL (0.83-4.51); Basophil# 0.03 X10^3/uL; Basophil% 0.5 % (0-1); Eosinophil# 0.09 X10^3/uL; Eosinophils% 1.6 % (0-5); Hematocrit 40.5 % (40-54); Hemoglobin 12.7 g/dL (13.0-16.5); Lymphocyte # 2.95 X10^3/ul (0.83-4.51); Lymphocyte % 53.6 % (19-41); Mean Corp Hgb Conc 31.4 g/dL (32-36); Mean Corpuscular Hgb 29.5 pg (27.0-32.0); Mean Platelet Vol. 9.8 fl (6.2-12.0); Monocyte# 0.39 X10^3/uL; Monocyte% 7.1 % (0-10); NRBC Flagged by Analyzer 0 % (0-5); Neutrophil # 2.03 X10^3/uL (2.7-7.7); Platelet Count 197 K/mm3 (150-450); RBC Distribution Width CV 12.9 % (11.6-14.6); RBC Distribution Width SD 44.6 fl (35.1-43.9); Red Blood Count 4.31 M/mm3 (4.6-6.2); White Blood Count 5.5 K/mm3 (4.4-11.0)
[2025-04-17 08:27] LABS: Anion Gap 10 (5-15); BUN 35 mg/dL (4-19); BUN/Creat Ratio 24.9 RATIO (10-20); Calcium,Total 10.6 mg/dL (7.6-11.0); Carbon Dioxide 17.2 mmol/L (21.0-32.0); Chloride 108 mmol/L (98-108); Creatinine, Serum 1.41 mg/dL (0.70-1.20); EST Glomerular Filtration Rate 54 (>60); Glucose 132 mg/dL (70-99); Potassium 5.4 mmol/L (3.3-5.1); Sodium Level 135 mmol/L (133-145)
[2025-04-20 06:08] LABS: Tacrolimus (FK506) 7.5 ng/mL (5.0-20.0)
== END 2025-04-17 18:00 | disposition home or self-care (01) ==
LOC: LAB 07:19
DX: Z48.298 Encounter for aftercare following other organ transplant; D84.9 Immunodeficiency, unspecified; Z79.60 Long term (current) use of unspecified immunomodulators and immunosuppressants; Z79.899 Other long term (current) drug therapy; R68.89 Other general symptoms and signs; R79.9 Abnormal finding of blood chemistry, unspecified; Z11.59 Encounter for screening for other viral diseases; Z91.89 Other specified personal risk factors, not elsewhere classified; Z51.81 Encounter for therapeutic drug level monitoring; Z94.0 Kidney transplant status
CPT/HCPCS: 36415; 80048; 80197; 82310; 82570; 83735; 84100; 84156; 85025; 87799

== ENCOUNTER 2025-05-15 07:34 | Outpatient (RCR) | payer MEDICARE, OTHER, SELFPAY ==
[2025-05-01 09:31] LABS: Anion Gap 8 (5-15); BUN 40 mg/dL (4-19); BUN/Creat Ratio 31.4 RATIO (10-20); Calcium 9.9 mg/dL (7.6-11.0); Calcium,Total 9.9 mg/dL (7.6-11.0); Carbon Dioxide 14.5 mmol/L (21.0-32.0); Chloride 111 mmol/L (98-108); Glucose 154 mg/dL (70-99); Magnesium 2.0 mg/dL (1.5-2.2); Potassium 5.6 mmol/L (3.3-5.1)
[2025-05-01 09:48] LABS: Creatinine, Urine (random) 90.10 mg/dL (39.00-259.00)
[2025-05-01 09:51] LABS: Protein, Urine (Random) 65.6 mg/dL (0.0-12.0); Protein:Creat Ratio 728 mg/g CRE (0-200)
[2025-05-01 11:56] LABS: Hematocrit 39.9 % (40-54); Hemoglobin 12.4 g/dL (13.0-16.5); Immature Granulocytes Count 0.010 X10^3/uL (0.0-0.0); Mean Corp Hgb Conc 31.1 g/dL (32-36); Mean Corpuscular Volume 94.3 fL (80-94); Mean Platelet Vol. 10.2 fl (6.2-12.0); NRBC Flagged by Analyzer 0 % (0-5); Platelet Count 202 K/mm3 (150-450); RBC Distribution Width CV 13.0 % (11.6-14.6); RBC Distribution Width SD 44.9 fl (35.1-43.9); Red Blood Count 4.23 M/mm3 (4.6-6.2); White Blood Count 5.0 K/mm3 (4.4-11.0)
[2025-05-04 18:08] LABS: BK Virus Quant, PCR 191 IU/mL (Negative); BK Virus log10, DNA 2.281 (.)
[2025-05-15 08:32] LABS: Hematocrit 38.5 % (40-54); Hemoglobin 11.9 g/dL (13.0-16.5); Immature Granulocytes Count 0.030 X10^3/uL (0.0-0.0); Mean Corp Hgb Conc 30.9 g/dL (32-36); Mean Corpuscular Volume 92.8 fL (80-94); Mean Platelet Vol. 9.7 fl (6.2-12.0); NRBC Flagged by Analyzer 0 % (0-5); Platelet Count 209 K/mm3 (150-450); RBC Distribution Width CV 13.2 % (11.6-14.6); RBC Distribution Width SD 45.1 fl (35.1-43.9); Red Blood Count 4.15 M/mm3 (4.6-6.2); White Blood Count 5.8 K/mm3 (4.4-11.0)
[2025-05-15 09:01] LABS: Anion Gap 11 (5-15); BUN 44 mg/dL (4-19); BUN/Creat Ratio 30.6 RATIO (10-20); Calcium,Total 10.4 mg/dL (7.6-11.0); Carbon Dioxide 14.0 mmol/L (21.0-32.0); Chloride 111 mmol/L (98-108); Glucose 112 mg/dL (70-99); Potassium 5.8 mmol/L (3.3-5.1)
== END 2025-05-18 20:48 | disposition home or self-care (01) ==
LOC: LAB 07:34
DX: Z94.0 Kidney transplant status; Z48.298 Encounter for aftercare following other organ transplant; D64.9 Anemia, unspecified; Z79.60 Long term (current) use of unspecified immunomodulators and immunosuppressants; Z79.899 Other long term (current) drug therapy; R68.89 Other general symptoms and signs; R79.9 Abnormal finding of blood chemistry, unspecified; Z11.59 Encounter for screening for other viral diseases; Z91.89 Other specified personal risk factors, not elsewhere classified; Z51.81 Encounter for therapeutic drug level monitoring
CPT/HCPCS: 36415; 80048; 80197; 82310; 82570; 83735; 84100; 84156; 85025; 87799

== ENCOUNTER → 2025-06-08 | Outpatient (CLI) | payer MEDICARE, OTHER, SELFPAY ==
[2025-06-08 12:19] LABS: Barbiturate Urine NEGATIVE (< 200 ng/mL); Benzodiazepine Urine NEGATIVE (< 200 ng/mL); PCP Urine NEGATIVE (< 25 ng/mL); THC Urine NEGATIVE (< 50 ng/mL)
== END | disposition home or self-care (01) ==
LOC: LAB 10:59
PROVIDERS: PCP Family Medicine; Referring Provider Anesthesiology Pain Medicine; Visit Provider Anesthesiology Pain Medicine
DX: F11.20 Opioid dependence, uncomplicated (principal)
CPT/HCPCS: 80307

== ENCOUNTER 2025-06-12 07:28 | Outpatient (RCR) | payer MEDICARE, OTHER, SELFPAY ==
[2025-05-29 07:57] LABS: Hematocrit 39.1 % (40-54); Hemoglobin 12.3 g/dL (13.0-16.5); Immature Granulocytes Count 0.050 X10^3/uL (0.0-0.0); Mean Corp Hgb Conc 31.5 g/dL (32-36); Mean Corpuscular Volume 92.2 fL (80-94); Mean Platelet Vol. 9.8 fl (6.2-12.0); NRBC Flagged by Analyzer 0 % (0-5); Platelet Count 210 K/mm3 (150-450); RBC Distribution Width CV 13.6 % (11.6-14.6); RBC Distribution Width SD 45.8 fl (35.1-43.9); Red Blood Count 4.24 M/mm3 (4.6-6.2); White Blood Count 7.0 K/mm3 (4.4-11.0)
[2025-05-29 08:42] LABS: Creatinine, Urine (random) 107.00 mg/dL (39.00-259.00); Protein, Urine (Random) 62.7 mg/dL (0.0-12.0); Protein:Creat Ratio 586 mg/g CRE (0-200)
[2025-05-29 08:44] LABS: Anion Gap 11 (5-15); BUN 56 mg/dL (4-19); BUN/Creat Ratio 36.6 RATIO (10-20); Calcium 10.5 mg/dL (7.6-11.0); Calcium,Total 10.5 mg/dL (7.6-11.0); Carbon Dioxide 15.6 mmol/L (21.0-32.0); Chloride 111 mmol/L (98-108); Glucose 124 mg/dL (70-99); Magnesium 2.1 mg/dL (1.5-2.2); Potassium 5.6 mmol/L (3.3-5.1)
[2025-06-01 05:07] LABS: BK Virus Quant, PCR 68 IU/mL (Negative); BK Virus log10, DNA 1.833 (.)
[2025-06-12 07:42] LABS: Hematocrit 36.5 % (40-54); Hemoglobin 11.1 g/dL (13.0-16.5); Immature Granulocytes Count 0.250 X10^3/uL (0.0-0.0); Mean Corp Hgb Conc 30.4 g/dL (32-36); Mean Corpuscular Volume 94.8 fL (80-94); Mean Platelet Vol. 9.7 fl (6.2-12.0); NRBC Flagged by Analyzer 0 % (0-5); Platelet Count 199 K/mm3 (150-450); RBC Distribution Width CV 13.6 % (11.6-14.6); RBC Distribution Width SD 47.3 fl (35.1-43.9); Red Blood Count 3.85 M/mm3 (4.6-6.2); White Blood Count 5.8 K/mm3 (4.4-11.0)
[2025-06-12 08:58] LABS: Anion Gap 10 (5-15); BUN 43 mg/dL (4-19); BUN/Creat Ratio 30.9 RATIO (10-20); Calcium,Total 10.1 mg/dL (7.6-11.0); Carbon Dioxide 17.1 mmol/L (21.0-32.0); Chloride 112 mmol/L (98-108); Glucose 128 mg/dL (70-99); Potassium 6.1 mmol/L (3.3-5.1)
== END 2025-06-12 18:00 | disposition home or self-care (01) ==
LOC: LAB 07:28
DX: Z94.0 Kidney transplant status; Z48.298 Encounter for aftercare following other organ transplant; D84.9 Immunodeficiency, unspecified; Z79.60 Long term (current) use of unspecified immunomodulators and immunosuppressants; Z79.899 Other long term (current) drug therapy; R68.89 Other general symptoms and signs; R79.9 Abnormal finding of blood chemistry, unspecified; Z11.59 Encounter for screening for other viral diseases; Z91.89 Other specified personal risk factors, not elsewhere classified; Z51.81 Encounter for therapeutic drug level monitoring; B34.9 Viral infection, unspecified
CPT/HCPCS: 36415; 80048; 80197; 82310; 82570; 83735; 84100; 84156; 85025; 87799

== ENCOUNTER 2025-06-26 07:06 | Outpatient (RCR) | payer MEDICARE, OTHER, SELFPAY ==
[2025-06-26 08:09] LABS: Hematocrit 36.8 % (40-54); Hemoglobin 11.4 g/dL (13.0-16.5); Immature Granulocytes Count 0.180 X10^3/uL (0.0-0.0); Mean Corp Hgb Conc 31.0 g/dL (32-36); Mean Corpuscular Volume 92.5 fL (80-94); Mean Platelet Vol. 9.9 fl (6.2-12.0); NRBC Flagged by Analyzer 0 % (0-5); Platelet Count 200 K/mm3 (150-450); RBC Distribution Width CV 13.8 % (11.6-14.6); RBC Distribution Width SD 46.5 fl (35.1-43.9); Red Blood Count 3.98 M/mm3 (4.6-6.2); White Blood Count 3.7 K/mm3 (4.4-11.0)
[2025-06-26 09:17] LABS: Creatinine, Urine (random) 74.50 mg/dL (39.00-259.00); Protein, Urine (Random) 55.1 mg/dL (0.0-12.0); Protein:Creat Ratio 740 mg/g CRE (0-200)
[2025-06-26 09:18] LABS: PTHIN 135 pg/mL (11-61)
[2025-06-26 09:26] LABS: Iron Binding Capacity,Total 254 ug/dL (250-450)
[2025-06-26 09:29] LABS: AST(SGOT) 19 U/L (<=37); Alanine Aminotransfer ALT/SGPT 19 U/L (<=46); Albumin, Serum 3.9 g/dL (3.4-4.8); Alkaline Phosphatase 110 U/L (40-129); Anion Gap 8 (5-15); BUN 41 mg/dL (4-19); BUN/Creat Ratio 29.0 RATIO (10-20); Calcium 10.0 mg/dL (7.6-11.0); Calcium,Total 10.0 mg/dL (7.6-11.0); Carbon Dioxide 16.4 mmol/L (21.0-32.0); Chloride 111 mmol/L (98-108); Cholesterol 111 mg/dL (<=200); Ferritin 494 ng/mL (37-417); Globulin 3.2 g/dL (2.2-4.2); Glucose 129 mg/dL (70-99); Iron 108 ug/dL (65-175); Iron Binding Capacity,Unsat 146 ug/dL (228-428); Low Density Lipoprotein Calc. 53 mg/dL; Magnesium 1.9 mg/dL (1.5-2.2); Potassium 5.6 mmol/L (3.3-5.1); Triglycerides 119 mg/dL; Uric Acid 6.6 mg/dL (3.5-7.2); Very Low Density Lipoprotein 24 mg/dL (5-40); cholesterol:hdl ratio screen 3.20
[2025-06-29 12:08] LABS: BK Virus Quant, PCR 168 IU/mL (Negative); BK Virus log10, DNA 2.225 (.); Transferrin 221 mg/dL (177-329)
== END 2025-07-18 18:00 | disposition home or self-care (01) ==
LOC: LAB 07:06
PROVIDERS: PCP Family Medicine
DX: E87.5 Hyperkalemia (principal); Z94.0 Kidney transplant status; Z48.298 Encounter for aftercare following other organ transplant; D84.9 Immunodeficiency, unspecified; Z79.60 Long term (current) use of unspecified immunomodulators and immunosuppressants; Z79.899 Other long term (current) drug therapy; R68.89 Other general symptoms and signs; R79.9 Abnormal finding of blood chemistry, unspecified; Z11.59 Encounter for screening for other viral diseases; Z91.89 Other specified personal risk factors, not elsewhere classified; Z51.81 Encounter for therapeutic drug level monitoring; B34.9 Viral infection, unspecified; E78.2 Mixed hyperlipidemia
CPT/HCPCS: 36415; 80053; 80061; 80197; 82310; 82570; 82728; 83036; 83540; 83550; 83735; 83970; 84100; 84156; 84466; 84550; 85025; 87799

== ENCOUNTER 2025-07-24 07:05 | Outpatient (RCR) | payer MEDICARE, OTHER, SELFPAY ==
[2025-07-24 07:29] LABS: Differential Indicated MANUAL DIFF; Hematocrit 36.4 % (40-54); Hemoglobin 11.4 g/dL (13.0-16.5); Mean Corp Hgb Conc 31.3 g/dL (32-36); Mean Corpuscular Volume 91.2 fL (80-94); Mean Platelet Vol. 9.5 fl (6.2-12.0); POSITIVE COUNT YES; POSITIVE MORPHOLOGY YES; Platelet Count 234 K/mm3 (150-450); RBC Distribution Width CV 14.3 % (11.6-14.6); RBC Distribution Width SD 48.2 fl (35.1-43.9); Red Blood Count 3.99 M/mm3 (4.6-6.2); White Blood Count 5.9 K/mm3 (4.4-11.0)
[2025-07-24 08:10] LABS: Neutrophil-Band 1 % (0-5); Neutrophil-Segmented 30 % (47-70); Red Cell Morphology NORM C+C NORMAL (NORM C&C); Total Cells Counted 100 (MANUAL DIFF)
[2025-07-24 08:19] LABS: Anion Gap 13 (5-15); BUN 56 mg/dL (4-19); BUN/Creat Ratio 25.8 RATIO (10-20); Calcium,Total 10.2 mg/dL (7.6-11.0); Carbon Dioxide 13.3 mmol/L (21.0-32.0); Chloride 110 mmol/L (98-108); Glucose 159 mg/dL (70-99); Potassium 5.0 mmol/L (3.3-5.1)
== END 2025-07-24 18:00 | disposition home or self-care (01) ==
LOC: LAB 07:05
PROVIDERS: PCP Family Medicine
DX: Z94.0 Kidney transplant status; D84.9 Immunodeficiency, unspecified; R79.9 Abnormal finding of blood chemistry, unspecified; Z11.59 Encounter for screening for other viral diseases; E78.2 Mixed hyperlipidemia; Z79.60 Long term (current) use of unspecified immunomodulators and immunosuppressants; Z48.298 Encounter for aftercare following other organ transplant; Z79.899 Other long term (current) drug therapy; R68.89 Other general symptoms and signs; B34.9 Viral infection, unspecified
CPT/HCPCS: 36415; 80048; 80197; 85025

== ENCOUNTER → 2025-08-03 | Outpatient (CLI) | payer MEDICARE, OTHER, SELFPAY ==
[2025-08-03 13:47] LABS: Barbiturate Urine NEGATIVE (< 200 ng/mL); Benzodiazepine Urine NEGATIVE (< 200 ng/mL); PCP Urine NEGATIVE (< 25 ng/mL); THC Urine NEGATIVE (< 50 ng/mL)
== END | disposition home or self-care (01) ==
PROVIDERS: PCP Family Medicine; Referring Provider Anesthesiology Pain Medicine; Visit Provider Anesthesiology Pain Medicine
DX: F11.20 Opioid dependence, uncomplicated (principal)
CPT/HCPCS: 80307

== ENCOUNTER 2025-08-21 06:59 | Outpatient (RCR) | payer MEDICARE, OTHER, SELFPAY ==
[2025-08-21 07:38] LABS: Hematocrit 32.5 % (40-54); Hemoglobin 10.0 g/dL (13.0-16.5); Mean Corp Hgb Conc 30.8 g/dL (32-36); Mean Corpuscular Volume 93.4 fL (80-94); Mean Platelet Vol. 9.7 fl (6.2-12.0); POSITIVE COUNT YES; POSITIVE MORPHOLOGY YES; Platelet Count 241 K/mm3 (150-450); RBC Distribution Width CV 13.8 % (11.6-14.6); RBC Distribution Width SD 46.8 fl (35.1-43.9); Red Blood Count 3.48 M/mm3 (4.6-6.2); White Blood Count 4.0 K/mm3 (4.4-11.0)
[2025-08-21 07:39] LABS: Differential Indicated MANUAL DIFF
[2025-08-21 08:39] LABS: Anion Gap 10 (5-15); BUN 50 mg/dL (4-19); BUN/Creat Ratio 29.2 RATIO (10-20); Calcium,Total 9.7 mg/dL (7.6-11.0); Carbon Dioxide 16.2 mmol/L (21.0-32.0); Chloride 111 mmol/L (98-108); Glucose 137 mg/dL (70-99); Potassium 5.0 mmol/L (3.3-5.1)
[2025-08-21 09:08] LABS: Neutrophil-Band 6 % (0-5); Neutrophil-Segmented 18 % (47-70); Total Cells Counted 100 (MANUAL DIFF)
[2025-08-21 09:09] LABS: Red Cell Morphology NORM C+C NORMAL (NORM C&C)
== END 2025-09-16 18:00 | disposition home or self-care (01) ==
LOC: LAB 06:59
PROVIDERS: PCP Family Medicine
DX: Z94.0 Kidney transplant status (principal); Z11.59 Encounter for screening for other viral diseases; D84.9 Immunodeficiency, unspecified; R79.9 Abnormal finding of blood chemistry, unspecified; E78.2 Mixed hyperlipidemia; Z79.60 Long term (current) use of unspecified immunomodulators and immunosuppressants; Z48.298 Encounter for aftercare following other organ transplant; Z79.899 Other long term (current) drug therapy; R68.89 Other general symptoms and signs; B34.9 Viral infection, unspecified
CPT/HCPCS: 36415; 80048; 80197; 85025

== ENCOUNTER 2025-10-16 08:06 | Outpatient (RCR) | payer MEDICARE, OTHER, SELFPAY ==
[2025-09-18 08:42] LABS: Hematocrit 36.0 % (40-54); Hemoglobin 10.7 g/dL (13.0-16.5); Mean Corp Hgb Conc 29.7 g/dL (32-36); Mean Corpuscular Volume 96.0 fL (80-94); Mean Platelet Vol. 10.1 fl (6.2-12.0); POSITIVE COUNT YES; POSITIVE MORPHOLOGY YES; Platelet Count 234 K/mm3 (150-450); RBC Distribution Width CV 13.7 % (11.6-14.6); RBC Distribution Width SD 48.3 fl (35.1-43.9); Red Blood Count 3.75 M/mm3 (4.6-6.2); White Blood Count 4.4 K/mm3 (4.4-11.0)
[2025-09-18 08:47] LABS: Differential Indicated MANUAL DIFF
[2025-09-18 09:10] LABS: AST(SGOT) 20 U/L (<=37); Alanine Aminotransfer ALT/SGPT 12 U/L (<=46); Albumin, Serum 4.1 g/dL (3.4-4.8); Alkaline Phosphatase 272 U/L (40-129); Anion Gap 12 (5-15); BUN 45 mg/dL (4-19); BUN/Creat Ratio 27.5 RATIO (10-20); Calcium,Total 9.9 mg/dL (7.6-11.0); Carbon Dioxide 14.1 mmol/L (21.0-32.0); Chloride 109 mmol/L (98-108); Globulin 3.4 g/dL (2.2-4.2); Glucose 150 mg/dL (70-99); Magnesium 2.0 mg/dL (1.5-2.2); Potassium 5.2 mmol/L (3.3-5.1)
[2025-09-18 09:19] LABS: Neutrophil-Band 2 % (0-5); Neutrophil-Segmented 36 % (47-70); Total Cells Counted 100 (MANUAL DIFF)
[2025-10-16 09:39] LABS: Hematocrit 32.9 % (40-54); Hemoglobin 9.9 g/dL (13.0-16.5); Mean Corp Hgb Conc 30.1 g/dL (32-36); Mean Corpuscular Volume 95.1 fL (80-94); Mean Platelet Vol. 9.8 fl (6.2-12.0); POSITIVE COUNT YES; POSITIVE MORPHOLOGY YES; Platelet Count 211 K/mm3 (150-450); RBC Distribution Width CV 13.3 % (11.6-14.6); RBC Distribution Width SD 46.0 fl (35.1-43.9); Red Blood Count 3.46 M/mm3 (4.6-6.2); White Blood Count 3.8 K/mm3 (4.4-11.0)
[2025-10-16 09:43] LABS: Differential Indicated MANUAL DIFF
[2025-10-16 09:59] LABS: Anion Gap 9 (7-18); BUN 36 mg/dL (4-19); BUN/Creat Ratio 21.9 RATIO (10-20); Calcium,Total 9.3 mg/dL (7.6-11.0); Carbon Dioxide 18.8 mmol/L (20.0-29.0); Chloride 108 mmol/L (96-106); Glucose 102 mg/dL (70-99); Potassium 5.4 mmol/L (3.5-5.1)
[2025-10-16 10:14] LABS: Neutrophil-Band 4 % (0-5); Neutrophil-Segmented 29 % (47-70); Total Cells Counted 100 (MANUAL DIFF)
== END 2025-10-16 18:00 | disposition home or self-care (01) ==
LOC: LAB 08:06
PROVIDERS: PCP Family Medicine
DX: Z94.0 Kidney transplant status (principal); Z79.60 Long term (current) use of unspecified immunomodulators and immunosuppressants; R79.9 Abnormal finding of blood chemistry, unspecified; D84.9 Immunodeficiency, unspecified; Z48.298 Encounter for aftercare following other organ transplant; Z79.899 Other long term (current) drug therapy; R68.89 Other general symptoms and signs; B34.9 Viral infection, unspecified; Z11.59 Encounter for screening for other viral diseases
CPT/HCPCS: 36415; 80048; 80053; 80197; 83735; 84100; 85025